=== PATIENT | female | born 1940 | race Caucasian/White ===

== ENCOUNTER 2016-04-11 14:48 | Inpatient (IN) | payer OTHER ==
[~2016-04-11] VITALS: Ht 172.7 cm; Wt 106.5 kg
[~2016-04-11 14:48] MED LIST: AMLO-110 PO; ASPEC81 PO; ATEN-173 PO; ATEN50TA8 PO; ATOR-24 PO; CITA10TA8 PO; FERR1TAB13 PO; LISI-725 PO; LISI10TA PO; LXT PO; PLV75 PO; VTMD PO
[2016-04-11] MEDS ORDERED: SODIUM CHLORIDE 0.9% 500ML 500 ML IV STA (15:05)
[2016-04-11] MEDS ORDERED: DILTIAZEM HCL 5 MG/ML 5 ML VIAL IV STA (15:05)
--- NOTE | 2016-04-11 15:05 | EMERGENCY ROOM VISIT NOTE ---
History Report prepared by Jayna: Meli Ndiaye Under the Supervision of: Dr. Chano Silva D.O. First contact with patient: 14:52 Chief Complaint: STROKE SYMPTOMS Stated Complaint: CALLED IN,HAS HEART MONITOR, DEFIB Nursing Triage Summary: pt has heart monitor on called and told to come to ed has new onset of afib. History of Present Illness The patient is a 75 year old female who presents to the Emergency Room with complaints of possible stroke symptoms. She is accompanied by her . She reports she had a stroke this past January and was given an event monitor this past Tuesday, 6 days ago. She was called by a nurse at the [facility] this morning and told that Dr. Nunn, [facility] , was notified she had gone into atrial fibrillation and should come immediately to the ED. She admits to some shortness of breath but states it has been chronic for the past few months. She denies any chest pain or pain or increased swelling in her legs. She denies any recent changes to her medications but notes she did start new medications after her stroke in January 2016. The patient has a history of stage 3 kidney disease but denies any personal history of cancer or other cardiac history. Source of History: patient Onset: [employer] Position: other Timing: other (persistent) Associated Symptoms: + SOB, No chest pain Review of Systems See HPI for pertinent positives & negatives. A total of 10 systems reviewed and were otherwise negative. Past Medical & Surgical Medical Problems: (1) Atrial fibrillation with RVR (2) CKD (chronic kidney disease) stage 3, GFR 30-59 ml/min (3) Depression (4) Dyslipidemia (5) History of CVA (cerebrovascular accident) (6) HTN (hypertension) (7) Osteoporosis (8) Vitamin D deficiency Surgical Problems: (1) H/O cataract removal with insertion of prosthetic lens (2) History of appendectomy (3) History of tonsillectomy (4) History of total hysterectomy Social History Smoking Status: Never Smoker Drug Use: none Marital Status: Housing Status: lives with significant other Occupation Status: unemployed Current/Historical Medications Scheduled Amlodipine (Norvasc), 5 MG PO DAILY Atenolol (Tenormin), 25 MG PO QPM Atenolol (Tenormin), 50 MG PO QAM Atorvastatin (Lipitor), 40 MG PO DAILY Citalopram Hydrobromide (Celexa), 1 TAB PO DAILY Clopidogrel Bisulfate (Clopidogrel), 75 MG PO DAILY Ergocalciferol (Vitamin D), 50,000 UNITS PO WK Fish Oil ([place]-3), 1 CAP PO DAILY Lisinopril (Prinivil), 10 MG PO QPM Lisinopril (Zestril), 20 MG PO QAM Allergies Coded Allergies: No Known Allergies (Verified , 04/11/16) Physical Exam Vital Signs Date Time Temp Pulse Resp B/P Pulse Ox O2 Delivery O2 Flow Rate FiO2 04/11/16 15:10 119 04/11/16 14:59 Room Air 04/11/16 14:52 36.5 99 18 156/96 95 Room Air Physical Exam GENERAL: Patient is awake and alert, mildly anxious but comfortable appearing. EYES: The conjunctivae are clear. The pupils are round and reactive. EARS, NOSE, MOUTH AND THROAT: The nose is without any evidence of any deformity. Mucous membranes are moist tongue is midline NECK: The neck is nontender and supple. RESPIRATORY: Lung sounds are diminished at both bases, no specific rales, rhonchi or wheezing. CARDIOVASCULAR: Heart sounds are tachycardic and irregular, no definite murmurs to auscultation. GASTROINTESTINAL: The abdomen is soft. Bowel sounds are present in all quadrants. Abdomen is nontender MUSCULOSKELETAL/EXTREMITIES: There is no evidence of gross deformity full range of motion is noted in the hips and shoulders, pedal edema noted bilaterally SKIN: There is no obvious evidence of any rash. There are no petechiae, pallor or cyanosis noted. NEUROLOGIC: Patient is awake alert and oriented x3 Medical Decision & Procedures ER Provider Diagnostic Interpretation: This X-Ray was reviewed and interpreted by myself and the radiologist. CHEST ONE VIEW PORTABLE IMPRESSION: Above findings consistent with cardiomegaly and developing pulmonary edema. Electronically signed by: Joss Alcazar M.D. 04/11/2016 4:21 PM Laboratory Results 04/11/16 15:08 Red Blood Count 4.59, Mean Corpuscular Volume 93.9, Mean Corpuscular Hemoglobin 32.0, Mean Corpuscular Hemoglobin Concent 34.1, Mean Platelet Volume 8.7, Neutrophils (%) (Auto) 58.7, Lymphocytes (%) (Auto) 30.8, Monocytes (%) (Auto) 6.8, Eosinophils (%) (Auto) 3.4, Basophils (%) (Auto) 0.2, Neutrophils # (Auto) 5.07, Lymphocytes # (Auto) 2.66, Monocytes # (Auto) 0.59, Eosinophils # (Auto) 0.29, Basophils # (Auto) 0.02 04/11/16 15:08 Test 04/11/16 15:08 White Blood Count 8.64 K/uL (4.8-10.8) Red Blood Count 4.59 M/uL (4.2-5.4) Hemoglobin 14.7 g/dL (12.0-16.0) Hematocrit 43.1 % (37-47) Mean Corpuscular Volume 93.9 fL (80-100) Mean Corpuscular Hemoglobin 32.0 pg (25-34) Mean Corpuscular Hemoglobin Concent 34.1 g/dl (32-36) Platelet Count 268 K/uL (130-400) Mean Platelet Volume 8.7 fL (7.4-10.4) Neutrophils (%) (Auto) 58.7 % Lymphocytes (%) (Auto) 30.8 % Monocytes (%) (Auto) 6.8 % Eosinophils (%) (Auto) 3.4 % Basophils (%) (Auto) 0.2 % Neutrophils # (Auto) 5.07 K/uL (1.4-6.5) Lymphocytes # (Auto) 2.66 K/uL (1.2-3.4) Monocytes # (Auto) 0.59 K/uL (0.11-0.59) Eosinophils # (Auto) 0.29 K/uL (0-0.5) Basophils # (Auto) 0.02 K/uL (0-0.2) RDW Standard Deviation 45.6 fL (36.4-46.3) RDW Coefficient of Variation 13.3 % (11.5-14.5) Immature Granulocyte % (Auto) 0.1 % Immature Granulocyte # (Auto) 0.01 K/uL (0.00-0.02) Prothrombin Time 10.5 SECONDS (9.0-12.0) Prothromb Time International Ratio 1.0 (0.9-1.1) Activated Partial Thromboplast Time 28.1 SECONDS (21.0-31.0) Partial Thromboplastin Ratio 1.1 Anion Gap 11.0 mmol/L (3-11) Est Creatinine Clear Calc Drug Dose 41.3 ml/min Estimated GFR () 39.1 Estimated GFR (Non- 33.7 BUN/Creatinine Ratio 22.6 (10-20) Calcium Level 9.0 mg/dl (8.5-10.1) Magnesium Level 2.2 mg/dl (1.8-2.4) Total Bilirubin 0.3 mg/dl (0.2-1) Direct Bilirubin < 0.1 mg/dl (0-0.2) Aspartate Amino Transf (AST/SGOT) 21 U/L (15-37) Alanine Aminotransferase (ALT/SGPT) 29 U/L (12-78) Alkaline Phosphatase 83 U/L (45-117) Total Creatine Kinase 105 U/L (26-192) Creatine Kinase MB 3.8 ng/ml (0.5-3.6) Creatine Kinase MB Ratio 3.6 (0-3.0) Troponin I < 0.015 ng/ml (0-0.045) Total Protein 8.2 gm/dl (6.4-8.2) Albumin 4.2 gm/dl (3.4-5.0) Lipase 490 U/L (73-393) Thyroid Stimulating Hormone (TSH) 5.080 uIu/ml (0.300-4.500) Free Thyroxine 0.85 ng/dl (0.80-1.60) Laboratory results per my review. Medications Administered Medications (Trade) Dose Ordered Sig/Venancio Route Start Time Stop Time Status Last Admin Dose Admin Sodium Chloride (Nss 500ml) 500 ml @ 999 mls/hr Q31M STAT IV 04/11/16 15:05 04/11/16 15:35 DC 04/11/16 15:31 999 MLS/HR Diltiazem HCl (Cardizem Inj) 20 mg NOW STAT IV 04/11/16 15:05 04/11/16 15:06 DC 04/11/16 15:33 20 MG Heparin Sodium (Porcine) (Heparin Sq 5000 Unit/0.5ml) 10,000 unit STK-MED ONCE .ROUTE 04/11/16 15:21 04/11/16 15:22 DC 04/11/16 15:32 6,000 UNIT Heparin Sodium/ Dextrose (Heparin 25,000 Unit/500ml D5W) 25,000 unit STK-MED ONCE .ROUTE 04/11/16 15:21 04/11/16 15:22 DC 04/11/16 15:32 25,000 UNIT ECG Indication: palpitations Rate (beats per minute): 114 Rhythm: atrial fibrillation Findings: RBBB, no ectopy Comparison ECG Date: Atrial fibrillation is new when compared to EKG from February 03, 2016 ED Course 1455: The patient was evaluated in room C12. A complete history and physical examination were performed. 1500: I discussed the patients case with Dr[facility] Hoang, [facility]. He recommends I administer Heparin and Cardizem. The patient will be further evaluated. 1505: Cardizem 20 mg IV, Heparin Sodium/Dextrose 1 ea IV, NSS 500 ml @ 999 mls/ hr IV. 1509: I discussed the patients case with Shanika Mackay PA-C, [facility] Hospitalist. The patient will be further evaluated. 1521: Heparin Sodium/Dextrose 25,000 unit IV, Porcine 10,000 unit IV. 1530: Heparin Sodium/Dextrose 1 ea IV. Medical Decision Prior records/ancillary studies reviewed. Triage Nursing notes reviewed. The patient's history was concerning for palpitations. Differential diagnosis: Etiologies such as premature contractions, electrolyte abnormality, cardiac dysrhythmia, thyroid dysfunction, pulmonary embolism, infection, gastrointestinal, as well as others were entertained. The patient is a 75-year-old female who presented to the emergency department for an evaluation of palpitations. 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 At that time she was not found have any dysrhythmia. She had some lesions noted in her carotids but nothing that would require intervention at this time. The patient had a monitor and was called today and told to come to the emergency department for atrial fibrillation. She arrived at the emergency apartment and was found to be in rapid atrial fibrillation. I discussed her case with the on-call [facility] cardiology group. They recommended that we start the patient on calcium channel cindi as well as IV heparin. I also discussed his case with the on-call [facility] hospitalist group. They have agreed to evaluate the patient in the emergency department for further management and disposition. Consults Time Called: [id number] Consulting Physician: Dr. Hoang [facility] Returned Call: 1500 I discussed the patients case with [facility]. He recommends I administer Heparin and Cardizem. The patient will be further evaluated. Additional Consults: Time Called: 1507 Consulted Physician: Shanika Mackay PA-C, [facility] Hospitalist Returned Call: [phone] Additional Comments: I discussed the patients case with Shanika Mackay PA-C, [facility] Hospitalist. The patient will be further evaluated. Impression Primary Impression: New onset atrial fibrillation Additional Impressions: Atrial fibrillation with RVR Dyspnea on exertion Critical Care I have personally spent greater than 45 minutes of critical care time in the direct management of this patient. This includes bedside care, interpretation of diagnostic studies, and testing, discussion with consultants, patient, and family members, and other required patient management activities. This 45 minutes is in excess of all separately billable procedures. Scribe Attestation The scribe's documentation has been prepared under my direction and personally reviewed by me in its entirety. I confirm that the note above accurately reflects all work, treatment, procedures, and medical decision making performed by me. Departure Information Dispostion Being Evaluated By Hospitalist Awais Dsouza M.D. (PCP) Patient Instructions [facility] Problem Qualifiers
[2016-04-11] MEDS ORDERED: HEPARIN SOD 5000 UNIT/0.5 ML CARP ONE (15:21)
[2016-04-11] MEDS ORDERED: HEPARIN 25000 UNIT/500 ML D5W ONE (15:21)
[2016-04-11 15:24] LABS: BASO % 0.2 %; BASO ABS # 0.02 K/uL (0-0.2); COMPLETE YES; EOS % 3.4 %; HEMATOCRIT 43.1 % (37-47); IG% 0.1 %; LYMPH % 30.8 %; LYMPH ABS # 2.66 K/uL (1.2-3.4); MEAN CELL VOLUME 93.9 fL (80-100); MEAN CORPUSCULAR HGB CONC 34.1 g/dl (32-36); MEAN PLATELET VOLUME 8.7 fL (7.4-10.4); MONO % 6.8 %; NEUT % 58.7 %; PLATELET COUNT 268 K/uL (130-400); RED BLOOD COUNT 4.59 M/uL (4.2-5.4); WHITE BLOOD COUNT 8.64 K/uL (4.8-10.8)
[2016-04-11 15:33] LABS: PARTIAL THROMBOPLASTIN RATIO 1.1; PROTHROMBIN TIME (PATIENT) 10.5 SECONDS (9.0-12.0)
[2016-04-11] MEDS ORDERED: OMEG10007 PO (15:42)
[2016-04-11 15:43] LABS: ALT/SGPT 29 U/L (12-78); AST/SGOT 21 U/L (15-37); BLOOD UREA NITROGEN 34 mg/dl (7-18); BUN/CREATININE RATIO 22.6 (10-20); CARBON DIOXIDE 23 mmol/L (21-32); CHLORIDE 106 mmol/L (98-107); GLUCOSE 87 mg/dl (70-99); MAGNESIUM 2.2 mg/dl (1.8-2.4); POTASSIUM 4.2 mmol/L (3.5-5.1); SODIUM 140 mmol/L (136-145)
[2016-04-11] MEDS: SODIUM CHLORIDE 0.9% 1000ML 1,000 ML IV SCH (15:45)
[2016-04-11] MEDS ORDERED: ONDANSETRON INJ 2 MG/ML 2 ML VIAL IV PRN (15:45)
[2016-04-11] MEDS ORDERED: NITROGLYCERIN 0.4 MG SL PER TAB CHARGE SL PRN (15:45)
[2016-04-11] MEDS ORDERED: ACETAMINOPHEN 325 MG TAB PO PRN (15:45)
[2016-04-11] MEDS ORDERED: DILTIAZEM BOLUS / DRIP IV STA (15:49)
[2016-04-11 15:52] LABS: ALKALINE PHOSPHATASE 83 U/L (45-117); CKMB/CK RATIO 3.6 (0-3.0)
[2016-04-11] MEDS ORDERED: DILTIAZEM HCL INJ 125 MG in DEXTROSE 5% 100ML IV PRN (16:00)
--- NOTE | 2016-04-11 16:22 | DIAGNOSTIC IMAGING REPORT ---
CHEST ONE VIEW PORTABLE HISTORY: palpitations COMPARISON: None. FINDINGS: There are low lung volumes. There is diffuse interstitial and vascular thickening suggestive of developing pulmonary edema. The heart is mildly enlarged. No pleural effusions. No pneumothorax. IMPRESSION: Above findings consistent with cardiomegaly and developing pulmonary edema. Electronically signed by: Joss Alcazar M.D. 04/11/2016 4:21 PM Dictated Date/Time: 04/11/2016 4:20 PM
--- NOTE | 2016-04-11 17:26 | History and Physical ---
History & Physical Date & Time of Service: Apr 11, 2016 at 17:07 Chief Complaint: Called In,Has Heart Monitor, Defib Primary Care Physician: Awais Pandya M.D. History of Present Illness Source: patient This is a 75 y/o female with PMHx of CKD stage 3, HTN, Dyslipidemia and other problems as outlined below who presents to the ED with Afib that began today. Pt reports that her neurologist, Dr. Charles placed her on a holter monitor 6 days ago to evaluate her heart for any arrhythmias that may have been the underlying cause for her CVA in January 2016. Pt reports that she received a call today from [employer] that her monitor was reading Afib and she was to go to the ED for further evaluation. Pt does mention that she has had some intermittent SOB that occurs at rest and with exertion. She SOB is assoc with mild lightheadedness/dizziness. Pt has also had watery but non-bloody diarrhea for the past couple days. Pt denies diaphoresis, chest pain, palpitations, syncope, abd pain, N/V, bladder issues, LE edema, calf pain. In the ED, pt is tachy on arrival. Pt is afebrile with no leukocytosis. creat 1.5. TSH>5. Pt is stable and will be admitted for further evaluation and treatment. Past Medical/Surgical History Medical Problems: (1) CKD (chronic kidney disease) stage 3, GFR 30-59 ml/min Status: Chronic (2) Depression Status: Chronic (3) Dyslipidemia Status: Chronic (4) History of CVA (cerebrovascular accident) Status: Resolved (5) HTN (hypertension) Status: Chronic (6) Osteoporosis Status: Chronic (7) Vitamin D deficiency Status: Chronic Surgical Problems: (1) H/O cataract removal with insertion of prosthetic lens Status: Resolved (2) History of appendectomy Status: Resolved (3) History of tonsillectomy Status: Resolved (4) History of total hysterectomy Status: Resolved Social History Smoking Status: Never Smoker Alcohol Use: none Drug Use: none Marital Status: Housing status: lives with significant other Occupational Status: unemployed Immunizations History of Influenza Vaccine: Yes History of Tetanus Vaccine?: No History of Pneumococcal: No History of Hepatitis B Vaccine: No Multi-Drug Resistant Organisms History of MDRO: No Allergies Coded Allergies: No Known Allergies (Verified , 04/11/16) Home Medications Scheduled Amlodipine (Norvasc), 5 MG PO DAILY Atenolol (Tenormin), 25 MG PO QPM Atenolol (Tenormin), 50 MG PO QAM Atorvastatin (Lipitor), 40 MG PO DAILY Citalopram Hydrobromide (Celexa), 1 TAB PO DAILY Clopidogrel Bisulfate (Clopidogrel), 75 MG PO DAILY Ergocalciferol (Vitamin D), 50,000 UNITS PO WK Fish Oil ([place]-3), 1 CAP PO DAILY Lisinopril (Prinivil), 10 MG PO QPM Lisinopril (Zestril), 20 MG PO QAM Review of Systems Constitutional: No chills, No fatigue, No fever, No sweats, No weakness Eyes: No worsening of vision ENT: No hearing loss Respiratory: + dyspnea at rest, + dyspnea on exertion, + shortness of breath ( intermittent ), No cough Cardiovascular: No chest pain, No claudication, No edema, No palpitations Abdomen: No GI bleeding, No constipation, No diarrhea, No nausea, No pain, No vomiting Musculoskeletal: No calf pain, No swelling Genitourinary - Female: No dysuria Neurologic: No weakness Psychiatric: No depression symptoms Endocrine: No fatigue Hematologic / Lymphatic: No abnormal bleeding/bruising Integumentary: No new/changing skin lesions Physical Exam Vital Signs Date Time Temp Pulse Resp B/P Pulse Ox O2 Delivery O2 Flow Rate FiO2 04/11/16 16:23 101 20 134/98 96 Room Air 04/11/16 15:44 98 20 119/70 96 Room Air 04/11/16 15:10 119 04/11/16 14:59 Room Air 04/11/16 14:52 36.5 99 18 156/96 95 Room Air General Appearance: WD/WN, no apparent distress, + pertinent finding (Pt is laying in bed with at bedside ) Head: normocephalic, atraumatic Eyes: normal inspection ENT: hearing grossly normal Neck: supple Respiratory/Chest: chest non-tender, lungs clear, normal breath sounds, no respiratory distress Cardiovascular: no edema, no murmur, + tachycardia, + irregularly irregular Abdomen/GI: normal bowel sounds, non tender, soft Back: normal inspection Extremities/Musculoskelatal: normal inspection, no calf tenderness, + swelling (bilat LE edema L>R) Neurologic/Psych: alert, normal mood/affect, oriented x 3 Skin: normal color, warm/dry Diagnostics Laboratory Results Results Past 24 Hours Test 04/11/16 15:08 Range/Units White Blood Count 8.64 4.8-10.8 K/uL Red Blood Count 4.59 4.2-5.4 M/uL Hemoglobin 14.7 12.0-16.0 g/dL Hematocrit 43.1 37-47 % Mean Corpuscular Volume 93.9 80-100 fL Mean Corpuscular Hemoglobin 32.0 25-34 pg Mean Corpuscular Hemoglobin Concent 34.1 32-36 g/dl Platelet Count 268 130-400 K/uL Mean Platelet Volume 8.7 7.4-10.4 fL Neutrophils (%) (Auto) 58.7 % Lymphocytes (%) (Auto) 30.8 % Monocytes (%) (Auto) 6.8 % Eosinophils (%) (Auto) 3.4 % Basophils (%) (Auto) 0.2 % Neutrophils # (Auto) 5.07 1.4-6.5 K/uL Lymphocytes # (Auto) 2.66 1.2-3.4 K/uL Monocytes # (Auto) 0.59 0.11-0.59 K/uL Eosinophils # (Auto) 0.29 0-0.5 K/uL Basophils # (Auto) 0.02 0-0.2 K/uL RDW Standard Deviation 45.6 36.4-46.3 fL RDW Coefficient of Variation 13.3 11.5-14.5 % Immature Granulocyte % (Auto) 0.1 % Immature Granulocyte # (Auto) 0.01 0.00-0.02 K/uL Prothrombin Time 10.5 9.0-12.0 SECONDS Prothromb Time International Ratio 1.0 0.9-1.1 Activated Partial Thromboplast Time 28.1 21.0-31.0 SECONDS Partial Thromboplastin Ratio 1.1 Sodium Level 140 136-145 mmol/L Potassium Level 4.2 3.5-5.1 mmol/L Chloride Level 106 98-107 mmol/L Carbon Dioxide Level 23 21-32 mmol/L Anion Gap 11.0 3-11 mmol/L Blood Urea Nitrogen 34 7-18 mg/dl Creatinine 1.50 0.60-1.20 mg/dl Est Creatinine Clear Calc Drug Dose 41.3 ml/min Estimated GFR () 39.1 Estimated GFR (Non- 33.7 BUN/Creatinine Ratio 22.6 10-20 Random Glucose 87 70-99 mg/dl Calcium Level 9.0 8.5-10.1 mg/dl Magnesium Level 2.2 1.8-2.4 mg/dl Total Bilirubin 0.3 0.2-1 mg/dl Direct Bilirubin < 0.1 0-0.2 mg/dl Aspartate Amino Transf (AST/SGOT) 21 15-37 U/L Alanine Aminotransferase (ALT/SGPT) 29 12-78 U/L Alkaline Phosphatase 83 45-117 U/L Total Creatine Kinase 105 26-192 U/L Creatine Kinase MB 3.8 0.5-3.6 ng/ml Creatine Kinase MB Ratio 3.6 0-3.0 Troponin I < 0.015 0-0.045 ng/ml Total Protein 8.2 6.4-8.2 gm/dl Albumin 4.2 3.4-5.0 gm/dl Lipase 490 73-393 U/L Thyroid Stimulating Hormone (TSH) 5.080 0.300-4.500 uIu/ml Free Thyroxine 0.85 0.80-1.60 ng/dl Diagnostic Radiology CXR IMPRESSION: Above findings consistent with cardiomegaly and developing pulmonary edema. EKG EKG: Afib with RVR at 114 bpm with RBBB and T wave inversions in inferior and anterior leads; when compared to previous EKG from 02/03/16, afib has replaced sinus rhythm, ventricular rate has increased by 49 bpm and there are T wave inv in inferior and anterior leads Impression Assessment and Plan NEW ONSET AFIB WITH RVR -admit to telemetry -EKG Afib with RVR at 114 bpm; repeat EKG in AM -TSH >5 and magnesium WNL -start heparin and Cardizem drip -CHADS2 score is 4; will start anticoagulant likely Coumadin -obtain echo -consult cardiology, Dr. Hoang-pending input -continue to monitor ABHISHEK ON CKD STAGE 3 -creatinine 1.5 (bl=03/07); likely elevated due to dehydration from GI losses -cont gentle IVF -hold lisinopril -monitor with daily prp and avoid nephrotoxic agents when able DIARRHEA R/O BACTERIAL ETIOLOGY -5 episodes per day; watery but non-bloody -stool and C.diff cx-pending -cont IVF -monitor H/O CVA -January 2016; no residual deficits -cont Plavix DEPRESSION -cont Celexa HTN -stable -cont Norvasc and Atenolol -hold lisinopril due to elevated creatinine -monitor DYSLIPIDEMIA -cont statin DVT PROPHYLAXIS -IV heparin CODE STATUS -DNR per discussion with patient upon admission DISPO -Pt seen in collaboration with Dr. James. Please see his addendum for further details. Thanks! Attending addendum Pt was seen and examined. Agreed with Shanika's exam, assessment and plan. Pt was sent to the ER after getting a call from PCP that said her holter monitor showed that she is Afib. Lying in bed comfortable with daughter at bedside. Pt said that she feels fine. denies any chest pain, palpitation, dizziness and SOB. General- No acute distress Head- atraumatic Eyes- PERRL, EOMI ENT- oropharynx clear Neck- supple, no JVD Lungs- clear to auscultation and percussion Heart- regular rhythm; no murmur Abdomen- normal bowel sounds Extremities- no calf tenderness, +edema a/p New onset of Afib on holter monitor When i saw her in RM 240, her HR rate was well controlled and she was regular Cardizem drip did not start because her HR was in the 60 will repeat EKG continue heparin drip CHADS2 score is 4 Echo in am Cardiology consulted Will continue monitor in tele Lab, EKG, imaging reviewed by me. Please refer to Shanika's PA documentation for other problems. Azucena James MD VTE Prophylaxis VTE Risk Assessment Done? Y/N: Yes Risk Level: Moderate
[2016-04-11 18:16] VITALS: BP 142/76; PULSE 57; TEMP 36.7; O2SAT 93; Ht 172.7 cm; Wt 106.5 kg
[2016-04-11] MEDS ORDERED: LISINOPRIL 10 MG TAB PO SCH (21:00)
[2016-04-11 21:38] LABS: PARTIAL THROMBOPLASTIN RATIO 3.2
[2016-04-11] MEDS: HEPARIN 25,000 UNIT/500ML D5W 500 ML IV PRN (22:30)
[2016-04-11 23:51] VITALS: BP 124/76; PULSE 57; TEMP 36.9; O2SAT 92
[2016-04-12 03:50] VITALS: BP 124/74; PULSE 63; TEMP 36.3; O2SAT 97
[2016-04-12] MEDS: SODIUM CHLORIDE 0.9% 1000ML 1,000 ML IV SCH ×2 (04:15→07:28)
[2016-04-12 05:02] LABS: HEMATOCRIT 39.5 % (37-47); MEAN CELL VOLUME 93.6 fL (80-100); MEAN CORPUSCULAR HGB CONC 33.2 g/dl (32-36); MEAN PLATELET VOLUME 8.5 fL (7.4-10.4); PLATELET COUNT 232 K/uL (130-400); RED BLOOD COUNT 4.22 M/uL (4.2-5.4); WHITE BLOOD COUNT 8.25 K/uL (4.8-10.8)
[2016-04-12 05:20] LABS: BUN/CREATININE RATIO 22.7 (10-20); CALCIUM 8.5 mg/dl (8.5-10.1); CREATININE 1.3 mg/dl (0.60-1.20)
[2016-04-12 05:34] LABS: PARTIAL THROMBOPLASTIN RATIO 2.7
[2016-04-12 07:26] VITALS: BP 119/76; PULSE 65; TEMP 36.8; O2SAT 96
[2016-04-12] MEDS: HEPARIN 25,000 UNIT/500ML D5W 500 ML IV PRN (07:29)
[2016-04-12] MEDS ORDERED: ATORVASTATIN 40 MG TAB PO SCH (09:00)
[2016-04-12] MEDS ORDERED: AMLODIPINE BESYLATE 5 MG TAB PO SCH (09:00)
[2016-04-12] MEDS ORDERED: LISINOPRIL 20 MG TAB PO SCH (09:00)
[2016-04-12] MEDS ORDERED: OMEGA-3 (PURIFIED FISH OIL) 1 GM CAP PO SCH (09:00)
[2016-04-12] MEDS ORDERED: CITALOPRAM 20 MG TAB PO SCH (09:00)
[2016-04-12] MEDS ORDERED: CLOPIDOGREL BISULFATE 75 MG TAB PO SCH (09:00)
--- NOTE | 2016-04-12 10:39 | Cardiology Consultation ---
Cardiology Consultation Date of Consultation: Apr 12, 2016 Requesting Physician: Thmopson Attending Salesforce Specialist: Viktor (Abdi Crespo PA-C) History of Present Illness Ms. Pickard is a pleasant 75 year old female who is being seen at the request of Shanika Melendez PA-C/Dr. Azucena James M.D.. Reason for consultation: Atrial fibrillation with a rapid ventricular response. Ms. Pickard denies prior cardiac history. She notes hospitalization with aphasia and a right facial droop in January, left parietal region cortical infarct. Marked hypertension observed at that time with patient noting a longstanding history of hypertension. Asymptomatic moderate (50-69%) right internal carotid artery stenosis observed. Echo at that time demonstrated normal LV chamber size with mild concentric LVH, normal systolic function, EF 55 -60%. No cardiology consultation obtained. Neurology recommended a CardioNet monitor that was initially declined by insurance, placed 4-5 days ago per patient report. Ms. Pickard was at home yesterday when she was called by Dr. Nunn's Office and advised to present to the ER secondary to atrial fibrillation. Ms. Pickard notes no symptoms associated with the atrial fibrillation. She does have exertional dyspnea that has been ongoing since January, aided promptly by rest. No resting dyspnea. No nocturnal dyspnea, orthopnea, or PND. She denies chest pain or discomfort. She denies palpitations. She denies lightheadedness, dizziness, near syncope, or syncope. No fevers or chills. Upon presentation to the ER she was noted to be in atrial fibrillation with a rapid ventricular response. She was asymptomatic with the atrial fibrillation. She was seen by Dr. Silva and given 20 mg IV cardizem along with heparin. Around 16:40 there was conversion back to sinus bradycardia. She was not given the Cardizem drop and her home dose of atenolol has been held secondary to bradycardia. She is currently in sinus rhythm in the 70's. (Abdi Crespo PA-C) History Past Medical and Surgical History: CVA, January 2016. Hypertension Hypertensive heart disease Dyslipidemia Stage III chronic kidney disease Depression Osteoporosis Vitamin D deficiency Bilateral cataract extraction Appendectomy Tonsillectomy Total hysterectomy Social History: Lifelong nonsmoker. No alcohol. No illegal drug use. . 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 . Lives with a male friend in [place]. Family History: Father with an ME at 72. Mother following a fall at the age of 95. She had CAD and a pacemaker. Six siblings. One brother passed at 62 following a CVA. He had CAD and an aneurysm (location unknown). Sister with a pacemaker. (Abdi Crespo PA-C) Review Of Systems General: No fever or chills. HEENT: Glasses. Bilateral cataract extractions. No headache. No head trauma. Cardiovascular: CORCORAN. No chest pain. No palpitations. No orthopnea, PND, or orthopnea to accompany the lower extremity edema that accumulates throughout the day and resolves with elevation/overnight. Pulmonary: No hemoptysis. No sputum. Gastrointestinal: No nausea, vomiting, diarrhea, constipation, bloating, hematemesis, hematochezia, and abdominal pain. Skin: No rash. Musculoskeletal: Arthritis. Neurological: CVA. No history of seizures Complete review of systems is as stated above, negative, or noncontributory. (Abdi Crespo PA-C) Allergies Coded Allergies: No Known Allergies (Verified , 04/11/16) Medications Reported Home Medications Medications Dose Route/Sig Max Daily Dose Days Date Category Dose Instructions Mcgrew-3 (Fish Oil) 1 Ea Cap 1 Cap PO DAILY 04/11/16 Reported Lipitor (Atorvastatin Calcium) 40 Mg Tab 40 Mg PO DAILY 02/06/16 Reported Celexa (Citalopram Hydrobromide) 10 Mg Tab 1 Tab PO DAILY 30 02/03/16 Rx Clopidogrel (Clopidogrel Bisulfate) 75 Mg Tab 75 Mg PO DAILY 02/03/16 Rx Plavix and Aspirin for 3 months and then Plavix only to continue Tenormin (Atenolol) 50 Mg Tab 50 Mg PO QAM 02/01/16 Reported Tenormin (Atenolol) 25 Mg Tab 25 Mg PO QPM 02/01/16 Reported Zestril (Lisinopril) 20 Mg Tab 20 Mg PO QAM 02/01/16 Reported Prinivil (Lisinopril) 10 Mg Tab 10 Mg PO QPM 02/01/16 Reported Vitamin D (Ergocalciferol) 50,000 Interunit Cap 50,000 Units PO WK 02/01/16 Reported TAKE ON TUESDAY Norvasc (Amlodipine Besylate) 5 Mg Tab 5 Mg PO DAILY 02/01/16 Reported (Abdi Crespo PA-C) Physical Exam Vital Signs (Last 8hrs): Last 8 Hrs Date Time Temp Pulse Resp B/P Pulse Ox O2 Delivery O2 Flow Rate FiO2 04/12/16 07:30 Room Air 04/12/16 07:26 36.8 65 16 119/76 96 Room Air 04/12/16 04:00 Room Air 04/12/16 03:50 36.3 63 18 124/74 97 Room Air General Appearance: Alert and Oriented x3. NAD. Elevated BMI Head: Normocephalic Atraumatic. Eyes: PER, EOMI, conjunctiva and sclera clear Neck: Supple. Bilateral carotid bruits. No JVD. No HJD. Respiratory: Breath sounds clear to auscultation bilaterally. No w/r/r. Cardiovascular: RRR, 74 bpm. Soft systolic ejection murmur. No diastolic murmur. No rub. Abdomen: +BS. No abdominal bruits. Soft. Nontender. Extremities: Trivial edema. No cyanosis. No clubbing. Distal pulses 2/4 bilaterally. Neuro: No overt focal deficits. Psychiatric: Normal affect. (Abdi Crespo PA-C) Data Last 24 Hours Test 04/11/16 15:08 04/11/16 21:00 04/11/16 21:07 04/12/16 04:55 White Blood Count 8.64 K/uL 8.25 K/uL Red Blood Count 4.59 M/uL 4.22 M/uL Hemoglobin 14.7 g/dL 13.1 g/dL Hematocrit 43.1 % 39.5 % Mean Corpuscular Volume 93.9 fL 93.6 fL Mean Corpuscular Hemoglobin 32.0 pg 31.0 pg Mean Corpuscular Hemoglobin Concent 34.1 g/dl 33.2 g/dl Platelet Count 268 K/uL 232 K/uL Mean Platelet Volume 8.7 fL 8.5 fL Neutrophils (%) (Auto) 58.7 % Lymphocytes (%) (Auto) 30.8 % Monocytes (%) (Auto) 6.8 % Eosinophils (%) (Auto) 3.4 % Basophils (%) (Auto) 0.2 % Neutrophils # (Auto) 5.07 K/uL Lymphocytes # (Auto) 2.66 K/uL Monocytes # (Auto) 0.59 K/uL Eosinophils # (Auto) 0.29 K/uL Basophils # (Auto) 0.02 K/uL RDW Standard Deviation 45.6 fL 46.5 fL RDW Coefficient of Variation 13.3 % 13.5 % Immature Granulocyte % (Auto) 0.1 % Immature Granulocyte # (Auto) 0.01 K/uL Prothrombin Time 10.5 SECONDS Prothromb Time International Ratio 1.0 Activated Partial Thromboplast Time 28.1 SECONDS 84.0 SECONDS 69.2 SECONDS Partial Thromboplastin Ratio 1.1 3.2 2.7 Sodium Level 140 mmol/L 141 mmol/L Potassium Level 4.2 mmol/L 4.0 mmol/L Chloride Level 106 mmol/L 108 mmol/L Carbon Dioxide Level 23 mmol/L 23 mmol/L Anion Gap 11.0 mmol/L 10.0 mmol/L Blood Urea Nitrogen 34 mg/dl 29 mg/dl Creatinine 1.50 mg/dl 1.30 mg/dl Est Creatinine Clear Calc Drug Dose 41.3 ml/min 47.4 ml/min Estimated GFR () 39.1 46.5 Estimated GFR (Non- 33.7 40.1 BUN/Creatinine Ratio 22.6 22.7 Random Glucose 87 mg/dl 97 mg/dl Calcium Level 9.0 mg/dl 8.5 mg/dl Magnesium Level 2.2 mg/dl Total Bilirubin 0.3 mg/dl Direct Bilirubin < 0.1 mg/dl Aspartate Amino Transf (AST/SGOT) 21 U/L Alanine Aminotransferase (ALT/SGPT) 29 U/L Alkaline Phosphatase 83 U/L Total Creatine Kinase 105 U/L Creatine Kinase MB 3.8 ng/ml 2.7 ng/ml Creatine Kinase MB Ratio 3.6 Troponin I < 0.015 ng/ml < 0.015 ng/ml Total Protein 8.2 gm/dl Albumin 4.2 gm/dl Lipase 490 U/L Thyroid Stimulating Hormone (TSH) 5.080 uIu/ml Free Thyroxine 0.85 ng/dl Admission EKG dated and timed 11-APR-2016 @ 14:59:22: Atrial fibrillation with rapid ventricular response (118 bpm). Right bundle branch block. EKG dated and timed 05-FEB-2017 @ 17:07:41: Sinus bradycardia at 56 bpm. Right bundle branch block. When compared with ECG of 11-APR-2016 14:59, (unconfirmed) sinus rhythm has replaced atrial fibrillation. Vent. rate has decreased BY 58 BPM. EKG dated and timed 12-APR-2016 @ 06:31:32: Sinus bradycardia at 59 bpm. Right bundle branch block. Telemetry: Initially atrial fibrillation 100-120 bpm. Currently sinus in th 70' s. Bradycardia into the 40's. PVC's in singles. Echo: Pending. Creatinine clearance estimate by Cockcroft-Gault equation is 55-63 mL/min (F, 75 , Cr 1.3 to 1.5, Wt: 106.5 kg) Admission CXR with cardiomegaly and developing pulmonary edema as per Dr. Joss Alcazar M.D. (Abdi Crespo PA-C) Assessment & Plan Asymptomatic paroxysmal atrial fibrillation with a rapid ventricular response Borderline Tachy-Ihsan Syndrome CVA in January 2016. Hypertension, hypertensive heart disease CHADS2 Score 4/6 (HTN, age, CVA) Stage III chronic kidney disease Dyslipidemia RECOMMENDATIONS/PLAN: Discontinue Cardizem Discontinue Atenolol Discontinue clopidogrel. Discontinue OTC fish oils. Initiate Toprol XL 50 mg/day [place] antiarrhythmic therapy for symptomatic atrial fibrillation Heparin to Coumadin anticoagulation Await TTE interpretation Outpatient Lexiscan nuclear stress testing to assess exertional dyspnea given risk factors for underlying CAD Periodic ambulatory electrocardiography to assess for progression in conduction system disease. Probable future need for permanent pacemaker implantation discussed. Outpatient cardiology follow-up in the [place] [facility] (lives in [place]) (Abdi Crespo PA-C) Pt seen and examined with granddaughter at bedside, agree with findings and assessment as per Abdi Crespo PA-C. Pt feeling well. Pathophysiology and treatment options discussed, pt would prefer Pradaxa, risks and benefits discussed. Would d/c to home today after receiving first dose of pradaxa. BB changed to Toprol. My office will call to arrange f/u with me in 1 month. (Chandler Hoang D.OJanie)
--- NOTE | 2016-04-12 11:20 | ECHOCARDIOGRAM REPORT ---
*NOTICE TO RECEIVING DEMOCRAT AGENCY This information is strictly Confidential and protected under [place] law. [place] law prohibits you from making any further disclosure of this information unless further disclosure is expressly permitted by the written consent of the person to whom it pertains or is authorized by law. A general authorization for the release of medical or other information is not sufficient for this purpose. Hospital accepts no responsibility if the information is made available to any other person, INCLUDING THE PATIENT. Interpretation Summary * Name: DOUGLAS BURNHAM Study Date: 04/12/2016 08:14 AM BP: 119/76 mmHg * Patient Location: [facility] [place] HR: 65 * : 1940 (M/d/yyyy) Gender: Female Height: 68 in * Age: 75 yrs Ethnicity: CA Weight: 233 lb * Ordering Physician: Shanika Melendez * Performed By: Cherri Durbin RDCS * * Reason For Study: Atrial fibrillation * BSA: 2.2 m2 * -- Conclusions -- * No change compared to previous study of 02/02/16. * Normal LV chamber size with mild concentric LVH. * Normal LV systolic function, EF 55-60%. * No segmental left ventricular wall motion abnormalities are noted. * Grade I diastolic dysfunction. * Aortic valve sclerosis mild, without significant aortic valvular stenosis. Procedure Details * A complete two-dimensional transthoracic echocardiogram was performed (2D, M-mode, Doppler and color flow Doppler). Left Ventricle * The left ventricle is normal in size. * There is mild concentric left ventricular hypertrophy. * Ejection Fraction = 55-60%. * Left ventricular systolic function is normal. * No segmental left ventricular wall motion abnormalities are noted. * The left ventricular wall motion is normal. Right Ventricle * The right ventricular cavity size is normal (basal dimension <4.2 cm in right ventricular apical 4-chamber view). * The right ventricular systolic function is normal as assessed by tricuspid annular plane systolic excursion (TAPSE) (normal >1.5 cm). Atria * The left atrial size is normal. * Right atrial size is normal. * No ASD detected; PFO is not assessed. Mitral Valve * The mitral valve is normal in structure and function. Tricuspid Valve * The tricuspid valve is normal in structure and function. Aortic Valve * The aortic valve is trileaflet. * Aortic valve sclerosis mild, without significant aortic valvular stenosis. * There is no significant aortic regurgitation. Pulmonic Valve * The pulmonary valve is not well seen, but the Doppler examination is normal without significant regurgitation or stenosis. Great Vessels * The aortic root and proximal ascending aorta are normal sized. Pericardium/Pleural * There is no pericardial effusion. Left Ventricular Diastolic Function * Grade I diastolic dysfunction, (abnormal relaxation pattern). MMode 2D Measurements and Calculations IVSd 0.94 cm LVIDd 3.7 cm LVIDs 2.5 cm LVPWd 1.1 cm IVS/LVPW 0.84 FS 31.6 % EDV(Teich) 59.2 ml ESV(Teich) 23.4 ml EF(Teich) 60.4 % EDV(cubed) 51.8 ml ESV(cubed) 16.6 ml EF(cubed) 68.0 % LV mass(C)d 119.8 grams LV mass(C)dI 54.9 grams/m\S\2 SV(Teich) 35.7 ml SI(Teich) 16.4 ml/m\S\2 SV(cubed) 35.2 ml SI(cubed) 16.1 ml/m\S\2 Ao root diam 3.2 cm Ao root area 8.2 cm\S\2 ACS 2.4 cm LA dimension 3.5 cm asc Aorta Diam 3.2 cm LA/Ao 1.1 LVOT diam 2.0 cm LVOT area 3.1 cm\S\2 LVAd ap4 24.3 cm\S\2 LVLd ap4 7.2 cm EDV(MOD-sp4) 67.9 ml EDV(sp4-el) 69.6 ml LVAs ap4 13.7 cm\S\2 LVLs ap4 5.8 cm ESV(MOD-sp4) 26.7 ml ESV(sp4-el) 27.4 ml EF(MOD-sp4) 60.6 % EF(sp4-el) 60.6 % LVAd ap2 22.4 cm\S\2 LVLd ap2 7.1 cm EDV(MOD-sp2) 59.8 ml EDV(sp2-el) 59.9 ml LVAs ap2 13.3 cm\S\2 LVLs ap2 5.6 cm ESV(MOD-sp2) 27.0 ml ESV(sp2-el) 26.7 ml EF(MOD-sp2) 54.8 % EF(sp2-el) 55.4 % LVLd %diff -1.03 % EDV(MOD-bp) 63.5 ml LVLs %diff -3.96 % ESV(MOD-bp) 27.4 ml EF(MOD-bp) 56.9 % SV(MOD-sp4) 41.2 ml SI(MOD-sp4) 18.9 ml/m\S\2 SV(MOD-sp2) 32.8 ml SI(MOD-sp2) 15.0 ml/m\S\2 SV(MOD-bp) 36.1 ml SI(MOD-bp) 16.6 ml/m\S\2 SV(sp4-el) 42.2 ml SI(sp4-el) 19.3 ml/m\S\2 SV(sp2-el) 33.2 ml SI(sp2-el) 15.2 ml/m\S\2 Doppler Measurements and Calculations MV E max kayleen 91.1 cm/sec MV A max kayleen 77.6 cm/sec MV E/A 1.2 MV dec time 0.20 sec Ao V2 max 120.9 cm/sec Ao max PG 5.8 mmHg Ao max PG (full) 0.44 mmHg [place](V,A) 2.9 cm\S\2 [place](V,D) 2.9 cm\S\2 LV V1 max PG 5.4 mmHg LV V1 max 116.3 cm/sec PA V2 max 105.9 cm/sec PA max PG 4.5 mmHg PA acc slope 399.3 cm/sec\S\2 PA acc time 0.19 sec TR max kayleen 157.0 cm/sec PA pr(Accel) -8.50 mmHg
--- NOTE | 2016-04-12 11:53 | Progress Note ---
Medicine Progress Note Date & Time of Visit: Apr 12, 2016 at 11:30. Subjective Pt was seen and examined Sitting in bed very comfortable with no distress Pt said that she feels fine she denies any chest pain, palpitation, dizziness and SOB Objective Last 8 Hrs Date Time Temp Pulse Resp B/P Pulse Ox O2 Delivery O2 Flow Rate FiO2 04/12/16 07:30 Room Air 04/12/16 07:26 36.8 65 16 119/76 96 Room Air 04/12/16 04:00 Room Air 04/12/16 03:50 36.3 63 18 124/74 97 Room Air Physical Exam: General- no acute distress,very pleasant Head- atraumatic Eyes- PERRL, EOMI ENT- oropharynx clear Neck- supple, no JVD Lungs- clear to auscultation and percussion Heart- regular rhythm, + systolic murmur Abdomen- normal bowel sounds, soft Extremities- no calf tenderness Neuro- alert, oriented x 3; PERRL, EOMI; no facial palsy Skin- warm & dry Laboratory Results: Last 24 Hours Test 04/11/16 15:08 04/11/16 21:00 04/11/16 21:07 04/12/16 04:55 White Blood Count 8.64 K/uL 8.25 K/uL Red Blood Count 4.59 M/uL 4.22 M/uL Hemoglobin 14.7 g/dL 13.1 g/dL Hematocrit 43.1 % 39.5 % Mean Corpuscular Volume 93.9 fL 93.6 fL Mean Corpuscular Hemoglobin 32.0 pg 31.0 pg Mean Corpuscular Hemoglobin Concent 34.1 g/dl 33.2 g/dl Platelet Count 268 K/uL 232 K/uL Mean Platelet Volume 8.7 fL 8.5 fL Neutrophils (%) (Auto) 58.7 % Lymphocytes (%) (Auto) 30.8 % Monocytes (%) (Auto) 6.8 % Eosinophils (%) (Auto) 3.4 % Basophils (%) (Auto) 0.2 % Neutrophils # (Auto) 5.07 K/uL Lymphocytes # (Auto) 2.66 K/uL Monocytes # (Auto) 0.59 K/uL Eosinophils # (Auto) 0.29 K/uL Basophils # (Auto) 0.02 K/uL RDW Standard Deviation 45.6 fL 46.5 fL RDW Coefficient of Variation 13.3 % 13.5 % Immature Granulocyte % (Auto) 0.1 % Immature Granulocyte # (Auto) 0.01 K/uL Prothrombin Time 10.5 SECONDS Prothromb Time International Ratio 1.0 Activated Partial Thromboplast Time 28.1 SECONDS 84.0 SECONDS 69.2 SECONDS Partial Thromboplastin Ratio 1.1 3.2 2.7 Sodium Level 140 mmol/L 141 mmol/L Potassium Level 4.2 mmol/L 4.0 mmol/L Chloride Level 106 mmol/L 108 mmol/L Carbon Dioxide Level 23 mmol/L 23 mmol/L Anion Gap 11.0 mmol/L 10.0 mmol/L Blood Urea Nitrogen 34 mg/dl 29 mg/dl Creatinine 1.50 mg/dl 1.30 mg/dl Est Creatinine Clear Calc Drug Dose 41.3 ml/min 47.4 ml/min Estimated GFR () 39.1 46.5 Estimated GFR (Non- 33.7 40.1 BUN/Creatinine Ratio 22.6 22.7 Random Glucose 87 mg/dl 97 mg/dl Calcium Level 9.0 mg/dl 8.5 mg/dl Magnesium Level 2.2 mg/dl Total Bilirubin 0.3 mg/dl Direct Bilirubin < 0.1 mg/dl Aspartate Amino Transf (AST/SGOT) 21 U/L Alanine Aminotransferase (ALT/SGPT) 29 U/L Alkaline Phosphatase 83 U/L Total Creatine Kinase 105 U/L Creatine Kinase MB 3.8 ng/ml 2.7 ng/ml Creatine Kinase MB Ratio 3.6 Troponin I < 0.015 ng/ml < 0.015 ng/ml Total Protein 8.2 gm/dl Albumin 4.2 gm/dl Lipase 490 U/L Thyroid Stimulating Hormone (TSH) 5.080 uIu/ml Free Thyroxine 0.85 ng/dl Assessment & Plan NEW ONSET PAROXYSMAL AFIB WITH RVR Now back to sinus rhythm, rate control EKG this morning showed sinus bradycardia CHADS2 score is 4 On heparin drip, will transition to Pradaxa Cardiology on board recommended to change atenolol to toprol xl 50mg daily will discontinue clopidogrel, Cardizem, OTC fish oils Will need to get an outpatient lexiscan nuclear stress testing Periodic ambulatory EKG May need pacemaker in the future if tachy-anny syndrome persists Outpatient cardiology follow-up in the [place] [facility] Echo done today: No change compared to previous study of 02/02/16. * Normal LV chamber size with mild concentric LVH. * Normal LV systolic function, EF 55-60%. * No segmental left ventricular wall motion abnormalities are noted. * Grade I diastolic dysfunction. * Aortic valve sclerosis mild, without significant aortic valvular stenosis. ABHISHEK ON CKD STAGE 3 -creatinine on admission 1.5 -possible related to dehydration from diarrhea -Today creatine 1.3 -continue holding lisinopril for today -avoid nephrotoxic agents DIARRHEA R/O BACTERIAL ETIOLOGY -cont IVF Resolved ELEVATED TSH No symptoms of hypothyroidism recheck TSH as an outpatient H/O CVA -January 2016; no residual deficits -Will d/c Plavix, since pt will be starting on Pradaxa to minimize the risk of bleeding DEPRESSION -cont Celexa HTN -stable -cont Norvasc and Atenolol -hold lisinopril due to elevated creatinine today DYSLIPIDEMIA -cont statin DVT PROPHYLAXIS -IV heparin drip/ will transition to Pradaxa CODE STATUS DNR DISPOSITION will discharge today Outpatient cardiology follow-up in 1 month Consultants: Cardiology Current Inpatient Medications: Current Inpatient Medications Medications (Trade) Dose Ordered Sig/Venancio Route Start Time Stop Time Status Last Admin Dose Admin Acetaminophen (Tylenol Tab) 650 mg Q4H PRN PO 04/11/16 15:45 05/11/16 15:44 Ondansetron HCl (Zofran Inj) 4 mg Q6H PRN IV 04/11/16 15:45 05/11/16 15:44 Nitroglycerin (Nitrostat Tab) 0.4 mg UD PRN SL 04/11/16 15:45 05/11/16 15:44 Amlodipine Besylate (Norvasc Tab) 5 mg DAILY PO 04/12/16 09:00 05/12/16 08:59 04/12/16 08:40 5 MG Atorvastatin Calcium (Lipitor Tab) 40 mg DAILY PO 04/12/16 09:00 05/12/16 08:59 04/12/16 08:39 40 MG Citalopram Hydrobromide (celeXA TAB) 10 mg DAILY PO 04/12/16 09:00 05/12/16 08:59 04/12/16 08:40 10 MG Ergocalciferol (Vitamin D Cap) 50,000 interunit Tu@0900 PO 04/13/16 09:00 05/13/16 08:59 Lisinopril (Zestril Tab) 10 mg QPM PO 04/11/16 21:00 05/11/16 20:59 Future Hold Lisinopril 20 mg 20 mg QAM PO 04/12/16 09:00 05/12/16 08:59 Future Hold Heparin Sodium/ Dextrose 500 ml @ 26 mls/hr [id number] PRN IV 04/11/16 15:45 05/11/16 15:44 04/12/16 07:29 26 MLS/HR Sodium Chloride (Nss 1000ml) 1,000 ml @ 80 mls/hr [id number] IV 04/11/16 15:45 05/11/16 15:44 04/12/16 07:28 80 MLS/HR Metoprolol Succinate (Toprol Xl Tab) 50 mg QAM PO 04/13/16 09:00 05/13/16 08:59 Warfarin Sodium (Coumadin Tab) 5 mg DAILY@16 PO 04/12/16 16:00 05/12/16 15:59
[2016-04-12 12:11] VITALS: BP 156/85; PULSE 66; TEMP 36.5; O2SAT 90
[2016-04-12] MEDS ORDERED: DABIGATRAN ELEXILATE 75 MG CAP PO ONE (14:47)
[2016-04-12] MEDS ORDERED: PRD150 PO (15:03)
[2016-04-12] MEDS ORDERED: TPRSR50 PO (15:03)
--- NOTE | 2016-04-12 15:19 | Discharge Instructions ---
Discharge Instructions Admission Reason for Admission: Atrial Fibrillation With Rvr Discharge Discharge Diagnosis / Problem: Paroxysmal AFIB, ABHISHEK ON CKD STAGE 3, Abnormal TSH, Hypertension Discharge Goals Goal(s): Decrease discomfort, Improve function, Improve disease control Activity Recommendations Activity Limitations: resume your previous activity (as tolerated) . Instructions / Follow-Up Instructions / Follow-Up Follow up appointment with your Primary care provider Dr. Pandya on Apr 16 @ 12:50 Follow up appointment with cardiology in 1 month ( cardiology office will call you to schedule the appointment) Pradaxa was started. It is a blood thinner. If you see any blood in your urine or stool or any abnormal bleeding, you need to notify your physician immediately Will give you the first dose of Pradaxa before discharge Avoid any fall or trauma Monitor BMP Stop the Plavix Current Hospital Diet Patient's current hospital diet: Regular Diet Discharge Diet Recommended Diet: AHA Diet (Heart Healthy) Pending Studies Studies pending at discharge: no Laboratory Results Hemoglobin A1c Test 02/01/16 16:38 Range/Units Estimated Average Glucose 117 mg/dl Hemoglobin A1c 5.7 H 4.5-5.6 % Lipid Panel Test 02/02/16 07:10 Range/Units Triglycerides Level 339 H 0-150 mg/dl Cholesterol Level 174 0-200 mg/dl HDL Cholesterol 38 mg/dl Cholesterol/HDL Ratio 4.6 LDL Cholesterol, Calculated 68 mg/dl Medical Emergencies . Who to Call and When: Medical Emergencies: If at any time you feel your situation is an emergency, please call 911 immediately. . Non-Emergent Contact Non-Emergency issues call your: Primary Care Provider Call Non-Emergent contact if: you have any medication questions . . "Provider Documentation" section prepared by Azucena James. VTE Core Measure Inpt VTE Proph given/why not?: Other Anticoagulation (heparin drip/pradaxa)
[2016-04-12 15:40] VITALS: BP 156/85; PULSE 66; TEMP 36.5; O2SAT 90
[2016-04-12] MEDS ORDERED: WARFARIN SOD 5 MG TAB PO SCH (16:00)
[2016-04-12] MEDS ORDERED: DABIGATRAN ELEXILATE 75 MG CAP PO SCH (23:00)
[2016-04-13] MEDS ORDERED: ERGOCALCIFEROL 50,000 INTER.UNIT CAP PO SCH (09:00)
[2016-04-13] MEDS ORDERED: METOPROLOL SUCC 50MG EXT REL TAB PO SCH (09:00)
--- NOTE | 2016-04-15 10:06 | Discharge Summary ---
Discharge Summary Admission Date: Apr 11, 2016 at 15:39 Discharge Date: Apr 12, 2016 Discharge Disposition: Home Principal Diagnosis: NEW ONSET PAROXYSMAL AFIB WITH RVR Secondary Diagnoses/Problems: ABHISHEK ON CKD STAGE 3 DIARRHEA R/O BACTERIAL ETIOLOGY ELEVATED TSH H/O CVA HTN DYSLIPIDEMIA DEPRESSION Procedures: ECHO Interpretation Summary * Name: DOUGLAS BURNHAM Study Date: 04/12/2016 08:14 AM BP: 119/76 mmHg * Patient Location: [facility] HR: 65 * : 1940 (M/d/yyyy) Gender: Female Height: 68 in * Age: 75 yrs Ethnicity: [place] Weight: 233 lb * Ordering Physician: Shanika Melendez * Performed By: Cherri Durbin RDCS * * Reason For Study: Atrial fibrillation * BSA: 2.2 m2 * -- Conclusions -- * No change compared to previous study of 02/02/16. * Normal LV chamber size with mild concentric LVH. * Normal LV systolic function, EF 55-60%. * No segmental left ventricular wall motion abnormalities are noted. * Grade I diastolic dysfunction. * Aortic valve sclerosis mild, without significant aortic valvular stenosis. Procedure Details * A complete two-dimensional transthoracic echocardiogram was performed (2D, M-mode, Doppler and color flow Doppler). Left Ventricle * The left ventricle is normal in size. * There is mild concentric left ventricular hypertrophy. * Ejection Fraction = 55-60%. * Left ventricular systolic function is normal. * No segmental left ventricular wall motion abnormalities are noted. * The left ventricular wall motion is normal. Right Ventricle * The right ventricular cavity size is normal (basal dimension <4.2 cm in right ventricular apical 4-chamber view). * The right ventricular systolic function is normal as assessed by tricuspid annular plane systolic excursion (TAPSE) (normal >1.5 cm). Atria * The left atrial size is normal. * Right atrial size is normal. * No ASD detected; PFO is not assessed. Mitral Valve * The mitral valve is normal in structure and function. Tricuspid Valve * The tricuspid valve is normal in structure and function. Aortic Valve * The aortic valve is trileaflet. * Aortic valve sclerosis mild, without significant aortic valvular stenosis. * There is no significant aortic regurgitation. Pulmonic Valve * The pulmonary valve is not well seen, but the Doppler examination is normal without significant regurgitation or stenosis. Great Vessels * The aortic root and proximal ascending aorta are normal sized. Pericardium/Pleural * There is no pericardial effusion. Left Ventricular Diastolic Function * Grade I diastolic dysfunction, (abnormal relaxation pattern). Consultations: Cardiology Medication Reconciliation New Medications: Dabigatran Elexilate (Pradaxa) 150 Mg Cap 150 MG PO BID for 30 Days, #60 Metoprolol Succinate (Metoprolol Succinate ER) 50 Mg Tabcr 50 MG PO QAM for 30 Days Continued Medications: Amlodipine (Norvasc) 5 Mg Tab 5 MG PO DAILY, TAB Atorvastatin (Lipitor) 40 Mg Tab 40 MG PO DAILY, TAB Citalopram Hydrobromide (Celexa) 10 Mg Tab 1 TAB PO DAILY for 30 Days, #30 TAB 0 Refills Ergocalciferol (Vitamin D) 50,000 Interunit Cap 63913 UNITS PO WK TAKE ON TUESDAY Lisinopril (Prinivil) 10 Mg Tab 10 MG PO QPM, TAB Lisinopril (Zestril) 20 Mg Tab 20 MG PO QAM, TAB Discontinued Medications: Atenolol (Tenormin) 25 Mg Tab 25 MG PO QPM, TAB Atenolol (Tenormin) 50 Mg Tab 50 MG PO QAM, TAB Clopidogrel Bisulfate (Clopidogrel) 75 Mg Tab 75 MG PO DAILY for 30 Days, #30 TAB Plavix and Aspirin for 3 months and then Plavix only to continue Fish Oil ([place]-3) 1 Ea Cap 1 CAP PO DAILY, CAP Admission Information HPI (per Admitting provider): This is a 75 y/o female with PMHx of CKD stage 3, HTN, Dyslipidemia and other problems as outlined below who presents to the ED with Afib that began today. Pt reports that her neurologist, Dr. Charles placed her on a holter monitor 6 days ago to evaluate her heart for any arrhythmias that may have been the underlying cause for her CVA in January 2016. Pt reports that she received a call today from [facility] that her monitor was reading Afib and she was to go to the ED for further evaluation. Pt does mention that she has had some intermittent SOB that occurs at rest and with exertion. She SOB is assoc with mild lightheadedness/dizziness. Pt has also had watery but non-bloody diarrhea for the past couple days. Pt denies diaphoresis, chest pain, palpitations, syncope, abd pain, N/V, bladder issues, LE edema, calf pain. In the ED, pt is tachy on arrival. Pt is afebrile with no leukocytosis. creat 1.5. TSH>5. Pt is stable and will be admitted for further evaluation and treatment. Physical Exam (per Admitting): General Appearance: WD/WN, no apparent distress, + pertinent finding (Pt is laying in bed with at bedside ) Head: normocephalic, atraumatic Eyes: normal inspection ENT: hearing grossly normal Neck: supple Respiratory/Chest: chest non-tender, lungs clear, normal breath sounds, no respiratory distress Cardiovascular: no edema, no murmur, + tachycardia, + irregularly irregular Abdomen/GI: normal bowel sounds, non tender, soft Back: normal inspection Extremities/Musculoskelatal: normal inspection, no calf tenderness, + swelling (bilat LE edema L>R) Neurologic/Psych: alert, normal mood/affect, oriented x 3 Skin: normal color, warm/dry Hospital Course NEW ONSET PAROXYSMAL AFIB WITH RVR Now back to sinus rhythm, rate control EKG this morning showed sinus bradycardia CHADS2 score is 4 On heparin drip, will transition to Pradaxa Cardiology on board recommended to change atenolol to toprol xl 50mg daily will discontinue clopidogrel, Cardizem, OTC fish oils Will need to get an outpatient lexiscan nuclear stress testing Periodic ambulatory EKG May need pacemaker in the future 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 * Normal LV chamber size with mild concentric LVH. * Normal LV systolic function, EF 55-60%. * No segmental left ventricular wall motion abnormalities are noted. * Grade I diastolic dysfunction. * Aortic valve sclerosis mild, without significant aortic valvular stenosis. ABHISHEK ON CKD STAGE 3 -creatinine on admission 1.5 -possible related to dehydration from diarrhea -Today creatine 1.3 -continue holding lisinopril for today -avoid nephrotoxic agents DIARRHEA R/O BACTERIAL ETIOLOGY -cont IVF Resolved ELEVATED TSH No symptoms of hypothyroidism recheck TSH as an outpatient H/O CVA -January 2016; no residual deficits -Will d/c Plavix, since pt will be starting on Pradaxa to minimize the risk of bleeding DEPRESSION -cont Celexa HTN -stable -cont Norvasc and Atenolol -hold lisinopril due to elevated creatinine today DYSLIPIDEMIA -cont statin DVT PROPHYLAXIS -IV heparin drip/ will transition to Pradaxa CODE STATUS DNR DISPOSITION will discharge today Outpatient cardiology follow-up in 1 month Total time spent on discharge = 35 MINUTES This includes examination of the patient, discharge planning, medication reconciliation, and communication with other providers. Discharge Instructions Discharge Instructions Admission Reason for Admission: Atrial Fibrillation With Rvr Discharge Discharge Diagnosis / Problem: Paroxysmal AFIB, ABHISHEK ON CKD STAGE 3, Abnormal TSH, Hypertension Discharge Goals Goal(s): Decrease discomfort, Improve function, Improve disease control Activity Recommendations Activity Limitations: resume your previous activity (as tolerated) . Instructions / Follow-Up Instructions / Follow-Up Follow up appointment with your Primary care provider Dr. Pandya on Apr 16 @ 12:50 Follow up appointment with cardiology in 1 month ( cardiology office will call you to schedule the appointment) Pradaxa was started. It is a blood thinner. If you see any blood in your urine or stool or any abnormal bleeding, you need to notify your physician immediately Will give you the first dose of Pradaxa before discharge Avoid any fall or trauma Monitor BMP Stop the Plavix Current Hospital Diet Patient's current hospital diet: Regular Diet Discharge Diet Recommended Diet: AHA Diet (Heart Healthy) Pending Studies Studies pending at discharge: no Laboratory Results Hemoglobin A1c Test 02/01/16 16:38 Range/Units Estimated Average Glucose 117 mg/dl Hemoglobin A1c 5.7 H 4.5-5.6 % Lipid Panel Test 02/02/16 07:10 Range/Units Triglycerides Level 339 H 0-150 mg/dl Cholesterol Level 174 0-200 mg/dl HDL Cholesterol 38 mg/dl Cholesterol/HDL Ratio 4.6 LDL Cholesterol, Calculated 68 mg/dl Medical Emergencies . Who to Call and When: Medical Emergencies: If at any time you feel your situation is an emergency, please call 911 immediately. . Non-Emergent Contact Non-Emergency issues call your: Primary Care Provider Call Non-Emergent contact if: you have any medication questions . . "Provider Documentation" section prepared by Azucena James. VTE Core Measure Inpt VTE Proph given/why not?: Other Anticoagulation (heparin drip/pradaxa) Additional Copies To Awais Pandya M.D.
[2016-04-26] MEDS ORDERED: CRD200 PO (17:04)
[2016-04-26] MEDS ORDERED: NRV5 PO (17:04)
== END 2016-04-12 16:01 | disposition home or self-care (01) | DRG 309 ==
LOC: ENRESERVTM → ENRESERVDT → C.EDB 14:49 → C.2T 15:39
PROVIDERS: ADMIT Internal Medicine; ATTEND Internal Medicine
DX: I48.0 Paroxysmal atrial fibrillation (principal); N17.9 Acute kidney failure, unspecified; I13.10 Hypertensive heart and chronic kidney disease without heart failure, with stage 1 through stage 4 chronic kidney disease, or unspecified chronic kidney disease; I49.5 Sick sinus syndrome; R06.00 Dyspnea, unspecified; R19.7 Diarrhea, unspecified; E86.0 Dehydration; R94.6 Abnormal results of thyroid function studies; N18.3 Chronic kidney disease, stage 3 (moderate); E78.5 Hyperlipidemia, unspecified; E55.9 Vitamin D deficiency, unspecified; M81.0 Age-related osteoporosis without current pathological fracture; F32.9 Major depressive disorder, single episode, unspecified; Z66 Do not resuscitate; Z86.73 Personal history of transient ischemic attack (TIA), and cerebral infarction without residual deficits; Z79.02 Long term (current) use of antithrombotics/antiplatelets; Z79.899 Other long term (current) drug therapy; Z82.49 Family history of ischemic heart disease and other diseases of the circulatory system

== ENCOUNTER 2016-04-22 09:49 | Inpatient (IN) | payer OTHER ==
[~2016-04-22] VITALS: Ht 172.7 cm; Wt 103.7 kg
[~2016-04-22 09:49] MED LIST changes: -ASPEC81 PO; -ATEN-173 PO; -ATEN50TA8 PO; -FERR1TAB13 PO; -LXT PO; -PLV75 PO; +PRD150 PO; +TPRSR50 PO
[2016-04-22] MEDS ORDERED: SODIUM CHLORIDE 0.9% 500ML 500 ML IV STA (10:15)
[2016-04-22] MEDS ORDERED: METOPROLOL TARTRATE 1 MG/ML VIAL IV STA ×3 (10:15→11:51)
--- NOTE | 2016-04-22 10:20 | EMERGENCY ROOM VISIT NOTE ---
History Report prepared by Jayna: Basia Yepez Under the Supervision of: Dr. Jourdan Santa M.D. First contact with patient: 10:08 Chief Complaint: TACHYCARDIA Stated Complaint: HEART POUNDING, SOB Nursing Triage Summary: Triage Note: Pt ambulatory to triage. pt reports she was seen in ED and admitted last week for a-fib. pt reports she noticed her pulse was high this morning at home 130. pt reports she feels short of breath and light headed. History of Present Illness The patient is a 75 year old female who presents to the Emergency Room with complaints of persistent tachycardia that began this morning at 0600. She currently rates her discomfort as a 2/10 in severity. The patient states that she has a history of atrial fibrillation, noting that she was evaluated in the hospital for it last week. She states that this morning she woke up with her heart racing at 0600. The patient additionally associates shortness of breath, lightheadedness, and left arm numbness with her symptoms today. She denies any chest pain, abdominal pain, loss of consciousness, nausea, recent injuries, or recent falls. The patient states that when she was discharged she was not in atrial fibrillation. Per records the patient is on Pradaxa as a blood thinner, Metoprolol for rate control, and Lisinopril for her blood pressure. Source of History: patient Onset: 0600 this morning Position: other (global) Symptom Intensity: 2/10 Quality: other (tachycardia) Timing: other (persistent) Associated Symptoms: + SOB, + numbness (left arm), No LOC, No abdominal pain , No chest pain, No nausea Note: Associated Symptoms: lightheadedness. Review of Systems See HPI for pertinent positives & negatives. A total of 10 systems reviewed and were otherwise negative. Past Medical & Surgical Medical Problems: (1) Atrial fibrillation with RVR (2) CKD (chronic kidney disease) stage 3, GFR 30-59 ml/min (3) Depression (4) Dyslipidemia (5) History of CVA (cerebrovascular accident) (6) HTN (hypertension) (7) Osteoporosis (8) Vitamin D deficiency Surgical Problems: (1) H/O cataract removal with insertion of prosthetic lens (2) History of appendectomy (3) History of tonsillectomy (4) History of total hysterectomy Family History Diabetes mellitus FH: CAD (coronary artery disease) Hypertension Stroke Social History Smoking Status: Never Smoker Drug Use: none Marital Status: Housing Status: lives with significant other Occupation Status: unemployed Current/Historical Medications Scheduled Amlodipine (Norvasc), 5 MG PO DAILY Atorvastatin (Lipitor), 40 MG PO DAILY Citalopram Hydrobromide (Celexa), 1 TAB PO DAILY Dabigatran Elexilate (Pradaxa), 150 MG PO BID Ergocalciferol (Vitamin D), 50,000 UNITS PO WK Lisinopril (Prinivil), 10 MG PO QPM Lisinopril (Zestril), 20 MG PO QAM Metoprolol Succinate (Metoprolol Succinate ER), 50 MG PO QAM Allergies Coded Allergies: No Known Allergies (Verified , 04/22/16) Physical Exam Vital Signs Date Time Temp Pulse Resp B/P Pulse Ox O2 Delivery O2 Flow Rate FiO2 04/22/16 12:12 130 150/120 04/22/16 11:45 114 20 165/105 97 Room Air 04/22/16 11:11 124 20 134/97 98 Room Air 04/22/16 11:07 110 153/124 04/22/16 10:38 120 16 141/94 95 Room Air 04/22/16 10:34 142 126/90 04/22/16 10:32 142 17 126/90 96 Room Air 04/22/16 10:20 Room Air 04/22/16 10:15 132 04/22/16 10:01 37.0 124 20 114/77 97 Room Air Physical Exam GENERAL: Patient is in mild distress, anxious appearing. HEENT: No acute trauma, normocephalic atraumatic, mucous membranes moist, no nasal congestion, no scleral icterus. NECK: No stridor, no adenopathy, no meningismus, trachea is midline. LUNGS: No dyspnea. Clear to auscultation and equal bilaterally. No wheeze, no rhonchi. HEART: Tachycardic rate and irregular rhythm. ABDOMEN: Soft, nontender, bowel sounds positive, no masses appreciated, no peritonitis. BACK: No midline tenderness, no CVA tenderness EXTREMITIES: Normal motion all extremities, no cyanosis, no edema. NEUROLOGIC: Alert and oriented, no acute motor or sensory deficits, no focal weakness, cranial nerves grossly intact. SKIN: No rash, no jaundice, no diaphoresis. Medical Decision & Procedures ER Provider Diagnostic Interpretation: X ray results are stated below per my interpretation and the radiologist's interpretation. CHEST ONE VIEW PORTABLE CLINICAL HISTORY: Atrial fibrillation. COMPARISON STUDY: Chest radiograph April 11, 2016. FINDINGS: Elevation of the right hemidiaphragm is unchanged. There is no pneumothorax or pleural effusion. No consolidation is identified. Mild cardiomegaly is unchanged. There is pulmonary vascular congestion without overt pulmonary edema. Mild bibasilar opacities are present. IMPRESSION: 1. Stable cardiomegaly. No evidence of overt pulmonary edema. 2. Mild bibasilar opacities. Atelectasis is favored although consolidation could appear similar. Electronically signed by: Rock Edmonds M.D. 04/22/2016 12:47 PM Dictated Date/Time: 04/22/2016 12:46 PM Laboratory Results 04/22/16 09:25 Red Blood Count 4.50, Mean Corpuscular Volume 93.6, Mean Corpuscular Hemoglobin 31.8, Mean Corpuscular Hemoglobin Concent 34.0, Mean Platelet Volume 8.4, Neutrophils (%) (Auto) 65.1, Lymphocytes (%) (Auto) 21.3, Monocytes (%) (Auto) 9.3, Eosinophils (%) (Auto) 3.6, Basophils (%) (Auto) 0.3, Neutrophils # (Auto) 4.84, Lymphocytes # (Auto) 1.58, Monocytes # (Auto) 0.69, Eosinophils # (Auto) 0.27, Basophils # (Auto) 0.02 04/22/16 09:25 Test 04/22/16 09:25 White Blood Count 7.43 K/uL (4.8-10.8) Red Blood Count 4.50 M/uL (4.2-5.4) Hemoglobin 14.3 g/dL (12.0-16.0) Hematocrit 42.1 % (37-47) Mean Corpuscular Volume 93.6 fL (80-100) Mean Corpuscular Hemoglobin 31.8 pg (25-34) Mean Corpuscular Hemoglobin Concent 34.0 g/dl (32-36) Platelet Count 264 K/uL (130-400) Mean Platelet Volume 8.4 fL (7.4-10.4) Neutrophils (%) (Auto) 65.1 % Lymphocytes (%) (Auto) 21.3 % Monocytes (%) (Auto) 9.3 % Eosinophils (%) (Auto) 3.6 % Basophils (%) (Auto) 0.3 % Neutrophils # (Auto) 4.84 K/uL (1.4-6.5) Lymphocytes # (Auto) 1.58 K/uL (1.2-3.4) Monocytes # (Auto) 0.69 K/uL (0.11-0.59) Eosinophils # (Auto) 0.27 K/uL (0-0.5) Basophils # (Auto) 0.02 K/uL (0-0.2) RDW Standard Deviation 45.2 fL (36.4-46.3) RDW Coefficient of Variation 13.2 % (11.5-14.5) Immature Granulocyte % (Auto) 0.4 % Immature Granulocyte # (Auto) 0.03 K/uL (0.00-0.02) Prothrombin Time 12.1 SECONDS (9.0-12.0) Prothromb Time International Ratio 1.1 (0.9-1.1) Activated Partial Thromboplast Time 44.9 SECONDS (21.0-31.0) Partial Thromboplastin Ratio 1.7 Anion Gap 10.0 mmol/L (3-11) Est Creatinine Clear Calc Drug Dose 51.9 ml/min Estimated GFR () 51.2 Estimated GFR (Non- 44.2 BUN/Creatinine Ratio 18.7 (10-20) Calcium Level 9.4 mg/dl (8.5-10.1) Magnesium Level 2.0 mg/dl (1.8-2.4) Total Creatine Kinase 62 U/L (26-192) Creatine Kinase MB 1.6 ng/ml (0.5-3.6) Creatine Kinase MB Ratio 2.6 (0-3.0) Troponin I < 0.015 ng/ml (0-0.045) Thyroid Stimulating Hormone (TSH) 4.840 uIu/ml (0.300-4.500) Laboratory results as reviewed by me. Medications Administered Medications (Trade) Dose Ordered Sig/Venancio Route Start Time Stop Time Status Last Admin Dose Admin Metoprolol Tartrate 5 mg 5 mg NOW STAT IV 04/22/16 10:15 04/22/16 10:17 DC 04/22/16 10:34 5 MG Sodium Chloride (Nss 500ml) 500 ml @ 999 mls/hr Q31M STAT IV 04/22/16 10:15 04/22/16 10:45 DC 04/22/16 10:15 999 MLS/HR Metoprolol Tartrate (Lopressor Iv) 5 mg NOW STAT IV 04/22/16 10:54 04/22/16 10:56 DC 04/22/16 11:07 5 MG Metoprolol Tartrate (Lopressor Iv) 5 mg NOW STAT IV 04/22/16 11:51 04/22/16 11:52 DC 04/22/16 12:12 5 MG ECG Indication: SOB/dyspnea, tachycardia Rate (beats per minute): 140 Rhythm: atrial fibrillation (with RVR) Findings: RBBB, ST depression (Anterior) Comparison ECG Date: 04/12/16 Change: EKG: change: When compared to EKG on 04/12/16, the patient previously had sinus bradycardia without ST depressions, Right bundle branch block remains. ED Course 1010: The patient was evaluated in room B11A. A complete history and physical exam was performed. 1015: Ordered Sodium Chloride 500 ml @ 999 mls/hr IV, Lopressor IV 5 mg IV. 1054: I reevaluated the patient and her symptoms are improving and her heart rate is down to the 120s from the 140s. Ordered Lopressor IV 5 mg IV. 1122: I reevaluated the patient and her heart rate is still irregular, but in the 100s-110s. She denies any further symptoms. 1148: I reevaluated the patient and her heart rate is in the 120s and irregular again. I discussed the treatment plan with her and she verbalized complete understanding and agreement. She is ready to go home. 1151: Ordered Lopressor IV 5 mg IV. 1154: I discussed the patient's case with Felisha Kim. He is going to evaluate the patient for further treatment. Medical Decision Differential: NSR, SVT, PACs, PVCs, Cardiac Dysrhythmia, Endocrine Dysfunction, Electrolyte/Metabolic Abnormality, Pulmonary Embolism, Infectious, GI, amongst other pathologies entertained. 75 yr old female arrives for evaluation of heart palpitations with discomfort left shoulder radiating down arm. EKG with AFIB RVR and lateral ST depressions. This is acute change from discharge EKG just last week. Given IV lopressor as she did not take her daily metoprolol today. HR mildly improved however does have resolution of symptoms in to shoulder. Given another Lopressor with some mild improvement in HR though HR has started trending back up. No respiratory symptoms thus will hold on CXR. Normal labs otherwise. She has persistent Afib RVR and while improved with no further anginal equivalent symptoms is still tachycardic. Appears she is afib RVR paroxysmal. No distress and looks well other than RVR. Will bring in to hospital for further evaluation/treatment. Consults Time Called: 1152 Consulting Physician: Felisha Kim Returned Call: 1159 I discussed the patient's case with Felisha Kim. He is going to evaluate the patient for further treatment. Impression Primary Impression: Atrial fibrillation with RVR Critical Care I have personally spent greater than 35 minutes of critical care time in the direct management of this patient. This was a life/limb threatening event. This includes time spent evaluating patient, direct bedside care, chart review, placing orders, interpretation of diagnostic studies, discussion with consultants, patient, and family members, as well as other required patient management activities. This 35 minutes is in excess of all separately billable procedures. Scribe Attestation The scribe's documentation has been prepared under my direction and personally reviewed by me in its entirety. I confirm that the note above accurately reflects all work, treatment, procedures, and medical decision making performed by me. Departure Information Dispostion Being Evaluated By Hospitalist Referrals No Doctor, Assigned (PCP)
[2016-04-22 10:39] LABS: BASO % 0.3 %; BASO ABS # 0.02 K/uL (0-0.2); COMPLETE YES; EOS % 3.6 %; HEMATOCRIT 42.1 % (37-47); IG% 0.4 %; LYMPH % 21.3 %; LYMPH ABS # 1.58 K/uL (1.2-3.4); MEAN CELL VOLUME 93.6 fL (80-100); MEAN CORPUSCULAR HEMOGLOBIN 31.8 pg (25-34); MEAN PLATELET VOLUME 8.4 fL (7.4-10.4); MONO % 9.3 %; NEUT % 65.1 %; PLATELET COUNT 264 K/uL (130-400); WHITE BLOOD COUNT 7.43 K/uL (4.8-10.8)
[2016-04-22 10:46] LABS: INR 1.1 (0.9-1.1); PARTIAL THROMBOPLASTIN RATIO 1.7; PROTHROMBIN TIME (PATIENT) 12.1 SECONDS (9.0-12.0)
[2016-04-22 10:54] LABS: BLOOD UREA NITROGEN 22 mg/dl (7-18); GLUCOSE 103 mg/dl (70-99)
[2016-04-22 10:55] LABS: BUN/CREATININE RATIO 18.7 (10-20); CALCIUM 9.4 mg/dl (8.5-10.1); CARBON DIOXIDE 24 mmol/L (21-32); CHLORIDE 107 mmol/L (98-107); POTASSIUM 4.5 mmol/L (3.5-5.1); SODIUM 141 mmol/L (136-145)
[2016-04-22 10:59] LABS: CKMB/CK RATIO 2.6 (0-3.0)
[2016-04-22] MEDS ORDERED: ACETAMINOPHEN 325 MG TAB PO PRN (12:30)
[2016-04-22] MEDS ORDERED: METOPROLOL TARTRATE 1 MG/ML VIAL IV PRN (12:30)
[2016-04-22] MEDS ORDERED: ONDANSETRON INJ 2 MG/ML 2 ML VIAL IV PRN (12:30)
[2016-04-22] MEDS ORDERED: NITROGLYCERIN 0.4 MG SL PER TAB CHARGE SL PRN (12:30)
--- NOTE | 2016-04-22 12:48 | DIAGNOSTIC IMAGING REPORT ---
CHEST ONE VIEW PORTABLE CLINICAL HISTORY: Atrial fibrillation. COMPARISON STUDY: Chest radiograph April 11, 2016. FINDINGS: Elevation of the right hemidiaphragm is unchanged. There is no pneumothorax or pleural effusion. No consolidation is identified. Mild cardiomegaly is unchanged. There is pulmonary vascular congestion without overt pulmonary edema. Mild bibasilar opacities are present. IMPRESSION: 1. Stable cardiomegaly. No evidence of overt pulmonary edema. 2. Mild bibasilar opacities. Atelectasis is favored although consolidation could appear similar. Electronically signed by: Rock Edmonds M.D. 04/22/2016 12:47 PM Dictated Date/Time: 04/22/2016 12:46 PM
--- NOTE | 2016-04-22 12:49 | History and Physical ---
History & Physical Date & Time of Service: Apr 22, 2016 at 12:35 Chief Complaint: Heart Pounding, Sob Primary Care Physician: Awais Pandya M.D. History of Present Illness Source: patient, family, clinic records, hospital records Patient seen and examined. 75 year old female with PMHx of Afib, CKD stage 3, HLD, HTN and h/o CVA presents to the ED complaining of shortness of breath x 1 day. Patient reports she felt well when she went to bed last night. She states when she woke up this morning she felt SOB with minimal exertion, lightheaded and had palpitations. She took her BP and pulse rate was 133 so she decided to come to the ED. She denies fevers, chills, URI symptoms, chest pain, nausea, vomiting, diarrhea, dysuria, calf pain and unusual edema. Patient was recently admitted for new onset Afib from 04/11-04/12. She was seen by cardiology and started on Metoprolol Succinate and Pradaxa. She reports she did not take either medication this morning. In the ED patient is tachycardic to the 140s. She received IVFs, and a total of 15mg IV Lopressor. HR is now around 100. She will be observed for further workup and treatment. Past Medical/Surgical History Medical Problems: (1) CKD (chronic kidney disease) stage 3, GFR 30-59 ml/min Status: Chronic (2) Depression Status: Chronic (3) Dyslipidemia Status: Chronic (4) History of CVA (cerebrovascular accident) Status: Resolved (5) HTN (hypertension) Status: Chronic (6) Osteoporosis Status: Chronic (7) Vitamin D deficiency Status: Chronic Surgical Problems: (1) H/O cataract removal with insertion of prosthetic lens Status: Resolved (2) History of appendectomy Status: Resolved (3) History of tonsillectomy Status: Resolved (4) History of total hysterectomy Status: Resolved Family History Diabetes mellitus FH: CAD (coronary artery disease) Hypertension Stroke Social History Smoking Status: Never Smoker Alcohol Use: none Drug Use: none Marital Status: Housing status: lives with significant other Occupational Status: unemployed Immunizations History of Influenza Vaccine: Yes History of Tetanus Vaccine?: No History of Pneumococcal: No History of Hepatitis B Vaccine: No Multi-Drug Resistant Organisms History of MDRO: No Allergies Coded Allergies: No Known Allergies (Verified , 2/16/17) Home Medications Scheduled Amlodipine (Norvasc), 5 MG PO DAILY Atorvastatin (Lipitor), 40 MG PO DAILY Citalopram Hydrobromide (Celexa), 1 TAB PO DAILY Dabigatran Elexilate (Pradaxa), 150 MG PO BID Ergocalciferol (Vitamin D), 50,000 UNITS PO WK Lisinopril (Prinivil), 10 MG PO QPM Lisinopril (Zestril), 20 MG PO QAM Metoprolol Succinate (Metoprolol Succinate ER), 50 MG PO QAM Review of Systems See above for pertinent positives & negatives. A total of 10 systems reviewed and were otherwise negative. Physical Exam Vital Signs Date Time Temp Pulse Resp B/P Pulse Ox O2 Delivery O2 Flow Rate FiO2 04/22/16 12:12 130 150/120 04/22/16 11:45 114 20 165/105 97 Room Air 04/22/16 11:11 124 20 134/97 98 Room Air 04/22/16 11:07 110 153/124 04/22/16 10:38 120 16 141/94 95 Room Air 04/22/16 10:34 142 126/90 04/22/16 10:32 142 17 126/90 96 Room Air 04/22/16 10:20 Room Air 04/22/16 10:15 132 04/22/16 10:01 37.0 124 20 114/77 97 Room Air General Appearance: + pertinent finding (Pleasant WD/WN 75 year old female lying in bed in NAD with at bedside ) Head: normocephalic, atraumatic Eyes: PERRL, EOMI, sclerae normal ENT: hearing grossly normal, pharynx normal Neck: supple, no JVD Respiratory/Chest: chest non-tender, lungs clear (trace crackles ), normal breath sounds, no respiratory distress, no accessory muscle use Cardiovascular: no gallop, no JVD, no murmur, normal peripheral pulses, + irregularly irregular (rate 110s) Abdomen/GI: normal bowel sounds, non tender, soft Back: normal inspection, no muscle spasm Extremities/Musculoskelatal: no calf tenderness, normal capillary refill, + pedal edema (trace) Neurologic/Psych: alert, oriented x 3, + pertinent finding (no motor or sensory deficits noted on gross exam ) Skin: normal color, warm/dry, no rash Lymphatic: no adenopathy Diagnostics Laboratory Results Results Past 24 Hours Test 04/22/16 09:25 Range/Units White Blood Count 7.43 4.8-10.8 K/uL Red Blood Count 4.50 4.2-5.4 M/uL Hemoglobin 14.3 12.0-16.0 g/dL Hematocrit 42.1 37-47 % Mean Corpuscular Volume 93.6 80-100 fL Mean Corpuscular Hemoglobin 31.8 25-34 pg Mean Corpuscular Hemoglobin Concent 34.0 32-36 g/dl Platelet Count 264 130-400 K/uL Mean Platelet Volume 8.4 7.4-10.4 fL Neutrophils (%) (Auto) 65.1 % Lymphocytes (%) (Auto) 21.3 % Monocytes (%) (Auto) 9.3 % Eosinophils (%) (Auto) 3.6 % Basophils (%) (Auto) 0.3 % Neutrophils # (Auto) 4.84 1.4-6.5 K/uL Lymphocytes # (Auto) 1.58 1.2-3.4 K/uL Monocytes # (Auto) 0.69 0.11-0.59 K/uL Eosinophils # (Auto) 0.27 0-0.5 K/uL Basophils # (Auto) 0.02 0-0.2 K/uL RDW Standard Deviation 45.2 36.4-46.3 fL RDW Coefficient of Variation 13.2 11.5-14.5 % Immature Granulocyte % (Auto) 0.4 % Immature Granulocyte # (Auto) 0.03 0.00-0.02 K/uL Prothrombin Time 12.1 9.0-12.0 SECONDS Prothromb Time International Ratio 1.1 0.9-1.1 Activated Partial Thromboplast Time 44.9 21.0-31.0 SECONDS Partial Thromboplastin Ratio 1.7 Sodium Level 141 136-145 mmol/L Potassium Level 4.5 3.5-5.1 mmol/L Chloride Level 107 98-107 mmol/L Carbon Dioxide Level 24 21-32 mmol/L Anion Gap 10.0 3-11 mmol/L Blood Urea Nitrogen 22 7-18 mg/dl Creatinine 1.20 0.60-1.20 mg/dl Est Creatinine Clear Calc Drug Dose 51.9 ml/min Estimated GFR () 51.2 Estimated GFR (Non- 44.2 BUN/Creatinine Ratio 18.7 10-20 Random Glucose 103 70-99 mg/dl Calcium Level 9.4 8.5-10.1 mg/dl Magnesium Level 2.0 1.8-2.4 mg/dl Total Creatine Kinase 62 26-192 U/L Creatine Kinase MB 1.6 0.5-3.6 ng/ml Creatine Kinase MB Ratio 2.6 0-3.0 Troponin I < 0.015 0-0.045 ng/ml EKG Afib with RVR 140 BPM QTc 494 Impression Assessment and Plan 75 year old female with recent diagnosis of Atrial Fibrillation presents to the ED with SOB, tachycardia. She did not take her medications this morning ATRIAL FIBRILLATION WITH RVR -observation in tele -Receive 15mg total IV Lopressor in ED - rate improved to low 100s -Give missed home medications - Metoprolol Succinate, Pradaxa -IV Lopressor prn HR >100 -CHADS Score 4 continue Pradaxa -Serial Reyes, EKGs - Reyes negative x 1 -Had echo on 04/12 with normal EF, grade 1 diastolic dysfunction - no significant change from previous - defer to cardiology for repeat -Cardiology consult for further recommendations input appreciated -AHA diet -CBC, PRP, Mg daily -TSH pending - was high during last admission -CXR pending - trace crackles on exam CKD STAGE 3 -crea 1.2 which is baseline -avoid nephrotoxic agents as able -follow PRP HTN -running slightly high -continue Lisinopril, BB, Norvasc -monitor in tele HLD -continue Statin DEPRESSION -continue Celexa H/O CVA -no residual deficits -Plavix was stopped with Pradaxa was started to lower bleeding risk -continue Lipitor for secondary prevention DVT PROPHYLAXIS: Pradaxa CODE STATUS: FULL CODE per my discussion with the patient at admission DISPO:observation pending further workup Patient seen in collaboration with Dr. Duval Agree with above h and p. Briefly 75f with hx of recent diagnosis of a fib and on metoprolol and Pradaxa presents with rapid afib. Patient woke up today morning felt dizzy, sob and palpitations and when checked pulse it was in 130's and came to ER. In the Er Hr rate was in 140's. received about 15mg iv Lopressor and currently HR in 100's. Resting comfortably. denies any chest pain or sob now. Afebrile. p/e Ge not in distress cvs s1 and s2 heard irregular rhythm no murmurs Rs cta b/l no added sounds Abd benign Co Founder And Ceo non focal ext no edema. a/p rapid afib received iv Lopressor in er will continue home Lopressor and Pradaxa iv Lopressor prn serial ce cardiology consult monitor in tele. HTN home meds will monitor VTE Prophylaxis VTE Risk Assessment Done? Y/N: Yes Risk Level: Moderate
[2016-04-22] MEDS ORDERED: DABIGATRAN ELEXILATE 75 MG CAP PO ONE (13:45)
[2016-04-22] MEDS ORDERED: CITALOPRAM 20 MG TAB PO ONE (13:45)
[2016-04-22] MEDS ORDERED: METOPROLOL SUCC 50MG EXT REL TAB PO ONE (13:45)
[2016-04-22] MEDS ORDERED: AMLODIPINE BESYLATE 5 MG TAB PO ONE (13:45)
[2016-04-22] MEDS ORDERED: IV FLUIDS COMPLETED PRN (14:15)
[2016-04-22 14:30] VITALS: BP 169/83; PULSE 129; TEMP 36.4; O2SAT 94; Ht 172.7 cm; Wt 103.7 kg
[2016-04-22 15:35] VITALS: BP 144/91; PULSE 104; TEMP 36.7; O2SAT 94
[2016-04-22 16:31] LABS: CKMB/CK RATIO 3.5 (0-3.0)
[2016-04-22 19:00] VITALS: BP 135/90; PULSE 111; TEMP 36.7; O2SAT 92
[2016-04-22 19:02] VITALS: BP 163/103; PULSE 100
[2016-04-22 19:04] VITALS: BP 158/104; PULSE 80
[2016-04-22] MEDS: LISINOPRIL 10 MG TAB PO SCH (20:17)
[2016-04-22] MEDS: DABIGATRAN ELEXILATE 75 MG CAP PO SCH (20:19)
[2016-04-22 23:34] VITALS: BP 134/62; PULSE 74; TEMP 36.7; O2SAT 92
[2016-04-23] MEDS ORDERED: METOPROLOL TARTRATE 1 MG/ML VIAL IV PRN (00:30)
[2016-04-23 04:00] VITALS: BP 128/55; PULSE 69; TEMP 36.6; O2SAT 94
[2016-04-23 05:39] LABS: HEMATOCRIT 38.7 % (37-47); MEAN CELL VOLUME 94.9 fL (80-100); MEAN CORPUSCULAR HEMOGLOBIN 31.6 pg (25-34); MEAN CORPUSCULAR HGB CONC 33.3 g/dl (32-36); MEAN PLATELET VOLUME 8.5 fL (7.4-10.4); PLATELET COUNT 252 K/uL (130-400); RED BLOOD COUNT 4.08 M/uL (4.2-5.4); WHITE BLOOD COUNT 6.97 K/uL (4.8-10.8)
[2016-04-23 06:15] LABS: BUN/CREATININE RATIO 21.9 (10-20); CALCIUM 8.9 mg/dl (8.5-10.1); CREATININE 1.3 mg/dl (0.60-1.20); POTASSIUM 4.5 mmol/L (3.5-5.1)
[2016-04-23 07:59] VITALS: BP 127/76; PULSE 68; TEMP 36.8; O2SAT 98
[2016-04-23] MEDS: DABIGATRAN ELEXILATE 75 MG CAP PO SCH ×2 (09:33→21:33)
[2016-04-23] MEDS: AMLODIPINE BESYLATE 5 MG TAB PO SCH (09:34)
[2016-04-23] MEDS: LISINOPRIL 20 MG TAB PO SCH (09:34)
[2016-04-23] MEDS: METOPROLOL SUCC 50MG EXT REL TAB PO SCH (09:34)
[2016-04-23] MEDS: CITALOPRAM 20 MG TAB PO SCH (09:34)
[2016-04-23] MEDS: ATORVASTATIN 40 MG TAB PO SCH (09:34)
[2016-04-23] MEDS ORDERED: AMIODARONE 200 MG TAB PO ONE (09:42)
--- NOTE | 2016-04-23 09:52 | Cardiology Consultation ---
Cardiology Consultation History of Present Illness Ms. Pickard is a pleasant 75 year old female with recent diagnosis of paroxysmal atrial fibrillation, during admission on Apr 11 after wearing a MCOT monitor as an outpatient (due to CVA in January to r/o arrhythmia). She was found to have sudden onset afib RVR during monitoring period and sent to ER. She successfully converted to NSR with IV Cardizem. During admission, atenolol was discontinued and toprol xl was initiated along with Pradaxa ( patient's preference) for anticoagulation on discharge. Plavix was discontinued. She was noted to have mild bradycardia after receiving IV Cardizem and questionable underlying tachybrady was discussed. She tolerated metoprolol without significant bradyarrhythmias. No prior history of documented coronary artery disease. Nuclear Lexiscan was recommended as outpatient but not yet completed. Echo last admission demonstrated normal LV function and no significant valvular disease. Underlying history includes hypertension, dyslipidemia, CKD. Patient states she has been feeling fairly well at home over the last week. She notes continued dyspnea with minimal exertion (noted during prior admission and nuclear stress recommended, not yet performed). She denies exertional chest pain. She recalls one episode last week where she "fell" onto a chair. She is unsure of how she fell or if she "passed out". No injury. She may have tripped. She does not recall feeling lightheaded or dizzy. was there and no true loss of consciousness noted. Yesterday morning patient awoke and felt more short of breath and felt palpitations. She found her HR was elevated. She came to ER for evaluation and found to have recurrent afib RVR. She was taking pradaxa and metoprolol at home. No missed doses. She received IV metoprolol which improved her rate. She subsequently converted to NSR last evening. Cardiac enzymes were negative. She was admitted for further treatment/ observation. She has no history of MICKY but granddaughter notes that she snores loudly. At time of consult, patient feeling ok. Granddaughter at bedside. They are concerned as to the reason that afib returned in less than 2 weeks. She is currently feeling well. She denies chest pain or SOB at rest. She notes continued dyspnea with exertion. Ambulating in room without difficulty. No orthopnea, PND or edema. No dizziness, syncope or near syncope. She notes ongoing dry cough but no fever or chills. Past Medical and Surgical History: CVA, January 2016. Hypertension Hypertensive heart disease Dyslipidemia Stage III chronic kidney disease Depression Osteoporosis Vitamin D deficiency Bilateral cataract extraction Appendectomy Tonsillectomy Total hysterectomy Social History: Lifelong nonsmoker. No alcohol. No illegal drug use. . 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 . \\ Family History: Father with an [place] age 72. Mother after a fall at the age of 95. She had history of CAD and a pacemaker. Six siblings. One brother passed at 62 following a CVA. He had CAD and an aneurysm (location unknown). Sister with a pacemaker. Review Of Systems General: No fever or chills. HEENT: Glasses. Bilateral cataract extractions. No headache. No head trauma. Cardiovascular: CORCORAN. No chest pain. No palpitations. No orthopnea, PND, or orthopnea to accompany the lower extremity edema that accumulates throughout the day and resolves with elevation/overnight. Pulmonary: No hemoptysis. No sputum. Gastrointestinal: No nausea, vomiting, diarrhea, constipation, bloating, hematemesis, hematochezia, and abdominal pain. Skin: No rash. Musculoskeletal: Arthritis. Neurological: CVA. No history of seizures Complete review of systems is as stated above, negative, or noncontributory. Allergies Coded Allergies: No Known Allergies (Verified , 04/11/16) Medications Reported Home Medications Medications Dose Route/Sig Max Daily Dose Days Date Category Dose Instructions Metoprolol Succinate ER (Metoprolol Succinate) 50 Mg Tabcr 50 Mg PO QAM 30 04/12/16 Rx Pradaxa (Dabigatran Elexilate) 150 Mg Cap 150 Mg PO BID 30 04/12/16 Rx Lipitor (Atorvastatin Calcium) 40 Mg Tab 40 Mg PO DAILY 02/06/16 Reported Celexa (Citalopram Hydrobromide) 10 Mg Tab 1 Tab PO DAILY 30 02/03/16 Rx Zestril (Lisinopril) 20 Mg Tab 20 Mg PO QAM 02/01/16 Reported Prinivil (Lisinopril) 10 Mg Tab 10 Mg PO QPM 02/01/16 Reported Vitamin D (Ergocalciferol) 50,000 Interunit Cap 50,000 Units PO WK 02/01/16 Reported TAKE ON TUESDAY Norvasc (Amlodipine Besylate) 5 Mg Tab 5 Mg PO DAILY 02/01/16 Reported Physical Exam Last 8 Hrs Date Time Temp Pulse Resp B/P Pulse Ox O2 Delivery O2 Flow Rate FiO2 04/23/16 07:59 36.8 68 18 127/76 98 04/23/16 04:00 Room Air 04/23/16 04:00 36.6 69 18 128/55 94 Room Air General Appearance: Alert and Oriented x3. NAD. Elevated BMI Head: Normocephalic Atraumatic. Eyes: PER, EOMI, conjunctiva and sclera clear Neck: Supple. Bilateral carotid bruits. No JVD. No HJD. Respiratory: Breath sounds clear to auscultation bilaterally. No w/r/r. Cardiovascular: RRR, 74 bpm. Soft systolic ejection murmur. No diastolic murmur. No rub. Abdomen: +BS. No abdominal bruits. Soft. Nontender. Extremities: Trivial edema. No cyanosis. No clubbing. Distal pulses 2/4 bilaterally. Neuro: No overt focal deficits. Psychiatric: Normal affect. Data EKG on admission: Atrial fibrillation with rapid ventricular response Incomplete right bundle branch block ST & T wave abnormality, consider anterior ischemia Abnormal ECG When compared with ECG of 12-APR-2016 06:31, Atrial fibrillation has replaced Sinus rhythm Vent. rate has increased BY 81 BPM Repeat EKG this AM, 04/23/16: Normal sinus rhythm Right bundle branch block Abnormal ECG When compared with ECG of 22-APR-2016 10:04, Sinus rhythm has replaced Atrial fibrillation Vent. rate has decreased BY 74 BPM Chest Xray on admission: IMPRESSION: 1. Stable cardiomegaly. No evidence of overt pulmonary edema. 2. Mild bibasilar opacities. Atelectasis is favored although consolidation could appear similar. Telemetry reviewed - NSR with rare PVC/PAC. No recurrent afib. No significant bradycardia or pauses noted. Echocardiogram completed prior admission 04/12/16: -- Conclusions -- No change compared to previous study of 02/02/16. Normal LV chamber size with mild concentric LVH. Normal LV systolic function, EF 55-60%. No segmental left ventricular wall motion abnormalities are noted. Grade I diastolic dysfunction. Aortic valve sclerosis mild, without significant aortic valvular stenosis. Last 24 Hours Test 04/22/16 09:25 04/22/16 15:38 04/22/16 21:47 04/23/16 05:10 White Blood Count 7.43 K/uL 6.97 K/uL Red Blood Count 4.50 M/uL 4.08 M/uL Hemoglobin 14.3 g/dL 12.9 g/dL Hematocrit 42.1 % 38.7 % Mean Corpuscular Volume 93.6 fL 94.9 fL Mean Corpuscular Hemoglobin 31.8 pg 31.6 pg Mean Corpuscular Hemoglobin Concent 34.0 g/dl 33.3 g/dl Platelet Count 264 K/uL 252 K/uL Mean Platelet Volume 8.4 fL 8.5 fL Neutrophils (%) (Auto) 65.1 % Lymphocytes (%) (Auto) 21.3 % Monocytes (%) (Auto) 9.3 % Eosinophils (%) (Auto) 3.6 % Basophils (%) (Auto) 0.3 % Neutrophils # (Auto) 4.84 K/uL Lymphocytes # (Auto) 1.58 K/uL Monocytes # (Auto) 0.69 K/uL Eosinophils # (Auto) 0.27 K/uL Basophils # (Auto) 0.02 K/uL RDW Standard Deviation 45.2 fL 46.5 fL RDW Coefficient of Variation 13.2 % 13.3 % Immature Granulocyte % (Auto) 0.4 % Immature Granulocyte # (Auto) 0.03 K/uL Prothrombin Time 12.1 SECONDS Prothromb Time International Ratio 1.1 Activated Partial Thromboplast Time 44.9 SECONDS Partial Thromboplastin Ratio 1.7 Sodium Level 141 mmol/L 143 mmol/L Potassium Level 4.5 mmol/L 4.5 mmol/L Chloride Level 107 mmol/L 109 mmol/L Carbon Dioxide Level 24 mmol/L 27 mmol/L Anion Gap 10.0 mmol/L 7.0 mmol/L Blood Urea Nitrogen 22 mg/dl 28 mg/dl Creatinine 1.20 mg/dl 1.30 mg/dl Est Creatinine Clear Calc Drug Dose 51.9 ml/min 47.5 ml/min Estimated GFR () 51.2 46.5 Estimated GFR (Non- 44.2 40.1 BUN/Creatinine Ratio 18.7 21.9 Random Glucose 103 mg/dl 87 mg/dl Calcium Level 9.4 mg/dl 8.9 mg/dl Magnesium Level 2.0 mg/dl 2.0 mg/dl Total Creatine Kinase 62 U/L 57 U/L 50 U/L Creatine Kinase MB 1.6 ng/ml 2.0 ng/ml 1.5 ng/ml Creatine Kinase MB Ratio 2.6 3.5 3.0 Troponin I < 0.015 ng/ml < 0.015 ng/ml < 0.015 ng/ml Thyroid Stimulating Hormone (TSH) 4.840 uIu/ml Free Thyroxine 0.82 ng/dl Test 04/23/16 08:05 Assessment & Plan 1. Paroxysmal atrial fibrillation with a rapid ventricular response, second episode in 2 weeks. -Continue Toprol 50 mg daily -initiate Amiodarone 400 mg TID -monitor on telemetry -EKG in AM -TSH and LFTs stable -CHADS2 score of 4/6 (HTN, age, CVA) - On Pradaxa -episode occurred during sleep - recommend sleep eval - will check nocturnal oximetry tonight. 2. Dyspnea on exertion -outpatient nuclear lexiscan stress test recommended 3. Questionable syncope vs mechanical fall at home -Bradycardia noted with IV Cardizem last admission. Currently NSR in 60's on beta cindi. -Underlying conduction disease noted with RBBB. ? Tachybrady syndrome -monitor on telemetry 4. History of CVA in January 2016. -now with AFib -continue Pradaxa 5. Hypertension, hypertensive heart disease -preserved LV function per echo earlier this month -BP controlled. Continue home meds 6. CKD - stable Case discussed with Dr. Hanna. Will follow as hospital course progresses. (Tracie Giordano PA-C) CARDIOLOGY ATTENDING ADDENDUM: The patient was seen and personally examined. Agree with Tracie Giordano PA-C's findings and plans as documented above. Best option for this patient is amiodarone. She lives a great distant from the hospital and does not want a recurrence. (Lino Hanna, DO)
--- NOTE | 2016-04-23 11:14 | Progress Note ---
Medicine Progress Note Date & Time of Visit: Apr 23, 2016 at 11:08. Subjective converted to SR last night patient seen with granddaughter at bedside states she feels improved today no dizziness, chest pain, dyspnea, palpitations no other symptoms Objective Last 8 Hrs Date Time Temp Pulse Resp B/P Pulse Ox O2 Delivery O2 Flow Rate FiO2 04/23/16 07:59 36.8 68 18 127/76 98 04/23/16 04:00 Room Air 04/23/16 04:00 36.6 69 18 128/55 94 Room Air Physical Exam: General- oriented x 3 not in distress, speaks in sentences with no effort Head- atraumatic Eyes- anicteric ENT- oropharynx clear Neck- supple, no JVD, no adenopathy, no thyromegaly Lungs- clear to auscultation b/l Heart- normal rate, regular rhythm; no murmurs Abdomen- normal bowel sounds, soft, nontender Extremities- no pretibial edema, no calf tenderness; peripheral pulses intact Neuro- alert, oriented x 3;no gross deficits Skin- warm & dry Laboratory Results: Last 24 Hours Test 04/22/16 15:38 04/22/16 21:47 04/23/16 05:10 04/23/16 09:00 Total Creatine Kinase 57 U/L 50 U/L Creatine Kinase MB 2.0 ng/ml 1.5 ng/ml Creatine Kinase MB Ratio 3.5 3.0 Troponin I < 0.015 ng/ml < 0.015 ng/ml White Blood Count 6.97 K/uL Red Blood Count 4.08 M/uL Hemoglobin 12.9 g/dL Hematocrit 38.7 % Mean Corpuscular Volume 94.9 fL Mean Corpuscular Hemoglobin 31.6 pg Mean Corpuscular Hemoglobin Concent 33.3 g/dl RDW Standard Deviation 46.5 fL RDW Coefficient of Variation 13.3 % Platelet Count 252 K/uL Mean Platelet Volume 8.5 fL Sodium Level 143 mmol/L Potassium Level 4.5 mmol/L Chloride Level 109 mmol/L Carbon Dioxide Level 27 mmol/L Anion Gap 7.0 mmol/L Blood Urea Nitrogen 28 mg/dl Creatinine 1.30 mg/dl Est Creatinine Clear Calc Drug Dose 47.5 ml/min Estimated GFR () 46.5 Estimated GFR (Non- 40.1 BUN/Creatinine Ratio 21.9 Random Glucose 87 mg/dl Calcium Level 8.9 mg/dl Magnesium Level 2.0 mg/dl Free Thyroxine 0.82 ng/dl Free Triiodothyronine 2.75 pg/ml Assessment & Plan 75 year old female with recent diagnosis of Atrial Fibrillation presents to the ED with SOB, tachycardia. She did not take her medications this morning ATRIAL FIBRILLATION WITH RVR -Receive 15mg total IV Lopressor in ED - rate improved to low 100s -IV Lopressor prn HR >100 -CHADS Score 4 continue Pradaxa -Had echo on 04/12 with normal EF, grade 1 diastolic dysfunction - no significant change from previous - cardiac markers: negative repeat EKG: NSR Thyroid function test normal - Amiodarone PO TID added continue Metoprolol, Pradaxa may need outpatient stress test appreciate Cardiology consult H/O CVA -no residual deficits - on Pradaxa, Statin EPISODE OF SYNCOPE no prodrome possible tachybrady syndrome Amiodarone started monitor in Tele CKD STAGE 3 - crea 1.3 encouraged increase in fluid intake HTN - improving -continue Lisinopril, BB, Norvasc -monitor in tele HLD -continue Statin DEPRESSION -continue Celexa DVT PROPHYLAXIS: Pradaxa CODE STATUS: FULL CODE Disposition pending anticipate d/c home when cleared by cardiology Current Inpatient Medications: Current Inpatient Medications Medications (Trade) Dose Ordered Sig/Venancio Route Start Time Stop Time Status Last Admin Dose Admin Acetaminophen (Tylenol Tab) 650 mg Q4H PRN PO 04/22/16 12:30 05/22/16 12:29 Ondansetron HCl (Zofran Inj) 4 mg Q6H PRN IV 04/22/16 12:30 05/22/16 12:29 Nitroglycerin (Nitrostat Tab) 0.4 mg UD PRN SL 04/22/16 12:30 05/22/16 12:29 Amlodipine Besylate (Norvasc Tab) 5 mg DAILY PO 04/23/16 09:00 05/23/16 08:59 04/23/16 09:34 5 MG Atorvastatin Calcium (Lipitor Tab) 40 mg DAILY PO 04/23/16 09:00 05/23/16 08:59 04/23/16 09:34 40 MG Citalopram Hydrobromide (celeXA TAB) 10 mg DAILY PO 04/23/16 09:00 05/23/16 08:59 04/23/16 09:34 10 MG Lisinopril (Zestril Tab) 10 mg QPM PO 04/22/16 21:00 05/22/16 20:59 04/22/16 20:17 10 MG Lisinopril (Zestril Tab) 20 mg QAM PO 04/23/16 09:00 05/23/16 08:59 04/23/16 09:34 20 MG Metoprolol Succinate (Toprol Xl Tab) 50 mg QAM PO 04/23/16 09:00 05/23/16 08:59 04/23/16 09:34 50 MG Dabigatran (Pradaxa Cap) 150 mg BID PO 04/22/16 21:00 05/22/16 20:59 04/23/16 09:33 150 MG Miscellaneous (Iv Fluids Completed) 1 ea PRN PRN N/A 04/22/16 14:15 04/22/17 14:14 Metoprolol Tartrate (Lopressor Iv) 2.5 mg Q6H PRN IV 04/23/16 00:30 05/23/16 00:29 Amiodarone HCl (Cordarone Tab) 400 mg TID PO 04/23/16 14:00 05/23/16 13:59
[2016-04-23 11:45] VITALS: BP 121/75; PULSE 64; TEMP 36.6; O2SAT 99
[2016-04-23] MEDS: AMIODARONE 200 MG TAB PO SCH ×2 (16:03→21:34)
[2016-04-23 19:29] VITALS: BP 119/81; PULSE 64; TEMP 36.7; O2SAT 92
[2016-04-23] MEDS: LISINOPRIL 10 MG TAB PO SCH (21:33)
[2016-04-23 23:53] VITALS: BP 128/67; PULSE 70; TEMP 36.7; O2SAT 91
[2016-04-24 03:24] VITALS: BP 128/55; PULSE 74; TEMP 36.7; O2SAT 92
[2016-04-24 07:14] LABS: BASO % 0.3 %; BASO ABS # 0.02 K/uL (0-0.2); COMPLETE YES; EOS % 4.6 %; HEMATOCRIT 38.4 % (37-47); IG% 0.3 %; LYMPH % 22.9 %; MEAN CELL VOLUME 93.2 fL (80-100); MEAN CORPUSCULAR HEMOGLOBIN 31.6 pg (25-34); MEAN CORPUSCULAR HGB CONC 33.9 g/dl (32-36); MEAN PLATELET VOLUME 8.4 fL (7.4-10.4); MONO % 6.1 %; NEUT % 65.8 %; PLATELET COUNT 240 K/uL (130-400); RED BLOOD COUNT 4.12 M/uL (4.2-5.4)
[2016-04-24 07:41] LABS: BUN/CREATININE RATIO 24.5 (10-20); CALCIUM 9.3 mg/dl (8.5-10.1); CREATININE 1.2 mg/dl (0.60-1.20); POTASSIUM 4.1 mmol/L (3.5-5.1)
[2016-04-24 07:56] VITALS: BP 127/63; PULSE 64; TEMP 36.7; O2SAT 92
[2016-04-24] MEDS: DABIGATRAN ELEXILATE 75 MG CAP PO SCH ×2 (08:08→21:19)
[2016-04-24] MEDS: AMIODARONE 200 MG TAB PO SCH ×3 (08:08→21:20)
[2016-04-24] MEDS: ATORVASTATIN 40 MG TAB PO SCH (08:09)
[2016-04-24] MEDS: METOPROLOL SUCC 50MG EXT REL TAB PO SCH (08:09)
[2016-04-24] MEDS: AMLODIPINE BESYLATE 5 MG TAB PO SCH (08:09)
[2016-04-24] MEDS: LISINOPRIL 20 MG TAB PO SCH (08:09)
[2016-04-24] MEDS: CITALOPRAM 20 MG TAB PO SCH (08:09)
[2016-04-24 12:30] VITALS: BP 151/74; PULSE 65; TEMP 36.7; O2SAT 96
--- NOTE | 2016-04-24 13:31 | Progress Note ---
Medicine Progress Note Date & Time of Visit: Apr 24, 2016 at 13:27. Subjective patient seen resting in bed comfortable states she feels improved compared to yesterday denies palpitations, dizziness, chest pain, dyspnea, presyncope/syncope remains in NSR no other symptoms Objective Last 8 Hrs Date Time Temp Pulse Resp B/P Pulse Ox O2 Delivery O2 Flow Rate FiO2 04/24/16 12:30 36.7 65 20 151/74 96 Room Air 04/24/16 12:00 Room Air 04/24/16 08:00 Room Air 04/24/16 07:56 36.7 64 18 127/63 92 Room Air Physical Exam: General- oriented x 3 not in distress, speaks in sentences with no effort Neck- supple, no JVD Lungs- clear to auscultation b/l, no rales/wheezes Heart- normal rate, regular rhythm; no murmurs Abdomen- normal bowel sounds, soft, nontender Extremities- no pretibial edema, no calf tenderness; peripheral pulses intact Neuro- alert, oriented x 3;no gross deficits Skin- warm & dry Laboratory Results: Last 24 Hours Test 04/24/16 06:15 White Blood Count 7.00 K/uL Red Blood Count 4.12 M/uL Hemoglobin 13.0 g/dL Hematocrit 38.4 % Mean Corpuscular Volume 93.2 fL Mean Corpuscular Hemoglobin 31.6 pg Mean Corpuscular Hemoglobin Concent 33.9 g/dl Platelet Count 240 K/uL Mean Platelet Volume 8.4 fL Neutrophils (%) (Auto) 65.8 % Lymphocytes (%) (Auto) 22.9 % Monocytes (%) (Auto) 6.1 % Eosinophils (%) (Auto) 4.6 % Basophils (%) (Auto) 0.3 % Neutrophils # (Auto) 4.61 K/uL Lymphocytes # (Auto) 1.60 K/uL Monocytes # (Auto) 0.43 K/uL Eosinophils # (Auto) 0.32 K/uL Basophils # (Auto) 0.02 K/uL RDW Standard Deviation 45.7 fL RDW Coefficient of Variation 13.3 % Immature Granulocyte % (Auto) 0.3 % Immature Granulocyte # (Auto) 0.02 K/uL Sodium Level 140 mmol/L Potassium Level 4.1 mmol/L Chloride Level 104 mmol/L Carbon Dioxide Level 24 mmol/L Anion Gap 12.0 mmol/L Blood Urea Nitrogen 29 mg/dl Creatinine 1.20 mg/dl Est Creatinine Clear Calc Drug Dose 51.4 ml/min Estimated GFR () 51.2 Estimated GFR (Non- 44.2 BUN/Creatinine Ratio 24.5 Random Glucose 94 mg/dl Calcium Level 9.3 mg/dl Magnesium Level 2.0 mg/dl Assessment & Plan 75 year old female with recent diagnosis of Atrial Fibrillation presents to the ED with SOB, tachycardia. She did not take her medications this morning ATRIAL FIBRILLATION WITH RVR -Receive 15mg total IV Lopressor in ED - rate improved to low 100s -IV Lopressor prn HR >100 -CHADS Score 4 continue Pradaxa -Had echo on 04/12 with normal EF, grade 1 diastolic dysfunction - no significant change from previous - cardiac markers: negative repeat EKG: NSR Thyroid function test normal - Amiodarone PO TID added-- tolerating well continue Metoprolol, Pradaxa may need outpatient stress test Nocturnal Pulse Oximetry ordered appreciate Cardiology consult HISTORY OF CVA -no residual deficits - on Pradaxa, Statin EPISODE OF SYNCOPE no prodrome possible tachybrady syndrome Amiodarone started no arrhythmia noted so far CKD STAGE 3 - crea 1.3 encouraged increase in fluid intake HTN - improving -continue Lisinopril, BB, Norvasc -monitor in tele HLD -continue Statin DEPRESSION -continue Celexa DVT PROPHYLAXIS: Pradaxa CODE STATUS: FULL CODE Disposition pending anticipate d/c home when cleared by cardiology Current Inpatient Medications: Current Inpatient Medications Medications (Trade) Dose Ordered Sig/Venancio Route Start Time Stop Time Status Last Admin Dose Admin Acetaminophen (Tylenol Tab) 650 mg Q4H PRN PO 04/22/16 12:30 05/22/16 12:29 Ondansetron HCl (Zofran Inj) 4 mg Q6H PRN IV 04/22/16 12:30 05/22/16 12:29 Nitroglycerin (Nitrostat Tab) 0.4 mg UD PRN SL 04/22/16 12:30 05/22/16 12:29 Amlodipine Besylate (Norvasc Tab) 5 mg DAILY PO 04/23/16 09:00 05/23/16 08:59 04/24/16 08:09 5 MG Atorvastatin Calcium (Lipitor Tab) 40 mg DAILY PO 04/23/16 09:00 05/23/16 08:59 04/24/16 08:09 40 MG Citalopram Hydrobromide (celeXA TAB) 10 mg DAILY PO 04/23/16 09:00 05/23/16 08:59 04/24/16 08:09 10 MG Lisinopril (Zestril Tab) 10 mg QPM PO 04/22/16 21:00 05/22/16 20:59 04/23/16 21:33 10 MG Lisinopril (Zestril Tab) 20 mg QAM PO 04/23/16 09:00 05/23/16 08:59 04/24/16 08:09 20 MG Metoprolol Succinate (Toprol Xl Tab) 50 mg QAM PO 04/23/16 09:00 05/23/16 08:59 04/24/16 08:09 50 MG Dabigatran (Pradaxa Cap) 150 mg BID PO 04/22/16 21:00 05/22/16 20:59 04/24/16 08:08 150 MG Miscellaneous (Iv Fluids Completed) 1 ea PRN PRN N/A 04/22/16 14:15 04/22/17 14:14 Metoprolol Tartrate (Lopressor Iv) 2.5 mg Q6H PRN IV 04/23/16 00:30 05/23/16 00:29 Amiodarone HCl (Cordarone Tab) 400 mg TID PO 04/23/16 14:00 05/23/16 13:59 04/24/16 08:08 400 MG
[2016-04-24 15:18] VITALS: BP 125/67; PULSE 61; TEMP 36.6; O2SAT 92
--- NOTE | 2016-04-24 16:58 | Cardiology Follow-Up ---
Subjective General Date of Service: Apr 24, 2016. Chief Complaint: follow up atrial fibrillation History of Present Illness The patient is a 75 year old female seen in follow up. Pt remains in SR, with RBBB. Tolerating Amiodarone now. QTC on EKG is ~490 ms, but must be interpreted with RBBB in mind and is therefore stable. Allergies Coded Allergies: No Known Allergies (Verified , 04/22/16) Social History Smoking Status: Never Smoker Hx Tobacco Use In Past Year?: No Hx Alcohol Use - Type And Amou: No Hx Substance Use - Type And Am: No Problem List Medical Problems: (1) CVA (cerebral vascular accident) Status: Acute (2) Dyspnea on exertion Status: Acute (3) New onset atrial fibrillation Status: Acute Physical Exam Vital Signs Last Vital Signs Documentation Date Time Temp Pulse Resp B/P Pulse Ox O2 Delivery O2 Flow Rate FiO2 04/24/16 15:18 36.6 61 18 125/67 92 Room Air Physical Exam Constitutional: Level of Distress: NAD Neck: supple Lungs: Auscultation: no wheezing, no rales/crackles Cardiovascular: Heart Auscultation: RRR, no murmurs, no rubs Extremities: no cyanosis Neurologic: Gait & Station: pertinent finding (no focal deficits) Assessment and Plan Assessment and Plan Impression: Symptomatic AF, now SR RBBB Plan: Continue metoprolol. Continue amiodarone initiation on telemetry. Continue pradaxa for stroke prevention. Laboratory Results Last 24 Hours Test 04/24/16 06:15 White Blood Count 7.00 K/uL Red Blood Count 4.12 M/uL Hemoglobin 13.0 g/dL Hematocrit 38.4 % Mean Corpuscular Volume 93.2 fL Mean Corpuscular Hemoglobin 31.6 pg Mean Corpuscular Hemoglobin Concent 33.9 g/dl Platelet Count 240 K/uL Mean Platelet Volume 8.4 fL Neutrophils (%) (Auto) 65.8 % Lymphocytes (%) (Auto) 22.9 % Monocytes (%) (Auto) 6.1 % Eosinophils (%) (Auto) 4.6 % Basophils (%) (Auto) 0.3 % Neutrophils # (Auto) 4.61 K/uL Lymphocytes # (Auto) 1.60 K/uL Monocytes # (Auto) 0.43 K/uL Eosinophils # (Auto) 0.32 K/uL Basophils # (Auto) 0.02 K/uL RDW Standard Deviation 45.7 fL RDW Coefficient of Variation 13.3 % Immature Granulocyte % (Auto) 0.3 % Immature Granulocyte # (Auto) 0.02 K/uL Sodium Level 140 mmol/L Potassium Level 4.1 mmol/L Chloride Level 104 mmol/L Carbon Dioxide Level 24 mmol/L Anion Gap 12.0 mmol/L Blood Urea Nitrogen 29 mg/dl Creatinine 1.20 mg/dl Est Creatinine Clear Calc Drug Dose 51.4 ml/min Estimated GFR () 51.2 Estimated GFR (Non- 44.2 BUN/Creatinine Ratio 24.5 Random Glucose 94 mg/dl Calcium Level 9.3 mg/dl Magnesium Level 2.0 mg/dl
[2016-04-24 19:24] VITALS: BP 127/72; PULSE 60; TEMP 36.6; O2SAT 93
[2016-04-24] MEDS: LISINOPRIL 10 MG TAB PO SCH (21:19)
[2016-04-24 23:05] VITALS: BP 118/61; PULSE 61; TEMP 36.4; O2SAT 96
[2016-04-25 04:00] VITALS: BP 126/55; PULSE 65; TEMP 36.7; O2SAT 93
[2016-04-25 06:17] LABS: BASO % 0.4 %; BASO ABS # 0.03 K/uL (0-0.2); COMPLETE YES; EOS % 3.5 %; HEMATOCRIT 37.6 % (37-47); IG% 0.2 %; LYMPH % 20.1 %; LYMPH ABS # 1.65 K/uL (1.2-3.4); MEAN CELL VOLUME 91.7 fL (80-100); MEAN CORPUSCULAR HGB CONC 33.8 g/dl (32-36); MEAN PLATELET VOLUME 8.4 fL (7.4-10.4); MONO % 9.1 %; NEUT % 66.7 %; PLATELET COUNT 240 K/uL (130-400)
[2016-04-25 06:53] LABS: BUN/CREATININE RATIO 25.5 (10-20); CALCIUM 8.9 mg/dl (8.5-10.1); CREATININE 1.3 mg/dl (0.60-1.20); MAGNESIUM 2.1 mg/dl (1.8-2.4); POTASSIUM 4.3 mmol/L (3.5-5.1)
[2016-04-25 08:19] VITALS: BP 130/60; PULSE 71; TEMP 36.5; O2SAT 92
[2016-04-25] MEDS: ATORVASTATIN 40 MG TAB PO SCH (08:59)
[2016-04-25] MEDS: AMLODIPINE BESYLATE 5 MG TAB PO SCH (08:59)
[2016-04-25] MEDS: CITALOPRAM 20 MG TAB PO SCH (08:59)
[2016-04-25] MEDS: DABIGATRAN ELEXILATE 75 MG CAP PO SCH ×2 (08:59→21:16)
[2016-04-25] MEDS: AMIODARONE 200 MG TAB PO SCH ×3 (09:00→21:15)
[2016-04-25] MEDS: LISINOPRIL 20 MG TAB PO SCH (09:00)
[2016-04-25] MEDS: METOPROLOL SUCC 50MG EXT REL TAB PO SCH (09:00)
--- NOTE | 2016-04-25 09:47 | Cardiology Follow-Up ---
Subjective General Date of Service: Apr 25, 2016. Chief Complaint: follow up atrial fibrillation Pt evaluation today including: conversation w/ patient, physical exam History of Present Illness The patient is a 75 year old female seen in follow-up. Patient denies any chest discomfort or palpitations. She's remained in sinus rhythm overnight. She had some degree of exertional shortness of breath. Nocturnal pulse oximetry did reveal saturations overnight. Allergies Coded Allergies: No Known Allergies (Verified , 04/22/16) Social History Smoking Status: Never Smoker Hx Tobacco Use In Past Year?: No Hx Alcohol Use - Type And Amou: No Hx Substance Use - Type And Am: No Problem List Medical Problems: (1) CVA (cerebral vascular accident) Status: Acute (2) Dyspnea on exertion Status: Acute (3) New onset atrial fibrillation Status: Acute Physical Exam Vital Signs Last Vital Signs Documentation Date Time Temp Pulse Resp B/P Pulse Ox O2 Delivery O2 Flow Rate FiO2 04/25/16 08:19 36.5 71 18 130/60 92 Room Air Physical Exam Constitutional: Level of Distress: NAD Neck: supple Lungs: Auscultation: no wheezing, no rales/crackles Cardiovascular: Heart Auscultation: RRR, no murmurs, no rubs Extremities: no cyanosis Neurologic: Gait & Station: pertinent finding (no focal deficits) Assessment and Plan Assessment and Plan Impression: Symptomatic AF, now SR RBBB Nocturnal desaturations, likely underlying instructed sleep apnea Plan: Continue metoprolol. Continue amiodarone initiation on telemetry. Continue pradaxa for stroke prevention. Outpatient sleep medicine consult. By tomorrow the patient will have received 3.2 g of oral amiodarone loading, she continues to improve, with plan to decrease her amiodarone to 200 mg twice a day and consider discharge. Laboratory Results Last 24 Hours Test 04/25/16 05:20 White Blood Count 8.20 K/uL Red Blood Count 4.10 M/uL Hemoglobin 12.7 g/dL Hematocrit 37.6 % Mean Corpuscular Volume 91.7 fL Mean Corpuscular Hemoglobin 31.0 pg Mean Corpuscular Hemoglobin Concent 33.8 g/dl Platelet Count 240 K/uL Mean Platelet Volume 8.4 fL Neutrophils (%) (Auto) 66.7 % Lymphocytes (%) (Auto) 20.1 % Monocytes (%) (Auto) 9.1 % Eosinophils (%) (Auto) 3.5 % Basophils (%) (Auto) 0.4 % Neutrophils # (Auto) 5.46 K/uL Lymphocytes # (Auto) 1.65 K/uL Monocytes # (Auto) 0.75 K/uL Eosinophils # (Auto) 0.29 K/uL Basophils # (Auto) 0.03 K/uL RDW Standard Deviation 44.3 fL RDW Coefficient of Variation 13.2 % Immature Granulocyte % (Auto) 0.2 % Immature Granulocyte # (Auto) 0.02 K/uL Sodium Level 140 mmol/L Potassium Level 4.3 mmol/L Chloride Level 106 mmol/L Carbon Dioxide Level 23 mmol/L Anion Gap 11.0 mmol/L Blood Urea Nitrogen 33 mg/dl Creatinine 1.30 mg/dl Est Creatinine Clear Calc Drug Dose 47.7 ml/min Estimated GFR () 46.5 Estimated GFR (Non- 40.1 BUN/Creatinine Ratio 25.5 Random Glucose 93 mg/dl Calcium Level 8.9 mg/dl Magnesium Level 2.1 mg/dl
[2016-04-25 12:42] VITALS: BP 135/59; PULSE 61; TEMP 36.7; O2SAT 93
[2016-04-25 15:30] VITALS: BP 123/65; PULSE 63; TEMP 36.6; O2SAT 93
--- NOTE | 2016-04-25 16:11 | Progress Note ---
Medicine Progress Note Date & Time of Visit: Apr 25, 2016 at 16:09. Subjective states she feels better today remains in SR asymptomatic, walking in the halls denies other symptoms Objective Last 8 Hrs Date Time Temp Pulse Resp B/P Pulse Ox O2 Delivery O2 Flow Rate FiO2 04/25/16 15:30 36.6 63 18 123/65 93 Room Air 04/25/16 12:42 36.7 61 18 135/59 93 Room Air 04/25/16 12:00 Room Air 04/25/16 08:19 36.5 71 18 130/60 92 Room Air Physical Exam: General- oriented x 3 not in distress, speaks in sentences with no effort Neck-no JVD Lungs- clear breath sounds b/l, no rales/wheezes Heart- normal rate, regular rhythm; no murmurs Abdomen- normal bowel sounds, soft, nontender Extremities- no pretibial edema, no calf tenderness; peripheral pulses intact Neuro- alert, oriented x 3;no gross deficits Skin- warm & dry Laboratory Results: Last 24 Hours Test 04/25/16 05:20 White Blood Count 8.20 K/uL Red Blood Count 4.10 M/uL Hemoglobin 12.7 g/dL Hematocrit 37.6 % Mean Corpuscular Volume 91.7 fL Mean Corpuscular Hemoglobin 31.0 pg Mean Corpuscular Hemoglobin Concent 33.8 g/dl Platelet Count 240 K/uL Mean Platelet Volume 8.4 fL Neutrophils (%) (Auto) 66.7 % Lymphocytes (%) (Auto) 20.1 % Monocytes (%) (Auto) 9.1 % Eosinophils (%) (Auto) 3.5 % Basophils (%) (Auto) 0.4 % Neutrophils # (Auto) 5.46 K/uL Lymphocytes # (Auto) 1.65 K/uL Monocytes # (Auto) 0.75 K/uL Eosinophils # (Auto) 0.29 K/uL Basophils # (Auto) 0.03 K/uL RDW Standard Deviation 44.3 fL RDW Coefficient of Variation 13.2 % Immature Granulocyte % (Auto) 0.2 % Immature Granulocyte # (Auto) 0.02 K/uL Sodium Level 140 mmol/L Potassium Level 4.3 mmol/L Chloride Level 106 mmol/L Carbon Dioxide Level 23 mmol/L Anion Gap 11.0 mmol/L Blood Urea Nitrogen 33 mg/dl Creatinine 1.30 mg/dl Est Creatinine Clear Calc Drug Dose 47.7 ml/min Estimated GFR () 46.5 Estimated GFR (Non- 40.1 BUN/Creatinine Ratio 25.5 Random Glucose 93 mg/dl Calcium Level 8.9 mg/dl Magnesium Level 2.1 mg/dl Assessment & Plan 75 year old female with recent diagnosis of Atrial Fibrillation presents to the ED with SOB, tachycardia. She did not take her medications this morning ATRIAL FIBRILLATION WITH RVR -Receive 15mg total IV Lopressor in ED - rate improved to low 100s -IV Lopressor prn HR >100 -CHADS Score 4 continue Pradaxa -Had echo on 04/12 with normal EF, grade 1 diastolic dysfunction - no significant change from previous - cardiac markers: negative repeat EKG: NSR Thyroid function test normal - Amiodarone PO TID added-- tolerating well continue Metoprolol, Pradaxa may need outpatient stress test Nocturnal Pulse Oximetry ordered: positive, will need oxygen appreciate Cardiology consult HISTORY OF CVA - no residual deficits - on Pradaxa, Statin EPISODE OF SYNCOPE no prodrome possible tachybrady syndrome Amiodarone started no arrhythmia noted so far CKD STAGE 3 - crea at baseline HTN - improving -continue Lisinopril, BB, Norvasc -monitor in tele HLD -continue Statin DEPRESSION -continue Celexa DVT PROPHYLAXIS: Pradaxa CODE STATUS: FULL CODE Disposition pending anticipate d/c home when cleared by cardiology tomorrow Current Inpatient Medications: Current Inpatient Medications Medications (Trade) Dose Ordered Sig/Venancio Route Start Time Stop Time Status Last Admin Dose Admin Acetaminophen (Tylenol Tab) 650 mg Q4H PRN PO 04/22/16 12:30 05/22/16 12:29 Nitroglycerin (Nitrostat Tab) 0.4 mg UD PRN SL 04/22/16 12:30 05/22/16 12:29 Amlodipine Besylate (Norvasc Tab) 5 mg DAILY PO 04/23/16 09:00 05/23/16 08:59 04/25/16 08:59 5 MG Atorvastatin Calcium (Lipitor Tab) 40 mg DAILY PO 04/23/16 09:00 05/23/16 08:59 04/25/16 08:59 40 MG Citalopram Hydrobromide (celeXA TAB) 10 mg DAILY PO 04/23/16 09:00 05/23/16 08:59 04/25/16 08:59 10 MG Lisinopril (Zestril Tab) 10 mg QPM PO 04/22/16 21:00 05/22/16 20:59 04/24/16 21:19 10 MG Lisinopril (Zestril Tab) 20 mg QAM PO 04/23/16 09:00 05/23/16 08:59 04/25/16 09:00 20 MG Metoprolol Succinate (Toprol Xl Tab) 50 mg QAM PO 04/23/16 09:00 05/23/16 08:59 04/25/16 09:00 50 MG Dabigatran (Pradaxa Cap) 150 mg BID PO 04/22/16 21:00 05/22/16 20:59 04/25/16 08:59 150 MG Miscellaneous (Iv Fluids Completed) 1 ea PRN PRN N/A 04/22/16 14:15 04/22/17 14:14 Metoprolol Tartrate (Lopressor Iv) 2.5 mg Q6H PRN IV 04/23/16 00:30 05/23/16 00:29 Amiodarone HCl (Cordarone Tab) 400 mg TID PO 04/23/16 14:00 05/23/16 13:59 04/25/16 15:00 400 MG
[2016-04-25 19:12] VITALS: BP 141/58; PULSE 64; TEMP 36.7; O2SAT 94
[2016-04-25] MEDS: LISINOPRIL 10 MG TAB PO SCH (21:16)
[2016-04-26 00:09] VITALS: BP 117/57; PULSE 67; TEMP 36.7; O2SAT 95
[2016-04-26 03:20] VITALS: BP 116/51; PULSE 68; TEMP 36.4; O2SAT 95
[2016-04-26 06:29] LABS: BASO % 0.3 %; BASO ABS # 0.02 K/uL (0-0.2); COMPLETE YES; EOS % 4.3 %; HEMATOCRIT 37.6 % (37-47); IG% 0.1 %; LYMPH % 23.3 %; LYMPH ABS # 1.64 K/uL (1.2-3.4); MEAN CELL VOLUME 91.9 fL (80-100); MEAN CORPUSCULAR HEMOGLOBIN 31.1 pg (25-34); MEAN CORPUSCULAR HGB CONC 33.8 g/dl (32-36); MEAN PLATELET VOLUME 8.2 fL (7.4-10.4); MONO % 9.8 %; NEUT % 62.2 %; PLATELET COUNT 237 K/uL (130-400); RED BLOOD COUNT 4.09 M/uL (4.2-5.4); WHITE BLOOD COUNT 7.04 K/uL (4.8-10.8)
[2016-04-26 07:11] LABS: BUN/CREATININE RATIO 25.8 (10-20); CALCIUM 8.9 mg/dl (8.5-10.1); CREATININE 1.5 mg/dl (0.60-1.20); MAGNESIUM 2.3 mg/dl (1.8-2.4); POTASSIUM 4.4 mmol/L (3.5-5.1)
[2016-04-26] MEDS ORDERED: SODIUM CHLORIDE 0.9% 1000ML 1,000 ML IV SCH (07:45)
[2016-04-26 08:19] VITALS: BP 115/64; PULSE 64; TEMP 36.6; O2SAT 94
[2016-04-26] MEDS: AMIODARONE 200 MG TAB PO SCH (08:55)
[2016-04-26] MEDS: DABIGATRAN ELEXILATE 75 MG CAP PO SCH (08:56)
[2016-04-26] MEDS: METOPROLOL SUCC 50MG EXT REL TAB PO SCH (08:57)
[2016-04-26] MEDS: ATORVASTATIN 40 MG TAB PO SCH (08:57)
[2016-04-26] MEDS: AMLODIPINE BESYLATE 5 MG TAB PO SCH (08:57)
[2016-04-26] MEDS: CITALOPRAM 20 MG TAB PO SCH (08:57)
[2016-04-26] MEDS: LISINOPRIL 20 MG TAB PO SCH (09:00)
--- NOTE | 2016-04-26 11:30 | Cardiology Follow-Up ---
Subjective General Date of Service: Apr 26, 2016. Chief Complaint: follow up atrial fibrillation Pt evaluation today including: conversation w/ patient, conversation w/ family , physical exam History of Present Illness The patient is a 75 year old female seen in follow up. Patient feels well. Denies chest pain or shortness of breath. Telemetry reveals stable SR with RBBB, no significant bradycardia , no pauses. Allergies Coded Allergies: No Known Allergies (Verified , 04/22/16) Social History Smoking Status: Never Smoker Hx Tobacco Use In Past Year?: No Hx Alcohol Use - Type And Amou: No Hx Substance Use - Type And Am: No Problem List Medical Problems: (1) CVA (cerebral vascular accident) Status: Acute (2) Dyspnea on exertion Status: Acute (3) New onset atrial fibrillation Status: Acute Physical Exam Vital Signs Last Vital Signs Documentation Date Time Temp Pulse Resp B/P Pulse Ox O2 Delivery O2 Flow Rate FiO2 04/26/16 08:19 36.6 64 18 115/64 94 Room Air 04/26/16 03:20 2.0 Physical Exam Constitutional: Level of Distress: NAD Neck: supple Lungs: Auscultation: no wheezing, no rales/crackles Cardiovascular: Heart Auscultation: RRR, no murmurs, no rubs Extremities: no cyanosis Neurologic: Gait & Station: pertinent finding (no focal deficits) Assessment and Plan Assessment and Plan Impression: 1. Symptomatic AF, now SR 2. RBBB 3. Nocturnal desaturations, likely underlying instructed sleep apnea Plan: Stable for discharge to home. Continue metoprolol succinate 50 mg daily. Continue amiodarone, discharge dose 200 mg two times per day. Continue pradaxa for stroke prevention. Recommend Outpatient sleep medicine consult. Patient already has outpt follow up with Dr Hoang at [facility] on 05/07/16, can keep that visit for post hospital follow up. At that time , amiodarone dose will likely be reduced to 200 mg daily. Niall Garvey DO Laboratory Results Last 24 Hours Test 04/26/16 06:02 White Blood Count 7.04 K/uL Red Blood Count 4.09 M/uL Hemoglobin 12.7 g/dL Hematocrit 37.6 % Mean Corpuscular Volume 91.9 fL Mean Corpuscular Hemoglobin 31.1 pg Mean Corpuscular Hemoglobin Concent 33.8 g/dl Platelet Count 237 K/uL Mean Platelet Volume 8.2 fL Neutrophils (%) (Auto) 62.2 % Lymphocytes (%) (Auto) 23.3 % Monocytes (%) (Auto) 9.8 % Eosinophils (%) (Auto) 4.3 % Basophils (%) (Auto) 0.3 % Neutrophils # (Auto) 4.38 K/uL Lymphocytes # (Auto) 1.64 K/uL Monocytes # (Auto) 0.69 K/uL Eosinophils # (Auto) 0.30 K/uL Basophils # (Auto) 0.02 K/uL RDW Standard Deviation 44.6 fL RDW Coefficient of Variation 13.2 % Immature Granulocyte % (Auto) 0.1 % Immature Granulocyte # (Auto) 0.01 K/uL Sodium Level 142 mmol/L Potassium Level 4.4 mmol/L Chloride Level 106 mmol/L Carbon Dioxide Level 24 mmol/L Anion Gap 12.0 mmol/L Blood Urea Nitrogen 39 mg/dl Creatinine 1.50 mg/dl Est Creatinine Clear Calc Drug Dose 40.8 ml/min Estimated GFR () 39.1 Estimated GFR (Non- 33.7 BUN/Creatinine Ratio 25.8 Random Glucose 93 mg/dl Calcium Level 8.9 mg/dl Magnesium Level 2.3 mg/dl
[2016-04-26 12:13] VITALS: BP 137/69; PULSE 63; TEMP 36.5; O2SAT 95
[2016-04-26 14:10] LABS: BUN/CREATININE RATIO 23.6 (10-20); CALCIUM 8.6 mg/dl (8.5-10.1); CREATININE 1.5 mg/dl (0.60-1.20); POTASSIUM 4.3 mmol/L (3.5-5.1)
[2016-04-26 15:32] VITALS: BP 137/69; PULSE 63; TEMP 36.5; O2SAT 95
--- NOTE | 2016-04-26 17:01 | Progress Note ---
Medicine Progress Note Date & Time of Visit: Apr 26, 2016 at 16:53. Subjective patient states she feels much better overall denies chest pain, dyspnea, dizziness, palpitations no changes with urination states she is ready and would like to be discharged today Objective Last 8 Hrs Date Time Temp Pulse Resp B/P Pulse Ox O2 Delivery O2 Flow Rate FiO2 04/26/16 16:00 Room Air 04/26/16 15:32 36.5 63 18 95 Room Air 04/26/16 12:13 36.5 63 18 137/69 95 Room Air 04/26/16 12:00 Room Air Physical Exam: General- oriented x 3 not in distress, speaks in sentences with no effort Neck-no JVD Lungs- clear breath sounds b/l, no rales Heart- normal rate, regular rhythm; no murmurs Abdomen- normal bowel sounds, soft, nontender Extremities- no pretibial edema, no calf tenderness; peripheral pulses intact Neuro- alert, oriented x 3;no gross deficits Skin- warm & dry Laboratory Results: Last 24 Hours Test 04/26/16 06:02 04/26/16 13:30 White Blood Count 7.04 K/uL Red Blood Count 4.09 M/uL Hemoglobin 12.7 g/dL Hematocrit 37.6 % Mean Corpuscular Volume 91.9 fL Mean Corpuscular Hemoglobin 31.1 pg Mean Corpuscular Hemoglobin Concent 33.8 g/dl Platelet Count 237 K/uL Mean Platelet Volume 8.2 fL Neutrophils (%) (Auto) 62.2 % Lymphocytes (%) (Auto) 23.3 % Monocytes (%) (Auto) 9.8 % Eosinophils (%) (Auto) 4.3 % Basophils (%) (Auto) 0.3 % Neutrophils # (Auto) 4.38 K/uL Lymphocytes # (Auto) 1.64 K/uL Monocytes # (Auto) 0.69 K/uL Eosinophils # (Auto) 0.30 K/uL Basophils # (Auto) 0.02 K/uL RDW Standard Deviation 44.6 fL RDW Coefficient of Variation 13.2 % Immature Granulocyte % (Auto) 0.1 % Immature Granulocyte # (Auto) 0.01 K/uL Sodium Level 142 mmol/L 141 mmol/L Potassium Level 4.4 mmol/L 4.3 mmol/L Chloride Level 106 mmol/L 106 mmol/L Carbon Dioxide Level 24 mmol/L 27 mmol/L Anion Gap 12.0 mmol/L 8.0 mmol/L Blood Urea Nitrogen 39 mg/dl 35 mg/dl Creatinine 1.50 mg/dl 1.50 mg/dl Est Creatinine Clear Calc Drug Dose 40.8 ml/min 40.8 ml/min Estimated GFR () 39.1 39.1 Estimated GFR (Non- 33.7 33.7 BUN/Creatinine Ratio 25.8 23.6 Random Glucose 93 mg/dl 79 mg/dl Calcium Level 8.9 mg/dl 8.6 mg/dl Magnesium Level 2.3 mg/dl Assessment & Plan 75 year old female with recent diagnosis of Atrial Fibrillation presents to the ED with SOB, tachycardia. She did not take her medications this morning ATRIAL FIBRILLATION WITH RAPID VENTRICULAR RESPONSE -Receive 15mg total IV Lopressor in ED - rate improved to low 100s -Had echo on 04/12 with normal EF, grade 1 diastolic dysfunction - no significant change from previous - cardiac markers: negative repeat EKG: NSR Thyroid function test normal - [employer] consulted, Dr. Garvey patient started on Amiodarone 400mg TID x 2 days tolerated well recommend Amiodarone 200mg BID, then ff up with [employer]er on 05/07/16 continue Metoprolol, Pradaxa NOCTURNAL HYPOXIA may be contributing to A fib Nocturnal Pulse Oximetry ordered: positive oxygen tank arranged to be delivered to patient's home will need o2 2 L by nasal cannula while sleeping Outpatient Sleep Study HISTORY OF CVA - no residual deficits - on Pradaxa, Statin EPISODE OF SYNCOPE no prodrome possible tachybrady syndrome Amiodarone started no arrhythmia noted in Tele ff up with Commercial [employer]er ELEVATED CREA CKD STAGE 3 - crea usually 1.2, 1.5 on day of discharge - given IV fluids - repeat PRP on ff up with PCP this week hold Lisinopril, resume when crea at baseline HTN - hold Lisinopril, resume when crea at baseline - increase Amlodipine from 5 to 10mg for now resume usual dose of Amlodipine 5mg when Lisinopril has been resumed HLD -continue Statin DEPRESSION -continue Celexa DVT PROPHYLAXIS: Pradaxa CODE STATUS: FULL CODE Disposition d/c home ff up with PCP in 3-5 days ff up with [employer] 05/07/16 Current Inpatient Medications: Current Inpatient Medications Medications (Trade) Dose Ordered Sig/Venancio Route Start Time Stop Time Status Last Admin Dose Admin Acetaminophen (Tylenol Tab) 650 mg Q4H PRN PO 04/22/16 12:30 05/22/16 12:29 04/25/16 21:30 650 MG Nitroglycerin (Nitrostat Tab) 0.4 mg UD PRN SL 04/22/16 12:30 05/22/16 12:29 Amlodipine Besylate (Norvasc Tab) 5 mg DAILY PO 04/23/16 09:00 05/23/16 08:59 04/26/16 08:57 5 MG Atorvastatin Calcium (Lipitor Tab) 40 mg DAILY PO 04/23/16 09:00 05/23/16 08:59 04/26/16 08:57 40 MG Citalopram Hydrobromide (celeXA TAB) 10 mg DAILY PO 04/23/16 09:00 05/23/16 08:59 04/26/16 08:57 10 MG Lisinopril (Zestril Tab) 10 mg QPM PO 04/22/16 21:00 05/22/16 20:59 04/25/16 21:16 10 MG Lisinopril (Zestril Tab) 20 mg QAM PO 04/23/16 09:00 05/23/16 08:59 04/25/16 09:00 20 MG Metoprolol Succinate (Toprol Xl Tab) 50 mg QAM PO 04/23/16 09:00 05/23/16 08:59 04/26/16 08:57 50 MG Dabigatran (Pradaxa Cap) 150 mg BID PO 04/22/16 21:00 05/22/16 20:59 04/26/16 08:56 150 MG Miscellaneous (Iv Fluids Completed) 1 ea PRN PRN N/A 04/22/16 14:15 04/22/17 14:14 Metoprolol Tartrate 2.5 mg 2.5 mg Q6H PRN IV 04/23/16 00:30 05/23/16 00:29 Sodium Chloride (Nss 1000ml) 1,000 ml @ 100 mls/hr Q10H IV 04/26/16 07:45 05/26/16 07:44 04/26/16 08:55 100 MLS/HR Amiodarone HCl (Cordarone Tab) 200 mg BID PO 04/26/16 21:00 05/26/16 20:59
[2016-04-26] MEDS ORDERED: CRD200 PO (17:04)
[2016-04-26] MEDS ORDERED: NRV5 PO (17:04)
--- NOTE | 2016-04-26 17:14 | Discharge Instructions ---
Discharge Instructions Admission Reason for Admission: Atrial Fibrillation With Rvr Discharge Discharge Diagnosis / Problem: ATRIAL FIBRILLATION Discharge Goals Goal(s): Diagnostic testing, Therapeutic intervention Activity Recommendations Activity Limitations: as noted below (NO HEAVY EXERTION UNTIL RE-EVALUATED BY PRIMARY CARE PHYSICIAN) Driving or Machine Use: NO DRIVING UNTIL RE-EVALUATED BY PRIMARY CARE PHYSICIAN . Instructions / Follow-Up Instructions / Follow-Up PLEASE REVIEW YOUR NEW MEDICATION LIST AND FOLLOW INSTRUCTIONS CAREFULLY. ENSURE ADEQUATE DAILY HYDRATION. NO NSAIDS (IBUPROFEN, NAPROXEN, ETC.) CALL CARD SELLER OR CALL 911 IF WITH RECURRENCE OF SYMPTOMS. FOLLOW UP WITH (PRIMARY CARE PHYSICIAN) DR. MARQUES ON Tuesday04/28/16 AT 2: 50PM. DR. MCCARTHY (CARD SELLER) ON 05/07/16 AT 9:45AM. Current Hospital Diet Patient's current hospital diet: AHA Diet (Heart Healthy) Discharge Diet Recommended Diet: AHA Diet (Heart Healthy) Pending Studies Studies pending at discharge: yes List of pending studies: REPEAT BLOOD WORK- PARTIAL RENAL PROFILE Laboratory Results Hemoglobin A1c Test 02/01/16 16:38 Range/Units Estimated Average Glucose 117 mg/dl Hemoglobin A1c 5.7 H 4.5-5.6 % Lipid Panel Test 02/02/16 07:10 Range/Units Triglycerides Level 339 H 0-150 mg/dl Cholesterol Level 174 0-200 mg/dl HDL Cholesterol 38 mg/dl Cholesterol/HDL Ratio 4.6 LDL Cholesterol, Calculated 68 mg/dl Medical Emergencies . Who to Call and When: Medical Emergencies: If at any time you feel your situation is an emergency, please call 911 immediately. . Non-Emergent Contact Non-Emergency issues call your: Primary Care Provider Call Non-Emergent contact if: you have a fever . Past History Medical & Surgical History: (1) HTN (hypertension) (2) CKD (chronic kidney disease) stage 3, GFR 30-59 ml/min (3) Osteoporosis (4) Dyslipidemia (5) Vitamin D deficiency (6) Atrial fibrillation with RVR (7) History of CVA (cerebrovascular accident) (8) Depression (9) H/O cataract removal with insertion of prosthetic lens (10) History of appendectomy (11) History of tonsillectomy (12) History of total hysterectomy . "Provider Documentation" section prepared by Jose Angel Webb. VTE Core Measure Inpt VTE Proph given/why not?: Other Anticoagulation (PRADAXA)
--- NOTE | 2016-04-26 17:19 | Discharge Summary ---
Discharge Summary Admission Date: Apr 23, 2016 at 11:08 Discharge Date: Apr 26, 2016 Discharge Disposition: Home Principal Diagnosis: ATRIAL FIBRILLATION WITH RAPID VENTRICULAR RESPONSE Secondary Diagnoses/Problems: PLEASE REFER TO HOSPITAL COURSE BELOW. Consultations: AVIONICS SUPERVISOR DR. ACOSTA Pending Studies/Follow-Up: REPEAT PRP (RE: ELEVATED CREA OF 1.5); PLEASE REFER TO HOSPITAL COURSE BELOW FOR FURTHER DETAILS. Medication Reconciliation New Medications: Amlodipine Besylate (Amlodipine Besylate) 5 Mg Tab 10 MG PO DAILY, #30 TABS 2 Refills Amiodarone HCl (Amiodarone HCl) 200 Mg Tab 200 MG PO BID for 30 Days, #60 TAB 2 Refills Continued Medications: Atorvastatin (Lipitor) 40 Mg Tab 40 MG PO DAILY, TAB Citalopram Hydrobromide (Celexa) 10 Mg Tab 1 TAB PO DAILY for 30 Days, #30 TAB 0 Refills Dabigatran Elexilate (Pradaxa) 150 Mg Cap 150 MG PO BID for 30 Days, #60 Ergocalciferol (Vitamin D) 50,000 Interunit Cap 10262 UNITS PO WK TAKE ON TUESDAY Metoprolol Succinate (Metoprolol Succinate ER) 50 Mg Tabcr 50 MG PO QAM for 30 Days Discontinued Medications: Amlodipine (Norvasc) 5 Mg Tab 5 MG PO DAILY, TAB Lisinopril (Prinivil) 10 Mg Tab 10 MG PO QPM, TAB Lisinopril (Zestril) 20 Mg Tab 20 MG PO QAM, TAB Admission Information HPI (per Admitting provider): Patient seen and examined. 75 year old female with PMHx of Afib, CKD stage 3, HLD, HTN and h/o CVA presents to the ED complaining of shortness of breath x 1 day. Patient reports she felt well when she went to bed last night. She states when she woke up this morning she felt SOB with minimal exertion, lightheaded and had palpitations. She took her BP and pulse rate was 133 so she decided to come to the ED. She denies fevers, chills, URI symptoms, chest pain, nausea, vomiting, diarrhea, dysuria, calf pain and unusual edema. Patient was recently admitted for new onset Afib from 04/11-04/12. She was seen by cardiology and started on Metoprolol Succinate and Pradaxa. She reports she did not take either medication this morning. In the ED patient is tachycardic to the 140s. She received IVFs, and a total of 15mg IV Lopressor. HR is now around 100. She will be observed for further workup and treatment. Physical Exam (per Admitting): General Appearance: + pertinent finding (Pleasant WD/WN 75 year old female lying in bed in NAD with at bedside ) Head: normocephalic, atraumatic Eyes: PERRL, EOMI, sclerae normal ENT: hearing grossly normal, pharynx normal Neck: supple, no JVD Respiratory/Chest: chest non-tender, lungs clear (trace crackles ), normal breath sounds, no respiratory distress, no accessory muscle use Cardiovascular: no gallop, no JVD, no murmur, normal peripheral pulses, + irregularly irregular (rate 110s) Abdomen/GI: normal bowel sounds, non tender, soft Back: normal inspection, no muscle spasm Extremities/Musculoskelatal: no calf tenderness, normal capillary refill, + pedal edema (trace) Neurologic/Psych: alert, oriented x 3, + pertinent finding (no motor or sensory deficits noted on gross exam ) Skin: normal color, warm/dry, no rash Lymphatic: no adenopathy Hospital Course 75 year old female with recent diagnosis of Atrial Fibrillation presents to the ED with SOB, tachycardia. She did not take her medications this morning ATRIAL FIBRILLATION WITH RAPID VENTRICULAR RESPONSE - presented with symptomatic a fib with RVR -Had echo on 04/12 with normal EF, grade 1 diastolic dysfunction - no significant change from previous - cardiac markers: negative repeat EKG: NSR Thyroid function test normal - Paintings Conservator consulted, Dr. Garvey patient converted to sinus rhythm with IV Metoprolol patient started on Amiodarone 400mg TID, given x 2 days tolerated well recommend Amiodarone 200mg BID, then ff up with Paintings Conservator on 05/07/16 continue Metoprolol, Pradaxa NOCTURNAL HYPOXIA may be contributing to A fib Nocturnal Pulse Oximetry ordered: positive oxygen tank arranged to be delivered to patient's home will need o2 2 L by nasal cannula while sleeping Outpatient Sleep Study EPISODE OF SYNCOPE no prodrome possible tachybrady syndrome Amiodarone started no arrhythmia noted in Tele ff up with Paintings Conservator ELEVATED CREA CKD STAGE 3 - crea usually 1.2, 1.5 on day of discharge - given IV fluids - repeat PRP on ff up with PCP this week hold Lisinopril, resume when crea at baseline HTN - hold Lisinopril, resume when crea at baseline - increase Amlodipine from 5 to 10mg for now resume usual dose of Amlodipine 5mg when Lisinopril has been resumed HLD -continue Statin HISTORY OF CVA - no residual deficits - on Pradaxa, Statin DEPRESSION -continue Celexa Disposition d/c home ff up with PCP this week ff up with Paintings Conservator 05/07/16 Total time spent on discharge = 35 minutes This includes examination of the patient, discharge planning, medication reconciliation, and communication with other providers. Discharge Instructions Discharge Instructions Admission Reason for Admission: Atrial Fibrillation With Rvr Discharge Discharge Diagnosis / Problem: ATRIAL FIBRILLATION Discharge Goals Goal(s): Diagnostic testing, Therapeutic intervention Activity Recommendations Activity Limitations: as noted below (NO HEAVY EXERTION UNTIL RE-EVALUATED BY PRIMARY CARE PHYSICIAN) Driving or Machine Use: NO DRIVING UNTIL RE-EVALUATED BY PRIMARY CARE PHYSICIAN . Instructions / Follow-Up Instructions / Follow-Up PLEASE REVIEW YOUR NEW MEDICATION LIST AND FOLLOW INSTRUCTIONS CAREFULLY. ENSURE ADEQUATE DAILY HYDRATION. NO NSAIDS (IBUPROFEN, NAPROXEN, ETC.) CALL AVIONICS SUPERVISOR OR CALL 911 IF WITH RECURRENCE OF SYMPTOMS. FOLLOW UP WITH (PRIMARY CARE PHYSICIAN) DR. MARQUES ON Tuesday04/28/16 AT 2: 50PM. DR. MCCARTHY (AVIONICS SUPERVISOR) ON 05/07/16 AT 9:45AM. Current Hospital Diet Patient's current hospital diet: AHA Diet (Heart Healthy) Discharge Diet Recommended Diet: AHA Diet (Heart Healthy) Pending Studies Studies pending at discharge: yes List of pending studies: REPEAT BLOOD WORK- PARTIAL RENAL PROFILE Laboratory Results Hemoglobin A1c Test 02/01/16 16:38 Range/Units Estimated Average Glucose 117 mg/dl Hemoglobin A1c 5.7 H 4.5-5.6 % Lipid Panel Test 02/02/16 07:10 Range/Units Triglycerides Level 339 H 0-150 mg/dl Cholesterol Level 174 0-200 mg/dl HDL Cholesterol 38 mg/dl Cholesterol/HDL Ratio 4.6 LDL Cholesterol, Calculated 68 mg/dl Medical Emergencies . Who to Call and When: Medical Emergencies: If at any time you feel your situation is an emergency, please call 911 immediately. . Non-Emergent Contact Non-Emergency issues call your: Primary Care Provider Call Non-Emergent contact if: you have a fever . Past History Medical & Surgical History: (1) HTN (hypertension) (2) CKD (chronic kidney disease) stage 3, GFR 30-59 ml/min (3) Osteoporosis (4) Dyslipidemia (5) Vitamin D deficiency (6) Atrial fibrillation with RVR (7) History of CVA (cerebrovascular accident) (8) Depression (9) H/O cataract removal with insertion of prosthetic lens (10) History of appendectomy (11) History of tonsillectomy (12) History of total hysterectomy . "Provider Documentation" section prepared by Jose Angel Webb. VTE Core Measure Inpt VTE Proph given/why not?: Other Anticoagulation (PRADAXA)
[2016-04-26] MEDS ORDERED: AMIODARONE 200 MG TAB PO SCH (21:00)
== END 2016-04-26 17:30 | disposition home or self-care (01) | DRG 310 ==
LOC: ENRESERVTM → ENRESERVDT → C.EDB 09:50 → EEVIPCON 12:29 → C.2E 12:29 → OBSVTOIN 04-23 11:08
PROVIDERS: ADMIT Internal Medicine; ATTEND Internal Medicine
DX: I48.91 Unspecified atrial fibrillation (principal); I13.10 Hypertensive heart and chronic kidney disease without heart failure, with stage 1 through stage 4 chronic kidney disease, or unspecified chronic kidney disease; N18.3 Chronic kidney disease, stage 3 (moderate); F32.9 Major depressive disorder, single episode, unspecified; E78.5 Hyperlipidemia, unspecified; Z86.73 Personal history of transient ischemic attack (TIA), and cerebral infarction without residual deficits; M81.0 Age-related osteoporosis without current pathological fracture; R06.00 Dyspnea, unspecified; G47.34 Idiopathic sleep related nonobstructive alveolar hypoventilation; E56.9 Vitamin deficiency, unspecified; Z83.3 Family history of diabetes mellitus; Z82.49 Family history of ischemic heart disease and other diseases of the circulatory system; Z82.3 Family history of stroke

== ENCOUNTER → 2016-08-11 | Outpatient (CLI) | payer OTHER ==
[~2016-08-11] MED LIST changes: +AMIO200T4 PO; -AMLO-110 PO; +CLX/20 PO; +CRD200 PO; +DVN80 PO; -LISI-725 PO; -LISI10TA PO; +NRV5 PO; +SYN25 PO; +TRIATAB3 PO
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
--- NOTE | 2016-08-24 08:47 | POLYSOMNOGRAPH REPORT ---
REFERRING PERSON: Dr. Arabella Blackwell. INSURANCE CLAIM REPRESENTATIVE: Nidhi Salgado. Ms. Pickard is a 75-year-old female, who presents to the lab for a split night sleep study. She recently had a parietal CVA, and has a history of paroxysmal atrial fibrillation. She was noted to have nocturnal hypoxemia while in the hospital and has been on 2 liters of oxygen at night since that time. Her Oakley sleepiness scale score on the evening of this study is 14. BMI is 36.41. Following the technical and digital specifications of the [place] [employer] (AASM) a standard diagnostic polysomnogram was performed monitoring EEG, EOG, EMG (chin and leg deviations), oxygen saturation, body position, digital video, respiratory effort and airflow. The sleep Stage and event scoring was based on the AASM Manual for the Scoring of Sleep and Associated Events 2007 edition. Apneas are defined as a drop in the peak thermal sensor excursion by >90% of baseline for at least 10 seconds. Hypopneas were scored using the 4% oxygen desaturation rule (4A-Medicare) and a decrease in the nasal pressure excursions by >30% of baseline for at least 10 seconds. Respiratory effort-related arousal (RERA's) is defined as a sequence of breaths lasting at least 10 seconds characterized by increasing respiratory effort or flattening of the nasal pressure waveform leading to an arousal from sleep when the sequence of breaths does not meet criteria for an apnea or hypopnea. Apnea Hypopnea index (AHI) is defined as the number of apneas and hypopneas occurring in an hour of sleep. Respiratory disturbance index (RDI) is defined as the number of apneas, hypopneas, and RERA's occurring in an hour of sleep. Ms. Pickard's total sleep period time was 250 minutes. Total sleep time was 238 minutes. Sleep efficiency was 53%. Latency to sleep onset was 196.5 minutes. Wake after sleep onset was 13 minutes. Total non-REM sleep time was 175 minutes. She spent 8% of that time in N1 sleep, 65% in N2 sleep and no time in N3 sleep. This is abnormal non-REM sleep architecture with a propensity for superficial sleep. REM latency was 102 minutes. Total REM sleep time was 63 minutes or 26% of total sleep time. There were 52 cortical arousals from sleep. Thirty-seven of these arousals were spontaneous, 5 were due to respiratory events, and 11 were due to snoring. There were no periodic limb movements recorded on this test. There were no central, 12 obstructive and no mixed apnea. Additionally, there were 102 hypopnea. Apnea-hypopnea index was 28.7 consistent with moderately severe sleep apnea. 969 snoring events were recorded. Total sleep time with snoring was 8.1%. Mean saturation during sleep was 89%. Desaturations were noted to 81%. Saturations were less than 89% for 223.5 minutes of recorded time. This is significant nocturnal hypoxemia. There was no cardiac ectopy noted on this study. Ms. Pickard's heart rate ranged from a low of 50 beats per minute to a high of 62 beats per minute during sleep. IMPRESSION AND PLAN: Ms. Pickard is a 75-year-old female with evidence of moderately severe sleep apnea and very significant nocturnal hypoxemia on this sleep study. 1. This patient would likely benefit from positive airway pressure therapy. She should return to the sleep lab for a full night titration and then based on those results be started on equipment at home. A download from her machine can be reviewed in 1 month both to check compliance as well as AHI and further pressure adjustments can be made at that time. 2. Should this patient be unwilling or unable to tolerate CPAP therapy, she should be continued on nocturnal oxygen and she should be referred to ear, nose and throat or oral surgery/dental medicine (if appropriate) to discuss alternative treatments for sleep disorder breathing.
== END | disposition home or self-care (01) ==
LOC: C.NEUR 21:00
PROVIDERS: ATTEND Family Medicine
DX: G47.34 Idiopathic sleep related nonobstructive alveolar hypoventilation (principal); R06.83 Snoring; E66.9 Obesity, unspecified

== ENCOUNTER → 2016-09-29 | Outpatient (CLI) | payer OTHER ==
[~2016-09-29] MED LIST changes: -AMIO200T4 PO; -CLX/20 PO; -DVN80 PO; -SYN25 PO; -TRIATAB3 PO
--- NOTE | 2016-09-30 06:35 | PAP/PSG TECHNICIAN REPORT ---
[facility] Boom Boss Polysomnogram Report Study name: None Report date: 09/30/2016 Study date: 09/29/2016 Referring Physician: Juana Blackwell M.D. Name: DOUGLAS BURNHAM Interpreting Physician: Steven Blackwell M.D. Date of : 1940 Boom Boss: No Nguyen RPS. Sex: Female Age: 75 Study Type: PSG PAP Weight: 236 lbs 15.5 in Height: 75 years, Height 5' 7.5" Neck Circum: BMI: 36.41 Medications: TRIAMTERENE-HCTZ 37.5-25 MG, AMIODARONE 200 MG, METOPROLOL 50 MG, PARDAXO 150 MG, CITALOPRAM 10 MG, ATORVASTATIN 40 MG, ERGOCALIFEROL 50,000 MG Patient History 75 yr-old female here for a new CPAP treatment study. She was found to be positive for MICKY with an AHI of 28.7. Her diagnostic study was on 08/11/16. She wears a Curry FX Michelle nasal pillows size medium from [employer]. The test was started on room air and 4 CMH2O. ETCO2 testing was not utilized during this study. Room 3 Parameters Monitored NPSG: E1-M2, E2-M1, Fp1-M2, Fp2-M1, F3-M2, F4-M2, F4-M1, C3-M2, C4-M2, C4-M1, O1-M2, O2-M2, O2-M1, T3-M2, T4-M1, P3-M2, P4-M1, CHIN1, CHIN2, HR, EKG, Legs, PFLOW, SNOR, FLOW, CFLOW, Tidal Volume, THOR, ABDO, SpO2, PLTH, CPRESS, ETCO2 Wave, ETCO2, pH Sleep Architecture Sleep Stages Time at Lights Off 9:46:41 PM STAGES Time (min.) TST (%) Time at Lights On 5:30:41 AM Wake 74.0 -- Total Recording Time (TRT) 464.00 min. N1 60.0 15 Total Sleep Period (TSP) 453.0 min. N2 307.5 79 Total Sleep Time (TST) 390.0min. N3 0.0 0 Awake Time 74.0 min. REM 22.5 6 Wake after Sleep Onset 64.0 min. Sleep Efficiency (SE) 84 % Sleep Onset Latency ([place]) 10.0 min. Number of Stage 1 Shifts None Awakenings 20 Stage Changes 106 Number of REM periods 4 REM 22.5 6 REM Latency 264.5 min. NREM 367.5 94 Body Position Analysis Supine Right Left Side Prone Vertical Total Sleep Time (min.) 87.9 97.1 218.0 315.12 0.0 0.0 Total Sleep Time (%) 19% 25% 56% 81 0% N/A% Total Sleep Time REM (min.) 0.0 0.0 22.5 None 0.0 0.0 Total Sleep Time NREM (min.) 74.9 97.1 195.5 None 0.0 0.0 Intermittent Wake (min.) 13.0 34.5 26.5 None 0.0 0.0 Total Sleep Period (%) 19% None None None None None Arousals Myoclonus (PLM) * Events Count Index Events Count Index Spontaneous 15 2 Events Awake (PLMW) 117 94.9 Respiratory 4 0.6 Events Asleep w/ Arousal (PLMA) 50 7.7 PLM 49 8 Events Asleep w/o Arousal (PLMS) 509 78.3 Snoring 4 1 Total Asleep 559 86.0 Total 72 11 Total 676 87 Respiratory Analysis * CA OA MA CH H RERA Total Count 0 0 0 0 15 3 15 Index 0.0 0.0 0.0 0 2.3 0 2.8 Mean Duration 0.0 0.0 0.0 0.00 18.2 16.7 18.0 Longest Duration 0.0 0.0 0.0 0.00 0.0 17.8 23.2 Respiratory Event Summary Total Supine ~Supine Right Left Prone REM NREM Apneas Count 0 0 0 0 0 N/A 0 0 Index 0.0 0 0 0.0 0.0 N/A 0 0 Hypopneas (4% Desat) Count 15 5 10 0 10 N/A 1 14 Index 2.3 4.0 2 0.0 2.8 N/A 2.7 2.3 Apneas & All Hypopneas Count 15 5 10 0 10 N/A 1 14 Index 2.3 4 2 0 3 N/A 2.7 2.3 Respiratory Events (Chief Program Officer+All Hyp+RERA) Count 15 5 13 0 13 N/A 1 14 Index 2.8 4 2 0.0 3.6 N/A 5.3 2.6 Respiratory Related Arousal Count 4 5 3 0 3 N/A 1 3 Index 0.6 1 1 0 1 N/A 3 0 Snoring Analysis Supine Right Left Prone REM NREM Total Snore duration 8.2 min Snores count 54 302 90 N/A 9 437 446 Snore mean duration 1.1 Sec Snores index 43 187 25 N/A 24.0 71.3 68.6 TST with snoring (%) 2.1% Desaturation Event Summary: Minimum %SpO2 Event Count Mean/Min/Max Duration(sec.) Desaturation Index % Time In Bed > 90 20 21.6 / 10.3 / 44.5 7.0 37.5 86 - 90 18 23.3 / 10.3 / 54.8 4.3 55.6 81 - 85 2 10.4 / 6.8 / 14.0 3.8 6.9 76 - 80 0 N/A 0.0 0.0 71 - 75 0 N/A 0.0 0.0 66 - 70 0 N/A 0.0 0.0 61 - 65 0 N/A 0.0 0.0 56 - 60 0 N/A 0.0 0.0 51 - 55 0 N/A 0.0 0.0 < 50 0 N/A 0.0 0.0 Total REM NREM Awake <50% 0.0 min. 0.0 min. 0.0 min. 0.0 min. 51 - 60% 0.0 min. 0.0 min. 0.0 min. 0.0 min. 61 - 70% 0.0 min. 0.0 min. 0.0 min. 0.0 min. 71 - 80% 0.0 min. 0.0 min. 0.0 min. 0.0 min. 81 - 90% 285.4 min. 10.2 min. 249.6 min. 25.7 min. 91 - 100% 171.1 min. 12.3 min. 117.9 min. 40.9 min. Average 89 91 89 91 Minimum SpO2 82 89 82 82 Desaturation Event Index 4.4 5.3 3.6 8.9 # Desat. Events below 89% 23 N/A 16 7 Time(%) with Saturation below 89% 26.6 0.0 24.9 1.7 Time(min.) with Saturation below 89% 121.6 0.0 113.7 7.9 Time (mins) REM (mins) NREM (mins) % of TST SpO2 Below 90% 22 2 N20 42.2 SpO2 Below 88% 6 0 0 25 Heart Rate Analysis Min (bpm) Max (bpm) Average (bpm) Awake 45 60 52 NREM 45 60 51 REM 45 48 46 Overall 45 60 51 Supplemental O2 Values Minimum O2 level: None Value Start Time End Time Boom Boss Comments Ms. Burnham slept in the right, left, and supine positions. No cardiac arrhythmias were noted. PLMs were noted. No bruxism noted. CPAP was initiated at +4 CMH2O and up-titrated to a level of +8 CMH2O, Cflex 2. A Curry FX Michelle nasal pillows mask size medium from [employer] was used during titration She awoke to use the restroom one time during the night. Ms. Burnham stated that she slept fine. The final report will be interpreted and signed by a sleep physician. The completed physician report will then be placed in the patient medical record. Therapy Event: Therapy (cm H20) 4 6 7 8 Total Time at Pressure (min.) 103.7 51.8 190.7 117.8 TST at Pressure (min.) 90.7 46.8 151.7 100.8 # Periods 1 1 1 1 Sleep Onset (min.) 10.0 0.0 0.0 0.0 REM Onset (min.) N/A N/A 119.0 105.8 Sleep Efficiency % 87 90 79 85 Wakefulness (%) 12.5 9.7 20.5 14.4 Wakefulness (min.) 13.0 5.0 39.0 17.0 NREM 1 (%) 6.3 14.5 12.1 19.5 NREM 1 (min.) 6.5 7.5 23.0 23.0 NREM 2 (%) 81.2 75.9 61.4 56.7 NREM 2 (min.) 84.2 39.3 117.2 66.8 NREM 3 (%) 0.0 0.0 0.0 0.0 NREM 3 (min.) 0.0 0.0 0.0 0.0 REM (%) 0.0 0.0 6.0 9.3 REM (min.) 0.0 0.0 11.5 11.0 # Arousals 12 8 28 24 Arousal Index 7.9 10.3 11.1 14.3 # Snore 342 45 38 21 Snore Index 226.2 57.7 15.0 12.5 AHI 2.0 7.7 1.6 1.2 AHI Supine 9.0 2.2 N/A 2.1 AHI Non-Supine 0.0 15.0 1.6 0.8 NREM AHI 2.0 7.7 1.3 1.3 REM AHI N/A N/A 5.2 0.0 RDI 2.0 10.3 2.0 1.2 # Obstructive 0 0 0 0 # Central Ap 0 0 0 0 # Mixed 0 0 0 0 # Hypopneas 3 6 4 2 RERAS 0 2 1 0 Total Respiratory Events 3 8 5 2 Time Below SpO2 89.00% (min.) 78.9 33.8 1.0 0.1 Mean NREM SpO2 (%) 87 87 90 91 Mean REM SpO2 (%) N/A N/A 91 90 Mean Sleep SpO2 (%) 87 87 90 91 Min NREM SpO2 (%) 82 84 88 88 Min REM SpO2 (%) N/A N/A 89 89 Position Supine (min.) 20.1 26.8 0.0 28.0 Position Non-supine (min.) 70.6 20.0 151.7 72.8 LM Index Sleep 208.4 125.7 32.8 37.5 LM Index NREM 208.4 125.7 28.7 36.1 LM Index REM N/A N/A 83.5 49.1 Mean Heart Rate (bpm) 56 54 49 47 Min Heart Rate (bpm) 53 50 46 45
--- NOTE | 2016-10-18 20:57 | POLYSOMNOGRAPH REPORT ---
REFERRING PERSON: Dr. Arabella Blackwell. LOADER OPERATOR: No Nguyen. Ms. Pickard is a 75-year-old female, sent for CPAP titration study. She was recently found to have obstructive sleep apnea and an AHI of 28.7. She is using a Curry FX Michelle medium nasal pillow mask by [employer] for this titration. Her Mobile sleepiness scale score on the evening of this study is not recorded. BMI is 36.41. Following the technical and digital specifications of the [place] [employer] (AASM) a standard diagnostic polysomnogram was performed monitoring EEG, EOG, EMG (chin and leg deviations), oxygen saturation, body position, digital video, respiratory effort and airflow. The sleep Stage and event scoring was based on the AASM Manual for the Scoring of Sleep and Associated Events 2007 edition. Apneas are defined as a drop in the peak thermal sensor excursion by >90% of baseline for at least 10 seconds. Hypopneas were scored using the 4% oxygen desaturation rule (4A-Medicare) and a decrease in the nasal pressure excursions by >30% of baseline for at least 10 seconds. Respiratory effort-related arousal (RERA's) is defined as a sequence of breaths lasting at least 10 seconds characterized by increasing respiratory effort or flattening of the nasal pressure waveform leading to an arousal from sleep when the sequence of breaths does not meet criteria for an apnea or hypopnea. Apnea Hypopnea index (AHI) is defined as the number of apneas and hypopneas occurring in an hour of sleep. Respiratory disturbance index (RDI) is defined as the number of apneas, hypopneas, and RERA's occurring in an hour of sleep. Ms. Pickard's total sleep period time was 453 minutes. Total sleep time was 390 minutes. Sleep efficiency was 84%. Latency to sleep onset was 10 minutes with wake after sleep onset of 64 minutes. Total non-REM sleep time was 367.5 minutes. She spent 15% of that time in N1 sleep, 79% in N2 sleep and no time in N3 sleep. REM latency was 264.5 minutes. Total REM sleep time was 22.5 minutes or 6% of total sleep time. There were 72 cortical arousals from sleep. Four of these arousals were due to snoring, 49 were due to periodic limb movements, 4 were due to respiratory events and 15 were spontaneous. There were 559 periodic limb movements of sleep noted. Limb movement index was 86. Limb movement with arousal index was 7.7. There were no central obstructive or mixed apneas on this test. There were 15 hypopneas and 3 RERAs. Apnea-hypopnea index was normal at 2.3. 446 snoring events were recorded. Total sleep time with snoring was 2.1%. Mean saturation was low at 89% with desaturations to 82%. Saturations were less than 89% for 121.6 minutes of recorded time. There was no cardiac ectopy noted on this study. Heart rates ranged from a low of 45 beats per minute to a high of 60 beats per minute. As stated above, this was a CPAP titration study. Ms. Pickard was titrated from a CPAP pressure of 4 to a CPAP pressure of 8 over the course of the night. She was observed for a pressure of 8 for 100.8 minutes of recorded time. AHI and RDI on this pressure were both 1.2. She did have 11 minutes of REM sleep but it was non-supine REM sleep on this pressure. Saturations were less than 89 for only 0.1 minutes of recorded time. IMPRESSION AND PLAN: Successful CPAP titration study in this patient with known obstructive sleep apnea. I would recommend that she be started on CPAP at home at a pressure of 8. A download from her machine can be reviewed in 1 month, both to check compliance as well as AHI and further pressure adjustments can occur at that time.
== END | disposition home or self-care (01) ==
LOC: C.NEUR 20:00
PROVIDERS: ATTEND Family Medicine
DX: G47.33 Obstructive sleep apnea (adult) (pediatric) (principal); G47.34 Idiopathic sleep related nonobstructive alveolar hypoventilation

== ENCOUNTER 2016-12-21 17:02 | Inpatient (IN) | payer OTHER ==
[~2016-12-21] VITALS: Ht 170.2 cm; Wt 107.5 kg
[2016-12-21] VITALS (9 sets, daily range): BP systolic 64–219; BP diastolic 43–98; PULSE 48–55; TEMP 36.4; O2SAT 95–96; Ht 170.2 cm; Wt 107.5 kg
[2016-12-21 17:45] LABS: MANUAL MICROSCOPIC REQUIRED? NO; REVIEW REQ? NO; URINE APPEARANCE CLEAR (CLEAR); URINE BILIRUBIN NEG (NEG); URINE COLOR YELLOW; URINE NITRITE NEG (NEG); URINE SPECIFIC GRAVITY 1.017 (1.000-1.030); UROBILINOGEN NEG (NEG)
[2016-12-21] MEDS ORDERED: NITROGLYCERIN OINT 2% 1GM PACKET EXT ONE (17:45)
[2016-12-21] MEDS: NITROGLYCERIN 0.4 MG SL PER TAB CHARGE SL PRN ×3 (17:49→19:24)
[2016-12-21 17:50] LABS: BASO % 0.5 %; BASO ABS # 0.04 K/uL (0-0.2); COMPLETE YES; EOS % 2.6 %; HEMATOCRIT 43.8 % (37-47); IG% 0.4 %; LYMPH ABS # 1.54 K/uL (1.2-3.4); MEAN CELL VOLUME 94.6 fL (80-100); MEAN CORPUSCULAR HEMOGLOBIN 31.3 pg (25-34); MEAN CORPUSCULAR HGB CONC 33.1 g/dl (32-36); MEAN PLATELET VOLUME 8.7 fL (7.4-10.4); MONO % 7.8 %; NEUT % 67.7 %; PLATELET COUNT 257 K/uL (130-400); RED BLOOD COUNT 4.63 M/uL (4.2-5.4); WHITE BLOOD COUNT 7.34 K/uL (4.8-10.8)
--- NOTE | 2016-12-21 17:56 | DIAGNOSTIC IMAGING REPORT ---
CHEST ONE VIEW PORTABLE HISTORY: severe hypertension COMPARISON: Chest 04/22/2016. FINDINGS: The heart remains top normal in size. No pleural effusions. No pneumothorax. Mild elevation of the right hemidiaphragm persists. Bibasilar interstitial thickening has improved. No new focal lung consolidations. No evidence for pulmonary edema. IMPRESSION: Improvement in the bibasilar interstitial thickening. No acute process within the chest. Electronically signed by: Joss Alcazar M.D. 12/21/2016 5:54 PM Dictated Date/Time: 12/21/2016 5:53 PM
[2016-12-21 18:17] LABS: INR 1.3 (0.9-1.1); PARTIAL THROMBOPLASTIN RATIO 2.4; PROTHROMBIN TIME (PATIENT) 14.5 SECONDS (9.0-12.0)
[2016-12-21] MEDS ORDERED: TRIATAB3 PO (18:23)
[2016-12-21] MEDS ORDERED: CLX/20 PO (18:23)
[2016-12-21] MEDS ORDERED: AMIO200T4 PO (18:23)
[2016-12-21 18:29] LABS: ALKALINE PHOSPHATASE 105 U/L (45-117); ALT/SGPT 33 U/L (12-78); BLOOD UREA NITROGEN 23 mg/dl (7-18); BUN/CREATININE RATIO 16.7 (10-20); CALCIUM 9.2 mg/dl (8.5-10.1); CARBON DIOXIDE 25 mmol/L (21-32); CHLORIDE 105 mmol/L (98-107); CREATININE 1.39 mg/dl (0.60-1.20); GLUCOSE 86 mg/dl (70-99); SODIUM 138 mmol/L (136-145)
[2016-12-21 19:36] LABS: AST/SGOT 23 U/L (15-37); POTASSIUM 4.1 mmol/L (3.5-5.1)
[2016-12-21] MEDS ORDERED: ONDANSETRON INJ 2 MG/ML 2 ML VIAL IV PRN (20:00)
[2016-12-21] MEDS ORDERED: NITROGLYCERIN 0.4 MG SL PER TAB CHARGE SL PRN (20:00)
[2016-12-21] MEDS ORDERED: ALUMINUM/MAGNESIUM/SIMETH (MAALOX MAX) 30 ML UDC PO PRN (20:00)
[2016-12-21] MEDS ORDERED: ACETAMINOPHEN 325 MG TAB PO PRN (20:00)
[2016-12-21] MEDS ORDERED: MAGNESIUM HYDROXIDE SUSP 30 ML UDC PO PRN (20:00)
[2016-12-21] MEDS ORDERED: ENALAPRILAT IV 1.25 MG in DEXTROSE 5% 25ML 25 ML IV PRN (20:15)
[2016-12-21] MEDS: MoRPHine SULFATE 2 MG/ML CARP IV PRN ×2 (20:32→22:47)
--- NOTE | 2016-12-21 20:40 | HISTORY & PHYSICAL EXAMINATION ---
DATE OF ADMISSION: 12/21/2016 CHIEF COMPLAINT: Elevated blood pressure and left arm pain. HISTORY OF PRESENT ILLNESS: This is a 76-year-old female with past medical history significant for hypertension, chronic kidney disease stage III, history of CVA, history of hyperlipidemia, history of carotid stenosis, history of paroxysmal atrial fibrillation, anxiety, obstructive sleep apnea on CPAP, presents with elevated blood pressure and left arm pain. Since few days blood pressure is running high and she is monitoring blood pressure and today her systolic blood pressure was in 190s and she called the family doctor and they advised to come to the ER.Patient also says since last night she noticed left shoulder and left arm pain about 7/10 in severity, that is on and off. Currently, pain is little better with the pain medication, but syas it comes back when pain meds wears off Denies any headaches. No blurred visions. On and off dizziness. No sore throat, no runny nose, no difficulty swallowing. No chest pain on exertion, has some shortness of breath since last couple of days even at resting. Has some dry cough. No fever, chills, no nausea, no vomiting, no sweating, no abdominal pains. Normal bowel and bladder movements. No blood in the stools or blood in the urine. Appetite is okay. Ambulating okay at home. The patient does not get any chest pain with ambulation or climbing the steps. she also noticed some swelling in the legs and she was recently seen by podiatry advised to get a venous doppler. She is also feeling some numbness in lower extremity for several days, which is somewhat improved lately. Currently, resting comfortably and hemodynamically stable. ALLERGIES: AMLODIPINE. PAST MEDICAL HISTORY: As mentioned above. PAST SURGICAL HISTORY: Cataract surgery, appendectomy, tonsillectomy, total hysterectomy. MEDICATIONS: Currently, the patient is on triamterene/hydrochlorothiazide 37.5/25 mg 1 tablet p.o. daily, atorvastatin 40 mg p.o. daily, Toprol-XL 50 mg p.o. daily, Celexa 10 mg p.o. daily, Pradaxa 150 mg p.o. b.i.d., amiodarone 200 mg p.o. daily, vitamin D 50,000 units capsules once weekly. FAMILY HISTORY: Significant for father had an OH, at the age of 72. Mother has heart failure, hypertension. Brother has stroke and sister has hypertension. SOCIAL HISTORY: Never smoked. No alcohol use. No drug use. . REVIEW OF SYMPTOMS: As per HPI. Rest of systems negative. PHYSICAL EXAMINATION: GENERAL: The patient is obese, not in distress. VITAL SIGNS: Temperature 36.7, pulse 55, respiratory rate 16, blood pressure when patient came in was at 196/78, currently 174/76; oxygen 99% room air. HEENT: No pallor, no icterus. Pupils equal, round and reactive to light. NECK: No JVD, no neck masses, no carotid bruits. CARDIOVASCULAR: S1, S2 heard. Bradycardia. No murmurs appreciated. RESPIRATORY SYSTEM: No accessory muscle use. No wheezing, no crackles. ABDOMEN: Soft, bowel sounds present. Nontender. No distention. CENTRAL NERVOUS SYSTEM: Cranial nerves II-XII grossly intact. Nonfocal. EXTREMITIES: Bilateral pedal edema present. ASSESSMENT AND PLAN: 1. This is a 76-year-old female who presents with hypertensive urgency and left arm pain. The patient is on home medications of Toprol-XL and Maxzide.she used to be on amlodipine before, but it was changed to Maxzide several months ago for lower extremity edema . She says she is compliant with diet. The patient is mostly inactive. We will admit to tele floor. We will place on nitro paste and have the iv Vasotec p.r.n., monitor the blood pressure and will consult cardiology in a.m. 2. Left arm pain. Mostly secondary to elevated blood pressure. Initial troponin is negative. EKG shows sinus bradycardia at rate of 59, right bundle branch block, no acute ST changes seen. No significant change from previous. We will monitor on tele floor. Serial cardiac enzymes and echocardiogram and patient is on nitro paste and IV morphine p.r.n. and cardiology is consulted. 3. History of paroxysmal atrial fibrillation, currently the patient's heart rate is in 50s. We will continue Toprol XL and Pradaxa. 4. Hypothyroidism. This is a new diagnosis. TSH is high and T4 is low. We will cautiously start her on Synthroid 25 mcg and adjust every 4-6 weeks as the patient is a 76-year-old female and monitor her vitals. 5. Lower extremity numbness, most likely could be from the hypothyroidism, could be from the diabetes and the patient also has history of back pain. When patient is stable, will get ct scan of the back.Will get hba1c levels 6. Hyperlipidemia. Continue statin. We will follow the fasting lipid profile. 7. History of cerebrovascular accident. On Pradaxa and statins. 8. History of sleep apnea on CPAP. 9. History of chronic kidney disease stage III. Baseline creatinine was 1.1-1.2,Presented with 1.3. We will monitor the labs. 10. History of carotid stenosis. 11. Deep vein thrombosis prophylaxis on Pradaxa. DISPOSITION: Admit to tele floor. Expect to discharge home and follow with his family doctor and cardiology. Level 1 full code. MTDD
[2016-12-21] MEDS ORDERED: HydrALAZINE HCL 20 MG/ML VIAL IV. PRN (21:15)
[2016-12-21] MEDS ORDERED: LEVOTHYROXINE 25 MCG TAB PO STA (21:22)
[2016-12-21] MEDS: DABIGATRAN ELEXILATE 75 MG CAP PO SCH (21:41)
[2016-12-21] MEDS: CITALOPRAM 20 MG TAB PO SCH (21:42)
[2016-12-22] VITALS (14 sets, daily range): BP systolic 105–165; BP diastolic 63–82; PULSE 49–56; TEMP 36.3–37.5; O2SAT 91–97
--- NOTE | 2016-12-22 00:54 | EMERGENCY ROOM VISIT NOTE ---
History Report prepared by Jayna: Rama Medel Under the Supervision of: Dr. Juan Tim M.D. First contact with patient: 17:17 Chief Complaint: HYPERTENSION Stated Complaint: ELEVATED BLOOD PRESSURE History of Present Illness The patient is a 76 year old female who presents to the Emergency Room with complaints of intermittent high blood pressure starting last night. The patient has a history of high blood pressure. Last night she started having left shoulder and neck pain which usually indicates that her blood pressure is high. She checked it last night and found that it was 158/101. This lasted for a couple hours and then resolved. This afternoon, the pain came back. She is feeling worse now. She feels slightly dizzy. Her blood pressure is higher than it was yesterday. She has a history of atrial fibrillation, 2 "light" MIs, and CVA. She is on Pradaxa. Pt denies LOC, headache, fevers, chills, diaphoresis, visual changes, chest pain, breathing difficulties, nausea, vomiting, abdominal pain, back pain, melena, hematochezia, urinary symptoms, numbness, weakness, lymphadenopathy, rash, or other complaints. Source of History: patient, family Onset: last night Position: other (global) Quality: other (high blood pressure) Timing: intermittent Associated Symptoms: + neck pain Note: Pt reports shoulder pain. Review of Systems See HPI for pertinent positives and negatives. A total of ten systems were reviewed and were otherwise negative. Past Medical & Surgical Medical Problems: (1) Atrial fibrillation with RVR (2) CKD (chronic kidney disease) stage 3, GFR 30-59 ml/min (3) Depression (4) Dyslipidemia (5) History of CVA (cerebrovascular accident) (6) HTN (hypertension) (7) Hypertensive urgency (8) Left arm pain (9) Osteoporosis (10) Vitamin D deficiency Surgical Problems: (1) H/O cataract removal with insertion of prosthetic lens (2) History of appendectomy (3) History of tonsillectomy (4) History of total hysterectomy Family History Diabetes mellitus FH: CAD (coronary artery disease) Hypertension Stroke Social History Smoking Status: Never Smoker Drug Use: none Marital Status: Housing Status: lives with significant other Occupation Status: unemployed Current/Historical Medications Scheduled Amiodarone Hcl (Cordarone), 200 MG PO QAM Atorvastatin (Lipitor), 40 MG PO DAILY Citalopram (Citalopram Hydrobromide), 10 MG PO HS Dabigatran Elexilate (Pradaxa), 150 MG PO BID Ergocalciferol (Vitamin D), 50,000 UNITS PO WK Metoprolol Succinate (Metoprolol Succinate ER), 50 MG PO QAM Triamterene/Hctz (Triamterene/Hctz 37.5-25MG), 1 TAB PO DAILY Allergies Coded Allergies: Amlodipine (Unverified Allergy, Unknown, SWELLING OF FEET, 12/21/16) Physical Exam Vital Signs Date Time Temp Pulse Resp B/P (MAP) Pulse Ox O2 Delivery O2 Flow Rate FiO2 12/21/16 19:35 55 16 174/76 99 Room Air 12/21/16 19:19 52 16 183/89 98 Room Air 12/21/16 19:02 51 16 164/87 98 Room Air 12/21/16 18:41 57 16 167/78 98 Room Air 12/21/16 18:32 53 16 184/105 96 Room Air 12/21/16 18:02 56 16 177/83 98 Room Air 12/21/16 17:43 56 16 217/113 98 Room Air 12/21/16 17:37 55 12/21/16 17:35 57 20 225/97 98 Room Air 12/21/16 17:27 98 Room Air 12/21/16 17:27 98 Room Air 12/21/16 17:08 36.7 55 20 196/78 94 Room Air Physical Exam GENERAL: Awake, alert, well-appearing, in no distress, face mildly flushed. HENT: Normocephalic, atraumatic. Oropharynx unremarkable. EYES: Normal conjunctiva. Sclera non-icteric. NECK: Supple. No nuchal rigidity. FROM. No JVD. RESPIRATORY: Clear to auscultation. CARDIAC: Bradycardic rate, normal rhythm. Extremities warm and well perfused. Pulses equal. ABDOMEN: Soft, non-distended. No tenderness to palpation. No rebound or guarding. No masses. RECTAL: Deferred. MUSCULOSKELETAL: Chest examination reveals no tenderness. The back is symmetrical on inspection without obvious abnormality. There is no CVA tenderness to palpation. No joint edema. LOWER EXTREMITIES: Calves are equal size bilaterally and non-tender. Trace lower extremity edema. No discoloration. NEURO: Normal sensorium. No sensory or motor deficits noted. SKIN: No rash or jaundice noted. Medical Decision & Procedures ER Provider Diagnostic Interpretation: Radiology results as stated below per my review and radiologist interpretation: CHEST ONE VIEW PORTABLE HISTORY: severe hypertension COMPARISON: Chest 04/22/2016. FINDINGS: The heart remains top normal in size. No pleural effusions. No pneumothorax. Mild elevation of the right hemidiaphragm persists. Bibasilar interstitial thickening has improved. No new focal lung consolidations. No evidence for pulmonary edema. IMPRESSION: Improvement in the bibasilar interstitial thickening. No acute process within the chest. Electronically signed by: Joss Alcazar M.D. 12/21/2016 5:54 PM Dictated Date/Time: 12/21/2016 5:53 PM Laboratory Results 12/21/16 17:35 Red Blood Count 4.63, Mean Corpuscular Volume 94.6, Mean Corpuscular Hemoglobin 31.3, Mean Corpuscular Hemoglobin Concent 33.1, Mean Platelet Volume 8.7, Neutrophils (%) (Auto) 67.7, Lymphocytes (%) (Auto) 21.0, Monocytes (%) (Auto) 7.8, Eosinophils (%) (Auto) 2.6, Basophils (%) (Auto) 0.5, Neutrophils # (Auto) 4.97, Lymphocytes # (Auto) 1.54, Monocytes # (Auto) 0.57, Eosinophils # (Auto) 0.19, Basophils # (Auto) 0.04 12/21/16 17:35 12/21/16 18:46 Test 12/21/16 17:30 12/21/16 17:35 12/21/16 18:46 12/21/16 19:35 Urine Color YELLOW Urine Appearance CLEAR (CLEAR) Urine pH 5.0 (4.5-7.5) Urine Specific [place] 1.017 (1.000-1.030) Urine Protein NEG (NEG) Urine Glucose (UA) NEG (NEG) Urine Ketones NEG (NEG) Urine Occult Blood NEG (NEG) Urine Nitrite NEG (NEG) Urine Bilirubin NEG (NEG) Urine Urobilinogen NEG (NEG) Urine Leukocyte Esterase SMALL (NEG) Urine WBC (Auto) 1-5 /hpf (0-5) Urine RBC (Auto) 0-4 /hpf (0-4) Urine Hyaline Casts (Auto) 0 /lpf (0-5) Urine Epithelial Cells (Auto) 10-20 /lpf (0-5) Urine Bacteria (Auto) 2+ (NEG) White Blood Count 7.34 K/uL (4.8-10.8) Red Blood Count 4.63 M/uL (4.2-5.4) Hemoglobin 14.5 g/dL (12.0-16.0) Hematocrit 43.8 % (37-47) Mean Corpuscular Volume 94.6 fL (80-100) Mean Corpuscular Hemoglobin 31.3 pg (25-34) Mean Corpuscular Hemoglobin Concent 33.1 g/dl (32-36) Platelet Count 257 K/uL (130-400) Mean Platelet Volume 8.7 fL (7.4-10.4) Neutrophils (%) (Auto) 67.7 % Lymphocytes (%) (Auto) 21.0 % Monocytes (%) (Auto) 7.8 % Eosinophils (%) (Auto) 2.6 % Basophils (%) (Auto) 0.5 % Neutrophils # (Auto) 4.97 K/uL (1.4-6.5) Lymphocytes # (Auto) 1.54 K/uL (1.2-3.4) Monocytes # (Auto) 0.57 K/uL (0.11-0.59) Eosinophils # (Auto) 0.19 K/uL (0-0.5) Basophils # (Auto) 0.04 K/uL (0-0.2) RDW Standard Deviation 49.7 fL (36.4-46.3) RDW Coefficient of Variation 14.4 % (11.5-14.5) Immature Granulocyte % (Auto) 0.4 % Immature Granulocyte # (Auto) 0.03 K/uL (0.00-0.02) Prothrombin Time 14.5 SECONDS (9.0-12.0) Prothromb Time International Ratio 1.3 (0.9-1.1) Activated Partial Thromboplast Time 62.9 SECONDS (21.0-31.0) Partial Thromboplastin Ratio 2.4 Anion Gap 8.0 mmol/L (3-11) Est Creatinine Clear Calc Drug Dose 43.6 ml/min Estimated GFR () 42.6 Estimated GFR (Non- 36.7 BUN/Creatinine Ratio 16.7 (10-20) Calcium Level 9.2 mg/dl (8.5-10.1) Total Bilirubin 0.4 mg/dl (0.2-1) Alanine Aminotransferase (ALT/SGPT) 33 U/L (12-78) Alkaline Phosphatase 105 U/L (45-117) Creatine Kinase MB 2.8 ng/ml (0.5-3.6) Creatine Kinase MB Ratio (0-3.0) Troponin I < 0.015 ng/ml (0-0.045) Total Protein 8.7 gm/dl (6.4-8.2) Albumin 4.2 gm/dl (3.4-5.0) Lipase 359 U/L (73-393) Thyroid Stimulating Hormone (TSH) 39.400 uIu/ml (0.300-4.500) Direct Bilirubin < 0.1 mg/dl (0-0.2) Aspartate Amino Transf (AST/SGOT) 23 U/L (15-37) Total Creatine Kinase 110 U/L (26-192) Free Thyroxine 0.54 ng/dl (0.80-1.60) Free Triiodothyronine 1.99 pg/ml (2.30-4.20) Laboratory results reviewed by me Medications Administered Medications (Trade) Dose Ordered Sig/Venancio Route Start Time Stop Time Status Last Admin Dose Admin Nitroglycerin (Nitrostat Tab) 0.4 mg Q5M PRN SL 12/21/16 17:45 12/21/16 21:26 DC 12/21/16 19:24 0.4 MG Nitroglycerin (Nitroglycerin 2% Oint) 0.5 inch NOW ONCE EXT 12/21/16 17:45 12/21/16 17:46 DC 12/21/16 17:45 0.5 INCH ECG Indication: back/shoulder pain Rate (beats per minute): 54 Rhythm: sinus bradycardia Findings: RBBB, no acute ischemic change, left axis deviation Comparison ECG Date: 25-Apr-2016 Change: no significant change ED Course 1737: The patient was evaluated in room A12B. A complete history and physical exam was performed. 174: Nitroglycerin 0.5 inch EXT, Nitroglycerin 0.4 mg SL. 1845: I reevaluated the patient. She is having more back and shoulder pain. She was given a second nitro. A second EKG was obtained which showed sinus bradycardia, rate 59, RBBB, inferior Q wave, no change from prior. I discussed the test results and treatment plan with her. The patient will be evaluated for further management. 1913: I discussed the patient's case with Felisha Kim hospitaltio. The patient will be evaluated for further treatment and disposition. Medical Decision Triage Nursing notes reviewed. The patient's presentation and history were concerning for shoulder and arm pain with severe hypertension Etiologies such as malignant hypertension, cardiac ischemia, aortic dissection, pulmonary embolism, pneumonia, pneumothorax, musculoskeletal, infections, gastrointestinal, as well as others were entertained. The patient was evaluated. Clinically she looked well. ECG was negative for acute ischemia. She was severely hypertensive. She was given aspirin and nitroglycerin. Her symptoms improved and her blood pressure diminished. Reassessment she was doing well but then had a decreased pain. She had an additional dose of the fingers. Her CBC, chemistry panel and cardiac markers were unremarkable. She will need further evaluation and management in the hospital. The patient and family were in agreement. Internal medicine was consulted and the patient was evaluated. Medication Reconcilliation Current Medication List: was personally reviewed by me Blood Pressure Screening Patient's blood pressure: Elevated blood pressure Referred to hospitalist Consults Time Called: 1899 Consulting Physician: Felisha Kim hospitalist Returned Call: 1913 Discussed the patient's case. The patient will be evaluated for further treatment and disposition. Impression Primary Impression: Malignant hypertension Additional Impression: Left arm pain Scribe Attestation The scribe's documentation has been prepared under my direction and personally reviewed by me in its entirety. I confirm that the note above accurately reflects all work, treatment, procedures, and medical decision making performed by me. Departure Information Dispostion Being Evaluated By Hospitalist Referrals No Doctor, Assigned (PCP) Patient Instructions My [facility] Problem Qualifiers
[2016-12-22 04:39] LABS: BLOOD UREA NITROGEN 23 mg/dl (7-18); CALCIUM 8.4 mg/dl (8.5-10.1); CARBON DIOXIDE 27 mmol/L (21-32); CHLORIDE 106 mmol/L (98-107); CREATININE 1.27 mg/dl (0.60-1.20); GLUCOSE 92 mg/dl (70-99); MAGNESIUM 2.1 mg/dl (1.8-2.4); POTASSIUM 4.3 mmol/L (3.5-5.1); SODIUM 139 mmol/L (136-145)
[2016-12-22 04:50] LABS: CHOLESTEROL 124 mg/dl (0-200); CHOLESTEROL/HDL RATIO 3.3; CKMB/CK RATIO 2.6 (0-3.0); HDL CHOLESTEROL 38 mg/dl; LDL CHOLESTEROL CALCULATED 33 mg/dl; TRIGLYCERIDES 264 mg/dl (0-150); VERY LOW DENSITY LIPOPROT CALC 53 mg/dl
[2016-12-22 05:30] LABS: BASO % 0.2 %; BASO ABS # 0.02 K/uL (0-0.2); COMPLETE YES; EOS % 2.5 %; HEMATOCRIT 37.4 % (37-47); IG% 0.2 %; LYMPH ABS # 1.42 K/uL (1.2-3.4); MEAN CELL VOLUME 93.5 fL (80-100); MEAN CORPUSCULAR HGB CONC 34.2 g/dl (32-36); NEUT % 74.1 %; PLATELET COUNT 215 K/uL (130-400); WHITE BLOOD COUNT 8.85 K/uL (4.8-10.8)
[2016-12-22 06:14] LABS: HYPERSEGMENTED POLYS 1+
[2016-12-22] MEDS: LEVOTHYROXINE 25 MCG TAB PO SCH (06:29)
[2016-12-22] MEDS: ATORVASTATIN 20 MG TAB PO SCH (07:40)
[2016-12-22] MEDS: METOPROLOL SUCC 50MG EXT REL TAB PO SCH (07:40)
[2016-12-22] MEDS: AMIODARONE 200 MG TAB PO SCH (07:40)
[2016-12-22] MEDS: DABIGATRAN ELEXILATE 75 MG CAP PO SCH ×2 (07:40→20:55)
[2016-12-22] MEDS: TRIAMTERENE/HCTZ 37.5/25MG TAB PO SCH (07:40)
[2016-12-22 07:58] LABS: ESTIMATED AVERAGE GLUCOSE 120 mg/dl; HA1C FLAG Normal (Normal)
[2016-12-22] MEDS ORDERED: PERFLUTREN LIPID MICROSPHERE (DEFINITY) IV ONE (09:05)
[2016-12-22] MEDS ORDERED: VALSARTAN 80 MG TAB PO ONE (10:45)
--- NOTE | 2016-12-22 11:18 | CARDIOLOGY CONSULTATION ---
DATE OF CONSULTATION: 12/22/2016 REFERRING PHYSICIAN: Felisha Begum. REASON FOR CONSULTATION: Hypertension and left arm discomfort. HISTORY OF PRESENT ILLNESS: Ms. Pickard is a 76-year-old female who is usually followed by Dr. Hoang through our cardiology clinic. In January 2016, she presented with CVA. This is most likely an embolic event from atrial fibrillation. She has been taking Pradaxa and is on amiodarone and as of October when Dr. Hoang last saw her, she was doing well except that she was having some lower extremity edema most likely from amlodipine that was discontinued. This patient had an echocardiogram beginning of October that showed preserved left ventricular systolic function with an estimated left ventricular ejection fractions between 60% and 65%. The patient today had no other significant findings. Her ascending aorta was measured at 4.0 cm which is high normal. No significant valvular pathology. The patient states that over the past week she has noticed some left arm discomfort as well as her blood pressure being elevated. She was admitted with hypertensive urgency and left arm discomfort. Her cardiac markers have been negative. The patient's EKG shows an old right bundle branch block and no new findings. She is currently comfortable in bed and has no additional complaints this morning. ALLERGIES: AMLODIPINE. PAST MEDICAL HISTORY: As outlined above, the patient has a history of atrial fibrillation which has been controlled with amiodarone. She has been taking Pradaxa. She had a CVA last year that was most likely an embolic event from the atrial fibrillation. She has a history of diabetes, hypertension and dyslipidemia. She has chronic stage III kidney disease. SOCIAL HISTORY: She lives with her family. She is a nonsmoker. FAMILY MEDICAL HISTORY: Noncontributory. REVIEW OF SYSTEMS: A 10-point review of systems is negative except for the history of chief complaint. PHYSICAL EXAMINATION: GENERAL: She is alert and oriented, in no acute distress. VITAL SIGNS: Blood pressure is 150/70. Pulse is regular at 50 beats per minute. She is afebrile. HEENT: She is normocephalic. Pupils are equal and reactive to light. Extraocular muscles are intact bilaterally. NECK: The neck veins are flat. Carotids have good upstrokes bilaterally without bruits. Thyroid is nonpalpable. RESPIRATORY: Breath sounds equal bilaterally and clear to auscultation. CARDIOVASCULAR: Heart has a regular rhythm. Normal S1, S2. No S3, S4. No cardiac rubs or murmurs. GASTROINTESTINAL: Abdomen is soft, nontender without organomegaly. EXTREMITIES: Free of edema, digit clubbing, or cyanosis. NEUROLOGIC: Grossly intact. SKIN: Warm to touch. LYMPH NODES: Negative to palpation. LABORATORY DATA: Hemoglobin is 12.8. TSH is 42.4. Free T4 is 0.54. Free T3 is 1.99. Creatinine is 1.27, potassium is 4.3. IMPRESSION: 1. Hypertensive urgency. 2. Hypothyroidism. 3. Paroxysmal atrial fibrillation. RECOMMENDATIONS: The patient's hypothyroidism may be related to the amiodarone. It is controlling her atrial arrhythmias and for now, I would keep her on this medication. She has been started on Synthroid. I will order an ultrasound of the thyroid as these patients with amiodarone-induced thyroid disease are prone to goiters. I also added valsartan to her medical regimen for better blood pressure control. Her cardiac markers are negative thus far and her EKG shows no acute changes. She is scheduled to have a repeat echocardiogram and what I am mostly concerned about is her aortic root and ascending aorta to be certain that they are not expanding with her left arm discomfort. She would not be a great candidate for a CT angio of the chest due to her chronic kidney disease, but if necessary, we may have to proceed with that study. I will follow along with you during her hospital stay.
[2016-12-22] MEDS: NITROGLYCERIN OINT 2% 1GM PACKET EXT SCH ×4 (11:22→23:34)
--- NOTE | 2016-12-22 13:51 | ECHOCARDIOGRAM REPORT ---
*NOTICE TO RECEIVING LIBERTARIAN AGENCY This information is strictly Confidential and protected under [place] law. [place] law prohibits you from making any further disclosure of this information unless further disclosure is expressly permitted by the written consent of the person to whom it pertains or is authorized by law. A general authorization for the release of medical or other information is not sufficient for this purpose. Hospital accepts no responsibility if the information is made available to any other person, INCLUDING THE PATIENT. Interpretation Summary * Name: DOUGLAS BURNHAM Study Date: 12/22/2016 08:21 AM BP: 150/75 mmHg * Patient Location: C.2T\S\S238\S\2 HR: 49 * : 1940 (M/d/yyy) Gender: Female Height: 67 in * Age: 76 yrs Ethnicity: CA Weight: 238 lb * Ordering Physician: Magnus Duval * Referring Physician: Self, Referred * Performed By: Leanne Price RCS * * Reason For Study: CHEST PAIN * BSA: 2.2 m2 * Compared to prior study, there is no significant change. * -- Conclusions -- * The left ventricle is normal in size. * There is mild concentric left ventricular hypertrophy. * Ejection Fraction = 55-60%. * Grade I diastolic dysfunction, (abnormal relaxation pattern). * The right ventricular systolic function is normal. * The left atrial size is normal. * Right atrial size is normal. * Compared to prior study, there is no significant change. Procedure Details * A complete two-dimensional transthoracic echocardiogram was performed (2D, M-mode, Doppler and color flow Doppler). * The study was technically difficult. * A contrast injection of Definity was performed to improve assessment of LV function. * Contrast was injected into an intravenous site in the right arm. * One vial of Definity ultrasound contrast was diluted in normal saline to a total volume of 10 ml. A total of '2' ml of solution was administered during imaging. * Lot # [id number] of Definity utilized for procedure. * Expiration date DEC 22. * The attending nurse who injected the contrast agent was GARRISON JULIAN CPL, RN. Left Ventricle * The left ventricle is normal in size. * There is mild concentric left ventricular hypertrophy. * Left ventricular systolic function is normal. * Ejection Fraction = 55-60%. * The left ventricular wall motion is normal. Right Ventricle * The right ventricle is normal size. * The right ventricular systolic function is normal. Atria * The left atrial size is normal. * Right atrial size is normal. * The interatrial septum is intact with no evidence for an atrial septal defect. Mitral Valve * The mitral valve anatomy is normal. * Significant mitral regurgitation is absent. Tricuspid Valve * The tricuspid valve anatomy is normal. * Significant tricuspid regurgitation is absent. Aortic Valve * Aortic valve sclerosis mild, without significant aortic valvular stenosis. Pulmonic Valve * The pulmonic valve is not well visualized. Great Vessels * The aortic root and proximal ascending aorta are normal sized. Pericardium/Pleural * There is no pericardial effusion. Left Ventricular Diastolic Function * Grade I diastolic dysfunction, (abnormal relaxation pattern). MMode 2D Measurements and Calculations IVSd 1.6 cm IVSs 2.3 cm LVIDd 4.8 cm LVIDs 3.6 cm LVPWd 1.2 cm LVPWs 1.4 cm IVS/LVPW 1.4 FS 25.3 % EDV(Teich) 106.8 ml ESV(Teich) 53.5 ml EF(Teich) 49.9 % EDV(cubed) 109.6 ml ESV(cubed) 45.7 ml EF(cubed) 58.4 % % IVS thick 40.8 % % LVPW thick 13.5 % LV mass(C)d 281.6 grams LV mass(C)dI 129.3 grams/m\S\2 LV mass(C)s 282.6 grams LV mass(C)sI 129.8 grams/m\S\2 SV(Teich) 53.3 ml SI(Teich) 24.5 ml/m\S\2 SV(cubed) 64.0 ml SI(cubed) 29.4 ml/m\S\2 Ao root diam 3.1 cm Ao root area 7.7 cm\S\2 ACS 2.3 cm LA dimension 4.1 cm LA/Ao 1.3 LVOT diam 2.0 cm LVOT area 3.2 cm\S\2 LVAd ap4 30.6 cm\S\2 LVLd ap4 6.9 cm EDV(MOD-sp4) 108.5 ml EDV(sp4-el) 115.8 ml LVAs ap4 21.5 cm\S\2 LVLs ap4 6.2 cm ESV(MOD-sp4) 62.2 ml ESV(sp4-el) 63.0 ml EF(MOD-sp4) 42.7 % EF(sp4-el) 45.6 % LVAd ap2 24.9 cm\S\2 LVLd ap2 6.5 cm EDV(MOD-sp2) 77.4 ml EDV(sp2-el) 81.5 ml LVAs ap2 16.6 cm\S\2 LVLs ap2 5.3 cm ESV(MOD-sp2) 42.3 ml ESV(sp2-el) 43.6 ml EF(MOD-sp2) 45.3 % EF(sp2-el) 46.5 % LVLd %diff -6.02 % EDV(MOD-bp) 95.1 ml LVLs %diff -16.22 % ESV(MOD-bp) 55.6 ml EF(MOD-bp) 41.5 % SV(MOD-sp4) 46.3 ml SI(MOD-sp4) 21.3 ml/m\S\2 SV(MOD-sp2) 35.1 ml SI(MOD-sp2) 16.1 ml/m\S\2 SV(MOD-bp) 39.5 ml SI(MOD-bp) 18.1 ml/m\S\2 SV(sp4-el) 52.8 ml SI(sp4-el) 24.2 ml/m\S\2 SV(sp2-el) 37.9 ml SI(sp2-el) 17.4 ml/m\S\2 Doppler Measurements and Calculations MV E max kayleen 59.9 cm/sec MV A max kayleen 78.2 cm/sec MV E/A 0.77 MV P1/2t max kayleen 73.3 cm/sec MV P1/2t 124.8 msec MVA(P1/2t) 1.8 cm\S\2 MV dec slope 172.2 cm/sec\S\2 MV dec time 0.27 sec Ao V2 max 118.2 cm/sec Ao max PG 5.6 mmHg Ao max PG (full) -0.56 mmHg [place](V,A) 3.4 cm\S\2 [place](V,D) 3.4 cm\S\2 LV V1 max PG 6.2 mmHg LV V1 max 124.0 cm/sec PA V2 max 103.5 cm/sec PA max PG 4.3 mmHg TR max kayleen 257.1 cm/sec
--- NOTE | 2016-12-22 14:48 | DIAGNOSTIC IMAGING REPORT ---
THYROID ULTRASOUND CLINICAL HISTORY: Hypothyroid. COMPARISON STUDY: None. TECHNIQUE: Sonography of the thyroid gland was performed. FINDINGS: The right thyroid lobe measures 3.9 x 1.8 x 1.7 cm and the left lobe measures 4.3 x 1.6 x 1.5 cm. 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 None of these nodules meet criteria for biopsy. The largest is a 0.9 cm left lobe nodule located within the midpole. IMPRESSION: Multiple subcentimeter thyroid nodules, as described above. None of these nodules meet criteria for biopsy and the appearance favors colloid cysts. Electronically signed by: Rock Edmonds M.D. 12/22/2016 2:47 PM Dictated Date/Time: 12/22/2016 2:44 PM
--- NOTE | 2016-12-22 15:31 | Progress Note ---
Internal Med Progress Note Date of Service: Dec 22, 2016. Provider Documentation: SUBJECTIVE: The patient was seen and examined Admitted with Hypertensive Urgency with some chest pain Feels a lot better now Denies any symptoms OBJECTIVE: Vital Signs-as noted below Exam: General-No distress at rest Eyes-Normal ENT-normal Neck-supple Lungs-Clear to auscultate bilaterally Heart-Irregular Abdomen-Benign,no masses,bowel sound present Extremities-No edema Neuro-AAOx3 No focal sensory and or neuro deficit Lab data as noted below. ASSESSMENT & PLAN: This is a 76-year-old female who presents with hypertensive urgency and left arm pain. Hypertensive Urgency Continue her home medications of Toprol-XL and Maxzide.she used to be on amlodipine before Could not Tolerate Amlodipine due to Edema She says she is compliant with diet. The patient is mostly inactive. Getting Vasotec IV PRN for control of BP Appreciate cardiology input ARB added BP is improving Left arm pain. Doubt any ACS:negative Serial Troponins and EKG without any sig change Mostly secondary to elevated blood pressure. EKG shows sinus bradycardia at rate of 59, right bundle branch block, no acute ST changes seen. ECHO::The left ventricle is normal in size. * There is mild concentric left ventricular hypertrophy. * Ejection Fraction = 55-60%. * Grade I diastolic dysfunction, (abnormal relaxation pattern). * The right ventricular systolic function is normal. * The left atrial size is normal. * Right atrial size is normal. * Compared to prior study, there is no significant change. H/O Aortic Root Dilatation Aortic Arch 3.2 cm History of paroxysmal atrial fibrillation, Currently the patient's heart rate is in 50s. has been on Amiodarone We will continue Toprol XL and Pradaxa. Hypothyroidism. Likely secondary to use of Amiodarone Increased TSH and low T4 and T3 Started on small dose of Thyroxin Lower extremity numbness Ongoing Could be from the hypothyroidism, Could be from the diabetes and the patient also has history of back pain. When patient is stable, will get ct scan of the back.Will get hba1c levels Hyperlipidemia. Continue statin. We will follow the fasting lipid profile. History of cerebrovascular accident. History of carotid stenosis. On Pradaxa and statins. History of sleep apnea on CPAP. History of chronic kidney disease stage III. Baseline creatinine was 1.1-1.2,Presented with 1.3. We will monitor the labs. Deep vein thrombosis prophylaxis on Pradaxa. DISPOSITION Awaited Vital Signs: Date Time Temp Pulse Resp B/P (MAP) Pulse Ox O2 Delivery O2 Flow Rate FiO2 12/22/16 12:36 36.9 50 16 152/82 (105) Room Air 12/22/16 12:00 Room Air 12/22/16 08:00 Room Air 12/22/16 07:56 36.7 49 22 150/75 (100) 97 Room Air 12/22/16 04:00 95 CPAP 12/22/16 03:45 36.3 49 19 123/66 (85) 97 CPAP 12/22/16 00:47 51 115/68 (84) 12/22/16 00:30 50 106/64 (78) 12/22/16 00:15 50 105/63 (77) 12/22/16 00:00 95 CPAP 12/22/16 00:00 36.6 51 16 108/64 (79) 95 Nasal Cannula 12/21/16 23:47 50 103/61 (75) 12/21/16 23:20 50 95/59 (71) 12/21/16 23:10 48 78/48 (58) 12/21/16 23:07 48 64/43 (50) 12/21/16 22:41 52 154/76 (102) 12/21/16 22:33 51 95 12/21/16 22:20 52 180/82 (114) 12/21/16 21:45 52 175/98 (123) 12/21/16 20:31 54 16 194/90 98 Room Air 12/21/16 20:30 36.4 55 16 219/95 (136) 96 Nasal Cannula 12/21/16 20:06 Room Air 12/21/16 19:35 55 16 174/76 99 Room Air 12/21/16 19:19 52 16 183/89 98 Room Air 12/21/16 19:02 51 16 164/87 98 Room Air 12/21/16 18:41 57 16 167/78 98 Room Air 12/21/16 18:32 53 16 184/105 96 Room Air 12/21/16 18:02 56 16 177/83 98 Room Air 12/21/16 17:43 56 16 217/113 98 Room Air 12/21/16 17:37 55 12/21/16 17:35 57 20 225/97 98 Room Air 12/21/16 17:27 98 Room Air 12/21/16 17:27 98 Room Air 12/21/16 17:08 36.7 55 20 196/78 94 Room Air Lab Results: Results Past 24 Hours Test 12/21/16 17:30 12/21/16 17:35 12/21/16 18:46 12/21/16 19:35 Range/Units Urine Color YELLOW Urine Appearance CLEAR CLEAR Urine pH 5.0 4.5-7.5 Urine Specific [place] 1.017 1.000-1.030 Urine Protein NEG NEG Urine Glucose (UA) NEG NEG Urine Ketones NEG NEG Urine Occult Blood NEG NEG Urine Nitrite NEG NEG Urine Bilirubin NEG NEG Urine Urobilinogen NEG NEG Urine Leukocyte Esterase SMALL NEG Urine WBC (Auto) 1-5 0-5 /hpf Urine RBC (Auto) 0-4 0-4 /hpf Urine Hyaline Casts (Auto) 0 0-5 /lpf Urine Epithelial Cells (Auto) 10-20 0-5 /lpf Urine Bacteria (Auto) 2+ NEG White Blood Count 7.34 4.8-10.8 K/uL Red Blood Count 4.63 4.2-5.4 M/uL Hemoglobin 14.5 12.0-16.0 g/dL Hematocrit 43.8 37-47 % Mean Corpuscular Volume 94.6 80-100 fL Mean Corpuscular Hemoglobin 31.3 25-34 pg Mean Corpuscular Hemoglobin Concent 33.1 32-36 g/dl Platelet Count 257 130-400 K/uL Mean Platelet Volume 8.7 7.4-10.4 fL Neutrophils (%) (Auto) 67.7 % Lymphocytes (%) (Auto) 21.0 % Monocytes (%) (Auto) 7.8 % Eosinophils (%) (Auto) 2.6 % Basophils (%) (Auto) 0.5 % Neutrophils # (Auto) 4.97 1.4-6.5 K/uL Lymphocytes # (Auto) 1.54 1.2-3.4 K/uL Monocytes # (Auto) 0.57 0.11-0.59 K/uL Eosinophils # (Auto) 0.19 0-0.5 K/uL Basophils # (Auto) 0.04 0-0.2 K/uL RDW Standard Deviation 49.7 36.4-46.3 fL RDW Coefficient of Variation 14.4 11.5-14.5 % Immature Granulocyte % (Auto) 0.4 % Immature Granulocyte # (Auto) 0.03 0.00-0.02 K/uL Prothrombin Time 14.5 9.0-12.0 SECONDS Prothromb Time International Ratio 1.3 0.9-1.1 Activated Partial Thromboplast Time 62.9 21.0-31.0 SECONDS Partial Thromboplastin Ratio 2.4 Sodium Level 138 136-145 mmol/L Potassium Level 4.1 3.5-5.1 mmol/L Chloride Level 105 98-107 mmol/L Carbon Dioxide Level 25 21-32 mmol/L Anion Gap 8.0 3-11 mmol/L Blood Urea Nitrogen 23 7-18 mg/dl Creatinine 1.39 0.60-1.20 mg/dl Est Creatinine Clear Calc Drug Dose 43.6 ml/min Estimated GFR () 42.6 Estimated GFR (Non- 36.7 BUN/Creatinine Ratio 16.7 10-20 Random Glucose 86 70-99 mg/dl Calcium Level 9.2 8.5-10.1 mg/dl Total Bilirubin 0.4 0.2-1 mg/dl Direct Bilirubin < 0.1 0-0.2 mg/dl Aspartate Amino Transf (AST/SGOT) 23 15-37 U/L Alanine Aminotransferase (ALT/SGPT) 33 12-78 U/L Alkaline Phosphatase 105 45-117 U/L Total Creatine Kinase 110 26-192 U/L Creatine Kinase MB 2.8 0.5-3.6 ng/ml Creatine Kinase MB Ratio 0-3.0 Troponin I < 0.015 0-0.045 ng/ml Total Protein 8.7 6.4-8.2 gm/dl Albumin 4.2 3.4-5.0 gm/dl Lipase 359 73-393 U/L Thyroid Stimulating Hormone (TSH) 39.400 0.300-4.500 uIu/ml Free Thyroxine 0.54 0.80-1.60 ng/dl Free Triiodothyronine 1.99 2.30-4.20 pg/ml Test 12/22/16 03:57 12/22/16 11:55 12/22/16 14:36 Range/Units White Blood Count 8.85 4.8-10.8 K/uL Red Blood Count 4.00 4.2-5.4 M/uL Hemoglobin 12.8 12.0-16.0 g/dL Hematocrit 37.4 37-47 % Mean Corpuscular Volume 93.5 80-100 fL Mean Corpuscular Hemoglobin 32.0 25-34 pg Mean Corpuscular Hemoglobin Concent 34.2 32-36 g/dl Platelet Count 215 130-400 K/uL Neutrophils (%) (Auto) 74.1 % Lymphocytes (%) (Auto) 16.0 % Monocytes (%) (Auto) 7.0 % Eosinophils (%) (Auto) 2.5 % Basophils (%) (Auto) 0.2 % Neutrophils # (Auto) 6.55 1.4-6.5 K/uL Lymphocytes # (Auto) 1.42 1.2-3.4 K/uL Monocytes # (Auto) 0.62 0.11-0.59 K/uL Eosinophils # (Auto) 0.22 0-0.5 K/uL Basophils # (Auto) 0.02 0-0.2 K/uL Immature Granulocyte % (Auto) 0.2 % Immature Granulocyte # (Auto) 0.02 0.00-0.02 K/uL Hypersegmented Polys 1+ Sodium Level 139 136-145 mmol/L Potassium Level 4.3 3.5-5.1 mmol/L Chloride Level 106 98-107 mmol/L Carbon Dioxide Level 27 21-32 mmol/L Anion Gap 6.0 3-11 mmol/L Blood Urea Nitrogen 23 7-18 mg/dl Creatinine 1.27 0.60-1.20 mg/dl Est Creatinine Clear Calc Drug Dose 47.8 ml/min Estimated GFR () 47.5 Estimated GFR (Non- 41.0 BUN/Creatinine Ratio 18.0 10-20 Random Glucose 92 70-99 mg/dl Estimated Average Glucose 120 mg/dl Hemoglobin A1c 5.8 4.5-5.6 % Calcium Level 8.4 8.5-10.1 mg/dl Magnesium Level 2.1 1.8-2.4 mg/dl Total Creatine Kinase 72 26-192 U/L Creatine Kinase MB 1.9 2.3 0.5-3.6 ng/ml Creatine Kinase MB Ratio 2.6 0-3.0 Troponin I < 0.015 < 0.015 0-0.045 ng/ml Triglycerides Level 264 0-150 mg/dl Cholesterol Level 124 0-200 mg/dl HDL Cholesterol 38 mg/dl LDL Cholesterol, Calculated 33 mg/dl VLDL Cholesterol, Calculated 53 mg/dl Cholesterol/HDL Ratio 3.3 Vitamin B12 Level 311 211-911 pg/mL Folate 8.67 >5.38 ng/mL Thyroid Stimulating Hormone (TSH) 42.400 0.300-4.500 uIu/ml Free Thyroxine 0.54 0.80-1.60 ng/dl Free Triiodothyronine 2.04 2.30-4.20 pg/ml
[2016-12-22] MEDS: CITALOPRAM 20 MG TAB PO SCH (20:55)
[2016-12-23] VITALS (7 sets, daily range): BP systolic 96–122; BP diastolic 55–72; PULSE 55–65; TEMP 37–37.3; O2SAT 90–93
[2016-12-23] MEDS: NITROGLYCERIN OINT 2% 1GM PACKET EXT SCH ×2 (06:14→11:18)
[2016-12-23] MEDS: LEVOTHYROXINE 25 MCG TAB PO SCH (06:14)
[2016-12-23 06:37] LABS: BASO % 0.2 %; BASO ABS # 0.02 K/uL (0-0.2); COMPLETE YES; EOS % 2.8 %; HEMATOCRIT 38.7 % (37-47); IG% 0.2 %; LYMPH % 19.3 %; LYMPH ABS # 1.59 K/uL (1.2-3.4); MEAN CELL VOLUME 95.1 fL (80-100); MEAN CORPUSCULAR HGB CONC 32.6 g/dl (32-36); MEAN PLATELET VOLUME 8.5 fL (7.4-10.4); MONO % 6.3 %; NEUT % 71.2 %; PLATELET COUNT 217 K/uL (130-400); RED BLOOD COUNT 4.07 M/uL (4.2-5.4); WHITE BLOOD COUNT 8.22 K/uL (4.8-10.8)
[2016-12-23 07:09] LABS: BUN/CREATININE RATIO 16.5 (10-20); CALCIUM 8.8 mg/dl (8.5-10.1); CREATININE 1.75 mg/dl (0.60-1.20); MAGNESIUM 2.2 mg/dl (1.8-2.4); POTASSIUM 4.7 mmol/L (3.5-5.1)
[2016-12-23] MEDS: TRIAMTERENE/HCTZ 37.5/25MG TAB PO SCH (07:39)
[2016-12-23] MEDS: DABIGATRAN ELEXILATE 75 MG CAP PO SCH (07:39)
[2016-12-23] MEDS: METOPROLOL SUCC 50MG EXT REL TAB PO SCH (07:39)
[2016-12-23] MEDS: ATORVASTATIN 20 MG TAB PO SCH (07:40)
[2016-12-23] MEDS: AMIODARONE 200 MG TAB PO SCH (07:40)
[2016-12-23] MEDS ORDERED: VALSARTAN 80 MG TAB PO SCH (09:00)
--- NOTE | 2016-12-23 10:48 | Progress Note ---
Internal Med Progress Note Date of Service: Dec 23, 2016. Provider Documentation: SUBJECTIVE: The patient was seen and examined Admitted with Hypertensive Urgency with some chest pain Feels a lot better now Even better today Ambulating well Willing to be discharged today OBJECTIVE: Vital Signs-as noted below Exam: General-No distress at rest No thyromegaly Eyes-Normal ENT-normal Neck-supple Lungs-Clear to auscultate bilaterally Heart-Irregular Abdomen-Benign,no masses,bowel sound present Extremities-No edema Neuro-AAOx3 No focal sensory and or neuro deficit Lab data as noted below. ASSESSMENT & PLAN: This is a 76-year-old female who presents with hypertensive urgency and left arm pain. Hypertensive Urgency Continue her home medications of Toprol-XL and Maxzide.she used to be on amlodipine before Could not Tolerate Amlodipine due to Edema She says she is compliant with diet. The patient is mostly inactive. Getting Vasotec IV PRN for control of BP Appreciate cardiology input ARB added BP is controlled Left arm pain. Doubt any ACS:negative Serial Troponins and EKG without any sig change Mostly secondary to elevated blood pressure. EKG shows sinus bradycardia at rate of 59, right bundle branch block, no acute ST changes seen. ECHO::The left ventricle is normal in size. * There is mild concentric left ventricular hypertrophy. * Ejection Fraction = 55-60%. * Grade I diastolic dysfunction, (abnormal relaxation pattern). * The right ventricular systolic function is normal. * The left atrial size is normal. * Right atrial size is normal. * Compared to prior study, there is no significant change. H/O Aortic Root Dilatation Aortic Arch 3.2 cm No more pain or any other symptoms History of paroxysmal atrial fibrillation, Currently the patient's heart rate is in 50s. has been on Amiodarone We will continue Toprol XL and Pradaxa. Rate is controlled on Amiodarone Hypothyroidism. Likely secondary to use of Amiodarone Increased TSH and low T4 and T3 Started on small dose of Thyroxin US of the thyroid -Multiple subcentimeter thyroid nodules-colloid nodules Will need follow up of TSH and the nodules as an OP Lower extremity numbness Ongoing Could be from the hypothyroidism, Could be from the diabetes and the patient also has history of back pain. When patient is stable, will get ct scan of the back.Will get hba1c levels Hyperlipidemia. Continue statin. We will follow the fasting lipid profile. History of cerebrovascular accident. History of carotid stenosis. On Pradaxa and statins. History of sleep apnea on CPAP. History of chronic kidney disease stage III. Baseline creatinine was 1.1-1.2,Presented with 1.3. We will monitor the labs. Deep vein thrombosis prophylaxis on Pradaxa. DISPOSITION Discharge today Vital Signs: Date Time Temp Pulse Resp B/P (MAP) Pulse Ox O2 Delivery O2 Flow Rate FiO2 12/23/16 08:00 Room Air 12/23/16 07:46 37.0 55 20 112/67 (82) 91 Room Air 12/23/16 07:41 62 122/72 (89) 12/23/16 04:11 37.3 60 17 96/55 (69) 92 Room Air 12/23/16 04:00 93 CPAP 12/23/16 00:01 93 Room Air 12/22/16 22:59 37.5 56 18 113/65 (81) 93 CPAP 12/22/16 21:40 55 94 12/22/16 20:00 93 Room Air 12/22/16 19:24 37.3 55 18 165/72 (103) 93 Room Air 12/22/16 16:06 36.9 52 18 125/74 (91) 91 Room Air 12/22/16 16:00 97 Room Air 12/22/16 12:36 36.9 50 16 152/82 (105) Room Air 12/22/16 12:00 Room Air Lab Results: Results Past 24 Hours Test 12/22/16 11:55 12/22/16 14:36 12/23/16 06:21 Range/Units Total Creatine Kinase 77 26-192 U/L Creatine Kinase MB 2.3 0.5-3.6 ng/ml Creatine Kinase MB Ratio 0-3.0 Troponin I < 0.015 0-0.045 ng/ml White Blood Count 8.22 4.8-10.8 K/uL Red Blood Count 4.07 4.2-5.4 M/uL Hemoglobin 12.6 12.0-16.0 g/dL Hematocrit 38.7 37-47 % Mean Corpuscular Volume 95.1 80-100 fL Mean Corpuscular Hemoglobin 31.0 25-34 pg Mean Corpuscular Hemoglobin Concent 32.6 32-36 g/dl Platelet Count 217 130-400 K/uL Mean Platelet Volume 8.5 7.4-10.4 fL Neutrophils (%) (Auto) 71.2 % Lymphocytes (%) (Auto) 19.3 % Monocytes (%) (Auto) 6.3 % Eosinophils (%) (Auto) 2.8 % Basophils (%) (Auto) 0.2 % Neutrophils # (Auto) 5.84 1.4-6.5 K/uL Lymphocytes # (Auto) 1.59 1.2-3.4 K/uL Monocytes # (Auto) 0.52 0.11-0.59 K/uL Eosinophils # (Auto) 0.23 0-0.5 K/uL Basophils # (Auto) 0.02 0-0.2 K/uL RDW Standard Deviation 51.8 36.4-46.3 fL RDW Coefficient of Variation 14.9 11.5-14.5 % Immature Granulocyte % (Auto) 0.2 % Immature Granulocyte # (Auto) 0.02 0.00-0.02 K/uL Sodium Level 137 136-145 mmol/L Potassium Level 4.7 3.5-5.1 mmol/L Chloride Level 105 98-107 mmol/L Carbon Dioxide Level 28 21-32 mmol/L Anion Gap 4.0 3-11 mmol/L Blood Urea Nitrogen 29 7-18 mg/dl Creatinine 1.75 0.60-1.20 mg/dl Est Creatinine Clear Calc Drug Dose 34.5 ml/min Estimated GFR () 32.2 Estimated GFR (Non- 27.8 BUN/Creatinine Ratio 16.5 10-20 Random Glucose 85 70-99 mg/dl Calcium Level 8.8 8.5-10.1 mg/dl Magnesium Level 2.2 1.8-2.4 mg/dl
[2016-12-23] MEDS ORDERED: DVN80 PO (11:56)
[2016-12-23] MEDS ORDERED: SYN25 PO (11:56)
--- NOTE | 2016-12-23 12:00 | Discharge Instructions ---
Discharge Instructions Date of Service Dec 23, 2016. 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 Instructions / Follow-Up Instructions / Follow-Up Dr Pandya on 12/28/16 at 1:05 PM.Will need follow up with Cardiology and Monitor Colloid Goiter Current Hospital Diet Patient's current hospital diet: AHA Diet (Heart Healthy) Discharge Diet Recommended Diet: AHA Diet (Heart Healthy), Low Sodium Diet (2gm Na) Pending Studies Studies pending at discharge: no Laboratory Results Hemoglobin A1c Test 12/22/16 03:57 Range/Units Estimated Average Glucose 120 mg/dl Hemoglobin A1c 5.8 H 4.5-5.6 % Lipid Panel Test 12/22/16 03:57 Range/Units Triglycerides Level 264 H 0-150 mg/dl Cholesterol Level 124 0-200 mg/dl HDL Cholesterol 38 mg/dl Cholesterol/HDL Ratio 3.3 LDL Cholesterol, Calculated 33 mg/dl Medical Emergencies . Who to Call and When: Medical Emergencies: If at any time you feel your situation is an emergency, please call 911 immediately. . Non-Emergent Contact Non-Emergency issues call your: Primary Care Provider . Past History Medical & Surgical History: (1) Hypothyroidism (2) Hypertensive urgency (3) Left arm pain (4) Osteoporosis (5) Vitamin D deficiency (6) Atrial fibrillation with RVR (7) History of CVA (cerebrovascular accident) (8) Depression (9) H/O cataract removal with insertion of prosthetic lens (10) History of appendectomy (11) History of tonsillectomy (12) History of total hysterectomy . "Provider Documentation" section prepared by Pina Betancourt. . VTE Core Measure Inpt VTE Proph given/why not?: Other Anticoagulation (Pradaxa)
--- NOTE | 2016-12-23 12:20 | CARDIOLOGY PROGRESS NOTE ---
DATE: 12/23/2016 FOLLOW-UP VISIT DATE: 12/23/2016 SUBJECTIVE: The patient is a 76-year-old female who was admitted with hypertensive urgency. She has a history of paroxysmal atrial fibrillation and has been taking amiodarone. Her TSH level was elevated to 42 and I believe she has hypothyroid due to the amiodarone. The patient was started on valsartan with improvement in her blood pressure. She has also been started on Synthroid. She has no complaints today and would like to be discharged. OBJECTIVE: GENERAL: She is alert and oriented. VITAL SIGNS: Blood pressure is 115/70, pulse is regular at 50 beats per minute. She is afebrile. HEAD, EYES, EARS, NOSE, AND THROAT: She is normocephalic. Pupils are equal and reactive to light. Extraocular muscles are intact bilaterally. NECK: The neck veins are flat. Carotids have good upstrokes bilaterally without bruits. Thyroid is nonpalpable. RESPIRATORY: Breath sounds equal bilaterally and clear to auscultation. CARDIOVASCULAR: Heart has a regular rhythm. Normal S1, S2. No S3, S4. No cardiac rubs or murmurs. GASTROINTESTINAL: Abdomen is soft, nontender without organomegaly. EXTREMITIES: Free of edema, digit clubbing, or cyanosis. NEUROLOGIC: Grossly intact. SKIN: Warm to touch. LYMPH NODES: Negative to palpation. LABORATORY DATA: Hemoglobin A1c is 5.8. IMPRESSION: 1. Hypertension. 2. Paroxysmal atrial fibrillation. 3. Hypothyroidism. RECOMMENDATIONS: The patient's Synthroid can be titrated as an outpatient. Her ultrasound just shows multiple cysts, but no evidence of a goiter or nodule. She will continue her current medications. I will make arrangements for her to have followup post discharge.
--- NOTE | 2016-12-27 14:42 | Discharge Summary ---
Discharge Summary Date of Service Dec 27, 2016. 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) Secondary Diagnoses/Problems: Please see H&P and Hospital Progress note Consultations: Cardiology Medication Reconciliation New Medications: Levothyroxine Sodium (Synthroid) 25 Mcg Tab 25 MCG PO DAILYBB for 30 Days, #30 TAB Valsartan (Diovan) 80 Mg Tab 80 MG PO QAM for 30 Days, #30 TAB Continued Medications: Amiodarone Hcl (Cordarone) 200 Mg Tab 200 MG PO QAM, TAB Atorvastatin (Lipitor) 40 Mg Tab 40 MG PO DAILY, TAB Citalopram (Citalopram Hydrobromide) 20 Mg Tab 10 MG PO HS Dabigatran Elexilate (Pradaxa) 150 Mg Cap 150 MG PO BID for 30 Days, #60 Ergocalciferol (Vitamin D) 50,000 Interunit Cap 42300 UNITS PO WK TAKE ON TUESDAY Metoprolol Succinate (Metoprolol Succinate ER) 50 Mg Tabcr 50 MG PO QAM for 30 Days Triamterene/Hctz (Triamterene/Hctz 37.5-25MG) 1 Tab Tab 1 TAB PO DAILY, TAB Admission Information HPI (per Admitting provider): DATE OF ADMISSION: 12/21/2016 CHIEF COMPLAINT: Elevated blood pressure and left arm pain. HISTORY OF PRESENT ILLNESS: This is a 76-year-old female with past medical history significant for hypertension, chronic kidney disease stage III, history of CVA, history of hyperlipidemia, history of carotid stenosis, history of paroxysmal atrial fibrillation, anxiety, obstructive sleep apnea on CPAP, presents with elevated blood pressure and left arm pain. Since few days blood pressure is running high and she is monitoring blood pressure and today her systolic blood pressure was in 190s and she called the family doctor and they advised to come to the ER.Patient also says since last night she noticed left shoulder and left arm pain about 7/10 in severity, that is on and off. Currently, pain is little better with the pain medication, but syas it comes back when pain meds wears off Denies any headaches. No blurred visions. On and off dizziness. No sore throat, no runny nose, no difficulty swallowing. No chest pain on exertion, has some shortness of breath since last couple of days even at resting. Has some dry cough. No fever, chills, no nausea, no vomiting, no sweating, no abdominal pains. Normal bowel and bladder movements. No blood in the stools or blood in the urine. Appetite is okay. Ambulating okay at home. The patient does not get any chest pain with ambulation or climbing the steps. she also noticed some swelling in the legs and she was recently seen by podiatry advised to get a venous doppler. She is also feeling some numbness in lower extremity for several days, which is somewhat improved lately. Currently, resting comfortably and hemodynamically stable. ALLERGIES: AMLODIPINE. PAST MEDICAL HISTORY: As mentioned above. PAST SURGICAL HISTORY: Cataract surgery, appendectomy, tonsillectomy, total hysterectomy. MEDICATIONS: Currently, the patient is on triamterene/hydrochlorothiazide 37.5/25 mg 1 tablet p.o. daily, atorvastatin 40 mg p.o. daily, Toprol-XL 50 mg p.o. daily, Celexa 10 mg p.o. daily, Pradaxa 150 mg p.o. b.i.d., amiodarone 200 mg p.o. daily, vitamin D 50,000 units capsules once weekly. FAMILY HISTORY: Significant for father had an AK, at the age of 72. Mother has heart failure, hypertension. Brother has stroke and sister has hypertension. SOCIAL HISTORY: Never smoked. No alcohol use. No drug use. . REVIEW OF SYMPTOMS: As per HPI. Rest of systems negative. PHYSICAL EXAMINATION: GENERAL: The patient is obese, not in distress. VITAL SIGNS: Temperature 36.7, pulse 55, respiratory rate 16, blood pressure when patient came in was at 196/78, currently 174/76; oxygen 99% room air. HEENT: No pallor, no icterus. Pupils equal, round and reactive to light. NECK: No JVD, no neck masses, no carotid bruits. CARDIOVASCULAR: S1, S2 heard. Bradycardia. No murmurs appreciated. RESPIRATORY SYSTEM: No accessory muscle use. No wheezing, no crackles. ABDOMEN: Soft, bowel sounds present. Nontender. No distention. CENTRAL NERVOUS SYSTEM: Cranial nerves II-XII grossly intact. Nonfocal. EXTREMITIES: Bilateral pedal edema present. ASSESSMENT AND PLAN: 1. This is a 76-year-old female who presents with hypertensive urgency and left arm pain. The patient is on home medications of Toprol-XL and Maxzide.she used to be on amlodipine before, but it was changed to Maxzide several months ago for lower extremity edema . She says she is compliant with diet. The patient is mostly inactive. We will admit to tele floor. We will place on nitro paste and have the iv Vasotec p.r.n., monitor the blood pressure and will consult cardiology in a.m. 2. Left arm pain. Mostly secondary to elevated blood pressure. Initial troponin is negative. EKG shows sinus bradycardia at rate of 59, right bundle branch block, no acute ST changes seen. No significant change from previous. We will monitor on tele floor. Serial cardiac enzymes and echocardiogram and patient is on nitro paste and IV morphine p.r.n. and cardiology is consulted. 3. History of paroxysmal atrial fibrillation, currently the patient's heart rate is in 50s. We will continue Toprol XL and Pradaxa. 4. Hypothyroidism. This is a new diagnosis. TSH is high and T4 is low. We will cautiously start her on Synthroid 25 mcg and adjust every 4-6 weeks as the patient is a 76-year-old female and monitor her vitals. 5. Lower extremity numbness, most likely could be from the hypothyroidism, could be from the diabetes and the patient also has history of back pain. When patient is stable, will get ct scan of the back.Will get hba1c levels 6. Hyperlipidemia. Continue statin. We will follow the fasting lipid profile. 7. History of cerebrovascular accident. On Pradaxa and statins. 8. History of sleep apnea on CPAP. 9. History of chronic kidney disease stage III. Baseline creatinine was 1.1-1.2,Presented with 1.3. We will monitor the labs. 10. History of carotid stenosis. 11. Deep vein thrombosis prophylaxis on Pradaxa. DISPOSITION: Admit to tele floor. Expect to discharge home and follow with his family doctor and cardiology. Level 1 full code. Hospital Course This is a 76-year-old female who presents with hypertensive urgency and left arm pain. Hypertensive Urgency Continue her home medications of Toprol-XL and Maxzide.she used to be on amlodipine before Could not Tolerate Amlodipine due to Edema She says she is compliant with diet. The patient is mostly inactive. Getting Vasotec IV PRN for control of BP Appreciate cardiology input ARB added BP is controlled Left arm pain. Doubt any ACS:negative Serial Troponins and EKG without any sig change Mostly secondary to elevated blood pressure. EKG shows sinus bradycardia at rate of 59, right bundle branch block, no acute ST changes seen. ECHO::The left ventricle is normal in size. * There is mild concentric left ventricular hypertrophy. * Ejection Fraction = 55-60%. * Grade I diastolic dysfunction, (abnormal relaxation pattern). * The right ventricular systolic function is normal. * The left atrial size is normal. * Right atrial size is normal. * Compared to prior study, there is no significant change. H/O Aortic Root Dilatation Aortic Arch 3.2 cm No more pain or any other symptoms History of paroxysmal atrial fibrillation, Currently the patient's heart rate is in 50s. has been on Amiodarone We will continue Toprol XL and Pradaxa. Rate is controlled on Amiodarone Hypothyroidism. Likely secondary to use of Amiodarone Increased TSH and low T4 and T3 Started on small dose of Thyroxin US of the thyroid -Multiple subcentimeter thyroid nodules-colloid nodules Will need follow up of TSH and the nodules as an OP Lower extremity numbness Ongoing Could be from the hypothyroidism, Could be from the diabetes and the patient also has history of back pain. When patient is stable, will get ct scan of the back.Will get hba1c levels Hyperlipidemia. Continue statin. We will follow the fasting lipid profile. History of cerebrovascular accident. History of carotid stenosis. On Pradaxa and statins. History of sleep apnea on CPAP. History of chronic kidney disease stage III. Baseline creatinine was 1.1-1.2,Presented with 1.3. We will monitor the labs. Deep vein thrombosis prophylaxis on Pradaxa. DISPOSITION Discharge today Total time spent on discharge = 35 minutes This includes examination of the patient, discharge planning, medication reconciliation, and communication with other providers. Discharge Instructions Date of Service Dec 23, 2016. 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 Instructions / Follow-Up Instructions / Follow-Up Dr Pandya on 12/28/16 at 1:05 PM.Will need follow up with Cardiology and Monitor Colloid Goiter Current Hospital Diet Patient's current hospital diet: AHA Diet (Heart Healthy) Discharge Diet Recommended Diet: AHA Diet (Heart Healthy), Low Sodium Diet (2gm Na) Pending Studies Studies pending at discharge: no Laboratory Results Hemoglobin A1c Test 12/22/16 03:57 Range/Units Estimated Average Glucose 120 mg/dl Hemoglobin A1c 5.8 H 4.5-5.6 % Lipid Panel Test 12/22/16 03:57 Range/Units Triglycerides Level 264 H 0-150 mg/dl Cholesterol Level 124 0-200 mg/dl HDL Cholesterol 38 mg/dl Cholesterol/HDL Ratio 3.3 LDL Cholesterol, Calculated 33 mg/dl Medical Emergencies . Who to Call and When: Medical Emergencies: If at any time you feel your situation is an emergency, please call 911 immediately. . Non-Emergent Contact Non-Emergency issues call your: Primary Care Provider . Past History Medical & Surgical History: (1) Hypothyroidism (2) Hypertensive urgency (3) Left arm pain (4) Osteoporosis (5) Vitamin D deficiency (6) Atrial fibrillation with RVR (7) History of CVA (cerebrovascular accident) (8) Depression (9) H/O cataract removal with insertion of prosthetic lens (10) History of appendectomy (11) History of tonsillectomy (12) History of total hysterectomy . "Provider Documentation" section prepared by Pina Betancourt. . VTE Core Measure Inpt VTE Proph given/why not?: Other Anticoagulation (Pradaxa) <Electronically signed by Pina Betancourt M.D.> Signed: 12/23/16 1200 Additional Copies To Awais Pandya M.D.
== END 2016-12-23 13:07 | disposition home or self-care (01) | DRG 305 ==
LOC: C.EDB 17:03 → C.2T 19:52 → ENRESERV 20:14
PROVIDERS: ADMIT Internal Medicine; ATTEND Internal Medicine
DX: I16.0 Hypertensive urgency (principal); T46.2X5A Adverse effect of other antidysrhythmic drugs, initial encounter; M81.0 Age-related osteoporosis without current pathological fracture; I48.0 Paroxysmal atrial fibrillation; N18.3 Chronic kidney disease, stage 3 (moderate); F32.9 Major depressive disorder, single episode, unspecified; E78.5 Hyperlipidemia, unspecified; E55.9 Vitamin D deficiency, unspecified; E03.9 Hypothyroidism, unspecified; Z86.73 Personal history of transient ischemic attack (TIA), and cerebral infarction without residual deficits; I65.29 Occlusion and stenosis of unspecified carotid artery; E11.9 Type 2 diabetes mellitus without complications; Y92.098 Other place in other non-institutional residence as the place of occurrence of the external cause

== ENCOUNTER 2017-10-31 11:45 | Emergency (ER) | payer OTHER ==
[~2017-10-31] VITALS: Ht 172.7 cm; Wt 105.0 kg
[~2017-10-31 11:45] MED LIST changes: +AMIO200T4 PO; -CITA10TA8 PO; +CLX/20 PO; -CRD200 PO; +DABI150C3 PO; +DVN80 PO; -NRV5 PO; -PRD150 PO; +SYN25 PO; +TRIATAB3 PO
[2017-10-31 11:55] VITALS: TEMP 36.8; Ht 172.7 cm; Wt 105.0 kg
[2017-10-31] MEDS ORDERED: LOSA50TA6 PO (12:24)
[2017-10-31] MEDS ORDERED: ERGO500037 PO (12:24)
[2017-10-31] MEDS ORDERED: ONDANSETRON 4MG OD TAB PO STA (12:43)
[2017-10-31] MEDS ORDERED: OXYCODONE/ACETAMINOPHEN 5-325 TAB PO STA (12:43)
[2017-10-31] MEDS ORDERED: LIDODERM (LIDOCAINE) PATCH 5% TD STA (12:43)
[2017-10-31] MEDS ORDERED: DIAZEPAM 2MG TAB PO ONE (12:45)
[2017-10-31] MEDS ORDERED: DEXAMETHASONE SOD INJ 4 MG/ML VIAL PO ONE (12:45)
--- NOTE | 2017-10-31 13:31 | EMERGENCY ROOM VISIT NOTE ---
History First contact with patient: 12:35 Chief Complaint: BACK PAIN Stated Complaint: BACK PAIN History of Present Illness The patient is a 76 year old female who presents to the Emergency Room with complaints of severe left lower back pain for the last 2 days. The patient was bending over in the manager property when she felt a "pop" in her back. She has had severe pain since. The pain does not radiate anywhere. It is worse with movement. She did not take anything for pain. She denies any numbness, tingling or weakness in her extremities. No difficulty with her bowel movements or urination. No incontinence reported. The patient has a history of chronic back pain. Review of Systems 6 system review negative. Please see pertinent positives in the history of present illness section. Past Medical/Surgical History Medical Problems: (1) Atrial fibrillation with RVR (2) CKD (chronic kidney disease) stage 3, GFR 30-59 ml/min (3) Depression (4) Dyslipidemia (5) History of CVA (cerebrovascular accident) (6) HTN (hypertension) (7) Hypertensive urgency (8) Hypothyroidism (9) Left arm pain (10) Osteoporosis (11) Vitamin D deficiency Surgical Problems: (1) H/O cataract removal with insertion of prosthetic lens (2) History of appendectomy (3) History of tonsillectomy (4) History of total hysterectomy Family History Diabetes mellitus FH: CAD (coronary artery disease) Hypertension Stroke Social History Smoking Status: Current Every Day Smoker Drug Use: none Marital Status: Housing Status: lives with significant other Occupation Status: unemployed Current/Historical Medications Scheduled Amiodarone Hcl (Cordarone), 200 MG PO QAM Atorvastatin (Lipitor), 40 MG PO DAILY Citalopram (Citalopram Hydrobromide), 10 MG PO HS Dabigatran Elexilate (Pradaxa), 150 MG PO BID Diazepam (Valium), 2.5 MG PO TID Ergocalciferol (Vitamin D 26440 Unit), 50,000 UNIT PO WK Levothyroxine Sodium (Synthroid), 25 MCG PO DAILYBB Lidocaine (Lidocaine), 1 PATCH TD DAILY Losartan Potassium (Cozaar), 50 MG PO DAILY Methylprednisolone (Medrol Dosepak), 0 PO DAILY Metoprolol Succinate (Metoprolol Succinate ER), 50 MG PO QAM Ondasetron Odt (Zofran Odt), 4 MG SL Q6H Scheduled PRN Oxycodone/Acetaminophen 5MG/325MG (Percocet 5MG/325MG), 1 TAB PO Q4H PRN for Pain Physical Exam Vital Signs Date Time Temp Pulse Resp B/P (MAP) Pulse Ox O2 Delivery O2 Flow Rate FiO2 10/31/17 14:46 51 18 199/93 90 Room Air 10/31/17 11:55 36.8 48 20 178/82 95 Room Air Physical Exam GENERAL: 76-year-old female, in moderate discomfort,, SKIN: The skin was without rashes, erythema, edema, or bruising. HEAD: Normocephalic atraumatic. NECK: . Cervical spine is nontender. MUSCULOSKELETAL: Significant tenderness to palpation over the lumbar spinous processes. Tenderness over the left SI joint. exam is limited secondary to pain sensation in the lower extremity's is intact and equal bilaterally. DP pulse +2 bilaterally. Strength 5/5 throughout. NEURO: Patient was alert and oriented to person place and time. Normal sensation to touch. No focal neurological deficits. Medical Decision & Procedures ER Provider Diagnostic Interpretation: CT without contrast of the lumbar spine IMPRESSION: 1. No acute fractures or traumatic subluxations 2. Multilevel spondylitic changes with moderate spinal stenosis the L3-4 and L4-5 level 3. Right-sided nephrolithiasis Electronically signed by: Mal Shah M.D. 10/31/2017 1:36 PM Dictated Date/Time: 10/31/2017 1:33 PM The status of this report is Signed. Draft = Not yet reviewed or approved by Radiologist. Signed = Reviewed and approved by Radiologist. Medications Administered Medications (Trade) Dose Ordered Sig/Venancio Route Start Time Stop Time Status Last Admin Dose Admin Dexamethasone Sodium Phosphate (Decadron Inj) 10 mg NOW ONCE PO 10/31/17 12:45 10/31/17 12:46 DC 10/31/17 13:08 10 MG Oxycodone/ Acetaminophen (Percocet 5-325mg Tab) 1 tab NOW STAT PO 10/31/17 12:43 10/31/17 12:45 DC 10/31/17 13:09 1 TAB Ondansetron HCl (Zofran Odt) 4 mg NOW STAT PO 10/31/17 12:43 10/31/17 12:45 DC 8/27/18 13:09 4 MG Diazepam (Valium Tab) 2 mg NOW ONCE PO 10/31/17 12:45 10/31/17 12:46 DC 10/31/17 13:09 2 MG Lidocaine (Lidoderm Patch 5%) 1 patch ONE STAT TD 10/31/17 12:43 10/31/17 12:46 DC 10/31/17 13:11 1 PATCH ED Course The patient was seen and examined She was medicated with Percocet, Zofran, Lidoderm, Decadron and Valium as noted above Imaging was performed and reviewed Upon reevaluation, the patient was much more comfortable. We reviewed her results. She voiced understanding, was comfortable being discharged home. An ambulatory trial was performed. She did well with a walker. The patient was also seen and examined by my supervising physician who is in agreement with my plan Discharge instructions were reviewed, and she was discharged in good condition with a walker Medical Decision Differential diagnosis: Spine fracture, ligamentous injury, subluxation, spondylolisthesis, spondylosis, herniated disc, contusion, muscle spasm This patient is a 76-year-old female presents to the emergency department with acute on chronic back pain after bending over 2 days ago. On exam, she was neurovascularly intact. She did have tenderness over the lumbar spine. Imaging is consistent with moderate canal stenosis at L3-L4 and L4-L5. I believe she likely has a muscle strain as exacerbating her chronic back condition. The patient had excellent pain relief in the emergency department. I believe she is stable to be discharged home. She will be sent home with a short course of narcotics, muscle relaxants and steroids. She was comfortable with this plan, she will follow-up with her PCP this week, and agrees to return with any concerning symptoms This chart was completed in part utilizing [employer] Speech Voice Recognition software. Attempts were made to minimize the grammatical errors, random word insertions, pronoun errors and incomplete sentences. Any formal questions or concerns about the content, text or information contained within the body of this dictation should be directly addressed to the provider for clarification. Medication Reconcilliation Current Medication List: was personally reviewed by me Blood Pressure Screening Patient's blood pressure: Elevated blood pressure Blood pressure disposition: Elevated BP felt to be situational Impression Primary Impression: Low back pain Departure Information Dispostion Home / Self-Care Condition GOOD Prescriptions Ondasetron Odt (ZOFRAN ODT) 4 Mg Tab 4 MG SL Q6H for Nausea, #10 TAB Prov: Angeles Montgomery PA-C 10/31/17 Diazepam (Valium) 5 Mg Tab 2.5 MG PO TID for Muscle Spasms, #10 TAB Prov: Angeles Montgomery PA-C 10/31/17 Lidocaine (LIDOCAINE) 5 % Pad 1 PATCH TD DAILY for Pain, #30 PATCH Prov: Angeles Montgomery PA-C 10/31/17 Methylprednisolone (MEDROL DOSEPAK) 4 Mg Per 0 PO DAILY, #1 PKT Prov: Angeles Montgomery PA-C 10/31/17 Oxycodone/Acetaminophen 5MG/325MG (PERCOCET 5MG/325MG) Tab 1 TAB PO Q4H Y for Pain, #15 TAB For Initial Treatment Prov: Angeles Montgomery PA-C 10/31/17 Referrals Awais Pandya M.D. (PCP) Patient Instructions [facility] Additional Instructions You had been evaluated in the emergency department for back pain. The CT scan did not show any signs of fractures. Please take the entire course of Medrol Dosepak as prescribed Percocet: Take 1 pill every four hours for pain. Avoid alcohol, operating machinery or dangerous equipment, working on ladders or roofs, DRIVING, or situations where being under the influence may be dangerous. It is recommended to use an [id number] stool softener such as Colace, 100mg twice daily while taking this medication to avoid constipation. Please take Zofran 1 tab every 6 hours as needed for nausea Please take Valium 2.5 mg (1/2 tab) every 8 hours as needed for muscle spasms. Please do not drink alcohol or drive with this medication as it will make you drowsy Applied a Lidoderm patch to the affected area once daily for additional pain control Please follow-up with your primary care physician within 1 week for recheck Do not hesitate to return to the emergency department with any new, worsening or concerning symptoms; especially, weakness in your legs, urinary or bowel incontinence It was a pleasure participating in your care today
--- NOTE | 2017-10-31 13:37 | DIAGNOSTIC IMAGING REPORT ---
CT LUMBAR SPINE WITHOUT CT DOSE: 571.56 mGycm CLINICAL HISTORY: Severe low back pain and SI joint pain. TECHNIQUE: Helical images were acquired in transverse plane. Reformatted sagittal and coronal images were reviewed. A dose lowering technique was utilized adhering to the principles of ALARA. CONTRAST: No contrast was administered COMPARISON STUDY: None. FINDINGS: L1-2 level: There is a circumferential disc bulge with mild osteophytic spurring. There is mild spinal canal narrowing. There is mild bilateral foraminal narrowing L2-3 level: There is a circumferential disc bulge asymmetric to the left. There is mild spinal stenosis. There is mild bilateral foraminal narrowing. L3-4 level: There is a circumferential disc bulge with moderate spinal stenosis. There is minor bilateral foraminal narrowing L4-5 level: There is a circumferential disc bulge with moderate spinal stenosis. There is mild bilateral foraminal narrowing L5-S1 level: There is no evidence of significant disc bulge or focal herniation. There is no evidence of spinal or foraminal stenosis. No acute fractures or traumatic subluxations are visualized. There is a 2 mm right renal calculus. IMPRESSION: 1. No acute fractures or traumatic subluxations 2. Multilevel spondylitic changes with moderate spinal stenosis the L3-4 and L4-5 level 3. Right-sided nephrolithiasis Electronically signed by: Mal Shah M.D. 10/31/2017 1:36 PM Dictated Date/Time: 10/31/2017 1:33 PM
[2017-10-31] MEDS ORDERED: ONDA4TAB10 SL (14:27)
[2017-10-31] MEDS ORDERED: DIAZ-165 PO (14:27)
[2017-10-31] MEDS ORDERED: METH4PAK PO (14:27)
[2017-10-31] MEDS ORDERED: LIDO1PAD2 TD (14:27)
[2017-10-31] MEDS ORDERED: OXYC-57 PO (14:27)
[2017-10-31 14:46] VITALS: BP 199/93; PULSE 51; O2SAT 90
== END 2017-10-31 15:15 | disposition home or self-care (01) ==
LOC: C.EDB 11:46 → C.EDD 15:15
DX: M54.5 Low back pain (principal); G89.29 Other chronic pain; I48.91 Unspecified atrial fibrillation; N18.3 Chronic kidney disease, stage 3 (moderate); I12.9 Hypertensive chronic kidney disease with stage 1 through stage 4 chronic kidney disease, or unspecified chronic kidney disease; F32.9 Major depressive disorder, single episode, unspecified; E78.5 Hyperlipidemia, unspecified; Z86.73 Personal history of transient ischemic attack (TIA), and cerebral infarction without residual deficits; E03.9 Hypothyroidism, unspecified; M81.0 Age-related osteoporosis without current pathological fracture; E55.9 Vitamin D deficiency, unspecified; Z98.49 Cataract extraction status, unspecified eye; Z96.1 Presence of intraocular lens; Z90.710 Acquired absence of both cervix and uterus; F17.210 Nicotine dependence, cigarettes, uncomplicated; Z83.3 Family history of diabetes mellitus; Z82.49 Family history of ischemic heart disease and other diseases of the circulatory system; Z82.3 Family history of stroke; Z79.899 Other long term (current) drug therapy

== ENCOUNTER 2019-02-09 07:00 | Inpatient (IN) ==
--- NOTE | 2019-02-09 07:30 | XRay Report ---
XR chest 1V portable CLINICAL HISTORY: Chest Pain dyspnea COMPARISON STUDY: 12/21/2016 FINDINGS: Chronic bibasilar interstitial prominence. Upper lungs are clear. The diaphragms are smooth . IMPRESSION: Chronic change. No acute process. The above report was generated using voice recognition software. It may contain grammatical, syntax or spelling errors. Electronically signed by: Abdi Starr M.D. 02/09/2019 7:29 AM
[2019-02-09] MEDS ORDERED: SODIUM CHLORIDE 0.9% 500 ML IV ONE (07:33)
[2019-02-09] MEDS ORDERED: NITROGLYCERIN SL 0.4 MG/TAB TAB SL STA (08:00)
[2019-02-09 08:01] LABS: Basophils # (auto) 0.02 K/uL (0-0.2); Basophils % (auto) 0.2 %; Eosinophils # (auto) 0.26 K/uL (0-0.5); Hematocrit (blood only) 41.9 % (37-47); Hemoglobin 13.7 g/dL (12.0-16.0); Immature Granulocytes # (auto) 0.02 K/uL (0.00-0.02); Immature Granulocytes % (auto) 0.2 %; Lymphocytes # (auto) 1.28 K/uL (1.2-3.4); Lymphocytes % (auto) 14.6 %; Mean Corpuscular Hgb Conc 32.7 g/dL (32-36); Mean Corpuscular Volume 97.9 fL (80-100); Mean Platelet Volume 8.9 fL (7.4-10.4); Monocytes # (auto) 0.61 K/uL (0.11-0.59); Neutrophils # (auto) 6.55 K/uL (1.4-6.5); Platelet Count 230 K/uL (130-400); RDW Coefficient of Variation 13.8 % (11.5-14.5); Red Blood Count 4.28 M/uL (4.2-5.4); White Blood Count 8.74 K/uL (4.8-10.8)
[2019-02-09] MEDS ORDERED: LOSARTAN POTASSIUM 50 MG TAB PO STA (08:08)
[2019-02-09] MEDS ORDERED: AMIODARONE 200 MG TAB PO ONE (08:08)
[2019-02-09 08:21] LABS: Alanine Aminotransferase 35 U/L (12-78); Albumin Level 3.9 gm/dl (3.4-5.0); BUN Creatinine Ratio 15.9 (10-20); Blood Urea Nitrogen 20 mg/dl (7-18); Calcium 9.5 mg/dl (8.5-10.1); Carbon Dioxide 25 mmol/L (21-32); Chloride 106 mmol/L (98-107); Creatinine Clr Calc Pharmacy 50.3 ml/min; Est GFR (African American) 48.2; Est GFR (Non-African American) 41.6; Glucose 92 mg/dl (70-99); Lipase 247 U/L (73-393); Sodium 137 mmol/L (136-145)
[2019-02-09] MEDS ORDERED: PROCHLORPERAZINE 1 ML IV ONE (08:24)
[2019-02-09] MEDS ORDERED: FAMOTIDINE 20MG IV PUSH 20 MG/5 ML SYR IV STA (08:24)
[2019-02-09] MEDS ORDERED: DiphenhydrAMINE HCL 50 MG/ML VIAL IV STA (08:24)
[2019-02-09 08:30] LABS: Alkaline Phosphatase 90 U/L (45-117); Bilirubin,Total 0.5 mg/dl (0.2-1); Globulin 3.9 gm/dl (2.5-4.0); Total Protein 7.8 gm/dl (6.4-8.2); Troponin I < 0.015 ng/ml (0-0.045)
[2019-02-09 08:44] LABS: T4 Free Thyroxine 0.93 ng/dl (0.8-1.6)
[2019-02-09 08:58] LABS: Potassium 4.6 mmol/L (3.5-5.1)
[2019-02-09] MEDS ORDERED: MoRPHine SULFATE 10 MG/ML CARP/VIAL IV STA (08:58)
[2019-02-09] MEDS ORDERED: ACETAMINOPHEN 1,000 MG/100 ML VIAL IV STA (08:59)
[2019-02-09 09:03] LABS: Magnesium 2.2 mg/dl (1.8-2.4)
[2019-02-09] MEDS ORDERED: OPTIRAY 320 125ml IV PRN (09:24)
--- NOTE | 2019-02-09 09:52 | CT Scan Report ---
CT angio chest dissec wo/w con CT DOSE: 1498.25 mGy.cm HISTORY: Pain. Hypertension. chest/back pain, hypertensive TECHNIQUE: Multiaxial CT images of the chest, abdomen, and pelvis were performed both before and afte r the intravenous administration of contrast to evaluate the aorta. Maximal intensity projection imag es were also obtained. A dose lowering technique was utilized adhering to the principles of ALARA. COMPARISON STUDY: 05/29/2006 FINDINGS: Pulmonary vasculature enhances appropriately. No evidence for pulmonary embolus. Moderate atherosclerotic change thoracic aorta. No evidence for aneurysm or dissection. Aortic root m easures 3.6 cm. Chronic bibasilar interstitial change. IMPRESSION: 1. No evidence for aortic dissection or aneurysm. 2. No evidence for pulmonary embolus. 3. Chronic basilar interstitial change. The above report was generated using voice recognition software. It may contain grammatical, syntax or spelling errors. Electronically signed by: Abdi Starr M.D. 02/09/2019 9:51 AM
[2019-02-09] MEDS ORDERED: GI COCKTAIL ED USE PO ONE (10:26)
[2019-02-09] MEDS ORDERED: NITROGLYCERIN 2% OINTMENT 30GM TUBE EXT SCH (11:30)
--- NOTE | 2019-02-09 11:32 | History & Physical Report ---
Date of Service February 09, 2019 Assessment & Plan (1) Hypertensive emergency: (2) Chest pain: Pt is 78 y/o F with PMH PAF on amiodarone, HTN, HLD, CKD III, CVA, carotid stenosis, MICKY, anxiety presented to ER with c/o CP starting yesterday afternoon while sitting watching TV. described as constant anterior chest pain described as pressure/burning-like sensation with radiation to back and thought it was indigestion. Took [place] without relief. Reported home BP systolic 220 this morning. EMS reportedly gave aspirin 324 mg, nitro x 4 and patient reports that decreased pain initially. No acute mental status changes. EKG sinus bradycardia, chronic RBBB without acute change initial troponin negative. renal functions as baseline CTA chest negative for dissection or PE. CXR: Chronic change. No acute process. Initial BP 244/86 down to 173/81. P: 54, R: 20, 95% on RA CHEST PAIN R/O ACS. Probable secondary to severe HTN -In ER given 500 mL NSS, nitro sublingual x1, Pepcid 20 mg IV, Compazine IV, Benadryl 12.5 IV, morphine 8 IV, Tylenol 1 g IV, GI cocktail and was given her morning dose of losartan 50 mg p.o. and amiodarone 200 mg p.o. patient reports does not think nitro given in ER helped decrease pain however after all of the additional medications she reports her chest pain is decreased. -Monitor Vitals -Nitropaste added for additional BP control -Repeat EKG in am -Will trend troponin -Echo -Lipid panel in am, continue atorvastatin -Continue metoprolol, losartan, Pradaxa -Cardiology consult (3) Paroxysmal atrial fibrillation: On Pradaxa Current sinus rhythm -Continue amiodarone, metoprolol, Pradaxa (4) History of CVA (cerebrovascular accident): -Continue statin, pradaxa (5) CKD (chronic kidney disease) stage 3, GFR 30-59 ml/min: Cr: 1.24. Baseline ~1.2-1.4 -Monitor renal functions -Avoid nephrotoxic agents (6) HTN (hypertension): Currently significant HTN -Nitropaste for additional control -Continue losartan, metoprolol (7) Dyslipidemia: -Continue atorvastatin (8) Hypothyroidism: TSH: 8.6, free T4: 0.9 -Continue levothyroxine (9) MICKY (obstructive sleep apnea): CPAP at bedtime DVT Prophylaxis -On Pradaxa Full Code as per discussion with pt Follows with Dr Pandya for routine care Pt was seen and care coordinated with Dr Crooks. See addendum. History of Present Illness Chief Complaint: CP Primary Care Provider: Awais Pandya MD Pt is 78 y/o F with PMH PAF on amiodarone, HTN, HLD, CKD III, CVA, carotid stenosis, MICKY, anxiety presented to ER with c/o CP. Patient states yesterday afternoon was sitting watching TV when she developed lower anterior chest pain described as pressure/burning-like sensation with radiation to back. Patient states she felt like it was indigestion so took [place] without relief. She rated discomfort a 10 out of 10 on pain scale and reports it continued throughout the night and this morning. Reports this morning felt nauseated without any vomiting. Patient's states this morning took her blood pressure at home and systolic was 220. She reports that she has been taking her medications as prescribed however has not had this morning's medications yet. Patient was transported to ER by EMS and reportedly was given aspirin 324 mg, nitro x 4 and patient reports that decreased pain for approximately 20 minutes and then chest pain returned. Patient reports chronic edema to BLE however denies any increased edema. Reports chronic shortness of breath and denies any increased shortness of breath. Granddaughter at bedside reports pt with increased forgetfulness over past several months and has "good days and bad days" and reports today pt mental status is good. Denies fever/chills, diaphoresis, N/V/D/C, [place], dizziness, syncope, vision changes, neck pain, CP, SOB, orthopnea, palpitations, cough, sore throat, choking, otalgia, rhinorrhea, abdominal pain, paresthesias, weakness, extremity weakness, extremity edema, rashes, urinary symptoms. History Lexiscan 11/24/2017: Normal stress test History echo 12/2016: EF: 55-60%, grade 1 diastolic dysfunction Today in ER patient given 500 mL NSS, nitro sublingual x1, Pepcid 20 mg IV, Compazine IV, Benadryl 12.5 IV, morphine 8 IV, Tylenol 1 g IV, GI cocktail and was given her morning dose of losartan 50 mg p.o. and amiodarone 200 mg p.o. patient reports does not think nitro given in ER helped decrease pain however after all of the additional medications she reports her chest pain is decreased. EKG sinus bradycardia, chronic RBBB without acute change, initial troponin negative. CTA chest negative for dissection or PE. Initial BP 244/86 down to 173/81. Patient admitted to hospital for further evaluation and treatment. Allergies Allergy/AdvReac Type Severity Reaction Status Date / Time amlodipine Allergy Unknown SWELLING Unverified 02/09/19 10:25 OF FEET Home Medications Home Medications Medication Instructions Recorded Confirmed Type amiodarone 200 mg PO DAILY 02/09/19 02/09/19 History atorvastatin 40 mg PO HS 02/09/19 02/09/19 History dabigatran etexilate [Pradaxa] 150 mg PO BID 02/09/19 02/09/19 History ergocalciferol (vitamin D2) 50,000 unit PO MO 02/09/19 02/09/19 History [Vitamin D2] levothyroxine 50 mcg PO DAILY 02/09/19 02/09/19 History losartan 50 mg PO DAILY 02/09/19 02/09/19 History metoprolol succinate 50 mg PO DAILY 02/09/19 02/09/19 History Past Med/Surg History Medical History Atrial fibrillation with RVR (Resolved) CKD (chronic kidney disease) stage 3, GFR 30-59 ml/min (Chronic) Depression (Chronic) Dyslipidemia (Chronic) History of CVA (cerebrovascular accident) (Resolved) HTN (hypertension) (Chronic) Hypertensive urgency (Acute) Hypothyroidism Left arm pain MICKY (obstructive sleep apnea) Osteoporosis (Chronic) Paroxysmal atrial fibrillation Vitamin D deficiency (Chronic) Surgical History H/O cataract removal with insertion of prosthetic lens (Resolved) History of appendectomy (Resolved) History of tonsillectomy (Resolved) History of total hysterectomy (Resolved) Family History Other Coronary heart disease Hypertension Stroke Social History Preferred Language: Hungarian Communication Ability: Effective Server Cashier Required: No Beliefs That Will Affect Care: None marital status: Life Partner Current Living Situation: Significant Other Other Information That Helps Us Care for You: No Feels Safe at Home: Yes Safety Concerns: Feels Safe At This Time Smoking Status: Never smoker Tobacco Type: cigarettes ; Hx Alcohol Use: No Hx Substance Use: No Review of Systems Review of Systems: All systems reviewed & are unremarkable except as noted in HPI & below Physical Exam Physical Exam: General: no acute distress, obese Head: normocephalic, atraumatic Eyes: PERRL, EOM's intact, conjunctiva non-injected, anicteric ENT: normal inspection external ears, nose, mucous membranes moist Neck: supple, trachea midline Lungs: clear, no respiratory distress, no wheezing/rhonchi/rales CV: rate 56, regular rhythm, no murmur, trace pretibial edema; chest non-tender to palpation Abd: normal BS, soft, non-tender Ext: no cyanosis, no calf tenderness Neuro: A&O x 3, no focal deficits noted, normal affect Skin: warm, dry Results & Data Vital Signs (Past 12 Hours) Vital Signs Temp Pulse Resp BP Pulse Ox 02/09/19 11:07 52 L 21 173/81 H 91 02/09/19 11:01 53 L 16 201/106 H 91 02/09/19 10:31 53 L 18 185/77 H 90 02/09/19 10:01 54 L 20 188/74 H 95 02/09/19 09:40 57 L 21 193/81 H 94 02/09/19 09:01 61 16 220/94 H 97 02/09/19 08:55 59 L 21 216/82 H 94 02/09/19 08:31 55 L 19 231/80 H 96 02/09/19 08:16 54 L 17 179/74 H 93 02/09/19 08:01 55 L 16 237/83 H 95 02/09/19 07:29 52 L 22 210/96 H 02/09/19 07:27 52 L 20 219/104 H 02/09/19 07:22 95 02/09/19 07:12 52 L 20 244/86 H 94 02/09/19 07:08 36.6 C 84 20 244/86 H 95 Laboratory Results Short CBC 02/09/19 Range/Units 07:50 WBC 8.74 (4.8-10.8) K/uL Hgb 13.7 (12.0-16.0) g/dL Hct 41.9 (37-47) % Plt Count 230 (130-400) K/uL BMP 02/09/19 02/09/19 07:50 08:36 Sodium 137 Potassium 4.6 Chloride 106 Carbon Dioxide 25 BUN 20 H Creatinine 1.24 H Glucose 92 Calcium 9.5 Cardiac Enzymes 02/09/19 Range/Units 07:50 Troponin I < 0.015 (0-0.045) ng/ml Liver Function 02/09/19 02/09/19 Range/Units 07:50 08:36 Total Bilirubin 0.5 (0.2-1) mg/dl AST 25 (15-37) U/L ALT 35 (12-78) U/L Alkaline Phosphatase 90 (45-117) U/L Albumin 3.9 (3.4-5.0) gm/dl Diagnostic Findings CXR: IMPRESSION: Chronic change. No acute process. CTA CHEST: IMPRESSION: 1. No evidence for aortic dissection or aneurysm. 2. No evidence for pulmonary embolus. 3. Chronic basilar interstitial change. ECG Rate (beats per minute): 53 Rhythm: sinus bradycardia Findings: + RBBB Code Status & VTE Plan VTE Prophylaxis Plan VTE Prophylaxis will be ordered: Yes Supervising Physician Co-Signing Physician Notes I have seen and examined the patient and have discussed the case with the provider above. I agree with the assessment and plan as stated with the following exceptions. 78 yo F with a h/o uncontrolled HTN in 2017 who was previously on 4 BP agents, presents with hypertensive urgency on Losartan 50mg daily. She does not remember the progression of drug changes over the years, but remembers no issues with taking thiazides in the past. She reports chest pain that is present with a rise in blood pressure, and this is consistent. Some initial readings on the floor were falsely elevated because of a too small cuff, however, not far off from the true readings. Denies SOB or other symptoms consistent with ACS. To ER via EMS overnight and had some relief with nitro en route but pain returned. Physical exam reveals an obese female in NAD who has a normal respiratory effort. Chest wall is very tender around her sternal borders and intercostal spaces anteriorly. Abdomen is nontender and nondistended. No JVD or peripheral edema is present. S1/2 heard without murmurs. She required several doses of hydralazine to get BP under control while new HCTZ 12.5 was starting. She was then increased to Losartan 50mg twice daily with good control. Trop trend overnight-initial ischemic workup is unremarkable. DO Valeriy (1) Chest pain Chest pain type: unspecified Qualified Code(s): R07.9 - Chest pain, unspecified
[2019-02-09] MEDS ORDERED: ACETAMINOPHEN 325 MG TAB PO PRN (12:17)
[2019-02-09] MEDS ORDERED: NITROGLYCERIN 2% OINTMENT 30GM TUBE ONE (12:23)
[2019-02-09] MEDS ORDERED: HydrALAZINE HCL 20 MG/ML VIAL IV SCH (13:15)
[2019-02-09] MEDS ORDERED: hydroCHLOROthiazide 25 MG TAB PO SCH (13:30)
[2019-02-09] MEDS: DABIGATRAN ETEXILATE 75 MG CAP PO SCH ×2 (13:39→20:01)
[2019-02-09] MEDS: LEVOTHYROXINE SODIUM 50 MCG TABLET PO SCH (13:40)
[2019-02-09] MEDS: METOPROLOL SUCC 50MG EXT REL TAB PO SCH (13:40)
[2019-02-09] MEDS: hydroCHLOROthiazide 25 MG TAB PO SCH (14:37)
[2019-02-09] MEDS: HydrALAZINE HCL 20 MG/ML VIAL IV PRN ×2 (14:37→15:14)
[2019-02-09] MEDS ORDERED: INFLUENZA Vaccine HIGH DOSE 65+yrs 0.5 mL Syr IM ONE (15:30)
--- NOTE | 2019-02-09 17:28 | Emergency Department Note ---
Entered by Glenda Giron acting as a scribe for Talha Iyer MD History of Present Illness General Chief complaint: Chest Pain Time Seen by Provider: 02/09/19 07:09 Source: patient History of Present Illness Onset (ago): day(s) (yesterday evening ) Location: chest Radiation: back Severity: similar to prior episodes Pain Consistency: + constant Maximum Pain Intensity: 5 Current Pain Intensity: 6 Quality: + other (chest pain ) Associated symptoms: + nausea/vomiting (+nausea; -vomiting) and + other (- congestion; -diarrhea); no cough, no diaphoresis and no fever/chills Treatments prior to arrival: other (5 NG via EMS) The patient is a 78 year old female, with past medical history of CKD, myocardial infarction, atrial fibrillation, and CVA , who presents to the Emergency Room with complaints of constant chest pain that the patient reports began yesterday evening. The patient notes the chest pain began while the patient was sitting down watching TV, but the patient reports it was right after she ate spaghetti, which made the patient initially think the chest pain was caused by indigestion. However, the patient reports the chest pain kept worsening, and she states it started to feel like the chest pain she experienced during a prior myocardial infarction that the patient had 12 years ago. She also states the chest pain will radiate straight into her back. The patient notes the chest pain has improved some due to receiving 5 nitroglycerin from EMS, en route to the ED. She currently rates the chest pain as a 6/10. The patient also states she felt nauseous this morning upon entering the ambulance, but the patient denies vomiting. The patient also denies fever, cough, congestion, diarrhea, or diaphoresis. The patient states she is typically short of breath due to her history of atrial fibrillation. The patient notes her blood pressure is typically 140/80, but she states it was 220/130 upon checking it this morning. She also notes she is on Pradaxa. The patient states she has not missed any doses of her medications recently. Home Medications Home Medications Medication Instructions Recorded Confirmed Type amiodarone 200 mg PO DAILY 02/09/19 02/09/19 History atorvastatin 40 mg PO HS 02/09/19 02/09/19 History dabigatran etexilate [Pradaxa] 150 mg PO BID 02/09/19 02/09/19 History ergocalciferol (vitamin D2) 50,000 unit PO MO 02/09/19 02/09/19 History [Vitamin D2] levothyroxine 50 mcg PO DAILY 02/09/19 02/09/19 History losartan 50 mg PO DAILY 02/09/19 02/09/19 History metoprolol succinate 50 mg PO DAILY 02/09/19 02/09/19 History Allergies Allergy/AdvReac Type Severity Reaction Status Date / Time amlodipine Allergy Unknown SWELLING Unverified 02/09/19 10:25 OF FEET Past Med/Surg History Medical History Atrial fibrillation with RVR (Resolved) CKD (chronic kidney disease) stage 3, GFR 30-59 ml/min (Chronic) Depression (Chronic) Dyslipidemia (Chronic) History of CVA (cerebrovascular accident) (Resolved) HTN (hypertension) (Chronic) Hypertensive urgency (Acute) Hypothyroidism Left arm pain MICKY (obstructive sleep apnea) Osteoporosis (Chronic) Paroxysmal atrial fibrillation Vitamin D deficiency (Chronic) Surgical History H/O cataract removal with insertion of prosthetic lens (Resolved) History of appendectomy (Resolved) History of tonsillectomy (Resolved) History of total hysterectomy (Resolved) Family History Other Coronary heart disease Hypertension Stroke Social History Preferred Language: Armenian Communication Ability: Effective Analytical Research Chemist Required: No Beliefs That Will Affect Care: None marital status: Life Partner Current Living Situation: Significant Other Other Information That Helps Us Care for You: No Feels Safe at Home: Yes Safety Concerns: Feels Safe At This Time Smoking Status: Never smoker Tobacco Type: cigarettes ; Hx Alcohol Use: No Hx Substance Use: No Review of Systems See HPI for pertinent positives & negatives. and A total of 10 systems reviewed and were otherwise negative Physical Exam Vital Signs Vital Signs - 24 hr 02/09/19 07:08 02/09/19 07:12 02/09/19 07:22 Temperature 36.6 C Temperature Source Oral Pulse Rate 84 52 L Pulse Rate from SpO2 Sensor 52 L Respiratory Rate 20 20 Blood Pressure 244/86 H 244/86 H Blood Pressure Mean 138 123 Pulse Oximetry 95 94 95 Oxygen Delivery Method Room Air Room Air Sepsis Recent Fever Within 48 Hours No Sepsis New/Unexplained Change in Mental Status No Sepsis Action Taken by Nursing No Action Required 02/09/19 07:27 02/09/19 07:29 02/09/19 08:01 Temperature Temperature Source Pulse Rate 52 L 52 L 55 L Pulse Rate from SpO2 Sensor 55 L Respiratory Rate 20 22 16 Blood Pressure 219/104 H 210/96 H 237/83 H Blood Pressure Mean 146 143 117 Pulse Oximetry 95 Oxygen Delivery Method Sepsis Recent Fever Within 48 Hours Sepsis New/Unexplained Change in Mental Status Sepsis Action Taken by Nursing 02/09/19 08:16 02/09/19 08:31 02/09/19 08:55 Temperature Temperature Source Pulse Rate 54 L 55 L 59 L Pulse Rate from SpO2 Sensor 54 L 55 L 55 L Respiratory Rate 17 19 21 Blood Pressure 179/74 H 231/80 H 216/82 H Blood Pressure Mean 106 112 105 Pulse Oximetry 93 96 94 Oxygen Delivery Method Sepsis Recent Fever Within 48 Hours Sepsis New/Unexplained Change in Mental Status Sepsis Action Taken by Nursing 02/09/19 09:01 02/09/19 09:40 02/09/19 10:01 Temperature Temperature Source Pulse Rate 61 57 L 54 L Pulse Rate from SpO2 Sensor 55 L 58 L 54 L Respiratory Rate 16 21 20 Blood Pressure 220/94 H 193/81 H 188/74 H Blood Pressure Mean 111 142 113 Pulse Oximetry 97 94 95 Oxygen Delivery Method Sepsis Recent Fever Within 48 Hours Sepsis New/Unexplained Change in Mental Status Sepsis Action Taken by Nursing 02/09/19 10:31 02/09/19 11:01 02/09/19 11:07 Temperature Temperature Source Pulse Rate 53 L 53 L 52 L Pulse Rate from SpO2 Sensor 53 L 53 L 52 L Respiratory Rate 18 16 21 Blood Pressure 185/77 H 201/106 H 173/81 H Blood Pressure Mean 138 133 119 Pulse Oximetry 90 91 91 Oxygen Delivery Method Sepsis Recent Fever Within 48 Hours Sepsis New/Unexplained Change in Mental Status Sepsis Action Taken by Nursing GENERAL: Awake, alert, fatigued-appearing, in no distress HENT: Normocephalic, atraumatic. Oropharynx with dry mucous membranes and otherwise unremarkable. EYES: Normal conjunctiva. Sclera non-icteric. NECK: Supple. No nuchal rigidity. FROM. No JVD. RESPIRATORY: CTAB. CARDIAC: Regular rate, normal rhythm. Extremities warm and well perfused. Pulses equal. ABDOMEN: Soft, non-distended. No tenderness to palpation. No rebound or guarding. No masses. RECTAL: Deferred. MUSCULOSKELETAL: Chest examination reveals no tenderness. The back is symmetrical on inspection without obvious abnormality. There is no CVA tenderness to palpation. No joint edema. LOWER EXTREMITIES: Calves are equal size bilaterally and non-tender. No edema. No discoloration. NEURO: Normal sensorium. No sensory or motor deficits noted. SKIN: No rash or jaundice noted. Course Course 0723: Past medical records reviewed. The patient was evaluated in room B6. A complete history and physical exam was performed. 0856: The patient's chest pain continues to worsen, according to the RN. 1003: I reevaluated and updated the patient on her case. 1009: I reviewed the patient's case with Dr. Scherer-Shy Baeza. Dr. Scherer will evaluate the patient for further management. Consultations Consultation #1: I reviewed the patient's case with Dr. Scherer-Shy Baeza. Dr. Scherer will evaluate the patient for further management. Time: 10:09 Administered Medications Atorvastatin Calcium (Lipitor) 40 mg PO HS [facility] Stop: 03/11/19 20:59 Last Admin: 02/09/19 20:01 Dose: 40 mg Documented by: [id number] Dabigatran (Pradaxa) 150 mg PO BID [facility] Stop: 03/11/19 12:16 Last Admin: 02/09/19 20:01 Dose: 150 mg Documented by: [id number] Admin: 02/09/19 13:39 Dose: 150 mg Documented by: [id number] Hydrochlorothiazide (Hctz) 12.5 mg PO QAM [facility] Stop: 03/11/19 13:59 Last Admin: 02/09/19 14:37 Dose: 12.5 mg Documented by: [id number] Levothyroxine Sodium (Synthroid) 50 mcg PO DAILYBB [facility] Stop: 03/11/19 12:16 Last Admin: 02/09/19 13:40 Dose: 50 mcg Documented by: [id number] Losartan Potassium (Cozaar) 50 mg PO BID [facility] Stop: 03/11/19 20:59 Last Admin: 02/09/19 20:01 Dose: 50 mg Documented by: [id number] Metoprolol Succinate (Toprol Xl) 50 mg PO DAILY [facility] Stop: 03/11/19 12:16 Last Admin: 02/09/19 13:40 Dose: 50 mg Documented by: [id number] Discontinued Medications Al Hydrox/Mg Hydrox/Simethicone () 1 dose PO ONE ONE Stop: 02/09/19 10:27 Last Admin: 02/09/19 10:58 Dose: 1 dose Documented by: [id number] Amiodarone HCl (Cordarone) 200 mg PO NOW ONE Stop: 02/09/19 08:09 Last Admin: 02/09/19 08:25 Dose: 200 mg Documented by: [id number] Diphenhydramine HCl (Benadryl) 12.5 mg IV NOW STA Stop: 02/09/19 08:25 Last Admin: 02/09/19 08:32 Dose: 12.5 mg Documented by: [id number] Hydralazine HCl (Hydralazine Hcl) 10 mg IV Q6H [facility] Stop: 03/11/19 13:14 Last Admin: 02/09/19 13:51 Dose: Not Given Documented by: [id number] Hydralazine HCl (Hydralazine Hcl) 10 mg IV Q6H PRN PRN Reason: Hypertension Stop: 03/11/19 13:29 Last Admin: 02/09/19 15:14 Dose: 5 mg Documented by: [id number] Admin: 02/09/19 14:37 Dose: 10 mg Documented by: [id number] Hydralazine HCl (Hydralazine Hcl) 10 mg IV NOW STA Stop: 02/09/19 17:47 Last Admin: 02/09/19 17:48 Dose: 10 mg Documented by: [id number] Hydrochlorothiazide (Hctz) 25 mg PO QAM [facility] Stop: 03/11/19 13:29 Last Admin: 02/09/19 13:51 Dose: Not Given Documented by: [id number] Sodium Chloride (Nss) 500 mls @ 999 mls/hr IV .Q31M ONE Stop: 02/09/19 08:03 Last Infusion: 02/09/19 08:33 Dose: 0 mls/hr Documented by: [id number] Admin: 02/09/19 08:02 Dose: 999 mls/hr Documented by: [id number] Famotidine (Pepcid 20mg Iv Push) 20 mg in 5 mls @ 2.5 mls/min IV NOW STA Stop: 02/09/19 08:25 Last Admin: 02/09/19 08:32 Dose: 2.5 mls/min Documented by: [id number] Prochlorperazine (Compazine) 1 mls @ 1 mls/min IV ONE ONE Stop: 02/09/19 08:25 Last Admin: 02/09/19 08:32 Dose: 1 mls/min Documented by: [id number] Acetaminophen (Ofirmev) 1,000 mg in 100 mls @ 400 mls/hr IV NOW STA Stop: 02/09/19 09:13 Last Infusion: 02/09/19 10:03 Dose: 0 mls/hr Documented by: [id number] Admin: 02/09/19 09:48 Dose: 400 mls/hr Documented by: [id number] Ioversol (Optiray 320 125ml) 119 ml IV ONCE PRN PRN Reason: Interaction Checking Stop: 02/13/19 09:23 Last Admin: 02/09/19 09:24 Dose: 119 ml Documented by: [id number] Losartan Potassium (Cozaar) 50 mg PO NOW STA Stop: 02/09/19 08:09 Last Admin: 02/09/19 08:26 Dose: 50 mg Documented by: [id number] Morphine Sulfate (Morphine Sulfate) 8 mg IV NOW STA Stop: 02/09/19 08:59 Last Admin: 02/09/19 09:03 Dose: 8 mg Documented by: [id number] Nitroglycerin (Nitrostat) 0.4 mg SL NOW STA Stop: 02/09/19 08:01 Last Admin: 02/09/19 08:05 Dose: 0.4 mg Documented by: [id number] Nitroglycerin (Nitro-Bid 2%) 0.5 inch EXT Q6H [facility] Stop: 03/11/19 11:29 Last Admin: 02/09/19 12:40 Dose: Not Given Documented by: [id number] Nitroglycerin (Nitro-Bid 2%) Confirm Administered Dose 18 inch .ROUTE .STK-MED ONE Stop: 02/09/19 12:24 Last Admin: 02/09/19 12:24 Dose: 0.5 inch Documented by: [id number] Ondansetron HCl (Zofran) Confirm Administered Dose 4 mg .ROUTE .STK-MED ONE Stop: 02/09/19 18:37 Last Admin: 02/09/19 18:38 Dose: 4 mg Documented by: [id number] Medical Decision Making Differential Diagnosis Differential diagnosis: Etiologies such as cardiac ischemia, aortic dissection, pulmonary embolism, pneumonia, pneumothorax, musculoskeletal, infections, pericarditis, myocarditis, esophageal rupture, gastrointestinal, as well as others were entertained. Medical Records Attestation: I reviewed the patient's medical records. Home Medications Current Medication List: was personally reviewed by me Laboratory Data Attestation: I reviewed the patient's lab results. Result diagrams: 02/09/19 07:50 02/09/19 08:36 Lab Results 02/09/19 02/09/19 02/09/19 Range/Units 07:50 07:50 08:36 WBC 8.74 (4.8-10.8) K/uL RBC 4.28 (4.2-5.4) M/uL Hgb 13.7 (12.0-16.0) g/dL Hct 41.9 (37-47) % MCV 97.9 (80-100) fL MCH 32.0 (25-34) pg MCHC 32.7 (32-36) g/dL RDW Std Deviation 49.0 H (36.4-46.3) fL RDW Coeff of Shannan 13.8 (11.5-14.5) % Plt Count 230 (130-400) K/uL MPV 8.9 (7.4-10.4) fL Immature Gran % (Auto) 0.2 % Neut % (Auto) 75.0 % Lymph % (Auto) 14.6 % [place] % (Auto) 7.0 % Eos % (Auto) 3.0 % Baso % (Auto) 0.2 % Immature Gran # (Auto) 0.02 (0.00-0.02) K/uL Neut # (Auto) 6.55 H (1.4-6.5) K/uL Lymph # (Auto) 1.28 (1.2-3.4) K/uL [place] # (Auto) 0.61 H (0.11-0.59) K/uL Eos # (Auto) 0.26 (0-0.5) K/uL Baso # (Auto) 0.02 (0-0.2) K/uL Sodium 137 (136-145) mmol/L Potassium 4.6 (3.5-5.1) mmol/L Chloride 106 (98-107) mmol/L Carbon Dioxide 25 (21-32) mmol/L Anion Gap 7.0 (3-11) BUN 20 H (7-18) mg/dl Creatinine 1.24 H (0.6-1.2) mg/dl Est Cr Clr Drug Dosing 50.3 ml/min Est GFR ( Amer) 48.2 Est GFR (Non-Af Amer) 41.6 BUN/Creatinine Ratio 15.9 (10-20) Glucose 92 (70-99) mg/dl Calcium 9.5 (8.5-10.1) mg/dl Phosphorus 4.0 (2.5-4.9) mg/dl Magnesium 2.2 (1.8-2.4) mg/dl Total Bilirubin 0.5 (0.2-1) mg/dl AST 25 (15-37) U/L ALT 35 (12-78) U/L Alkaline Phosphatase 90 (45-117) U/L Troponin I < 0.015 (0-0.045) ng/ml Total Protein 7.8 (6.4-8.2) gm/dl Albumin 3.9 (3.4-5.0) gm/dl Globulin 3.9 (2.5-4.0) gm/dl Albumin/Globulin Ratio 1.0 (0.9-2) Lipase 247 (73-393) U/L TSH 8.630 H (0.300-4.500) uIu/ml Free T4 0.93 (0.8-1.6) ng/dl Imaging Data Radiologist's Impression: Radiology results as stated below per my review and the radiologist's interpretation: XR chest 1V portable CLINICAL HISTORY: Chest Pain dyspnea COMPARISON STUDY: 12/21/2016 FINDINGS: Chronic bibasilar interstitial prominence. Upper lungs are clear. The diaphragms are smooth. IMPRESSION: Chronic change. No acute process. The above report was generated using voice recognition software. It may contain grammatical, syntax or spelling errors. Electronically signed by: Abdi Starr M.D. 02/09/2019 7:[address] angio chest dissec wo/w con CT DOSE: 1498.25 mGy.cm HISTORY: Pain. Hypertension. chest/back pain, hypertensive TECHNIQUE: Multiaxial CT images of the chest, abdomen, and pelvis were performed both before and after the intravenous administration of contrast to evaluate the aorta. Maximal intensity projection images were also obtained. A dose lowering technique was utilized adhering to the principles of ALARA. COMPARISON STUDY: 05/29/2006 FINDINGS: Pulmonary vasculature enhances appropriately. No evidence for pulmonary embolus. Moderate atherosclerotic change thoracic aorta. No evidence for aneurysm or dissection. Aortic root measures 3.6 cm. Chronic bibasilar interstitial change. IMPRESSION: 1. No evidence for aortic dissection or aneurysm. 2. No evidence for pulmonary embolus. 3. Chronic basilar interstitial change. The above report was generated using voice recognition software. It may contain grammatical, syntax or spelling errors. Electronically signed by: Abdi Starr M.D. 02/09/2019 9:51 AM ECG Data Attestation: I personally reviewed and interpreted this ECG as follows: Indication: + chest pain Rate (beats per minute): 53 Rhythm: + sinus bradycardia ECG Intervals/blocks: + Right Bundle branch block ECG [place]: + Left axis deviation ECG Findings: + Other (QTC 501; QRS 136); no PACs and no PVCs Comparison ECG Date: from (12/23/16) Change: no significant change Blood Pressure Blood Pressure Findings: Elevated blood pressure Blood Pressure Disposition: further management by hospitalist KIRTI Narrative The patient is a 78-year-old woman with a past medical history of hypertension CKD, history of CVA, hyperlipidemia, carotid stenosis, paroxysmal A. fib anxiety and MICKY on CPAP who presents emergency department with chest pain that has been constant since last night after eating spaghetti but persisted into early this morning improved by multiple rounds of nitroglycerin by EMS per HPI. On arrival the patient is fatigued but no acute distress, afebrile, hypertensive 240s/100s in bilateral upper extremities. Vital signs otherwise stable. The patient does appear clinically dry. EKG demonstrates right bundle branch block similar to prior and without acute ischemia. Chest x-ray negative for acute process. WBC, H/H and platelets within normal limits. Chemistry without acidosis. Creatinine 1.2 improved from prior. Electrolytes and LFTs unremarkable. Troponin negative/undetectable > 6 hours from onset of constant symptoms. Given the patient's pain and radiation to her back with associated hypertension a CTA with dissection protocol was performed and was negative for aortic dissection. Patient's pain did return in the emergency department and was subsequently given nitroglycerin but she denied any improvement. Given her symptoms occurred initially with preceding meal GI medications were trialed but the patient denied any improvement. She was subsequently given IV morphine with appreciable decrease in her pain. Patient was also given her home antihypertensive medications (with the exception of her metoprolol given her bradycardia) which she did not take this morning and pressure improved from 240/100s down to 180/70s resulting in ~20% reduction in MAP from arrival. Given the patient's risk factors and concerning symptoms in the setting of hypertensive urgency reasonable to admit the patient for further management. Patient was agreeable with this. Case was discussed with Case was discussed with Reina Bar, [facility] PAC, who evaluate the patient for admission under Dr. Scherer [facility] hospitalist. They will evaluate the patient and decide on approach for the patient's blood pressure management. Impression & Plan Hypertensive urgency, Chest pain, CKD (chronic kidney disease) stage 3, GFR 30- 59 ml/min, History of diastolic dysfunction Discharge Plan Visit Data *Final* Discharge Date/Time: 02/09/19 11:51 Chief Complaint: Chest Pain ED Provider: Talha Iyer Discharge Problem: Hypertensive urgency, Chest pain, CKD (chronic kidney disease) stage 3, GFR 30- 59 ml/min, History of diastolic dysfunction Patient Disposition: Admitted As Inpatient Discharge Instructions Interventions: ED Discharge Assessment Last Done: 02/09/19 11:51 Discharge Problem: Chest pain Qualifiers: Chest pain type: precordial pain Qualified Code(s): R07.2 - Precordial pain The scribe's documentation has been prepared under my direction and personally reviewed by me in its entirety. I confirm that the note above accurately reflects all work, treatment, procedures, and medical decision making performed by me.
[2019-02-09] MEDS ORDERED: HydrALAZINE HCL 20 MG/ML VIAL IV STA (17:46)
[2019-02-09] MEDS ORDERED: Nursing to Pharmacy Communication ONE (18:28)
--- NOTE | 2019-02-09 18:32 | Cardiology Consultation ---
Date of Consultation February 09, 2019 Assessment & Plan (1) Hypertensive emergency: (2) Chest pain: (3) Paroxysmal atrial fibrillation: Regarding her history of paroxysmal atrial fibrillation, she remains on a rhythm control strategy with metoprolol and amiodarone. Pradaxa to be continued for stroke prophylaxis. At this time EKG and serial cardiac enzymes have been negative thus far. I think it is imperative to control her blood pressure. Given her resting sinus bradycardia, there is not room to titrate her beta-cindi, agree with IV hydralazine for now. We will increase her losartan to 50 mg twice daily, agree with addition of HCTZ tomorrow. We will continue to trend her cardiac enzymes. Further ischemic work-up will be determined based on her course. Her resting echocardiogram performed today revealed mild concentric left ventricular hypertrophy with grade I diastolic dysfunction and normal LVEF, no regional wall motion abnormalities. As for DVT prophylaxis she is already on Pradaxa. History of Present Illness Attending Physician: Alison Crooks, DO History of Present Illness Duran Pickard is a 78-year-old female seen in cardiology consultation per the request of Nasim Bar PA-C and Dr Crooks for the evaluation of chest pain and hypertension. The patient's most recent outpatient cardiology visit had been in November [address] Hoang of our practice. She has a history of paroxysmal atrial fibrillation and past stroke. She also has a history of hypertension for which she has been on losartan and metoprolol as an outpatient. Per review of her outpatient record, her blood pressures have been relatively well controlled as an outpatient with most recent outpatient reading of 142/84 on 08/17/2018, before that on 12/01/2017 170/76 was documented. She presented via the emergency room today with complaints of chest discomfort that started yesterday afternoon while she was watching television without physical activity. She felt like this was an indigestion, and she took Herlinda- [place] without relief. Her blood pressure on arrival to the emergency room was 244/86. Thus far she has received a dose of sublingual nitroglycerin, morphine, losartan, and IV hydralazine. Her most recent blood pressure is trended toward improvement at 151/78, and her symptom of chest discomfort certainly seem to resolve with improved blood pressure control. Problem List: 1. Paroxysmal atrial fibrillation 2. History of stroke 3. Hypertension 4. Dyslipidemia 5. Stage III chronic kidney disease Family History: Positive for CAD in her father and siblings. Allergies Allergy/AdvReac Type Severity Reaction Status Date / Time amlodipine Allergy Unknown SWELLING Unverified 02/09/19 10:25 OF FEET Home Medications Home Medications Medication Instructions Recorded Confirmed Type amiodarone 200 mg PO DAILY 02/09/19 02/09/19 History atorvastatin 40 mg PO HS 02/09/19 02/09/19 History dabigatran etexilate [Pradaxa] 150 mg PO BID 02/09/19 02/09/19 History ergocalciferol (vitamin D2) 50,000 unit PO MO 02/09/19 02/09/19 History [Vitamin D2] levothyroxine 50 mcg PO DAILY 02/09/19 02/09/19 History losartan 50 mg PO DAILY 02/09/19 02/09/19 History metoprolol succinate 50 mg PO DAILY 02/09/19 02/09/19 History Patient History Medical History Atrial fibrillation with RVR (Resolved) CKD (chronic kidney disease) stage 3, GFR 30-59 ml/min (Chronic) Depression (Chronic) Dyslipidemia (Chronic) History of CVA (cerebrovascular accident) (Resolved) HTN (hypertension) (Chronic) Hypertensive urgency (Acute) Hypothyroidism Left arm pain MICKY (obstructive sleep apnea) Osteoporosis (Chronic) Paroxysmal atrial fibrillation Vitamin D deficiency (Chronic) Surgical History H/O cataract removal with insertion of prosthetic lens (Resolved) History of appendectomy (Resolved) History of tonsillectomy (Resolved) History of total hysterectomy (Resolved) Family History Other Coronary heart disease Hypertension Stroke Social History Preferred Language: Togolese Communication Ability: Effective Stave [place] Hand Required: No Beliefs That Will Affect Care: None marital status: Life Partner Current Living Situation: Significant Other Other Information That Helps Us Care for You: No Feels Safe at Home: Yes Safety Concerns: Feels Safe At This Time Smoking Status: Never smoker Tobacco Type: cigarettes ; Hx Alcohol Use: No Hx Substance Use: No Review of Systems Review of Systems: All systems reviewed & are unremarkable except as noted in HPI & below Cardiovascular: + chest pain; no dyspnea, no orthopnea, no palpitations and no edema Physical Exam Physical Exam: Temp Pulse Resp BP Pulse Ox 36.7 C 53 L 56 H 151/78 H 93 02/09/19 12:17 02/09/19 15:49 02/09/19 15:09 02/09/19 18:11 02/09/19 12:17 Constitutional: WD/WN, vitals as above Respiratory: normal respiratory effort, lungs clear to auscultation Cardiovascular: RRR, no murmur, no edema Gastrointestinal (Abdomen): normal bowel sounds, soft, nontender, no hepatosplenomegaly Neurologic: PERRL, EOMI, accommodation nl, no face palsy, no dysarthria Results & Data Vital Signs (Past 12 Hours) Vital Signs Temp Pulse Pulse Resp BP BP Pulse Ox 02/09/19 18:11 151/78 H 02/09/19 15:49 53 L 02/09/19 15:43 158/78 H 02/09/19 15:09 56 H 161/63 H 02/09/19 14:35 56 L 211/84 H 02/09/19 14:32 55 L 196/97 H 02/09/19 13:58 164/76 H 02/09/19 13:25 162/71 H 02/09/19 13:00 170/80 H 02/09/19 12:17 36.7 C 52 L 19 214/93 H 93 02/09/19 11:30 53 L 19 195/82 H 90 02/09/19 11:07 52 L 21 173/81 H 91 02/09/19 11:01 53 L 16 201/106 H 91 02/09/19 10:31 53 L 18 185/77 H 90 02/09/19 10:01 54 L 20 188/74 H 95 02/09/19 09:40 57 L 21 193/81 H 94 02/09/19 09:01 61 16 220/94 H 97 02/09/19 08:55 59 L 21 216/82 H 94 02/09/19 08:31 55 L 19 231/80 H 96 02/09/19 08:16 54 L 17 179/74 H 93 02/09/19 08:01 55 L 16 237/83 H 95 02/09/19 07:29 52 L 22 210/96 H 02/09/19 07:27 52 L 20 219/104 H 02/09/19 07:22 95 02/09/19 07:12 52 L 20 244/86 H 94 02/09/19 07:08 36.6 C 84 20 244/86 H 95 Laboratory Results Cardiac Enzymes 02/09/19 02/09/19 02/09/19 Range/Units 07:50 08:36 12:49 AST 25 (15-37) U/L Troponin I < 0.015 < 0.015 (0-0.045) ng/ml CBC 02/09/19 Range/Units 07:50 WBC 8.74 (4.8-10.8) K/uL RBC 4.28 (4.2-5.4) M/uL Hgb 13.7 (12.0-16.0) g/dL Hct 41.9 (37-47) % Plt Count 230 (130-400) K/uL Neut # (Auto) 6.55 H (1.4-6.5) K/uL Lymph # (Auto) 1.28 (1.2-3.4) K/uL [place] # (Auto) 0.61 H (0.11-0.59) K/uL Eos # (Auto) 0.26 (0-0.5) K/uL Baso # (Auto) 0.02 (0-0.2) K/uL Comprehensive Metabolic Panel 02/09/19 02/09/19 Range/Units 07:50 08:36 Sodium 137 (136-145) mmol/L Potassium 4.6 (3.5-5.1) mmol/L Chloride 106 (98-107) mmol/L Carbon Dioxide 25 (21-32) mmol/L BUN 20 H (7-18) mg/dl Creatinine 1.24 H (0.6-1.2) mg/dl Glucose 92 (70-99) mg/dl Calcium 9.5 (8.5-10.1) mg/dl AST 25 (15-37) U/L ALT 35 (12-78) U/L Alkaline Phosphatase 90 (45-117) U/L Total Protein 7.8 (6.4-8.2) gm/dl Albumin 3.9 (3.4-5.0) gm/dl Intake and Output 02/09/19 02/09/19 02/09/19 06:59 14:59 22:59 Intake Total 960 / 960 Balance 960 / 960 Intake: IV 600 / 600 OFIRMEV 1,000 mg In 100 ml @ 100 / 100 400 mls/hr IV NOW STA Rx#: [id number] Nss 500 ml @ 999 mls/hr IV . 500 / 500 Q31M ONE Rx#:[id number] Oral 360 / 360 Other: Weight 113.7 kg Patient Weight 02/10/19 06:59 Weight 113.7 kg Diagnostic Findings EKG performed on arrival 02/09/2019 at 7:08 AM reveals sinus bradycardia 53 bpm first-degree AV block, right bundle branch block. T wave inversions noted in leads V1 to V3 consistent with right bundle branch block or unchanged compared to her outpatient EKG dated 11/17/2017. Repeat EKG performed 02/09/2019 at 1432 revealed sinus bradycardia at 56 bpm with first-degree AV block, no significant change was found compared with prior. Nuclear stress test as an outpatient November 2017: Normal. (1) Chest pain Chest pain type: unspecified Qualified Code(s): R07.9 - Chest pain, unspecified
[2019-02-09] MEDS ORDERED: ONDANSETRON INJ 2 MG/ML 2 ML VIAL IV PRN (18:35)
[2019-02-09] MEDS ORDERED: ONDANSETRON INJ 2 MG/ML 2 ML VIAL ONE (18:36)
[2019-02-09] MEDS ORDERED: HydrALAZINE HCL 20 MG/ML VIAL IV PRN (18:46)
[2019-02-09] MEDS: LOSARTAN POTASSIUM 50 MG TAB PO SCH (20:01)
[2019-02-09] MEDS: ATORVASTATIN 40 MG TAB PO SCH (20:01)
[2019-02-10] MEDS: LEVOTHYROXINE SODIUM 50 MCG TABLET PO SCH (06:16)
[2019-02-10 06:28] LABS: Hematocrit (blood only) 38.8 % (37-47); Hemoglobin 12.6 g/dL (12.0-16.0); Mean Corpuscular Hgb Conc 32.5 g/dL (32-36); Mean Corpuscular Volume 98.5 fL (80-100); Mean Platelet Volume 8.5 fL (7.4-10.4); Platelet Count 205 K/uL (130-400); RDW Standard Deviation 49.8 fL (36.4-46.3); Red Blood Count 3.94 M/uL (4.2-5.4); White Blood Count 10.13 K/uL (4.8-10.8)
[2019-02-10 06:57] LABS: BUN Creatinine Ratio 15.2 (10-20); Calcium 9.4 mg/dl (8.5-10.1); Creatinine Clr Calc Pharmacy 44.8 ml/min; Est GFR (Non-African American) 36.2; Potassium 3.8 mmol/L (3.5-5.1)
[2019-02-10] MEDS: AMIODARONE 200 MG TAB PO SCH (08:06)
[2019-02-10] MEDS: METOPROLOL SUCC 50MG EXT REL TAB PO SCH (08:06)
[2019-02-10] MEDS: LOSARTAN POTASSIUM 50 MG TAB PO SCH ×2 (08:06→20:03)
[2019-02-10] MEDS: DABIGATRAN ETEXILATE 75 MG CAP PO SCH ×2 (08:06→20:05)
[2019-02-10] MEDS: hydroCHLOROthiazide 25 MG TAB PO SCH (08:07)
[2019-02-10] MEDS ORDERED: LOSARTAN POTASSIUM 50 MG TAB PO SCH (09:00)
--- NOTE | 2019-02-10 12:11 | Cardiology Progress Note ---
Date of Service February 10, 2019 Assessment & Plan (1) Hypertensive emergency: (2) Chest pain: (3) Paroxysmal atrial fibrillation: Patient admitted with chest discomfort and hypertensive emergency. Duration of discomfort more than 16 hours per history. Cardiac enzymes undetectable. No regional wall motion abnormalities or ischemic ECG changes. Plan outpatient Lexiscan nuclear stress testing at time of discharge. Continue current medications including losartan 50 mg twice daily with addition of low-dose hydrochlorothiazide. Utilize IV hydralazine as needed for systolic blood pressure greater than 190 mmHg. Sodium restriction advised. And regard to her paroxysmal atrial fibrillation. Patient remains rhythm controlled with metoprolol and amiodarone. Pradaxa will be continued for stroke prophylaxis. Subjective Patient seen and examined at the bedside. Blood pressure improved, however, remains elevated. Losartan titrated to 50 mg twice daily 02/09/2019. She received her first dose of low-dose hydrochlorothiazide this morning. Chest discomfort has resolved. No recurrent atrial fibrillation on telemetry. Tolerating medications noted below. Sister is present at bedside. She offers no additional concerns/complaints this time. Review of Systems Review of Systems: All systems reviewed & are unremarkable except as noted in HPI & below Physical Exam Constitutional: + obese Respiratory: Auscultation: + crackles (bases B/L); no rales, no rhonchi and no wheezes Cardiovascular: Rate/Rhythm: regular rate, regular rhythm and + bradycardic Heart Sounds: normal S1 and normal S2; no murmur and no cardiac rub Extremities: no edema Gastrointestinal (Abdomen): Inspection/Auscultation: abdomen normal to inspection and normal bowel sounds; abdomen not distended Percussion/Palpation: abdomen soft; abdomen nontender and no guarding Neurologic: PERRL, EOMI, accommodation nl, no face palsy, no dysarthria Results & Data Vital Signs (Past 12 Hours) Vital Signs Temp Pulse Pulse Resp BP Pulse Ox 02/10/19 08:00 60 02/10/19 07:34 36.7 C 58 L 20 161/70 H 95 02/10/19 05:21 37.6 C H 62 20 137/78 94 (1) Chest pain Chest pain type: precordial pain Qualified Code(s): R07.2 - Precordial pain
--- NOTE | 2019-02-10 16:09 | Hospitalist Progress Note ---
Date of Service February 10, 2019 Assessment & Plan (1) Hypertensive emergency: (2) Chest pain: Pt is 78 y/o F with PMH PAF on amiodarone, HTN, HLD, CKD III, CVA, carotid stenosis, MICKY, anxiety presented to ER with c/o CP starting yesterday afternoon while sitting watching TV. described as constant anterior chest pain described as pressure/burning-like sensation with radiation to back and thought it was indigestion. Took Herlinda-[place] without relief. Reported home BP systolic 220 this morning. EMS reportedly gave aspirin 324 mg, nitro x 4 and patient reports that decreased pain initially. No acute mental status changes. EKG sinus bradycardia, chronic RBBB without acute change initial troponin negative. renal functions as baseline CTA chest negative for dissection or PE. CXR: Chronic change. No acute process. Initial BP 244/86 down to 173/81. P: 54, R: 20, 95% on RA CHEST PAIN R/O ACS. Probable secondary to severe HTN -In ER given 500 mL NSS, nitro sublingual x1, Pepcid 20 mg IV, Compazine IV, Benadryl 12.5 IV, morphine 8 IV, Tylenol 1 g IV, GI cocktail and was given her morning dose of losartan 50 mg p.o. and amiodarone 200 mg p.o. patient reports does not think nitro given in ER helped decrease pain however after all of the additional medications she reports her chest pain is decreased. -Monitor Vitals -Nitropaste added for additional BP control on admission -Repeat EKG in am -Will trend troponin -Echo ordered -Lipid panel in am, continue atorvastatin -Continue metoprolol, losartan, Pradaxa -Cardiology consult Patient was started on HCTZ 12.5 mg, and losartan 50mg daily was increased to twice a day. -Currently blood pressure well controlled (3) Paroxysmal atrial fibrillation: On Pradaxa Current sinus rhythm -Continue amiodarone, metoprolol, Pradaxa (4) History of CVA (cerebrovascular accident): -Continue statin, pradaxa (5) CKD (chronic kidney disease) stage 3, GFR 30-59 ml/min: Cr: 1.24. Baseline ~1.2-1.4 -Monitor renal functions -Avoid nephrotoxic agents (6) HTN (hypertension): Currently significant HTN -Nitropaste for additional control -increase losartan to 50 mg BID, cont.metoprolol -started HCTZ 12.5 mg (7) Dyslipidemia: -Continue atorvastatin (8) Hypothyroidism: TSH: 8.6, free T4: 0.9 -Continue levothyroxine (9) MICKY (obstructive sleep apnea): CPAP at bedtime DVT Prophylaxis -On Pradaxa Full Code as per discussion with pt Follows with Dr Pandya for routine care Subjective Elderly female sitting up in the bed, in no acute distress. Her significant other present at the bedside. Pt currently denies any chest pain, shortness of breath, palpitations, abdominal pain, nausea, vomiting. Also denies any dizziness or lightheadedness. Review of Systems Review of Systems: All systems reviewed & are unremarkable except as noted in HPI & below Constitutional: no fever and no chills Respiratory: no cough and no dyspnea (however pt on suppl. O2) Cardiovascular: + dyspnea on exertion; no chest pain and no palpitations Gastrointestinal: no abdominal pain, no nausea and no vomiting Physical Exam Physical Exam: General: Elderly obese female, sitting up in bed, in no acute distress Head: normocephalic, atraumatic Eyes: PERRL, EOMI, conjunctiva non-injected, anicteric ENT: normal inspection external ears, nose, mucous membranes moist Neck: supple, trachea midline Lungs: clear, no respiratory distress, no wheezing/rhonchi/rales CV: RRR no murmur, chest normal to inspection Abd: normal BS, soft, non-tender, obese, nondistended, no guarding Ext: no LE edema, moves all 4 extremities spontaneously Neuro: A&O x 3, speech fluent, no facial asymmetry, moves all 4 extremities spontaneously Skin: warm, dry Results & Data Vital Signs (Past 12 Hours) Vital Signs Temp Pulse Pulse Resp BP Pulse Ox 02/10/19 16:01 36.7 C 49 L 18 149/69 H 94 02/10/19 15:25 50 L 02/10/19 08:00 60 02/10/19 07:34 36.7 C 58 L 20 161/70 H 95 02/10/19 05:21 37.6 C H 62 20 137/78 94 Laboratory Results 02/10/19 02/10/19 02/09/19 Range/Units 06:16 06:16 19:43 WBC 10.13 (4.8-10.8) K/uL RBC 3.94 L (4.2-5.4) M/uL Hgb 12.6 (12.0-16.0) g/dL Hct 38.8 (37-47) % MCV 98.5 (80-100) fL MCH 32.0 (25-34) pg MCHC 32.5 (32-36) g/dL RDW Std Deviation 49.8 H (36.4-46.3) fL RDW Coeff of Shannan 14.0 (11.5-14.5) % Plt Count 205 (130-400) K/uL MPV 8.5 (7.4-10.4) fL Sodium 134 L (136-145) mmol/L Potassium 3.8 D (3.5-5.1) mmol/L Chloride 102 (98-107) mmol/L Carbon Dioxide 26 (21-32) mmol/L Anion Gap 7.0 (3-11) BUN 21 H (7-18) mg/dl Creatinine 1.39 H (0.6-1.2) mg/dl Est Cr Clr Drug Dosing 44.8 ml/min Est GFR ( Amer) 42.0 Est GFR (Non-Af Amer) 36.2 BUN/Creatinine Ratio 15.2 (10-20) Glucose 104 H (70-99) mg/dl Calcium 9.4 (8.5-10.1) mg/dl Troponin I < 0.015 (0-0.045) ng/ml Triglycerides 124 (0-150) mg/dl Cholesterol 126 (0-200) mg/dl LDL Cholesterol, Calc 60 mg/dl VLDL Cholesterol, Calc 25 mg/dl HDL Cholesterol 41 mg/dl Cholesterol/HDL Ratio 3 Medications Administered Current Inpatient Medications Acetaminophen (Tylenol) 650 mg PO Q4H PRN PRN Reason: Pain or Fever Stop: 03/11/19 12:16 Amiodarone HCl (Cordarone) 200 mg PO DAILY [facility] Stop: 03/12/19 08:59 Last Admin: 02/10/19 08:06 Dose: 200 mg Documented by: Atorvastatin Calcium (Lipitor) 40 mg PO HS [facility] Stop: 03/11/19 20:59 Last Admin: 02/09/19 20:01 Dose: 40 mg Documented by: Dabigatran (Pradaxa) 150 mg PO BID [facility] Stop: 03/11/19 12:16 Last Admin: 02/10/19 08:06 Dose: 150 mg Documented by: Hydralazine HCl (Hydralazine Hcl) 10 mg IV Q4H PRN PRN Reason: Hypertension Stop: 03/11/19 18:45 Hydrochlorothiazide (Hctz) 12.5 mg PO QAM [facility] Stop: 03/11/19 13:59 Last Admin: 02/10/19 08:07 Dose: 12.5 mg Documented by: Levothyroxine Sodium (Synthroid) 50 mcg PO DAILYBB [facility] Stop: 03/11/19 12:16 Last Admin: 02/10/19 06:16 Dose: 50 mcg Documented by: Losartan Potassium (Cozaar) 50 mg PO BID [facility] Stop: 03/11/19 20:59 Last Admin: 02/10/19 08:06 Dose: 50 mg Documented by: Metoprolol Succinate (Toprol Xl) 50 mg PO DAILY [facility] Stop: 03/11/19 12:16 Last Admin: 02/10/19 08:06 Dose: 50 mg Documented by: Ondansetron HCl (Zofran) 4 mg IV Q6H PRN PRN Reason: Nausea Stop: 03/11/19 18:34 (1) Chest pain Chest pain type: precordial pain Qualified Code(s): R07.2 - Precordial pain
[2019-02-10] MEDS ORDERED: DOCUSATE SODIUM 100 MG CAP PO PRN (19:31)
[2019-02-10] MEDS ORDERED: DOCUSATE SODIUM 100 MG CAP PO STA (19:32)
[2019-02-10] MEDS: ATORVASTATIN 40 MG TAB PO SCH (20:04)
[2019-02-10] MEDS ORDERED: POTASSIUM CHLORIDE 20 MEQ TABCR PO STA (20:30)
[2019-02-11] MEDS: LEVOTHYROXINE SODIUM 50 MCG TABLET PO SCH (06:10)
[2019-02-11 07:45] LABS: BUN Creatinine Ratio 21.4 (10-20); Calcium 9.1 mg/dl (8.5-10.1); Creatinine Clr Calc Pharmacy 36.9 ml/min; Est GFR (African American) 33.4; Est GFR (Non-African American) 28.8; Magnesium 2.3 mg/dl (1.8-2.4); Potassium 4.3 mmol/L (3.5-5.1)
[2019-02-11] MEDS: AMIODARONE 200 MG TAB PO SCH (08:35)
[2019-02-11] MEDS: METOPROLOL SUCC 50MG EXT REL TAB PO SCH (08:35)
[2019-02-11] MEDS: hydroCHLOROthiazide 25 MG TAB PO SCH (08:35)
[2019-02-11] MEDS: DABIGATRAN ETEXILATE 75 MG CAP PO SCH ×2 (08:35→19:31)
[2019-02-11] MEDS: LOSARTAN POTASSIUM 50 MG TAB PO SCH (08:35)
--- NOTE | 2019-02-11 10:57 | Cardiology Progress Note ---
Date of Service February 11, 2019 Assessment & Plan (1) Hypertensive emergency: (2) Chest pain: (3) Paroxysmal atrial fibrillation: Patient admitted with chest discomfort and hypertensive emergency. Cardiac enzymes undetectable. No regional wall motion abnormalities or ischemic ECG changes. Recommend outpatient Lexiscan nuclear stress testing at time of discharge. Continue current medications including losartan 50 mg twice daily with addition of low-dose hydrochlorothiazide. Repeat basic metabolic panel in 2 to 3 days. Sodium restriction advised. In regard to her paroxysmal atrial fibrillation. Patient remains rhythm controlled with metoprolol and amiodarone. Pradaxa will be continued for stroke prophylaxis. Subjective Patient seen and examined the bedside. Denies chest pain or shortness of breath. Overall respiratory status has improved. No edema, orthopnea, or PND. Tolerating current medications. Blood pressure improved. Review of Systems Review of Systems: All systems reviewed & are unremarkable except as noted in HPI & below Physical Exam Constitutional: + obese Respiratory: Auscultation: lungs clear to auscultation bilaterally; no crackles (bases B/L), no rales, no rhonchi and no wheezes Cardiovascular: Rate/Rhythm: regular rate, regular rhythm and + bradycardic Heart Sounds: normal S1 and normal S2; no murmur and no cardiac rub Extremities: no edema Gastrointestinal (Abdomen): Inspection/Auscultation: abdomen normal to inspection and normal bowel sounds; abdomen not distended Percussion/Palpation: abdomen soft; abdomen nontender and no guarding Neurologic: PERRL, EOMI, accommodation nl, no face palsy, no dysarthria Results & Data Vital Signs (Past 12 Hours) Vital Signs Temp Pulse Pulse Resp BP BP Pulse Ox 02/11/19 08:00 52 L 02/11/19 07:45 36.7 C 54 L 19 148/77 H 02/11/19 04:09 82 16 95 02/11/19 04:00 36.4 C L 82 16 130/72 95 02/11/19 00:42 36.7 C 54 L 18 122/67 89 L 02/10/19 23:39 58 L (1) Chest pain Chest pain type: precordial pain Qualified Code(s): R07.2 - Precordial pain
--- NOTE | 2019-02-11 12:55 | Hospitalist Progress Note ---
Date of Service February 11, 2019 Assessment & Plan (1) Hypertensive emergency: (2) Chest pain: Pt is 78 y/o F with PMH PAF on amiodarone, HTN, HLD, CKD III, CVA, carotid stenosis, MICKY, anxiety presented to ER with c/o CP starting yesterday afternoon while sitting watching TV. described as constant anterior chest pain described as pressure/burning-like sensation with radiation to back and thought it was indigestion. Took Herlinda-[place] without relief. Reported home BP systolic 220 this morning. EMS reportedly gave aspirin 324 mg, nitro x 4 and patient reports that decreased pain initially. No acute mental status changes. EKG sinus bradycardia, chronic RBBB without acute change initial troponin negative. renal functions as baseline CTA chest negative for dissection or PE. CXR: Chronic change. No acute process. Initial BP 244/86 down to 173/81. P: 54, R: 20, 95% on RA CHEST PAIN R/O ACS. Probable secondary to severe HTN -In ER given 500 mL NSS, nitro sublingual x1, Pepcid 20 mg IV, Compazine IV, Benadryl 12.5 IV, morphine 8 IV, Tylenol 1 g IV, GI cocktail and was given her morning dose of losartan 50 mg p.o. and amiodarone 200 mg p.o. patient reports does not think nitro given in ER helped decrease pain however after all of the additional medications she reports her chest pain is decreased. -Monitor Vitals -Nitropaste added for additional BP control on admission -Repeat EKG in am -Will trend troponin -Echo ordered -Lipid panel in am, continue atorvastatin -Continue metoprolol, losartan, Pradaxa -Cardiology consult - recommend Lexiscan nuclear stress test as outpatient, low sodium diet Patient was started on HCTZ 12.5 mg, and losartan 50mg daily was increased to twice a day. -Currently blood pressure well controlled (3) Paroxysmal atrial fibrillation: On Pradaxa Current sinus rhythm -Continue amiodarone, metoprolol, Pradaxa (4) History of CVA (cerebrovascular accident): -Continue statin, pradaxa (5) CKD (chronic kidney disease) stage 3, GFR 30-59 ml/min: ABHISHEK on CKD Cr: 1.24. on admission Baseline ~1.2-1.4 - now increased to 1.68 after losartan incr. to bid and HCTZ started for BP control -Patient already received losartan and HCTZ this morning, will cancel losartan afternoon dose -We will add hydralazine PM -Monitor renal functions -Avoid nephrotoxic agents (6) HTN (hypertension): - now well controlled -Nitropaste stopped -increased losartan to 50 mg to BID yesterday (however Cr elev. this AM, so will hold PM dose), cont.metoprolol -started HCTZ 12.5 mg - will start PO hydralazine instead (7) Dyslipidemia: -Continue atorvastatin (8) Hypothyroidism: TSH: 8.6, free T4: 0.9 -Continue levothyroxine (9) MICKY (obstructive sleep apnea): CPAP at bedtime Hypoxia Patient continues to require supplemental oxygen during daytime. Discussed with patient's granddaughter that patient was supposed to be on oxygen for a long time however patient was very resistant. Will obtain a 2 step study as patient will be likely discharged home on oxygen. DVT Prophylaxis -On Pradaxa Full Code as per discussion with pt Follows with Dr Pandya for routine care Subjective Patient is sitting comfortably in the chair, in no acute distress, using supplemental oxygen. Patient's granddaughter and her son present at bedside. Granddaughter states that patient is always short of breath, every time when she calls her on the phone patient is short of breath even when she is at rest. She says that patient was supposed to be using supplemental oxygen for a long time but the patient was always very resistant to this. After a long discussion with the patient and her family, patient says that she would be willing to use oxygen as she realizes that it is important for her health and wellbeing. She currently denies any fevers, chills, chest pain, shortness of breath, abdominal pain, headache, lightheadedness, dizziness, nausea or vomiting. Cr increased to 1.68 this AM - afternoon dose of losartan stopped. We will give hydralazine in the afternoon instead. Review of Systems Review of Systems: All systems reviewed & are unremarkable except as noted in HPI & below Constitutional: no fever and no chills Respiratory: + dyspnea on exertion; no cough Cardiovascular: + dyspnea on exertion; no chest pain and no palpitations Gastrointestinal: no abdominal pain, no nausea and no vomiting Physical Exam Physical Exam: General: Elderly obese female, sitting up in bed, in no acute distress Head: normocephalic, atraumatic Eyes: PERRL, EOMI, conjunctiva non-injected, anicteric ENT: normal inspection external ears, nose, mucous membranes moist Neck: supple, trachea midline Lungs: clear, no respiratory distress, no wheezing/rhonchi/rales CV: RRR no murmur, chest normal to inspection Abd: normal BS, soft, non-tender, obese, nondistended, no guarding Ext: no LE edema, moves all 4 extremities spontaneously Neuro: A&O x 3, speech fluent, no facial asymmetry, moves all 4 extremities spontaneously Skin: warm, dry Results & Data Vital Signs (Past 12 Hours) Vital Signs Temp Pulse Pulse Resp BP Pulse Ox 02/11/19 11:16 36.4 C L 45 L 18 109/58 L 95 02/11/19 08:00 52 L 02/11/19 07:45 36.7 C 54 L 19 148/77 H 02/11/19 04:09 82 16 95 02/11/19 04:00 36.4 C L 82 16 130/72 95 Laboratory Results 02/11/19 Range/Units 06:38 Sodium 137 (136-145) mmol/L Potassium 4.3 (3.5-5.1) mmol/L Chloride 105 (98-107) mmol/L Carbon Dioxide 26 (21-32) mmol/L Anion Gap 6.0 (3-11) BUN 36 H D (7-18) mg/dl Creatinine 1.68 H (0.6-1.2) mg/dl Est Cr Clr Drug Dosing 36.9 ml/min Est GFR ( Amer) 33.4 Est GFR (Non-Af Amer) 28.8 BUN/Creatinine Ratio 21.4 H (10-20) Glucose 87 (70-99) mg/dl Calcium 9.1 (8.5-10.1) mg/dl Magnesium 2.3 (1.8-2.4) mg/dl Medications Administered Current Inpatient Medications Acetaminophen (Tylenol) 650 mg PO Q4H PRN PRN Reason: Pain or Fever Stop: 03/11/19 12:16 Amiodarone HCl (Cordarone) 200 mg PO DAILY [facility] Stop: 03/12/19 08:59 Last Admin: 02/11/19 08:35 Dose: 200 mg Documented by: Atorvastatin Calcium (Lipitor) 40 mg PO HS COUNT INCLUDES THE [facility] Stop: 03/11/19 20:59 Last Admin: 02/10/19 20:04 Dose: 40 mg Documented by: Dabigatran (Pradaxa) 150 mg PO BID COUNT INCLUDES THE [facility] Stop: 03/11/19 12:16 Last Admin: 02/11/19 08:35 Dose: 150 mg Documented by: Docusate Sodium (Colace) 100 mg PO DAILY PRN PRN Reason: cons Stop: 03/13/19 08:59 Hydralazine HCl (Hydralazine Hcl) 10 mg IV Q4H PRN PRN Reason: Hypertension Stop: 03/11/19 18:45 [facility]chlorothiaz[facility] (H[facility]z) [facility] [place] Stop: 03/11/19 13:59 Last Admin: 02/11/19 08:35 Dose: 12.5 mg Documented by: Levothyroxine Sodium (Synthroid) 50 mcg PO DAILYBB COUNT INCLUDES [facility] Stop: 03/11/19 12:16 Last Admin: 02/11/19 06:10 Dose: 50 mcg Documented by: Losartan Potassium (Cozaar) 50 mg PO QAM COUNT INCLUDES THE [facility] Stop: 03/14/19 08:59 Metoprolol Succinate (Toprol Xl) 50 mg PO DAILY COUNT INCLUDES THE [facility] Stop: 03/11/19 12:16 Last Admin: 02/11/19 08:35 Dose: 50 mg Documented by: Ondansetron HCl (Zofran) 4 mg IV Q6H PRN PRN Reason: Nausea Stop: 03/11/19 18:34 (1) Chest pain Chest pain type: precordial pain Qualified Code(s): R07.2 - Precordial pain
[2019-02-11] MEDS: ATORVASTATIN 40 MG TAB PO SCH (19:31)
[2019-02-12] MEDS: LEVOTHYROXINE SODIUM 50 MCG TABLET PO SCH (04:57)
[2019-02-12] MEDS: DABIGATRAN ETEXILATE 75 MG CAP PO SCH ×2 (07:43→20:25)
[2019-02-12] MEDS: hydroCHLOROthiazide 25 MG TAB PO SCH (07:43)
[2019-02-12] MEDS: AMIODARONE 200 MG TAB PO SCH (07:43)
[2019-02-12] MEDS: LOSARTAN POTASSIUM 50 MG TAB PO SCH (07:43)
[2019-02-12] MEDS: METOPROLOL SUCC 50MG EXT REL TAB PO SCH (07:43)
[2019-02-12 08:24] LABS: BUN Creatinine Ratio 23.4 (10-20); Calcium 9.6 mg/dl (8.5-10.1); Creatinine Clr Calc Pharmacy 38.1 ml/min; Est GFR (African American) 34.6; Est GFR (Non-African American) 29.9; Potassium 5.1 mmol/L (3.5-5.1)
--- NOTE | 2019-02-12 08:44 | Hospitalist Progress Note ---
Date of Service February 12, 2019 Assessment & Plan (1) Hypertensive emergency: (2) Chest pain: Pt is 78 y/o F with PMH PAF on amiodarone, HTN, HLD, CKD III, CVA, carotid stenosis, MICKY, anxiety presented to ER with c/o CP starting yesterday afternoon while sitting watching TV. described as constant anterior chest pain described as pressure/burning-like sensation with radiation to back and thought it was indigestion. Took Herlinda-[place] without relief. Reported home BP systolic 220 this morning. EMS reportedly gave aspirin 324 mg, nitro x 4 and patient reports that decreased pain initially. No acute mental status changes. EKG sinus bradycardia, chronic RBBB without acute change initial troponin negative. renal functions as baseline CTA chest negative for dissection or PE. CXR: Chronic change. No acute process. Initial BP 244/86 down to 173/81. P: 54, R: 20, 95% on RA CHEST PAIN R/O ACS. Probable secondary to severe HTN -In ER given 500 mL NSS, nitro sublingual x1, Pepcid 20 mg IV, Compazine IV, Benadryl 12.5 IV, morphine 8 IV, Tylenol 1 g IV, GI cocktail and was given her morning dose of losartan 50 mg p.o. and amiodarone 200 mg p.o. patient reports does not think nitro given in ER helped decrease pain however after all of the additional medications she reports her chest pain is decreased. -Nitropaste added for additional BP control on admission - now stopped -troponin x3 - negative -Echo (02/09/2019) -no regional wall motion abnormality. Mild concentric LVH. EF 55 to 60%. Right ventricle is normal in size and function. Aortic valve sclerosis mild, no significant aortic valvular stenosis. Doppler does not suggest pulmonary hypertension. Grade 1 diastolic dysfunction. -Lipid panel (02/10/2019) -triglycerides 124, total cholesterol 126, LDL 60, HDL 41, continue atorvastatin -Continue metoprolol, losartan, Pradaxa -Cardiology consult - recommend Lexiscan nuclear stress test as outpatient, low sodium diet Patient was initially started on HCTZ 12.5 mg, and losartan 50mg daily was increased to twice a day. Blood pressure was well controlled, however she developed ABHISHEK on CKD. We will continue home losartan, and add hydralazine for BP control. (3) Paroxysmal atrial fibrillation: On Pradaxa Current sinus rhythm -Continue amiodarone, metoprolol, Pradaxa (4) History of CVA (cerebrovascular accident): -Continue statin, pradaxa (5) CKD (chronic kidney disease) stage 3, GFR 30-59 ml/min: ABHISHEK on CKD Cr: 1.24. on admission Baseline ~1.2-1.4 -then increased to 1.68 after losartan incr. to bid and HCTZ started for BP control, currently still elevated at 1.6 (despite holding afternoon losartan) -Add hydralazine for BP control, stop HCTZ and only continue home losartan (once a day) -Monitor renal functions -Avoid nephrotoxic agents (6) HTN (hypertension): -now well controlled -Nitropaste stopped -increased losartan to 50 mg to BID on admission (however Cr elev. yesterday, so held PM dose-> Cr still elevated today) -cont.metoprolol -stop HCTZ, give PO hydralazine instead (7) Dyslipidemia: -Continue atorvastatin (8) Hypothyroidism: TSH: 8.6, free T4: 0.9 -Continue levothyroxine (9) MICKY (obstructive sleep apnea): CPAP at bedtime Hypoxia - resolved Patient required supplemental oxygen during daytime while hospitalized. Obtained a 2 step study today (02/12) -patient did not desat during rest or ambulation, and therefore does not qualify for home oxygen. DVT Prophylaxis -On Pradaxa Full Code as per discussion with pt Follows with Dr Pandya for routine care Subjective No acute is overnight. Patient sitting in chair, comfortable, in no acute distress. No supplemental oxygen needed, she is breathing comfortably on room air. Her sister and at the bedside. Patient denies any fevers, chills, chest pain, shortness of breath, abdominal pain, nausea, vomiting. Patient underwent 2 step study today, she was not desatting on room air at rest or ambulation, and therefore does not qualify for home oxygen. Cr still elevated Review of Systems Review of Systems: All systems reviewed & are unremarkable except as noted in HPI & below Constitutional: no fever, no chills and no fatigue Respiratory: no cough and no dyspnea Cardiovascular: no chest pain and no palpitations Gastrointestinal: no abdominal pain, no nausea and no vomiting Physical Exam Physical Exam: General: Elderly obese female, sitting up in bed, in no acute distress Head: normocephalic, atraumatic Eyes: PERRL, EOMI, conjunctiva non-injected, anicteric ENT: normal inspection external ears, nose, mucous membranes moist Neck: supple, trachea midline Lungs: clear, no respiratory distress, no wheezing/rhonchi/rales CV: RRR no murmur, chest normal to inspection Abd: normal BS, soft, non-tender, obese, nondistended, no guarding Ext: no LE edema, moves all 4 extremities spontaneously Neuro: A&O x 3, speech fluent, no facial asymmetry, moves all 4 extremities spontaneously Skin: warm, dry Results & Data Vital Signs (Past 12 Hours) Vital Signs Temp Pulse Pulse Resp BP BP Pulse Ox 02/12/19 07:51 36.6 C 51 L 19 121/61 96 02/12/19 04:15 36.5 C 48 L 22 137/78 94 02/11/19 23:21 36.6 C 51 L 18 146/79 H 95 02/11/19 22:15 57 L 16 96 Laboratory Results 02/12/19 Range/Units 07:40 Sodium 137 (136-145) mmol/L Potassium 5.1 D (3.5-5.1) mmol/L Chloride 104 (98-107) mmol/L Carbon Dioxide 30 (21-32) mmol/L Anion Gap 3.0 (3-11) BUN 38 H (7-18) mg/dl Creatinine 1.63 H (0.6-1.2) mg/dl Est Cr Clr Drug Dosing 38.1 ml/min Est GFR ( Amer) 34.6 Est GFR (Non-Af Amer) 29.9 BUN/Creatinine Ratio 23.4 H (10-20) Glucose 94 (70-99) mg/dl Calcium 9.6 (8.5-10.1) mg/dl Medications Administered Current Inpatient Medications Acetaminophen (Tylenol) 650 mg PO Q4H PRN PRN Reason: Pain or Fever Stop: 03/11/19 12:16 Amiodarone HCl (Cordarone) 200 mg PO DAILY [facility] Stop: 03/12/19 08:59 Last Admin: 02/12/19 07:43 Dose: 200 mg Documented by: Atorvastatin Calcium (Lipitor) 40 mg PO HS [facility] Stop: 03/11/19 20:59 Last Admin: 02/11/19 19:31 Dose: 40 mg Documented by: Dabigatran (Pradaxa) 150 mg PO BID [facility] Stop: 03/11/19 12:16 Last Admin: 02/12/19 07:43 Dose: 150 mg Documented by: Docusate Sodium (Colace) 100 mg PO DAILY PRN PRN Reason: cons Stop: 03/13/19 08:59 Hydralazine HCl (Hydralazine Hcl) 10 mg IV Q4H PRN PRN Reason: Hypertension Stop: 03/11/19 18:45 Hydrochlorothiazide (Hctz) 12.5 mg [facility] [place] Stop: 03/11/19 13:59 Last Admin: 02/12/19 07:43 Dose: 12.5 mg Documented by: Levothyroxine Sodium (Synthroid) 50 mcg PO DAILYBB [facility] Stop: 03/11/19 12:16 Last Admin: 02/12/19 04:57 Dose: 50 mcg Documented by: Losartan Potassium (Cozaar) 50 mg [facility] [place] Stop: 03/14/19 08:59 Last Admin: 02/12/19 07:43 Dose: 50 mg Documented by: Metoprolol Succinate (Toprol Xl) 50 mg PO DAILY [facility] Stop: 03/11/19 12:16 Last Admin: 02/12/19 07:43 Dose: 50 mg Documented by: Ondansetron HCl (Zofran) 4 mg IV Q6H PRN PRN Reason: Nausea Stop: 03/11/19 18:34 (1) Chest pain Chest pain type: precordial pain Qualified Code(s): R07.2 - Precordial pain
--- NOTE | 2019-02-12 10:46 | XCELERA ---
[id number] [id number]
[2019-02-12] MEDS: ATORVASTATIN 40 MG TAB PO SCH (20:24)
[2019-02-13] MEDS: LEVOTHYROXINE SODIUM 50 MCG TABLET PO SCH (05:59)
[2019-02-13 06:38] LABS: BUN Creatinine Ratio 23.2 (10-20); Calcium 8.9 mg/dl (8.5-10.1); Creatinine Clr Calc Pharmacy 35.5 ml/min; Est GFR (African American) 31.8; Est GFR (Non-African American) 27.4; Potassium 4.3 mmol/L (3.5-5.1)
[2019-02-13] MEDS: METOPROLOL SUCC 50MG EXT REL TAB PO SCH (10:14)
[2019-02-13] MEDS: LOSARTAN POTASSIUM 50 MG TAB PO SCH (10:14)
[2019-02-13] MEDS: DABIGATRAN ETEXILATE 75 MG CAP PO SCH (10:15)
[2019-02-13] MEDS: AMIODARONE 200 MG TAB PO SCH (10:15)
--- NOTE | 2019-02-13 13:00 | Cardiology Progress Note ---
Date of Service February 13, 2019 Assessment & Plan (1) Hypertensive emergency: (2) Chest pain: (3) Paroxysmal atrial fibrillation: Patient admitted with chest discomfort and hypertensive emergency. Cardiac enzymes undetectable. No regional wall motion abnormalities or ischemic ECG changes. Outpatient Lexiscan nuclear stress test recommended. My office will assist in scheduling at time of discharge. Restart losartan 50 mg daily today. Repeat basic metabolic panel in 2 to 3 days. Consider nephrology consultation. Sodium restriction advised. In regard to her paroxysmal atrial fibrillation. Patient remains rhythm controlled with metoprolol and amiodarone. Pradaxa will be continued for stroke prophylaxis. Subjective Patient seen and examined the bedside. Denies chest pain or unusual shortness of breath. She has remained in hospital over the past 48 hours due to elevated creatinine. Losartan and hydrochlorothiazide placed on hold. Blood pressure now controlled. Telemetry demonstrates sinus bradycardia. No dysrhythmias recorded. Patient tolerating diet and medications. Offers no complaints at this time. Review of Systems Review of Systems: All systems reviewed & are unremarkable except as noted in HPI & below Physical Exam Constitutional: + obese Respiratory: Auscultation: lungs clear to auscultation bilaterally; no crackles (bases B/L), no rales, no rhonchi and no wheezes Cardiovascular: Rate/Rhythm: regular rate, regular rhythm and + bradycardic Heart Sounds: normal S1 and normal S2; no murmur and no cardiac rub Extremities: no edema Gastrointestinal (Abdomen): Inspection/Auscultation: abdomen normal to inspection and normal bowel sounds; abdomen not distended Percussion/Palpation: abdomen soft; abdomen nontender and no guarding Neurologic: PERRL, EOMI, accommodation nl, no face palsy, no dysarthria Results & Data Vital Signs (Past 12 Hours) Vital Signs Temp Pulse Pulse Resp BP BP Pulse Ox 02/13/19 11:26 37.1 C 50 L 20 144/81 H 91 02/13/19 08:35 36.5 C 54 L 20 155/91 H 95 02/13/19 08:00 53 L 02/13/19 04:24 36.7 C 64 54 L 19 154/72 H 96 (1) Chest pain Chest pain type: precordial pain Qualified Code(s): R07.2 - Precordial pain
--- NOTE | 2019-02-13 18:16 | Discharge Summary ---
Date of Service February 13, 2019 Admission HPI Per Admitting Provider Pt is 78 y/o F with PMH PAF on amiodarone, HTN, HLD, CKD III, CVA, carotid stenosis, MICKY, anxiety presented to ER with c/o CP. Patient states yesterday afternoon was sitting watching TV when she developed lower anterior chest pain described as pressure/burning-like sensation with radiation to back. Patient states she felt like it was indigestion so took Herlinda-[place] without relief. She rated discomfort a 10 out of 10 on pain scale and reports it continued throughout the night and this morning. Reports this morning felt nauseated without any vomiting. Patient's states this morning took her blood pressure at home and systolic was 220. She reports that she has been taking her medications as prescribed however has not had this morning's medications yet. Patient was transported to ER by EMS and reportedly was given aspirin 324 mg, nitro x 4 and patient reports that decreased pain for approximately 20 minutes and then chest pain returned. Patient reports chronic edema to BLE however denies any incre ased edema. Reports chronic shortness of breath and denies any increased shortness of breath. Granddaughter at bedside reports pt with increased forgetfulness over past several months and has "good days and bad days" and reports today pt mental status is good. Denies fever/chills, diaphoresis, N/V/D/C, [place], dizziness, syncope, vision changes, neck pain, CP, SOB, orthopnea, palpitations, cough, sore throat, choking, otalgia, rhinorrhea, abdominal pain, paresthesias, weakness, extremity weakness, extremity edema, rashes, urinary symptoms. History Lexiscan 11/24/2017: Normal stress test History echo 12/2016: EF: 55-60%, grade 1 diastolic dysfunction Today in ER patient given 500 mL NSS, nitro sublingual x1, Pepcid 20 mg IV, Compazine IV, Benadryl 12.5 IV, morphine 8 IV, Tylenol 1 g IV, GI cocktail and was given her morning dose of losartan 50 mg p.o. and amiodarone 200 mg p.o. patient reports does not think nitro given in ER helped decrease pain however after all of the additional medications she reports her chest pain is decreased. EKG sinus bradycardia, chronic RBBB without acute change, initial troponin negative. CTA chest negative for dissection or PE. Initial BP 244/86 down to 173/81. Patient admitted to hospital for further evaluation and treatment. Discharge Data Allergies Allergy/AdvReac Type Severity Reaction Status Date / Time amlodipine Allergy Unknown SWELLING Unverified 02/09/19 10:25 OF FEET Consultations 02/09/19 09:57 ED Decision to Admit Stat 02/09/19 12:17 Consult Cardiology Routine Consult Case Management - Discharge Planning Routine Ordered Studies 02/09/19 08:26 CT angio chest dissec wo/w con Stat Discharge Plan Discharge Items Patient Disposition: Home - Self-Care Reason For Visit: HTN, CP Discharge Diagnosis: Hypertensive emergency Activity: Resume your previous activity Activity Comment: as tolerated, pace yourself, ask for help as needed Non-emergency contact: Primary Care Provider and Breaster Call non-emergency contact if: you have any medication questions and your symptoms worsen Follow-up/Referrals: Awais Pandya MD [Primary Care Provider] - 02/19/19 10:45 am Diet: Carb Consistent or DM2, Heart Healthy and Low Sodium (2gm) Addtl Attending Provider Instructions: Make sure to follow-up with your primary care provider, on February 19, at 10:45 AM. You will need to have your blood work checked, to monitor your kidney function. Make sure to check your blood pressure at home, 3 times a day. As discussed, sit down for 10 minutes, do not cross your legs, and have your arm at the level of your heart when you check your blood pressure. Make sure to write down all the numbers and bring the log to your primary care provider appointment. Continue taking losartan 50 mg a day. In addition, take hydralazine 25 mg 3 times a day. Avoid salt, only use 2 g of sodium a day. Pending Studies at Discharge: No Stand-Alone Forms: [employer], Smoking Cessation Medications and DC Order Prescriptions: New hydralazine 25 mg Tablet 25 mg PO TID 14 Days Qty: 42 RF: 0 Continued losartan 50 mg Tablet 50 mg PO DAILY RF: 0 atorvastatin 40 mg tablet 40 mg PO HS RF: 0 amiodarone 200 mg tablet 200 mg PO DAILY RF: 0 metoprolol succinate 50 mg tablet extended release 24 hr 50 mg PO DAILY RF: 0 levothyroxine 50 mcg Tablet 50 mcg PO DAILY RF: 0 ergocalciferol (vitamin D2) [Vitamin D2] 50,000 unit Capsule 50,000 unit PO MO RF: 0 Pradaxa 150 mg capsule 150 mg PO BID RF: 0 Discharge Orders: Discharge Order (Routine); Ordered 02/13/19 Ordered By: Larry Scherer Admission Data Admit Date/Time: 02/09/19 11:21 Attending Provider: Larry Scherer Admit Provider: Alison Crooks Primary Care Provider: Awais Pandya Other Providers: Azucena James ; Juan Garvey ; Alison Crooks
--- NOTE | 2019-02-13 18:19 | Discharge Summary ---
Date of Service February 13, 2019 Admission HPI Per Admitting Provider Chief Complaint: CP Primary Care Provider: Awais Pandya MD Pt is 78 y/o F with PMH PAF on amiodarone, HTN, HLD, CKD III, CVA, carotid stenosis, MICKY, anxiety presented to ER with c/o CP. Patient states yesterday afternoon was sitting watching TV when she developed lower anterior chest pain described as pressure/burning-like sensation with radiation to back. Patient states she felt like it was indigestion so took Herlinda-Van without relief. She rated discomfort a 10 out of 10 on pain scale and reports it continued throughout the night and this morning. Reports this morning felt nauseated without any vomiting. Patient's states this morning took her blood pressure at home and systolic was 220. She reports that she has been taking her medications as prescribed however has not had this morning's medications yet. Patient was transported to ER by EMS and reportedly was given aspirin 324 mg, nitro x 4 and patient reports that decreased pain for approximately 20 minutes and then chest pain returned. Patient reports chronic edema to BLE however denies any increased edema. Reports chronic shortness of breath and denies any increased shortness of breath. Granddaughter at bedside reports pt with increased forgetfulness over past several months and has "good days and bad days" and reports today pt mental status is good. Denies fever/chills, diaphoresis, N/V/D/C, [place], dizziness, syncope, vision changes, neck pain, CP, SOB, orthopnea, palpitations, cough, sore throat, choking, otalgia, rhinorrhea, abdominal pain, paresthesias, weakness, extremity weakness, extremity edema, rashes, urinary symptoms. History Lexiscan 11/24/2017: Normal stress test History echo 12/2016: EF: 55-60%, grade 1 diastolic dysfunction Today in ER patient given 500 mL NSS, nitro sublingual x1, Pepcid 20 mg IV, Compazine IV, Benadryl 12.5 IV, morphine 8 IV, Tylenol 1 g IV, GI cocktail and was given her morning dose of losartan 50 mg p.o. and amiodarone 200 mg p.o. patient reports does not think nitro given in ER helped decrease pain however after all of the additional medications she reports her chest pain is decreased. EKG sinus bradycardia, chronic RBBB without acute change, initial troponin negative. CTA chest negative for dissection or PE. Initial BP 244/86 down to 173/81. Patient admitted to hospital for further evaluation and treatment. Admission Exam Per Admitting Provider General: no acute distress, obese Head: normocephalic, atraumatic Eyes: PERRL, EOM's intact, conjunctiva non-injected, anicteric ENT: normal inspection external ears, nose, mucous membranes moist Neck: supple, trachea midline Lungs: clear, no respiratory distress, no wheezing/rhonchi/rales CV: rate 56, regular rhythm, no murmur, trace pretibial edema; chest non-tender to palpation Abd: normal BS, soft, non-tender Ext: no cyanosis, no calf tenderness Neuro: A&O x 3, no focal deficits noted, normal affect Skin: warm, dry Principal Diagnosis Hypertensive emergency, ABHISHEK on CKD stage III, pAfib, chest pain Discharge Exam General: Elderly obese female, sitting up in bed, in no acute distress Head: normocephalic, atraumatic Eyes: PERRL, EOMI, conjunctiva non-injected, anicteric ENT: normal inspection external ears, nose, mucous membranes moist Neck: supple, trachea midline Lungs: clear, no respiratory distress, no wheezing/rhonchi/rales CV: RRR no murmur, chest normal to inspection Abd: normal BS, soft, non-tender, obese, nondistended, no guarding Ext: no LE edema, moves all 4 extremities spontaneously Neuro: A&O x 3, speech fluent, no facial asymmetry, moves all 4 extremities spontaneously Skin: warm, dry Discharge Data Allergies Allergy/AdvReac Type Severity Reaction Status Date / Time amlodipine Allergy Unknown SWELLING Unverified 02/09/19 10:25 OF FEET Consultations 02/09/19 09:57 ED Decision to Admit Stat 02/09/19 12:17 Consult Cardiology Routine Consult Case Management - Discharge Planning Routine Ordered Studies CXR 02/09/2019 IMPRESSION: Chronic change. No acute process. 02/09/19 08:26 CT angio chest dissec wo/w con Stat IMPRESSION: 1. No evidence for aortic dissection or aneurysm. 2. No evidence for pulmonary embolus. 3. Chronic basilar interstitial change. Hospital Course (1) Hypertensive emergency: (2) Chest pain: Pt is 78 y/o F with PMH PAF on amiodarone, HTN, HLD, CKD III, CVA, carotid stenosis, MICKY, anxiety presented to ER with c/o CP starting yesterday afternoon while sitting watching TV. described as constant anterior chest pain described as pressure/burning-like sensation with radiation to back and thought it was indigestion. Took Herlinda-Van without relief. Reported home BP systolic 220 this morning. EMS reportedly gave aspirin 324 mg, nitro x 4 and patient reports that decreased pain initially. No acute mental status changes. EKG sinus bradycardia, chronic RBBB without acute change initial troponin negative. renal functions as baseline CTA chest negative for dissection or PE. CXR: Chronic change. No acute process. Initial BP 244/86 down to 173/81. P: 54, R: 20, 95% on RA CHEST PAIN R/O ACS. Probable secondary to severe HTN -In ER given 500 mL NSS, nitro sublingual x1, Pepcid 20 mg IV, Compazine IV, Benadryl 12.5 IV, morphine 8 IV, Tylenol 1 g IV, GI cocktail and was given her morning dose of losartan 50 mg p.o. and amiodarone 200 mg p.o. patient reports does not think nitro given in ER helped decrease pain however after all of the additional medications she reports her chest pain is decreased. -Nitropaste added for additional BP control on admission - now stopped -troponin x3 - negative -Echo (02/09/2019) -no regional wall motion abnormality. Mild concentric LVH. EF 55 to 60%. Right ventricle is normal in size and function. Aortic valve sclerosis mild, no significant aortic valvular stenosis. Doppler does not suggest pulmonary hypertension. Grade 1 diastolic dysfunction. -Lipid panel (02/10/2019) -triglycerides 124, total cholesterol 126, LDL 60, HDL 41, continue atorvastatin -Continue metoprolol, losartan, Pradaxa -Cardiology consult - recommend Lexiscan nuclear stress test as outpatient (Dr. Mercado will arrange), low sodium diet Patient was initially started on HCTZ 12.5 mg, and losartan 50mg daily was increased to twice a day. Blood pressure was well controlled, however she developed ABHISHEK on CKD. We will continue home losartan (once daily), and add hydralazine 25 mg TID for BP control. - pt cont. to have incr. Cr, discussed w/ cardiology/Dr. Mercado - recommend to cont. losartan and have BMP re-checked in next couple of days (3) Paroxysmal atrial fibrillation: On Pradaxa Current sinus rhythm -Continue amiodarone, metoprolol, Pradaxa (4) History of CVA (cerebrovascular accident): -Continue statin, pradaxa (5) CKD (chronic kidney disease) stage 3, GFR 30-59 ml/min: ABHISHEK on CKD Cr: 1.24. on admission Baseline ~1.2-1.4 -then increased to 1.68 after losartan incr. to bid and HCTZ started for BP control, currently still elevated at 1.6 (despite holding afternoon losartan) -Add hydralazine for BP control, stop HCTZ and only continue home losartan (once a day) -Monitor renal functions -Avoid nephrotoxic agents (6) HTN (hypertension): -now well controlled -Nitropaste stopped -increased losartan to 50 mg to BID on admission (however Cr elev., so held PM dose-> Cr still elevated today) - discussed w/ cardiology, pt benefits from losartan, cont. home morning dose despite elev. Cr, have Cr rechecked in next couple of days -cont.metoprolol -stop HCTZ, give PO hydralazine instead (will discharge on 25 mg TID) (7) Dyslipidemia: -Continue atorvastatin (8) Hypothyroidism: TSH: 8.6, free T4: 0.9 -Continue levothyroxine (9) MICKY (obstructive sleep apnea): CPAP at bedtime Hypoxia - resolved Patient required supplemental oxygen during daytime while hospitalized. Obtained a 2 step study (02/12) -patient did not desat during rest or ambulation, and therefore does not qualify for home oxygen. DVT Prophylaxis -On Pradaxa Follows with Dr Pandya for routine care Total Time Total Time Spent Total Time Spent (In Minutes): 40 Total Time Includes: Examination of the Patient, Discharge Planning, Medication Reconciliation and Communication With Other Providers Discharge Plan Discharge Items Patient Disposition: Home - Self-Care Reason For Visit: HTN, CP Discharge Diagnosis: Hypertensive emergency, Acute on chronic kidney injury Activity: Resume your previous activity Activity Comment: as tolerated, pace yourself, ask for help as needed Non-emergency contact: Primary Care Provider and Sand Analyst Call non-emergency contact if: you have any medication questions and your symptoms worsen Follow-up/Referrals: Awais Pandya MD [Primary Care Provider] - 02/19/19 10:45 am Diet: Carb Consistent or DM2, Heart Healthy and Low Sodium (2gm) Addtl Attending Provider Instructions: Make sure to follow-up with your primary care provider, on February 19, at 10:45 AM. You will need to have your blood work checked, to monitor your kidney function. Make sure to check your blood pressure at home, 3 times a day. As discussed, sit down for 10 minutes, do not cross your legs, and have your arm at the level of your heart when you check your blood pressure. Make sure to write down all the numbers and bring the log to your primary care provider appointment. Continue taking losartan 50 mg a day. In addition, take hydralazine 25 mg 3 times a day. Avoid salt, only use 2 g of sodium a day. Pending Studies at Discharge: No Stand-Alone Forms: My [facility] [employer], Smoking Cessation Medications and DC Order Prescriptions: New hydralazine 25 mg Tablet 25 mg PO TID 14 Days Qty: 42 RF: 0 Continued losartan 50 mg Tablet 50 mg PO DAILY RF: 0 atorvastatin 40 mg tablet 40 mg PO HS RF: 0 amiodarone 200 mg tablet 200 mg PO DAILY RF: 0 metoprolol succinate 50 mg tablet extended release 24 hr 50 mg PO DAILY RF: 0 levothyroxine 50 mcg Tablet 50 mcg PO DAILY RF: 0 ergocalciferol (vitamin D2) [Vitamin D2] 50,000 unit Capsule 50,000 unit PO MO RF: 0 Pradaxa 150 mg capsule 150 mg PO BID RF: 0 Discharge Orders: Discharge Order (Routine); Ordered 02/13/19 Ordered By: Larry Scherer Admission Data Admit Date/Time: 02/09/19 11:21 Attending Provider: Larry Scherer Admit Provider: Alison Crooks Primary Care Provider: Awais Pandya Other Providers: Azucena James ; Juan Garvey ; Alison Crooks Other Interventions: Discharge Summary Assessment (RN) Last Done: 02/13/19 18:34 DC Date/Time DO NOT enter until pt leaves facility: 02/13/19 19:05
== END 2019-02-13 19:05 | disposition home or self-care (01) | DRG 305 ==
LOC: ED 07:00 → 2S 11:21 → SUATTDRO 11:21 → 2S 11:51

== ENCOUNTER 2019-09-08 20:05 | Inpatient (IN) ==
--- NOTE | 2019-09-08 20:16 | Emergency Department Note ---
Impression & Plan Chest pain, HTN (hypertension), Bilateral edema of lower extremity ED Provider Note NAME: DOUGLAS BURNHAM AGE: 78 SEX: F : 1940 ARRIVES VIA: Ambulance INFORMANT: Patient, prehospital personnel ED PROVIDER(S): Chano Silva DO CHIEF COMPLAINT: Chest pain HPI: The patient is a 78-year-old female who presented to the emergency department for an evaluation of chest pain and shortness of breath. The patient has been noticing left-sided chest pain. Her symptoms have been worsening over the last few weeks. She started first and noticed lower extremity swelling. She describes no difficulty breathing or orthopnea but does describe 40 pound weight gain. She also has been noticing left-sided chest pain which is nonra diating. Pain begins at rest. She notices no cough or fever. She is noticed no headache or vomiting. She has not seen her primary care physician or primary custody assistant for the symptoms. The patient took 4 baby aspirin prior to calling the ambulance. She received nitroglycerin spray prior to arrival with good resolution of her symptoms. She was also noted to have elevated blood pressure. ROS: See above HPI for pertinent positives & negatives. A total of 10 systems reviewed and were otherwise negative. PAST MEDICAL HISTORY: See Below PAST SURGICAL HISTORY: See Below FAMILY HISTORY: See Below SOCIAL HISTORY: See Below HOME MEDICATIONS: See Below ALLERGIES: See Below VITALS: See Below PHYSICAL EXAMINATION: GENERAL: Patient is awake alert in no acute distress patient is resting comfortably and showing no signs of anxiety EYES: The conjunctivae are clear. The pupils are round and reactive. EARS, NOSE, MOUTH AND THROAT: The nose is without any evidence of any deformity. Mucous membranes are moist. NECK: The neck is nontender and supple. RESPIRATORY: Diminished breath sounds are noted throughout. There are rales noted in both lower lung bender. There is no tachypnea or conversational dyspnea. CARDIOVASCULAR: Regular rate and rhythm noted there no murmurs rubs or gallops normal S1 normal S2. GASTROINTESTINAL: The abdomen is soft. Abdomen is nontender. MUSCULOSKELETAL/EXTREMITIES: There is no evidence of gross deformity full range of motion is noted in the hips and shoulders. SKIN: There is no obvious evidence of any rash. Bilateral pedal edema was noted NEUROLOGIC: Patient is awake alert and oriented x3. MEDICAL DECISION MAKING: The patient is a 78-year-old female who presented to the emergency department via ambulance for an evaluation of chest discomfort. The patient was having very severe chest pain and she also noticed lower extremity edema. She received aspirin and nitroglycerin prior to arrival and had good resolution of her symptoms. I discussed the patient's laboratory and radiographic studies with her. I also discussed the limitations of the emergency department work-up for chest pain with her. At this time her EKG showed no ischemic changes and her troponin did not show an elevation at this time. She was treated with Nitropaste for elevated blood pressure and did have some nausea. I discussed her condition with the on-call [facility] Hospitalist. They have agreed to evaluate the patient in the emergency department for further management and disposition. Prior medical records reviewed Vital Signs: reviewed and remarkable for elevated blood pressure. Differential diagnosis: Cardiac ischemia, aortic dissection, pulmonary embolism, pneumothorax, pneumonia, pericarditis, myocarditis, esophageal rupture, GERD, cholecystitis, pancreatitis, musculoskeletal, as well as other pathologies. ER treatment provided: See below Diagnostics interpreted by me: ECG: EKG was obtained in the emergency department. My interpretation is normal sinus rhythm at 61 bpm. A right bundle branch block pattern was noted. There is no PVCs. This was compared to a tracing from 02/10/2019. There is no significant changes noted. Cardiac Monitoring: An order was placed for continuous cardiac monitoring. The monitor shows a rate of 65 with sinus rhythm. Laboratory studies: As stated above and show below. Imaging studies: See below Consultation(s): [id number]: I discussed this case with Dr. Urias who is on-call for the [facility] Hospitalist group. He is agreed to evaluate the patient in the emergency department for further management and disposition. ED COURSE: Procedures: none Critical Care: None Past Med/Surg History Medical History Atrial fibrillation with RVR (Resolved) CKD (chronic kidney disease) stage 3, GFR 30-59 ml/min (Chronic) Depression (Chronic) Dyslipidemia (Chronic) History of CVA (cerebrovascular accident) (Resolved) HTN (hypertension) (Chronic) Hypertensive urgency (Acute) Hypothyroidism Left arm pain MICKY (obstructive sleep apnea) Osteoporosis (Chronic) Paroxysmal atrial fibrillation Vitamin D deficiency (Chronic) Surgical History H/O cataract removal with insertion of prosthetic lens (Resolved) History of appendectomy (Resolved) History of tonsillectomy (Resolved) History of total hysterectomy (Resolved) Family History Other Coronary heart disease Hypertension Stroke Social History Preferred Language: Albanian Communication Ability: Effective Student Success Counselor Required: No Beliefs That Will Affect Care: None marital status: Life Partner Current Living Situation: Significant Other Feels Safe at Home: Yes Smoking Status: Never smoker Tobacco Type: cigarettes ; Hx Alcohol Use: No Hx Substance Use: No Allergies Allergies Allergy/AdvReac Type Severity Reaction Status Date / Time amlodipine Allergy Unknown SWELLING Unverified 09/08/19 20:46 OF FEET Home Meds Home Medications Medication Instructions Recorded Confirmed Pradaxa 150 mg PO BID 02/09/19 09/08/19 atorvastatin 40 mg PO HS 02/09/19 09/08/19 levothyroxine 50 mcg PO DAILY 02/09/19 09/08/19 metoprolol succinate 50 mg PO DAILY 02/09/19 09/08/19 albuterol sulfate 2.5 mg INHALATION Q4 PRN 09/08/19 09/08/19 cholecalciferol (vitamin D3) 50,000 unit PO WK 09/08/19 09/08/19 [D3-50 Cholecalciferol] hydralazine 25 mg PO TID 09/08/19 09/08/19 losartan [Cozaar] 50 mg PO DAILY 09/08/19 09/08/19 tramadol [Ultram] 50 mg PO Q6 PRN 09/08/19 09/08/19 Results & Data (ED) Vital Signs Vital Signs - 24 hr 09/08/19 19:52 09/08/19 20:12 09/08/19 20:13 Temperature 36.9 C Temperature Source Oral Pulse Rate 71 Pulse Rate from SpO2 Sensor Respiratory Rate 18 Respiratory Effort / Characteristics Non-Labored Spontaneous Respiratory Depth Normal Respiratory Pattern Regular Blood Pressure 213/90 H Blood Pressure Mean 131 Pulse Oximetry 95 Oxygen Delivery Method Room Air Room Air Room Air Sepsis Recent Fever Within 48 Hours No Sepsis New/Unexplained Change in Mental Status No Sepsis Action Taken by Nursing No Action Required 09/08/19 20:17 09/08/19 20:18 09/08/19 20:30 Temperature Temperature Source Pulse Rate 60 58 L 57 L Pulse Rate from SpO2 Sensor 60 59 L 57 L Respiratory Rate 20 16 17 Respiratory Effort / Characteristics Respiratory Depth Respiratory Pattern Blood Pressure 200/88 H Blood Pressure Mean 113 Pulse Oximetry 97 96 95 Oxygen Delivery Method Sepsis Recent Fever Within 48 Hours Sepsis New/Unexplained Change in Mental Status Sepsis Action Taken by Nursing 09/08/19 21:00 09/08/19 21:01 09/08/19 21:30 Temperature Temperature Source Pulse Rate 57 L 57 L 56 L Pulse Rate from SpO2 Sensor 57 L 58 L 57 L Respiratory Rate 24 23 16 Respiratory Effort / Characteristics Respiratory Depth Respiratory Pattern Blood Pressure 197/93 H Blood Pressure Mean 124 Pulse Oximetry 96 95 94 Oxygen Delivery Method Sepsis Recent Fever Within 48 Hours Sepsis New/Unexplained Change in Mental Status Sepsis Action Taken by Nursing 09/08/19 21:31 09/08/19 22:00 09/08/19 22:01 Temperature Temperature Source Pulse Rate 56 L 55 L 56 L Pulse Rate from SpO2 Sensor 56 L 56 L 56 L Respiratory Rate 14 17 17 Respiratory Effort / Characteristics Respiratory Depth Respiratory Pattern Blood Pressure 219/89 H 186/120 H Blood Pressure Mean 116 133 Pulse Oximetry 94 95 95 Oxygen Delivery Method Sepsis Recent Fever Within 48 Hours Sepsis New/Unexplained Change in Mental Status Sepsis Action Taken by Nursing 09/08/19 22:30 09/08/19 22:31 09/08/19 22:49 Temperature Temperature Source Pulse Rate 54 L 55 L 67 Pulse Rate from SpO2 Sensor 55 L 55 L Respiratory Rate 19 16 20 Respiratory Effort / Characteristics Respiratory Depth Respiratory Pattern Blood Pressure 209/87 H 270/110 H Blood Pressure Mean 109 163 Pulse Oximetry 97 95 94 Oxygen Delivery Method Room Air Sepsis Recent Fever Within 48 Hours Sepsis New/Unexplained Change in Mental Status Sepsis Action Taken by Nursing 09/08/19 22:50 09/08/19 22:53 09/08/19 23:02 Temperature Temperature Source Pulse Rate 58 L 69 57 L Pulse Rate from SpO2 Sensor 59 L 58 L 56 L Respiratory Rate 21 24 19 Respiratory Effort / Characteristics Respiratory Depth Respiratory Pattern Blood Pressure 270/110 H 211/93 H 209/73 H Blood Pressure Mean 144 118 110 Pulse Oximetry 97 97 94 Oxygen Delivery Method Sepsis Recent Fever Within 48 Hours Sepsis New/Unexplained Change in Mental Status Sepsis Action Taken by Nursing 09/08/19 23:32 09/09/19 00:02 Temperature Temperature Source Pulse Rate 58 L 60 Pulse Rate from SpO2 Sensor 59 L 60 Respiratory Rate 20 18 Respiratory Effort / Characteristics Respiratory Depth Respiratory Pattern Blood Pressure 193/89 H 148/79 H Blood Pressure Mean 137 108 Pulse Oximetry 95 91 Oxygen Delivery Method Sepsis Recent Fever Within 48 Hours Sepsis New/Unexplained Change in Mental Status Sepsis Action Taken by Skilled Nursing Medications Current Medication List: was personally reviewed by me Laboratory Data Attestation: I reviewed the patient's lab results. Result diagrams: 09/08/19 20:42 09/08/19 20:42 Lab Results 09/08/19 09/08/19 09/08/19 Range/Units 20:42 20:42 20:42 WBC 7.69 (4.8-10.8) K/uL RBC 4.23 (4.2-5.4) M/uL Hgb 13.6 (12.0-16.0) g/dL Hct 41.7 (37-47) % MCV 98.6 (80-100) fL MCH 32.2 (25-34) pg MCHC 32.6 (32-36) g/dL RDW Std Deviation 48.0 H (36.4-46.3) fL RDW Coeff of Shannan 13.4 (11.5-14.5) % Plt Count 273 (130-400) K/uL MPV 8.9 (7.4-10.4) fL Immature Gran % (Auto) 0.3 % Neut % (Auto) 74.9 % Lymph % (Auto) 16.1 % [place] % (Auto) 6.2 % Eos % (Auto) 2.2 % Baso % (Auto) 0.3 % Neut # (Auto) 5.76 (1.4-6.5) K/uL Lymph # (Auto) 1.24 (1.2-3.4) K/uL [place] # (Auto) 0.48 (0.11-0.59) K/uL Eos # (Auto) 0.17 (0-0.5) K/uL Baso # (Auto) 0.02 (0-0.2) K/uL Immature Gran # (Auto) 0.02 (0.00-0.02) K/uL PT 12.5 H (9.0-12.0) Seconds INR 1.2 H (0.9-1.1) APTT 52.9 H* (21.0-31.0) Seconds PTT Ratio 1.9 Sodium 136 (136-145) mmol/L Potassium 3.8 (3.5-5.1) mmol/L Chloride 102 (98-107) mmol/L Carbon Dioxide 26 (21-32) mmol/L Anion Gap 7.0 (3-11) BUN 23 H (7-18) mg/dl Creatinine 1.12 (0.6-1.2) mg/dl Est Cr Clr Drug Dosing 55.6 ml/min Est GFR ( Amer) 54.5 Est GFR (Non-Af Amer) 47.0 BUN/Creatinine Ratio 20.4 H (10-20) Glucose 118 H (70-99) mg/dl Calcium 9.4 (8.5-10.1) mg/dl Magnesium 2.2 (1.8-2.4) mg/dl Total Bilirubin 0.4 (0.2-1) mg/dl AST 21 (15-37) U/L ALT 23 (12-78) U/L Alkaline Phosphatase 96 (45-117) U/L Troponin I < 0.015 (0-0.045) ng/ml NT-Pro-B Natriuret Pep 440 (0-1800) pg/ml Total Protein 8.0 (6.4-8.2) gm/dl Albumin 4.1 (3.4-5.0) gm/dl Globulin 3.9 (2.5-4.0) gm/dl Albumin/Globulin Ratio 1.1 (0.9-2) Lipase 213 (73-393) U/L TSH 5.930 H (0.300-4.500) uIu/ml Free T4 1.10 (0.8-1.6) ng/dl Administered Medications Discontinued Medications Furosemide (Lasix) 40 mg IV NOW STA Stop: 09/08/19 23:47 Last Admin: 09/09/19 00:35 Dose: 40 mg Documented by: [id number] Hydralazine HCl (Hydralazine Hcl) 10 mg IV NOW STA Stop: 09/08/19 23:04 Last Admin: 09/08/19 23:47 Dose: 10 mg Documented by: [id number] Losartan Potassium (Cozaar) 50 mg PO NOW STA Stop: 09/08/19 23:05 Last Admin: 09/08/19 23:46 Dose: 50 mg Documented by: [id number] Nitroglycerin (Nitro-Bid 2%) 0.5 inch EXT NOW ONE Stop: 09/08/19 22:02 Last Admin: 09/08/19 22:45 Dose: 0.5 inch Documented by: [id number] Ondansetron HCl (Zofran) 4 mg IV NOW STA Stop: 09/08/19 22:39 Last Admin: 09/08/19 22:45 Dose: 4 mg Documented by: [id number] Imaging Data Attestation: I personally reviewed and interpreted this imaging study as follows: My Impression: Portable chest x-ray was obtained in the emergency department. My interpretation is cardiomegaly with minimal pulmonary vascular congestion. No free air was noted. Blood Pressure Blood Pressure Findings: Elevated blood pressure Blood Pressure Disposition: further management by hospitalist Discharge Plan Visit Data Chief Complaint: Chest Pain ED Provider: Chano Silva Discharge Problem: Chest pain, HTN (hypertension), Bilateral edema of lower extremity Patient Disposition: Admitted As Inpatient Condition: Good Discharge Instructions Interventions: ED Discharge Assessment Last Done: 09/09/19 00:30 Forms Stand Alone Forms: My [facility], Virtual Emergency Department, Important Visit Information Prescriptions Prescriptions: No Action atorvastatin 40 mg tablet 40 mg PO HS RF: 0 metoprolol succinate 50 mg tablet extended release 24 hr 50 mg PO DAILY RF: 0 levothyroxine 50 mcg Tablet 50 mcg PO DAILY RF: 0 Pradaxa 150 mg capsule 150 mg PO BID RF: 0 losartan [Cozaar] 50 mg tablet 50 mg PO DAILY RF: 0 albuterol sulfate 2.5 mg /3 mL (0.083 %) Solution For Nebulization 2.5 mg INHALATION Q4 PRN (Reason: Shortness Of Breath Or Wheezing) RF: 0 hydralazine 25 mg tablet 25 mg PO TID RF: 0 tramadol [Ultram] 50 mg tablet 50 mg PO Q6 PRN (Reason: Pain) RF: 0 cholecalciferol (vitamin D3) [D3-50 Cholecalciferol] 1,250 mcg (50,000 unit) capsule 50,000 unit PO WK RF: 0 Referrals Referrals: Awais Pandya MD [Primary Care Provider] - Discharge Problem: Chest pain Qualifiers: Chest pain type: unspecified Qualified Code(s): R07.9 - Chest pain, unspecified HTN (hypertension) Qualifiers: Hypertension type: unspecified Qualified Code(s): I10 - Essential (primary) hypertension
[2019-09-08 21:11] LABS: Basophils # (auto) 0.02 K/uL (0-0.2); Basophils % (auto) 0.3 %; Eosinophils # (auto) 0.17 K/uL (0-0.5); Eosinophils % (auto) 2.2 %; Hematocrit (blood only) 41.7 % (37-47); Hemoglobin 13.6 g/dL (12.0-16.0); Immature Granulocytes # (auto) 0.02 K/uL (0.00-0.02); Immature Granulocytes % (auto) 0.3 %; Lymphocytes # (auto) 1.24 K/uL (1.2-3.4); Lymphocytes % (auto) 16.1 %; Mean Corpuscular Hemoglobin 32.2 pg (25-34); Mean Corpuscular Hgb Conc 32.6 g/dL (32-36); Mean Corpuscular Volume 98.6 fL (80-100); Mean Platelet Volume 8.9 fL (7.4-10.4); Monocytes # (auto) 0.48 K/uL (0.11-0.59); Monocytes % (auto) 6.2 %; Neutrophils # (auto) 5.76 K/uL (1.4-6.5); Neutrophils % (auto) 74.9 %; Platelet Count 273 K/uL (130-400); RDW Coefficient of Variation 13.4 % (11.5-14.5); Red Blood Count 4.23 M/uL (4.2-5.4); White Blood Count 7.69 K/uL (4.8-10.8)
[2019-09-08 21:19] LABS: Alanine Aminotransferase 23 U/L (12-78); Albumin Level 4.1 gm/dl (3.4-5.0); Aspartate Aminotransferase 21 U/L (15-37); BUN Creatinine Ratio 20.4 (10-20); Blood Urea Nitrogen 23 mg/dl (7-18); Calcium 9.4 mg/dl (8.5-10.1); Carbon Dioxide 26 mmol/L (21-32); Chloride 102 mmol/L (98-107); Creatinine Clr Calc Pharmacy 55.6 ml/min; Est GFR (African American) 54.5; Glucose 118 mg/dl (70-99); Lipase 213 U/L (73-393); Potassium 3.8 mmol/L (3.5-5.1); Sodium 136 mmol/L (136-145)
[2019-09-08 21:24] LABS: Albumin Globulin Ratio 1.1 (0.9-2); Alkaline Phosphatase 96 U/L (45-117); Bilirubin,Total 0.4 mg/dl (0.2-1); Globulin 3.9 gm/dl (2.5-4.0); NT Pro B Type Natriuretic Pept 440 pg/ml (0-1800); Troponin I < 0.015 ng/ml (0-0.045)
[2019-09-08 21:41] LABS: INR 1.2 (0.9-1.1); Partial Thromboplastin Ratio 1.9; Prothrombin Time 12.5 Seconds (9.0-12.0)
[2019-09-08] MEDS ORDERED: NITROGLYCERIN 2% OINTMENT 30GM TUBE EXT ONE (22:01)
[2019-09-08 22:36] LABS: Partial Thromboplastin Time 52.9 Seconds (21.0-31.0)
[2019-09-08] MEDS ORDERED: ONDANSETRON INJ 2 MG/ML 2 ML VIAL IV STA (22:38)
[2019-09-08] MEDS ORDERED: HydrALAZINE HCL 20 MG/ML VIAL IV STA (23:03)
[2019-09-08] MEDS ORDERED: LOSARTAN POTASSIUM 50 MG TAB PO STA (23:04)
[2019-09-08 23:36] LABS: Magnesium 2.2 mg/dl (1.8-2.4)
[2019-09-08] MEDS ORDERED: FUROSEMIDE 40 MG/4 ML VIAL IV STA (23:46)
--- NOTE | 2019-09-08 23:46 | History & Physical Report ---
Date of Service September 08, 2019 Assessment & Plan (1) Hypertensive crisis: Suboptimal BP control over the last 2 months Chest pain secondary to above Rule out ACS Possible subacute CHF secondary to uncontrolled BP over the last few months hx diastolic dysfunction PAF, patient NSR on Pradaxa hyperlipidemia on statin Rx hx CVA/PVD as per records Hyperglycemia likely prediabetes, hemoglobin A1c of 5.8 last 2016 MICKY on CPAP PCU Titrate home BP meds Increase losartan dosing from 50 to 100 mg daily for now Lasix 1 dose now Follow troponin Cardiology consult RE uncontrolled hypertension, chest pain, possible CHF Update hemoglobin A1c DVT prophylaxis. Pradaxa Full code Patient's daughter requesting updates from providers. Ms. Hannah Cheung, contact #[phone]. Text document was generated using [employer] voice recognition software. It may contain grammatical or spelling errors. Kindly contact undersigned for clarification of any documentation item in question. History of Present Illness Surgery, appendectomy, tonsillectomy Chief Complaint: Chest pain Primary Care Provider: Awais Pandya MD History obtained from patient, family, and records. Medical history significant for PAF on Pradaxa, diastolic dysfunction as per records, hypertension, hyperlipidemia, past history CVA, PVD as per records, MICKY on CPAP Last confinement February 2019 for chest pain secondary to hypertensive emergency. Hydralazine added to home losartan and beta-cindi medications on discharge. This afternoon, patient noted left sided chest pain with shortness of breath similar to "mild heart attack" in the past. No unusual cough symptoms. Abdominal distention, bilateral leg swelling, weight gain over the last few months despite compliance with home medications. Denies dietary indiscretion/NSAID intake. Some stress with recent of sister as per patient daughter. Compliant with CPAP mask. Usual SBP at home the last 2 months 1 50-1 60s. Elevated BP readings not immediately disclosed the patient family or healthcare providers as per patient daughter. SBP noted to be 200s at home as per daughter. Some relief of chest discomfort with aspirin and nitroglycerin administration at home. Nitropaste administered at the ER. Medical History as above Surgical History : Cataract surgery, appendectomy, tonsillectomy, hysterectomy Family History : Diabetes, heart disease, stroke Personal/Social history : Non-smoker, no EtOH intake, retired [employer] employee Allergies Allergy/AdvReac Type Severity Reaction Status Date / Time amlodipine Allergy Unknown SWELLING Unverified 09/08/19 20:46 OF FEET Home Medications Home Medications Medication Instructions Recorded Confirmed Type Pradaxa 150 mg PO BID 02/09/19 09/08/19 History atorvastatin 40 mg PO HS 02/09/19 09/08/19 History levothyroxine 50 mcg PO DAILY 02/09/19 09/08/19 History metoprolol succinate 50 mg PO DAILY 02/09/19 09/08/19 History albuterol sulfate 2.5 mg INHALATION Q4 PRN 09/08/19 09/08/19 History cholecalciferol (vitamin D3) 50,000 unit PO WK 09/08/19 09/08/19 History [D3-50 Cholecalciferol] hydralazine 25 mg PO TID 09/08/19 09/08/19 History losartan [Cozaar] 50 mg PO DAILY 09/08/19 09/08/19 History tramadol [Ultram] 50 mg PO Q6 PRN 09/08/19 09/08/19 History Past Med/Surg History Medical History Atrial fibrillation with RVR (Resolved) CKD (chronic kidney disease) stage 3, GFR 30-59 ml/min (Chronic) Depression (Chronic) Dyslipidemia (Chronic) History of CVA (cerebrovascular accident) (Resolved) HTN (hypertension) (Chronic) Hypertensive urgency (Acute) Hypothyroidism Left arm pain MICKY (obstructive sleep apnea) Osteoporosis (Chronic) Paroxysmal atrial fibrillation Vitamin D deficiency (Chronic) Surgical History H/O cataract removal with insertion of prosthetic lens (Resolved) History of appendectomy (Resolved) History of tonsillectomy (Resolved) History of total hysterectomy (Resolved) Family History Other Coronary heart disease Hypertension Stroke Social History Preferred Language: Botswanan Communication Ability: Effective Supervisor Concrete Stone Finishing Required: No Beliefs That Will Affect Care: None marital status: Life Partner Current Living Situation: Family Current Living Situation Comment: Great grandson lives with patient Other Information That Helps Us Care for You: No Feels Safe at Home: Yes Safety Concerns: Feels Safe At This Time Smoking Status: Never smoker Tobacco Type: cigarettes ; Do You Dip or Chew Tobacco: No ; Second Hand Exposure: No ; Tobacco Cessation Education Requested by Patient: No Hx Alcohol Use: No Hx Substance Use: No Review of Systems Review of Systems: As per HPI, all 10 systems reviewed, all other ROS negative Physical Exam Physical Exam: GENERAL: Comfortable, anxious, obese, no respiratory distress SKIN: Normal color, warm HEENT: [place] palpebral conjunctivae, no ptosis, dry buccal mucosa NECK : Supple, short neck, no tenderness CHEST : Decreased breath sounds, no tenderness HEART : Bradycardic, no obvious murmurs ABDOMEN: Some distention, nontender EXTREMITIES : Bilateral LE swelling, no LE tenderness, no other conspicuous deformities noted NEUROLOGIC : Coherent, no facial asymmetry, no other gross focality Results & Data Results & Data ([facility]) Vital Signs (Past 12 Hours) Vital Signs Temp Pulse Resp BP Pulse Ox 09/08/19 23:32 58 L 20 193/89 H 95 09/08/19 23:02 57 L 19 209/73 H 94 09/08/19 22:53 69 24 211/93 H 97 09/08/19 22:50 58 L 21 270/110 H 97 09/08/19 22:49 67 20 270/110 H 94 09/08/19 22:31 55 L 16 209/87 H 95 09/08/19 22:30 54 L 19 97 09/08/19 22:01 56 L 17 186/120 H 95 09/08/19 22:00 55 L 17 95 09/08/19 21:31 56 L 14 219/89 H 94 09/08/19 21:30 56 L 16 94 09/08/19 21:01 57 L 23 197/93 H 95 09/08/19 21:00 57 L 24 96 09/08/19 20:30 57 L 17 95 09/08/19 20:18 58 L 16 96 09/08/19 20:17 60 20 200/88 H 97 09/08/19 20:13 36.9 C 71 18 213/90 H 95 Laboratory Results Laboratory Results WBC 7.69 K/uL (4.8-10.8) 09/08/19 20:42 RBC 4.23 M/uL (4.2-5.4) 09/08/19 20:42 Hgb 13.6 g/dL (12.0-16.0) 09/08/19 20: Hct 41.7 % (37-47) 09/08/19 20: MCV 98.6 fL (80-100) 09/08/19 20: MCH 32.2 pg (25-34) 09/08/19 20: MCHC 32.6 g/dL (32-36) 09/08/19 20: RDW Std Deviation 48.0 fL (36.4-46.3) H 09/08/19 20: RDW Coeff of Shannan 13.4 % (11.5-14.5) 09/08/19 20: Plt Count 273 K/uL (130-400) 09/08/19 20: MPV 8.9 fL (7.4-10.4) 09/08/19 20: Immature Gran % (Auto) 0.3 % 09/08/19 20: Neut % (Auto) 74.9 % 09/08/19 20: Lymph % (Auto) 16.1 % 09/08/19 20: [place] % (Auto) 6.2 % 09/08/19 20: Eos % (Auto) 2.2 % 09/08/19 20: Baso % (Auto) 0.3 % 09/08/19: Neut # (Auto) 5.76 K/uL (1.4-6.5) 09/08/19 20: Lymph # (Auto) 1.24 K/uL (1.2-3.4) 09/08/19 20: [place] # (Auto) 0.48 K/uL (0.11-0.59) 09/08/19 20: Eos # (Auto) 0.17 K/uL (0-0.5) 09/08/19 20: Baso # (Auto) 0.02 K/uL (0-0.2) 09/08/19: Immature Gran # (Auto) 0.02 K/uL (0.00-0.02) 09/08/19 20: PT 12.5 Seconds (9.0-12.0) H 09/08/19 20: INR 1.2 (0.9-1.1) H 09/08/19 20:42 APTT 52.9 Seconds (21.0-31.0) H* 09/08/19 20: PTT Ratio 1.9 09/08/19 20: Sodium 136 mmol/L (136-145) 09/08/19 20:42 Potassium 3.8 mmol/L (3.5-5.1) 09/08/19 20: Chloride 102 mmol/L (98-107) 09/08/19 20: Carbon Dioxide 26 mmol/L (21-32) 09/08/19 20: Anion Gap 7.0 (3-11) 09/08/19 20: BUN 23 mg/dl (7-18) H 09/08/19 20: Creatinine 1.12 mg/dl (0.6-1.2) 09/08/19 20: Est Cr Clr Drug Dosing 55.6 ml/min 09/08/19 20:42 Est GFR ( Amer) 54.5 09/08/19 20: Est GFR (Non-Af Amer) 47.0 09/08/19 20:42 BUN/Creatinine Ratio 20.4 (10-20) H 09/08/19 20: Glucose 118 mg/dl (70-99) H 09/08/19 20: Calcium 9.4 mg/dl (8.5-10.1) 09/08/19 20: Magnesium 2.2 mg/dl (1.8-2.4) 09/08/19 20: Total Bilirubin 0.4 mg/dl (0.2-1) 09/08/19 20: AST 21 U/L (15-37) 09/08/19 20:42 ALT 23 U/L (12-78) 09/08/19 20:42 Alkaline Phosphatase 96 U/L (45-117) 09/08/19 20:42 Troponin I < 0.015 ng/ml (0-0.045) 09/08/19 20: NT-Pro-B Natriuret Pep 440 pg/ml (0-1800) 09/08/19 20: Total Protein 8.0 gm/dl (6.4-8.2) 09/08/19 20: Albumin 4.1 gm/dl (3.4-5.0) 09/08/19 20:42 Globulin 3.9 gm/dl (2.5-4.0) 09/08/19 20:42 Albumin/Globulin Ratio 1.1 (0.9-2) 09/08/19 20:42 Lipase 213 U/L (73-393) 09/08/19 20:42 TSH 5.930 uIu/ml (0.300-4.500) H 09/08/19 20:42 Diagnostic Findings Chest x-ray as per my interpretation cardiomegaly, atelectasis, minimal congestion EKG as per my interpretation : Rate 60, NSR, LAD, LAFB, RBBB, T wave abnormalities inferior leads
[2019-09-09] MEDS ORDERED: MoRPHine SULFATE 4 MG/ML 1 ML CARP\\VIAL IV PRN (01:17)
[2019-09-09] MEDS ORDERED: ACETAMINOPHEN 325 MG TAB PO PRN (01:17)
[2019-09-09] MEDS ORDERED: NITROGLYCERIN SL 0.4 MG/TAB TAB SL PRN (01:17)
[2019-09-09] MEDS ORDERED: PROMETHAZINE HCL 12.5 MG in SODIUM CHLORIDE 0.9% 50 ML IV PRN (01:17)
[2019-09-09] MEDS ORDERED: TRAMADOL HCL 50 MG TABLET PO PRN (01:17)
[2019-09-09] MEDS: ATORVASTATIN 40 MG TAB PO SCH ×2 (01:58→19:58)
[2019-09-09] MEDS: LEVOTHYROXINE SODIUM 50 MCG TABLET PO SCH (05:51)
[2019-09-09 07:12] LABS: Basophils # (auto) 0.02 K/uL (0-0.2); Basophils % (auto) 0.2 %; Eosinophils # (auto) 0.14 K/uL (0-0.5); Eosinophils % (auto) 1.6 %; Hematocrit (blood only) 38.9 % (37-47); Hemoglobin 13.3 g/dL (12.0-16.0); Immature Granulocytes # (auto) 0.02 K/uL (0.00-0.02); Immature Granulocytes % (auto) 0.2 %; Lymphocytes # (auto) 1.38 K/uL (1.2-3.4); Lymphocytes % (auto) 15.8 %; Mean Corpuscular Hemoglobin 32.8 pg (25-34); Mean Corpuscular Hgb Conc 34.2 g/dL (32-36); Mean Platelet Volume 8.6 fL (7.4-10.4); Monocytes # (auto) 0.74 K/uL (0.11-0.59); Monocytes % (auto) 8.5 %; Neutrophils # (auto) 6.41 K/uL (1.4-6.5); Neutrophils % (auto) 73.7 %; Platelet Count 234 K/uL (130-400); RDW Coefficient of Variation 13.4 % (11.5-14.5); Red Blood Count 4.05 M/uL (4.2-5.4); White Blood Count 8.71 K/uL (4.8-10.8)
[2019-09-09 07:39] LABS: BUN Creatinine Ratio 18.2 (10-20); Blood Urea Nitrogen 20 mg/dl (7-18); Calcium 9.4 mg/dl (8.5-10.1); Carbon Dioxide 28 mmol/L (21-32); Chloride 101 mmol/L (98-107); Creatinine Clr Calc Pharmacy 54.2 ml/min; Est GFR (African American) 54.5; Glucose 100 mg/dl (70-99); Potassium 3.7 mmol/L (3.5-5.1); Sodium 137 mmol/L (136-145)
[2019-09-09 07:44] LABS: Troponin I < 0.015 ng/ml (0-0.045)
[2019-09-09] MEDS: METOPROLOL SUCC 50MG EXT REL TAB PO SCH (08:33)
--- NOTE | 2019-09-09 08:34 | Ultrasound Report ---
US abdomen ltd ascites HISTORY: 78 years-old Female abd distension abdominal distention with clinical concern for ascites COMPARISON: Chest CT 04/24/2019 TECHNIQUE: Multiple real-time sonographic images of the abdomen were obtained assessing grayscale miles earance as assessing for possible ascites FINDINGS: No ascites identified in the abdomen. No gross abnormality identified. IMPRESSION: No ascites identified. ACT 112: Negative or not required by law. The above report was generated using voice recognition software. It may contain grammatical, syntax o r spelling errors. Electronically signed by: Boyd Cheng M.D. 09/09/2019 8:33 AM
[2019-09-09] MEDS: DABIGATRAN ETEXILATE 75 MG CAP PO SCH ×2 (08:37→19:58)
[2019-09-09] MEDS: LOSARTAN POTASSIUM 50 MG TAB PO SCH (08:37)
[2019-09-09] MEDS ORDERED: PROMETHAZINE HCL 6.25 MG in SODIUM CHLORIDE 0.9% 50 ML IV PRN (09:21)
--- NOTE | 2019-09-09 09:26 | Cardiology Consultation ---
Date of Consultation September 09, 2019 Assessment & Plan (1) Hypertensive emergency: (2) Chest pain: (3) Bilateral edema of lower extremity: (4) Paroxysmal atrial fibrillation: 78-year-old female mated with hypertensive urgency associated with prolonged exposure to excessive heat. Patient has improved topical nitrates in the ER. Nitrates have since been discontinued. No recurrent atrial fibrillation per ECG or telemetry. No evidence of acute coronary syndrome. Agree with titration of losartan to 100 mg daily. Recommend addition of low-dose diuretic therapy, hydrochlorothiazide 12.5 mg daily. Repeat basic metabolic panel in 1 week. Resting 2D transthoracic echocardiogram will be performed to reassess left ventricular systolic function and wall motion. If echocardiogram is stable. Patient may be discharged on diuretic therapy. Recommend outpatient cardiology follow-up in two weeks. History of Present Illness Reason for Consultation: chest pain Hypertensive emergency Requesting Physician: Dr. Vargas Attending Physician: Abdon Chawla MD History of Present Illness 78-year-old female presents to the emergency department with chest discomfort. Symptoms reminiscent of her presentation to the ER in February 2019. Markedly elevated blood pressure with systolic blood pressure of 270 mmHg. Nitropaste added with improvement of blood pressure. Chest discomfort resolved. Cardiac enzymes are negative. ECG demonstrates right bundle branch block, unchanged from prior. Lexiscan nuclear stress test performed February 2019 negative for inducible ischemia. Resting 2D transthoracic echocardiogram performed 02/2019 demonstrates normal function, normal wall motion, and normal left atrial size. She is followed in the cardiology clinic for history of hypertension and paroxysmal atrial fibrillation. Chronically anticoagulated with Pradaxa. No signs/symptoms of GI/ blood loss. Amiodarone discontinued due to evidence of pulmonary scarring per CT. Patient feeling better this a.m. Admits to spending long hours in the hot sun yesterday watching her grandchildren swim. While outdoors she felt unwell. She came indoors and attempted to eat. She became nauseated, however, she did not vomit. Her daughter prompted her to assess home blood pressure which reported a systolic blood pressure of 230 mmHg. She then came to the emergency department. Noted occasional, short, 2 to 3-second episodes of chest discomfort described as a sharp pain. Reports significant lower extremity edema over the past 2 days. She attributed to high heat and sodium intake. No unusual shortness of breath. In the ER, patient received topical nitrates and her usual oral antihypertensive medications. Her blood pressure has improved overnight. Currently resting comfortably. Allergies Allergy/AdvReac Type Severity Reaction Status Date / Time amlodipine Allergy Unknown SWELLING Unverified 09/08/19 20:46 OF FEET Home Medications Home Medications Medication Instructions Recorded Confirmed Type Pradaxa 150 mg PO BID 02/09/19 09/08/19 History atorvastatin 40 mg PO HS 02/09/19 09/08/19 History levothyroxine 50 mcg PO DAILY 02/09/19 09/08/19 History metoprolol succinate 50 mg PO DAILY 02/09/19 09/08/19 History albuterol sulfate 2.5 mg INHALATION Q4 PRN 09/08/19 09/08/19 History cholecalciferol (vitamin D3) 50,000 unit PO WK 09/08/19 09/08/19 History [D3-50 Cholecalciferol] hydralazine 25 mg PO TID 09/08/19 09/08/19 History losartan [Cozaar] 50 mg PO DAILY 09/08/19 09/08/19 History tramadol [Ultram] 50 mg PO Q6 PRN 09/08/19 09/08/19 History Patient History Medical History Atrial fibrillation with RVR (Resolved) CKD (chronic kidney disease) stage 3, GFR 30-59 ml/min (Chronic) Depression (Chronic) Dyslipidemia (Chronic) History of CVA (cerebrovascular accident) (Resolved) HTN (hypertension) (Chronic) Hypertensive urgency (Acute) Hypothyroidism Left arm pain MICKY (obstructive sleep apnea) Osteoporosis (Chronic) Paroxysmal atrial fibrillation Vitamin D deficiency (Chronic) Surgical History H/O cataract removal with insertion of prosthetic lens (Resolved) History of appendectomy (Resolved) History of tonsillectomy (Resolved) History of total hysterectomy (Resolved) Family History Other Coronary heart disease Hypertension Stroke Social History Preferred Language: [place] Citizen Communication Ability: Effective District Home Economics Agent Required: No Beliefs That Will Affect Care: None marital status: Life Partner Current Living Situation: Family Current Living Situation Comment: Great grandson lives with patient Other Information That Helps Us Care for You: No Feels Safe at Home: Yes Safety Concerns: Feels Safe At This Time Smoking Status: Never smoker Tobacco Type: cigarettes ; Do You Dip or Chew Tobacco: No ; Second Hand Exposure: No ; Tobacco Cessation Education Requested by Patient: No Hx Alcohol Use: No Hx Substance Use: No Review of Systems Review of Systems: All systems reviewed & are unremarkable except as noted in HPI & below Physical Exam Constitutional: well developed and well nourished; no acute distress and not ill appearing Respiratory: Auscultation: + crackles (Dry crackles bilaterally at the base and midlung bender); no rales, no rhonchi and no wheezes Cardiovascular: Rate/Rhythm: regular rhythm Heart Sounds: normal S1 and normal S2; no murmur and no cardiac rub Vessels: radial pulses present; no JVD and no carotid bruit Extremities: + edema (Trace bilateral pedal and ankle edema) Gastrointestinal (Abdomen): Inspection/Auscultation: abdomen normal to inspection and normal bowel sounds; abdomen not distended Percussion/Palpation: abdomen soft; abdomen nontender, no guarding and abdomen not rigid Musculoskeletal: no cyanosis or clubbing, extremities motor strength 5/5 Skin: no rashes, warm and dry Neurologic: CN's II-XI intact bilaterally and moves all extremities; no focal motor deficits Speech / Cognition: normal speech Motor/Sensory: no tremor Psychiatric: A+Ox3, euthymic affect Results & Data ([facility]) Vital Signs (Past 12 Hours) Vital Signs Temp Pulse Pulse Resp BP BP BP 09/09/19 08:00 61 67 132/57 L 09/09/19 07:36 36.5 C 57 L 18 125/69 09/09/19 04:09 36.5 C 60 18 150/67 H 09/09/19 01:12 59 L 160/83 H 09/09/19 00:53 36.3 C L 62 18 194/111 H 09/09/19 00:02 60 18 148/79 H 09/08/19 23:32 58 L 20 193/89 H 09/08/19 23:02 57 L 19 209/73 H 09/08/19 22:53 69 24 211/93 H 09/08/19 22:50 58 L 21 270/110 H 09/08/19 22:49 67 20 270/110 H 09/08/19 22:31 55 L 16 209/87 H 09/08/19 22:30 54 L 19 09/08/19 22:01 56 L 17 186/120 H 09/08/19 22:00 55 L 17 09/08/19 21:31 56 L 14 219/89 H 09/08/19 21:30 56 L 16 Pulse Ox 09/09/19 08:00 09/09/19 07:36 93 09/09/19 04:09 95 09/09/19 01:12 09/09/19 00:53 95 09/09/19 00:02 91 09/08/19 23:32 95 09/08/19 23:02 94 09/08/19 22:53 97 09/08/19 22:50 97 09/08/19 22:49 94 09/08/19 22:31 95 09/08/19 22:30 97 09/08/19 22:01 95 09/08/19 22:00 95 09/08/19 21:31 94 09/08/19 21:30 94 (1) Chest pain Chest pain type: unspecified Qualified Code(s): R07.9 - Chest pain, unspecified
--- NOTE | 2019-09-09 10:09 | XRay Report ---
XR chest 1V portable CLINICAL HISTORY: Chest pain. COMPARISON STUDY: Chest CT April 24, 2019. FINDINGS: Lung volumes are mildly diminished. Moderate cardiomegaly is noted. There is no evidence fo r pulmonary edema. There is no pneumothorax or pleural effusion. No consolidation is identified. IMPRESSION: 1. Low lung volumes. No acute findings. 2. Moderate cardiomegaly without evidence for pulmonary edema. ACT 112: Negative or not required by law. Electronically signed by: Rock Edmonds M.D. 09/09/2019 10:07 AM
[2019-09-09] MEDS: hydroCHLOROthiazide 25 MG TAB PO SCH (10:27)
--- NOTE | 2019-09-09 15:35 | Hospitalist Progress Note ---
Date of Service September 09, 2019 Assessment & Plan (1) Hypertensive crisis: Hypertensive emergency Chest Pain H/O hypertension --ECHO: Left ventricle systolic function is normal. EF 60 to 65%. Mild concentric LVH. Left atrium is mildly dilated. Aortic valve sclerosis mild, without significant aortic valvular stenosis. Aortic root is normal size. Ascending aorta is mildly enlarged, 4.4 cm. Compared to prior study, mild ascending aortic enlargement. The ascending aortic diameter was 4.[address] in Apr 2019. --CXR: Low lung volumes. No acute findings. Moderate cardiomegaly without evidence for pulmonary edema. Cardiac enzymes negative Chest discomfort likely secondary to uncontrolled hypertension Continue hydralazine 25 mg daily, hydrochlorothiazide 12.5 mg daily metoprolol 50 mg daily Increase losartan 200 mg daily Appreciate cardiology input. Needs repeat basic metabolic panel in 1 week and follow-up with cardiology in 2 weeks. Chronic diastolic heart failure Chronic B/L LE edema continue home diuretics ABD USD:No ascites identified. Monitor volume status Paroxysmal atrial fibrillation Currently in sinus Continue metoprolol On Pradaxa for anticoagulation Hyperlipidemia on statin H/O CVA/PVD Continue Lipitor Also on Pradaxa Hyperglycemia likely prediabetes, Hb A1c of 5.8 last 2016 Repeat HbA1C:pending Hypothyroidism Continue levothyroxine MICKY on CPAP DVT Px: Pradaxa Code Status Full code Admission and Anticipated Discharge Date Admission Date: September 08, 2019 Subjective Patient is seen and examined at bedside Chest discomfort, shortness of breath, nausea resolved Blood pressure better controlled today Denies any dizziness, abdominal pain, headache, blurry vision Discussed with patient's family today Offers no other complaints Review of Systems Review of Systems: All systems reviewed & are unremarkable except as noted in HPI & below Physical Exam Physical Exam: Physical Exam: Vitals signs as noted above General Appearance:Obese, no apparent distress Head: normocephalic, Atraumatic Eyes: normal inspection, EOMI Neck: supple, Trachea midline Respiratory/Chest: Normal breath sounds, + Basal crackles, No accessory muscle use Cardiovascular: S1, S2, No murmur Abdomen/GI:Soft, Non tender, Bowel sounds present Extremities/Musculoskelatal:normal inspection, 1+ B/L LE edema Neurologic/Psych:AAOX3, grossly no focal neurological deficits Skin: normal color, warm Results & Data Results & Data ([facility]) Vital Signs (Past 12 Hours) Vital Signs Temp Pulse Pulse Pulse Resp BP BP 09/09/19 14:54 61 09/09/19 14:15 63 150/72 H 09/09/19 10:25 57 L 156/74 H 09/09/19 08:00 61 67 132/57 L 09/09/19 07:36 36.5 C 57 L 18 125/69 09/09/19 04:09 36.5 C 60 18 150/67 H Pulse Ox 09/09/19 14:54 09/09/19 14:15 09/09/19 10:25 09/09/19 08:00 09/09/19 07:36 93 09/09/19 04:09 95 Laboratory Results Short CBC 09/08/19 09/09/19 Range/Units 20:42 06:58 WBC 7.69 8.71 (4.8-10.8) K/uL Hgb 13.6 13.3 (12.0-16.0) g/dL Hct 41.7 38.9 (37-47) % Plt Count 273 234 (130-400) K/uL BMP 09/08/19 09/09/19 20:42 06:58 Sodium 136 137 Potassium 3.8 3.7 Chloride 102 101 Carbon Dioxide 26 28 BUN 23 H 20 H Creatinine 1.12 1.12 Glucose 118 H 100 H Calcium 9.4 9.4 Cardiac Enzymes 09/08/19 09/09/19 Range/Units 20:42 06:58 Troponin I < 0.015 < 0.015 (0-0.045) ng/ml Liver Function 09/08/19 Range/Units 20:42 Total Bilirubin 0.4 (0.2-1) mg/dl AST 21 (15-37) U/L ALT 23 (12-78) U/L Alkaline Phosphatase 96 (45-117) U/L Albumin 4.1 (3.4-5.0) gm/dl
[2019-09-09] MEDS ORDERED: POLYETHYLENE (MIRALAX) 17 GM PACK PO PRN (20:17)
[2019-09-09] MEDS ORDERED: DOCUSATE SODIUM/SENNA 50/8.6MG TAB PO SCH (20:20)
[2019-09-10] MEDS: LEVOTHYROXINE SODIUM 50 MCG TABLET PO SCH (05:49)
[2019-09-10 06:19] LABS: Estimated Average Glucose 120 mg/dl; Hemoglobin A1C 5.8 % (4.5-5.6)
[2019-09-10 06:40] LABS: BUN Creatinine Ratio 18.9 (10-20); Creatinine Clr Calc Pharmacy 34.6 ml/min; Est GFR (African American) 31.8; Est GFR (Non-African American) 27.4; Magnesium 2.3 mg/dl (1.8-2.4); Potassium 3.8 mmol/L (3.5-5.1)
[2019-09-10] MEDS: DABIGATRAN ETEXILATE 75 MG CAP PO SCH (09:50)
[2019-09-10] MEDS: hydroCHLOROthiazide 25 MG TAB PO SCH (09:50)
[2019-09-10] MEDS: METOPROLOL SUCC 50MG EXT REL TAB PO SCH (09:50)
[2019-09-10] MEDS: LOSARTAN POTASSIUM 50 MG TAB PO SCH (09:50)
--- NOTE | 2019-09-10 12:10 | Cardiology Progress Note ---
Date of Service September 10, 2019 Assessment & Plan (1) Hypertensive emergency: (2) Chest pain: (3) Bilateral edema of lower extremity: (4) Paroxysmal atrial fibrillation: 78-year-old female mated with hypertensive urgency associated with prolonged exposure to excessive heat. Blood pressure has improved with titration of losartan and addition of low-dose hydrochlorothiazide, however, creatinine increased to 1.75 this morning. Recommend reduce losartan back to 50 mg daily and continue low-dose hydrochlorothiazide with close follow-up of renal function. Repeat resting 2D transthoracic echocardiogram is stable. Further recommendations pending review of follow-up renal function panel. Close cardiology follow-up in 1 week. Subjective Patient seen and examined at the bedside. Blood pressure controlled. Edema improved since admission. Creatinine elevated to 1.75 today. Baseline appears to be approximately 1.4 per review of most recent [facility] records. Losartan titrated to 100 mg daily, and hydrochlorothiazide, 12.5 mg daily added during hospitalization. Patient requesting discharge. Denies chest discomfort or shortness of breath. No palpitations, lightheadedness, dizziness, syncope, or near syncope. Telemetry demonstrates sinus rhythm. Review of Systems Review of Systems: All systems reviewed & are unremarkable except as noted in HPI & below Physical Exam Constitutional: well developed and well nourished; no acute distress and not ill appearing Respiratory: Auscultation: + crackles (Dry crackles bilaterally at the base and midlung bender); no rales, no rhonchi and no wheezes Cardiovascular: Rate/Rhythm: regular rhythm Heart Sounds: normal S1 and normal S2; no murmur and no cardiac rub Vessels: radial pulses present; no JVD and no carotid bruit Extremities: + edema (Trace bilateral pedal and ankle edema) Gastrointestinal (Abdomen): Inspection/Auscultation: abdomen normal to inspection and normal bowel sounds; abdomen not distended Percussion/ Palpation: abdomen soft; abdomen nontender, no guarding and abdomen not rigid Musculoskeletal: no cyanosis or clubbing, extremities motor strength 5/5 Skin: no rashes, warm and dry Neurologic: CN's II-XI intact bilaterally and moves all extremities; no focal motor deficits Speech / Cognition: normal speech Motor/Sensory: no tremor Psychiatric: A+Ox3, euthymic affect Results & Data Vital Signs (Past 12 Hours) Vital Signs Temp Pulse Pulse Resp BP BP Pulse Ox 09/10/19 11:57 36.9 C 54 L 18 122/66 91 09/10/19 07:52 36.6 C 54 L 18 143/78 H 94 09/10/19 07:40 51 L 09/10/19 03:19 36.5 C 57 L 18 139/60 96 (1) Chest pain Chest pain type: unspecified Qualified Code(s): R07.9 - Chest pain, unspecified
--- NOTE | 2019-09-10 12:42 | Hospitalist Progress Note ---
Date of Service September 10, 2019 Assessment & Plan (1) Hypertensive crisis: Hypertensive emergency Chest Pain H/O hypertension --ECHO: Left ventricle systolic function is normal. EF 60 to 65%. Mild concentric LVH. Left atrium is mildly dilated. Aortic valve sclerosis mild, without significant aortic valvular stenosis. Aortic root is normal size. Ascending aorta is mildly enlarged, 4.4 cm. Compared to prior study, mild ascending aortic enlargement. The ascending aortic diameter was 4.[address] in Apr 2019. --CXR: Low lung volumes. No acute findings. Moderate cardiomegaly without evidence for pulmonary edema. Cardiac enzymes negative Chest discomfort likely secondary to uncontrolled hypertension--resolved Continue hydralazine 25 mg daily, hydrochlorothiazide 12.5 mg daily metoprolol 50 mg daily Losartan to be switched back to 50 mg daily as creatinine levels elevated. Appreciate cardiology input. BP improved Needs repeat basic metabolic panel in 1 week and follow-up with cardiology in 2 weeks. Chronic diastolic heart failure Chronic B/L LE edema continue home diuretics ABD USD:No ascites identified. Monitor volume status Continue hydrochlorothiazide 12.5 mg daily Paroxysmal atrial fibrillation Currently in sinus Continue metoprolol On Pradaxa for anticoagulation Hyperlipidemia on statin H/O CVA/PVD Continue Lipitor Also on Pradaxa Hyperglycemia likely prediabetes, Hb A1c of 5.8 last 2016 Repeat HbA1C:pending Hypothyroidism Continue levothyroxine MICKY on CPAP DVT Px: Pradaxa Code Status Full code Admission and Anticipated Discharge Date Admission Date: September 08, 2019 Subjective Patient is seen and examined at bedside Doing well today Offers no complaints Creatinine elevated to 1.7 today Discussed with cardiology today Denies any chest pain, shortness of breath, dizziness, nausea, abdominal pain Review of Systems Review of Systems: All systems reviewed & are unremarkable except as noted in HPI & below Physical Exam Physical Exam: Physical Exam: Vitals signs as noted above General Appearance:Obese, no apparent distress Head: normocephalic, Atraumatic Eyes: normal inspection, EOMI Neck: supple, Trachea midline Respiratory/Chest: Normal breath sounds, CTA, No accessory muscle use Cardiovascular: S1, S2, No murmur Abdomen/GI:Soft, Non tender, Bowel sounds present Extremities/Musculoskelatal:normal inspection, 1+ B/L LE edema Neurologic/Psych:AAOX3, grossly no focal neurological deficits Skin: normal color, warm Results & Data Results & Data ([facility]) Vital Signs (Past 12 Hours) Vital Signs Temp Pulse Pulse Resp BP BP Pulse Ox 09/10/19 11:57 36.9 C 54 L 18 122/66 91 09/10/19 07:52 36.6 C 54 L 18 143/78 H 94 09/10/19 07:40 51 L 09/10/19 03:19 36.5 C 57 L 18 139/60 96 Laboratory Results [facility] 09/10/19 05:48 Sodium 139 Potassium 3.8 Chloride 104 Carbon Dioxide 31 BUN 33 H D Creatinine 1.75 H D Glucose 89 Calcium 9.0
--- NOTE | 2019-09-10 12:51 | Discharge Summary ---
Date of Service September 10, 2019 Admission HPI Per Admitting Provider History obtained from patient, family, and records. Medical history significant for PAF on Pradaxa, diastolic dysfunction as per records, hypertension, hyperlipidemia, past history CVA, PVD as per records, MICKY on CPAP Last confinement February 2019 for chest pain secondary to hypertensive emergency. Hydralazine added to home losartan and beta-cindi medications on discharge. This afternoon, patient noted left sided chest pain with shortness of breath similar to "mild heart attack" in the past. No unusual cough symptoms. Abdominal distention, bilateral leg swelling, weight gain over the last few months despite compliance with home medications. Denies dietary indiscretion/NSAID intake. Some stress with recent of sister as per patient daughter. Compliant with CPAP mask. Usual SBP at home the last 2 months 1 50-1 60s. Elevated BP readings not immediately disclosed the patient family or healthcare providers as per patient daughter. SBP noted to be 200s at home as per daughter. Some relief of chest discomfort with aspirin and nitroglycerin administration at home. Nitropaste administered at the ER. Medical History as above Surgical History : Cataract surgery, appendectomy, tonsillectomy, hysterectomy Family History : Diabetes, heart disease, stroke Personal/Social history : Non-smoker, no EtOH intake, retired [employer] employee Admission Exam Per Admitting Provider Physical Exam Physical Exam: GENERAL: Comfortable, anxious, obese, no respiratory distress SKIN: Normal color, warm HEENT: [place] palpebral conjunctivae, no ptosis, dry buccal mucosa NECK : Supple, short neck, no tenderness CHEST : Decreased breath sounds, no tenderness HEART : Bradycardic, no obvious murmurs ABDOMEN: Some distention, nontender EXTREMITIES : Bilateral LE swelling, no LE tenderness, no other conspicuous deformities noted NEUROLOGIC : Coherent, no facial asymmetry, no other gross focality Principal Diagnosis Hypertensive emergency Discharge Data Allergies Allergy/AdvReac Type Severity Reaction Status Date / Time amlodipine Allergy Unknown SWELLING Unverified 09/08/19 20:46 OF FEET Consultations 09/08/19 22:55 ED Decision to Admit Stat 09/09/19 01:17 Consult Cardiology Routine Procedures Performed --ECHO: Left ventricle systolic function is normal. EF 60 to 65%. Mild concentric LVH. Left atrium is mildly dilated. Aortic valve sclerosis mild, without significant aortic valvular stenosis. Aortic root is normal size. Ascending aorta is mildly enlarged, 4.4 cm. Compared to prior study, mild ascending aortic enlargement. The ascending aortic diameter was 4.[address] in Apr 2019. --CXR: Low lung volumes. No acute findings. Moderate cardiomegaly without evidence for pulmonary edema. Ordered Studies 09/09/19 23:43 US abdomen ltd ascites Urgent Hospital Course (1) Hypertensive crisis: Hypertensive emergency Chest Pain H/O hypertension --ECHO: Left ventricle systolic function is normal. EF 60 to 65%. Mild concentric LVH. Left atrium is mildly dilated. Aortic valve sclerosis mild, without significant aortic valvular stenosis. Aortic root is normal size. Ascending aorta is mildly enlarged, 4.4 cm. Compared to prior study, mild ascending aortic enlargement. The ascending aortic diameter was 4.[address] in Apr 2019. --CXR: Low lung volumes. No acute findings. Moderate cardiomegaly without evidence for pulmonary edema. Cardiac enzymes negative Chest discomfort likely secondary to uncontrolled hypertension--resolved Continue hydralazine 25 mg daily, hydrochlorothiazide 12.5 mg daily metoprolol 50 mg daily Losartan to be switched back to 50 mg daily as creatinine levels elevated. Appreciate cardiology input. BP improved Needs repeat basic metabolic panel in 1 week and follow-up with cardiology in 2 weeks. Chronic diastolic heart failure Chronic B/L LE edema continue home diuretics ABD USD:No ascites identified. Monitor volume status Continue hydrochlorothiazide 12.5 mg daily Paroxysmal atrial fibrillation Currently in sinus Continue metoprolol On Pradaxa for anticoagulation Hyperlipidemia on statin CKD III Baseline creatinine ~1.4-1.6 Monitor renal function H/O CVA/PVD Continue Lipitor Also on Pradaxa Hyperglycemia likely prediabetes, Hb A1c of 5.8 last 2016 Repeat HbA1C:pending Hypothyroidism Continue levothyroxine MICKY on CPAP DVT Px: Pradaxa Code Status Full code Total Time Total Time Spent Total Time Spent (In Minutes): 38 minutes Discharge Plan Discharge Items Patient Disposition: Home - Self-Care Reason For Visit: HTN CRISIS,CHF Discharge Diagnosis: Hypertensive emergency Condition on Discharge: Good Activity: Resume your previous activity Exercise/Sports: Gradually increase as tolerated Non-emergency contact: Primary Care Provider and Member Services Coordinator Call non-emergency contact if: you have any medication questions, your symptoms worsen, your pain is not controlled, your pain is worsening, your pain is unusual for you, your pain is concerning for you and you have a fever Follow-up/Referrals: Awais Pandya MD [Primary Care Provider] - 09/12/19 11:20 am (09/12/2019 11:20 AM Provider [facility] ) Diet: Heart Healthy Ambulatory Orders: Basic Metabolic Panel (Routine) Timeframe: 1 Week Location: Determined by Patient Ordered By: Abdon Ríos Attending Provider Instructions: Follow-up with your primary care physician Dr. 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 Seek immediate medical attention if your symptoms reoccur or worsen Pending Studies at Discharge: No Stand-Alone Forms: My [employer], Smoking Cessation Medications and DC Order Prescriptions: New polyethylene glycol 3350 [Miralax] 17 gram Powder In Packet 17 g PO DAILY PRN (Reason: constipation) Qty: 30 RF: 0 hydrochlorothiazide 25 mg Tablet 12.5 mg PO DAILY 30 Days Qty: 15 RF: 0 Continued atorvastatin 40 mg tablet 40 mg PO HS RF: 0 metoprolol succinate 50 mg tablet extended release 24 hr 50 mg PO DAILY RF: 0 levothyroxine 50 mcg Tablet 50 mcg PO DAILY RF: 0 Pradaxa 150 mg capsule 150 mg PO BID RF: 0 losartan [Cozaar] 50 mg tablet 50 mg PO DAILY RF: 0 albuterol sulfate 2.5 mg /3 mL (0.083 %) Solution For Nebulization 2.5 mg INHALATION Q4 PRN (Reason: Shortness Of Breath Or Wheezing) RF: 0 hydralazine 25 mg tablet 25 mg PO TID RF: 0 tramadol [Ultram] 50 mg tablet 50 mg PO Q6 PRN (Reason: Pain) RF: 0 cholecalciferol (vitamin D3) [D3-50 Cholecalciferol] 1,250 mcg (50,000 unit) capsule 50,000 unit PO WK RF: 0 Discharge Orders: Discharge Order (Routine); Ordered 09/10/19 Ordered By: Abdon Das/Other Patient Handouts: Low-Salt Choices Admission Data Admit Date/Time: 09/08/19 23:48 Attending Provider: Abdon Chawla Admit Provider: Juanito Clark Primary Care Provider: Awais Pandya Other Providers: Juanito Clark ; Chandler Hoang Other Interventions: Discharge Summary Assessment (RN) Last Done: 09/10/19 12:59 DC Date/Time DO NOT enter until pt leaves facility: 09/10/19 14:47
== END 2019-09-10 14:47 | disposition home or self-care (01) | DRG 305 ==
LOC: ED 20:05 → 2S 23:48

== ENCOUNTER 2025-02-10 13:28 | Inpatient (IN) ==
[2025-02-10 14:07] LABS: Hematocrit (blood only) 49.1 % (37.0-47.0); Hemoglobin 16.5 g/dL (12.0-16.0); Immature Granulocytes # (auto) 0.02 K/uL (0.01-0.20); Immature Granulocytes % (auto) 0.2 %; Mean Corpuscular Hemoglobin 31.9 pg (25.0-34.0); Mean Corpuscular Volume 95.0 fL (80.0-100.0); Platelet Count 214 K/uL (130-400); RDW Standard Deviation 47.6 fL (36.4-46.3); Red Blood Count 5.17 M/uL (4.20-5.40); White Blood Count 8.83 K/ul (4.8-10.8)
[2025-02-10 14:37] LABS: Potassium 4.5 mmol/L (3.5-5.1)
[2025-02-10 14:40] LABS: INR 1.1 (0.9-1.1); Partial Thromboplastin Time 28 Seconds (21-31); Prothrombin Time 11.4 Seconds (9.0-12.0)
[2025-02-10 14:41] LABS: Thyroid Stimulating Hormone 1.432 uIu/ml (0.300-4.500)
[2025-02-10 15:04] LABS: Base Excess VBG 5.5 mEq/L; HCO3 VBG 32 mmol/L; Oxygen Saturation VBG < 60.0 %; PCO2 VBG 56 mmHg (38-50); PO2 VBG 20 mmHg; pH VBG 7.37 (7.36-7.41)
[2025-02-10 15:13] LABS: Alanine Aminotransferase 27 U/L (7-52); Albumin Globulin Ratio 1.3 (0.9-2); Albumin Level 4.6 gm/dl (3.4-5.0); Alkaline Phosphatase 70 U/L (34-104); Anion Gap 9 (3-11); Bilirubin,Total 0.8 mg/dl (0.2-1.0); Blood Urea Nitrogen 49 mg/dl (6-23); Calcium 10.1 mg/dl (8.6-10.3); Carbon Dioxide 29 mmol/L (21-32); Chloride 100 mmol/L (98-107); Globulin 3.6 gm/dl (2.5-4.0); Glucose 98 mg/dl (70-99(Fasting)); Magnesium 2.5 mg/dl (1.7-2.4); Sodium 138 mmol/L (136-145); Total Protein 8.2 gm/dl (6.0-8.3)
--- NOTE | 2025-02-10 15:26 | XRay Report ---
Chest radiograph, one view History: 09/08/2019 Comparison: None Findings: Single AP view of the chest performed. No focal consolidation or pleural effusion. No pneumothorax. Aortic arch calcification. The cardiomediastinal silhouette is within normal limits. Normal pulmonary vascularity. No evidence for lymphadenopathy. No visualized bony or soft tissue abnormality. Impression: Normal chest radiograph Electronically signed by Lasha Price 02-10-2025 3:24 PM
[2025-02-10 15:31] LABS: Appearance Urine Cloudy (Clear); Bacteria Urine Automated 4+ (None Seen); Glucose Urine UA Negative (Negative); RBC Urine Automated 0-2 /hpf (0-2); WBC Urine Automated >50 /hpf (0-5)
[2025-02-10] MEDS: OPTIRAY 320 125ml IV ONE (15:43)
--- NOTE | 2025-02-10 16:22 | CT Scan Report ---
Head CT without contrast CT angiogram of the neck CT angiogram of the brain with contrast Provided History: Neuro deficit Comparison: None Technique: HEAD CT: Using multidetector thin collimation helical acquisition technique, axial, coronal and sagittal CT images from the skull base to the vertex were obtained without intravenous contrast. HEAD and NECK CTA: During rapid bolus intravenous injection of nonionic contrast material, axial images were obtained using thin collimation multidetector helical technique from the base of the neck through the of vertex of the head. This CT angiogram data was reconstructed at thin intervals with mild overlap. 3D reconstructions were obtained. The axial source images, multiplanar reformations, 3D reconstructions in both maximum intensity projection display and volume rendered models were reviewed. Dose reduction techniques were achieved by using automatic exposure control and/or adjustment of mA and/or kV according to patient size and/or use of iterative reconstruction technique. Findings: Head CT: There is no intracranial hemorrhage, mass effect, or midline shift. Lopez/white matter differentiation in both cerebral hemispheres is preserved. Ventricles are proportionate to the cerebral sulci. There is moderate cerebral atrophy. Moderate, patchy low-attenuation changes in the white matter, most suggestive of sequelae of chronic small vessel ischemic disease. Head CTA demonstrates no aneurysm or stenosis of the major intracranial arteries. Neck CTA demonstrates widely patent distal internal carotid arteries, as well as vertebral arteries. Atherosclerotic calcification at the carotid bulbs bilaterally extending into the proximal ICA, on the left resulting in approximately 30% focal stenosis and on the right resulting in approximately 40% stenosis. The origins of the great vessels from the aortic arch are patent. No mass is noted within the visualized portions of the cervical soft tissues or lung apices. Impression: 1. Head CTA demonstrates no aneurysm or stenosis of the major intracranial arteries, 2. Neck CTA demonstrates no large vessel occlusion. Patent distal internal carotid arteries. Atherosclerosis of the carotid bulbs and proximal ICA resulting in short segment focal stenoses, as above. 3. No intracranial hemorrhage on the noncontrast head CT. Electronically signed by Lasha Price 02-10-2025 4:22 PM
[2025-02-10] MEDS: cefTRIAXone SODIUM 2,000 MG/50 ML BAG IV STA (16:25)
--- NOTE | 2025-02-10 16:43 | Emergency Department Note ---
History of Present Illness General Chief complaint: Altered Mental Status Stated complaint: CONFUSED/LIGHTHEADED/SLEEPING ALL THE TIME Time Seen by Provider: 02/10/25 14:34 Source: patient and family History of Present Illness Provider complaint: Altered mental status 84-year-old female presents emergency department brought in by family for altered mental status. Family reports that the patient has been increasing confused for the last week. Family reports that the patient is having visual hallucinations. They reports the patient is having difficulty walking. They reports she is increasingly sleepy and lethargic. No fevers. No headache chest pain Diffley breathing or abdominal pain. Patient is on Pradaxa. Home Medications Medication Instructions Recorded Confirmed Type atorvastatin 40 mg tablet 40 mg PO HS 02/09/19 09/08/19 History dabigatran etexilate 150 mg 150 mg PO BID 02/09/19 09/08/19 History capsule (Pradaxa) levothyroxine 50 mcg tablet 50 mcg PO DAILY 02/09/19 09/08/19 History metoprolol succinate 50 mg 50 mg PO DAILY 02/09/19 09/08/19 History tablet,extended release 24 hr albuterol sulfate 2.5 mg/3 mL 2.5 mg inhalation Q4 PRN Shortness 09/08/19 09/08/19 History (0.083 %) solution for nebulization Of Breath Or Wheezing cholecalciferol (vitamin D3) 1,250 50,000 unit PO WK 09/08/19 09/08/19 History mcg (50,000 unit) capsule (D3-50 Cholecalciferol) hydralazine 25 mg tablet 25 mg PO TID 09/08/19 09/08/19 History losartan 50 mg tablet (Cozaar) 50 mg PO DAILY 09/08/19 09/08/19 History tramadol 50 mg tablet (Ultram) 50 mg PO Q6 PRN Pain 09/08/19 09/08/19 History polyethylene glycol 3350 17 gram 17 g PO DAILY PRN constipation #30 09/10/19 Rx oral powder packet (Miralax) ea Allergies Allergy/AdvReac Type Severity Reaction Status Date / Time amlodipine Allergy Unknown SWELLING Unverified 09/08/19 20:46 OF FEET Past Med/Surg History Problem List (Updated 02/10/25 @ 16:53 by Paulo Olivo MD) Acute UTI (Acute) Hypertensive crisis History of diastolic dysfunction (Acute) Bilateral edema of lower extremity (Acute) MICKY (obstructive sleep apnea) Hypertensive emergency Paroxysmal atrial fibrillation Chest pain (Acute) Left arm pain Hypothyroidism Hypertensive urgency (Acute) Depression (Chronic) Dyslipidemia (Chronic) Vitamin D deficiency (Chronic) Osteoporosis (Chronic) CKD (chronic kidney disease) stage 3, GFR 30-59 ml/min (Chronic) HTN (hypertension) (Chronic) Family History Other Coronary heart disease Hypertension Stroke Social History Smoking Status: Never smoker Second Hand Exposure: No; Do You Dip or Chew Tobacco: No; Hx Alcohol Use: No Hx Substance Use: No Preferred Language: Armenian Communication Ability: Effective Irrigator Sprinkling System Required: No Beliefs That Will Affect Care: None marital status: Life Partner Current Living Situation: Family Current Living Situation Comment: Great grandson lives with patient Feels Safe at Home: Yes Assistive Devices: Glasses and Walker Physical Exam Vital Signs Vital Signs - 24 hr 02/10/25 13:31 02/10/25 15:15 02/10/25 15:17 Temperature 35.2 C L Temperature Source Temporal Artery Scan Pulse Rate 90 104 H Respiratory Rate 18 20 Respiratory Effort / Characteristics Non-Labored Spontaneous Respiratory Depth Normal Respiratory Pattern Regular Blood Pressure 168/81 H Blood Pressure Mean 110 Pulse Oximetry 96 98 Oxygen Delivery Method Room Air Room Air Sepsis Recent Fever Within 48 Hours No Sepsis New/Unexplained Change in Mental Status N/A Sepsis Action Taken by Nursing No Action Required 02/10/25 15:17 Temperature Temperature Source Pulse Rate Respiratory Rate Respiratory Effort / Characteristics Respiratory Depth Respiratory Pattern Blood Pressure 174/131 H Blood Pressure Mean 134 Pulse Oximetry Oxygen Delivery Method Sepsis Recent Fever Within 48 Hours Sepsis New/Unexplained Change in Mental Status Sepsis Action Taken by Nursing Physical Exam GENERAL: oriented to person, place, and time. HENT: Exam performed. - Head: Normocephalic and atraumatic. EYES: Conjunctivae and EOM are normal. Right eye exhibits no discharge. Left eye exhibits no discharge. No scleral icterus. NECK: Normal range of motion. Neck supple. No JVD present. CV: Normal rate, regular rhythm, normal heart sounds and intact distal pulses. There is no peripheral edema. Palpable radial pulses bue. PULM/CHEST: Effort normal and breath sounds normal. No respiratory distress. No stridor. no wheezes. no rales. ABD: The abdomen is soft. There is no tenderness. NEURO: Motor and sensation grossly intact. Patient has unsteady gait and needs to be held to move from bathroom to bed. Course Course 1434: The patient was evaluated in room B3. A complete history and physical exam was performed Cardiac monitoring: An order was placed for continuous cardiac monitoring. The monitor shows a rate of 100 with atrial fibrilation rhythm interpreted by mo 1650: Vital signs stable. Blood work is unremarkable. Imaging is unremarkable. Urinalysis is concerning for UTI. [facility] with [facility]phin [facility] her altered mental status and difficulty ambulating. Administered Medications Discontinued Medications Ceftriaxone Sodium (Rocephin) 2,000 mg in 50 mls @ 100 mls/hr IV NOW STA Stop: 02/10/25 16:35 Last Admin: 02/10/25 16:25 Dose: 100 mls/hr Documented By: benjamin Ioversol (Optiray 320 125ml) 119 ml IV ONCE ONE Stop: 02/10/25 15:44 Last Admin: 02/10/25 15:43 Dose: 119 ml Documented By: NORAH Medical Decision Making Laboratory Data Attestation: I reviewed the patient's lab results. 02/10/25 13:57 02/10/25 13:57 Lab Results 02/10/25 02/10/25 02/10/25 Range/Units 13:57 14:45 14:51 WBC 8.83 (4.8-10.8) K/ul RBC 5.17 (4.20-5.40) M/uL Hgb 16.5 H (12.0-16.0) g/dL Hct 49.1 H (37.0-47.0) % MCV 95.0 (80.0-100.0) fL MCH 31.9 (25.0-34.0) pg MCHC 33.6 (32.0-36.0) g/dL RDW Std Deviation 47.6 H (36.4-46.3) fL RDW Coeff of Shannan 13.4 (11.5-14.5) % Plt Count 214 (130-400) K/uL MPV 8.8 L (9.4-12.4) fL Immature Gran % (Auto) 0.2 % Neut % (Auto) 65.2 % Lymph % (Auto) 24.2 % [place] % (Auto) 8.3 % Eos % (Auto) 1.8 % Baso % (Auto) 0.3 % Neut # (Auto) 5.75 (1.40-6.50) K/uL Lymph # (Auto) 2.14 (1.20-3.40) K/uL [place] # (Auto) 0.73 H (0.11-0.59) K/uL Eos # (Auto) 0.16 (0.00-0.50) K/uL Baso # (Auto) 0.03 (0.00-0.20) K/uL Immature Gran # (Auto) 0.02 (0.01-0.20) K/uL PT 11.4 (9.0-12.0) Seconds INR 1.1 (0.9-1.1) APTT 28 (21-31) Seconds PTT Ratio 1.0 VBG pH 7.37 (7.36-7.41) VBG pCO2 56 H (38-50) mmHg VBG pO2 20 mmHg VBG HCO3 32 mmol/L VBG O2 Saturation < 60.0 % VBG Base Excess 5.5 mEq/L Sodium 138 (136-145) mmol/L Potassium 4.5 (3.5-5.1) mmol/L Chloride 100 (98-107) mmol/L Carbon Dioxide 29 (21-32) mmol/L Anion Gap 9 (3-11) BUN 49 H (6-23) mg/dl Creatinine 1.40 H (0.6-1.2) mg/dl Est Cr Clr Drug Dosing Not Reportable eGFR 37.10 BUN/Creatinine Ratio 35.0 H (10-20) Glucose 98 (70-99(Fasting)) mg/dl Calcium 10.1 (8.6-10.3) mg/dl Magnesium 2.5 H (1.7-2.4) mg/dl Total Bilirubin 0.8 (0.2-1.0) mg/dl AST 29 (13-39) U/L ALT 27 (7-52) U/L Alkaline Phosphatase 70 (34-104) U/L Ammonia 23.0 (18-72) umol/L Troponin I High Sens 9.5 (0-14) pg/ml Total Protein 8.2 (6.0-8.3) gm/dl Albumin 4.6 (3.4-5.0) gm/dl Globulin 3.6 (2.5-4.0) gm/dl Albumin/Globulin Ratio 1.3 (0.9-2) TSH 1.432 (0.300-4.500) uIu/ml Urine Color Yellow Urine Appearance Cloudy A (Clear) Urine pH 5.0 (4.5-7.5) Ur Specific Aroda 1.019 (1.000-1.030) Urine Protein Trace H (Negative) Urine Glucose (UA) Negative (Negative) Urine Ketones Negative (Negative) Urine Blood Trace H (Negative) Urine Nitrite Negative (Negative) Urine Bilirubin Negative (Negative) Urine Urobilinogen Negative (Negative) Ur Leukocyte Esterase 2+ H (Negative) Urine WBC (Auto) >50 H (0-5) /hpf Urine RBC (Auto) 0-2 (0-2) /hpf U Hyaline Cast (Auto) 6-10 H (0-2) /lpf U Epithel Cells (Auto) 11-20 H (0-2) /hpf Urine Bacteria (Auto) 4+ H (None Seen) Hyaline Casts Present A (None Presnt) /lpf Urine Comment Imaging Data Attestation: I personally reviewed and interpreted this imaging study as follows: My Impression: Chest x-ray negative. Airway clear. No pneumothorax. No consolidation. No cardiomegaly or cephalization.. No free air under the diaphragm. No fractures of the skeletal structures. Radiologist's Impression: Chest X-Ray 02/10/25 13:36 Chest radiograph, one view History: 09/08/2019 Comparison: None Findings: Single AP view of the chest performed. No focal consolidation or pleural effusion. No pneumothorax. Aortic arch calcification. The cardiomediastinal silhouette is within normal limits. Normal pulmonary vascularity. No evidence for lymphadenopathy. No visualized bony or soft tissue abnormality. Impression: Normal chest radiograph Electronically signed by Lasha Price 02-10-2025 3:[address] 02/10/25 14:[address] without contrast CT angiogram of the neck CT angiogram of the brain with contrast Provided History: Neuro deficit Comparison: None Technique: HEAD CT: Using multidetector thin collimation helical acquisition technique, axial, coronal and sagittal CT images from the skull base to the vertex were obtained without intravenous contrast. HEAD and NECK CTA: During rapid bolus intravenous injection of nonionic contrast material, axial images were obtained using thin collimation multidetector helical technique from the base of the neck through the of vertex of the head. This CT angiogram data was reconstructed at thin intervals with mild overlap. 3D reconstructions were obtained. The axial source images, multiplanar reformations, 3D reconstructions in both maximum intensity projection display and volume rendered models were reviewed. Dose reduction techniques were achieved by using automatic exposure control and/or adjustment of mA and/or kV according to patient size and/or use of iterative reconstruction technique. Findings: Head CT: There is no intracranial hemorrhage, mass effect, or midline shift. Lopez/white matter differentiation in both cerebral hemispheres is preserved. Ventricles are proportionate to the cerebral sulci. There is moderate cerebral atrophy. Moderate, patchy low-attenuation changes in the white matter, most suggestive of sequelae of chronic small vessel ischemic disease. Head CTA demonstrates no aneurysm or stenosis of the major intracranial arteries. Neck CTA demonstrates widely patent distal internal carotid arteries, as well as vertebral arteries. Atherosclerotic calcification at the carotid bulbs bilaterally extending into the proximal ICA, on the left resulting in approximately 30% focal stenosis and on the right resulting in approximately 40% stenosis. The origins of the great vessels from the aortic arch are patent. No mass is noted within the visualized portions of the cervical soft tissues or lung apices. Impression: 1. Head CTA demonstrates no aneurysm or stenosis of the major intracranial arteries, 2. Neck CTA demonstrates no large vessel occlusion. Patent distal internal carotid arteries. Atherosclerosis of the carotid bulbs and proximal ICA resulting in short segment focal stenoses, as above. 3. No intracranial hemorrhage on the noncontrast head CT. Electronically signed by Lasha Price 02-10-2025 4:22 PM Head CTA 02/10/25 14:[address] without contrast CT angiogram of the neck CT angiogram of the brain with contrast Provided History: Neuro deficit Comparison: None Technique: HEAD CT: Using multidetector thin collimation helical acquisition technique, axial, coronal and sagittal CT images from the skull base to the vertex were obtained without intravenous contrast. HEAD and NECK CTA: During rapid bolus intravenous injection of nonionic contrast material, axial images were obtained using thin collimation multidetector helical technique from the base of the neck through the of vertex of the head. This CT angiogram data was reconstructed at thin intervals with mild overlap. 3D reconstructions were obtained. The axial source images, multiplanar reformations, 3D reconstructions in both maximum intensity projection display and volume rendered models were reviewed. Dose reduction techniques were achieved by using automatic exposure control and/or adjustment of mA and/or kV according to patient size and/or use of iterative reconstruction technique. Findings: Head CT: There is no intracranial hemorrhage, mass effect, or midline shift. Lopez/white matter differentiation in both cerebral hemispheres is preserved. Ventricles are proportionate to the cerebral sulci. There is moderate cerebral atrophy. Moderate, patchy low-attenuation changes in the white matter, most suggestive of sequelae of chronic small vessel ischemic disease. Head CTA demonstrates no aneurysm or stenosis of the major intracranial arteries. Neck CTA demonstrates widely patent distal internal carotid arteries, as well as vertebral arteries. Atherosclerotic calcification at the carotid bulbs bilaterally extending into the proximal ICA, on the left resulting in approximately 30% focal stenosis and on the right resulting in approximately 40% stenosis. The origins of the great vessels from the aortic arch are patent. No mass is noted within the visualized portions of the cervical soft tissues or lung apices. Impression: 1. Head CTA demonstrates no aneurysm or stenosis of the major intracranial arteries, 2. Neck CTA demonstrates no large vessel occlusion. Patent distal internal carotid arteries. Atherosclerosis of the carotid bulbs and proximal ICA resulting in short segment focal stenoses, as above. 3. No intracranial hemorrhage on the noncontrast head CT. Electronically signed by Lasha Price 02-10-2025 4:22 PM Neck CTA 02/10/25 14:[address] without contrast CT angiogram of the neck CT angiogram of the brain with contrast Provided History: Neuro deficit Comparison: None Technique: HEAD CT: Using multidetector thin collimation helical acquisition technique, axial, coronal and sagittal CT images from the skull base to the vertex were obtained without intravenous contrast. HEAD and NECK CTA: During rapid bolus intravenous injection of nonionic contrast material, axial images were obtained using thin collimation multidetector helical technique from the base of the neck through the of vertex of the head. This CT angiogram data was reconstructed at thin intervals with mild overlap. 3D reconstructions were obtained. The axial source images, multiplanar reformations, 3D reconstructions in both maximum intensity projection display and volume rendered models were reviewed. Dose reduction techniques were achieved by using automatic exposure control and/or adjustment of mA and/or kV according to patient size and/or use of iterative reconstruction technique. Findings: Head CT: There is no intracranial hemorrhage, mass effect, or midline shift. Lopez/white matter differentiation in both cerebral hemispheres is preserved. Ventricles are proportionate to the cerebral sulci. There is moderate cerebral atrophy. Moderate, patchy low-attenuation changes in the white matter, most suggestive of sequelae of chronic small vessel ischemic disease. Head CTA demonstrates no aneurysm or stenosis of the major intracranial arteries. Neck CTA demonstrates widely patent distal internal carotid arteries, as well as vertebral arteries. Atherosclerotic calcification at the carotid bulbs bilaterally extending into the proximal ICA, on the left resulting in approximately 30% focal stenosis and on the right resulting in approximately 40% stenosis. The origins of the great vessels from the aortic arch are patent. No mass is noted within the visualized portions of the cervical soft tissues or lung apices. Impression: 1. Head CTA demonstrates no aneurysm or stenosis of the major intracranial arteries, 2. Neck CTA demonstrates no large vessel occlusion. Patent distal internal carotid arteries. Atherosclerosis of the carotid bulbs and proximal ICA resulting in short segment focal stenoses, as above. 3. No intracranial hemorrhage on the noncontrast head CT. Electronically signed by Lasha Price 02-10-2025 4:22 PM ECG Data Attestation: I personally reviewed and interpreted this ECG as follows: Rate (beats per minute): 103 Rhythm: + atrial fibrillation ECG Intervals/blocks: + Right Bundle branch block ECG ST segments: + Normal ST segments Additional Comments: QRS 138 QTc 495 MDM Narrative 1434: The patient was evaluated in room B3. A complete history and physical exam was performed Cardiac monitoring: An order was placed for continuous cardiac monitoring. The monitor shows a rate of 100 with atrial fibrilation rhythm interpreted by me 1650: Vital signs stable. Blood work is unremarkable. Imaging is unremarkable. Urinalysis is concerning for UTI. Patient [facility] be [facility] with Rocephin [facility] given her altered mental status and difficulty ambulating. Impression & Plan Acute UTI Discharge Plan Visit Data Chief Complaint: Altered Mental Status Stated Complaint: CONFUSED/LIGHTHEADED/SLEEPING ALL THE TIME ED Provider: Paulo Olivo Discharge Problem: Acute UTI Patient Disposition: Admitted As Inpatient Condition: Fair Forms Stand Alone Forms: [facility] Prescriptions Prescriptions: No Action atorvastatin 40 mg tablet 40 mg PO HS metoprolol succinate 50 mg tablet extended release 24 hr 50 mg PO DAILY levothyroxine 50 mcg Tablet 50 mcg PO DAILY Pradaxa 150 mg capsule 150 mg PO BID losartan [Cozaar] 50 mg tablet 50 mg PO DAILY albuterol sulfate 2.5 mg /3 mL (0.083 %) Solution For Nebulization 2.5 mg INHALATION Q4 PRN (Reason: Shortness Of Breath Or Wheezing) hydralazine 25 mg tablet 25 mg PO TID tramadol [Ultram] 50 mg tablet 50 mg PO Q6 PRN (Reason: Pain) cholecalciferol (vitamin D3) [D3-50 Cholecalciferol] 1,250 mcg (50,000 unit) capsule 50,000 unit PO WK polyethylene glycol 3350 [Miralax] 17 gram Powder In Packet 17 g PO DAILY PRN (Reason: constipation) Qty: 30 0RF Referrals Referrals: Awais Pandya MD [Primary Care Provider] -
--- NOTE | 2025-02-10 16:46 | History & Physical Report ---
Date of Service February 10, 2025 Assessment & Plan (1) AMS (altered mental status): (2) Abnormal urinalysis: Plan Patient is an 84y/o F with PMHx significant for persistent afib anticoagulated on Eliquis, history of CVA, HFpEF with chronic BLE edema, HTN, non-healing L foot ulcer, HLD, CKD stage IIIa, mildly enlarged ascending aorta, MICKY on CPAP, peripheral venous insufficiency, vitamin D deficiency, age-related osteoporosis, history of MT and hammertoe of L foot who presented to the ED with her family due to c/o AMS, generalized weakness and lightheadedness. 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: tried to take BP with CPAP machine, seeing people who aren't there Pt A&Ox3 during convo in ED, transient periods of forgetfulness but otherwise conversing well >> back to baseline per family Head CT with no acute intracranial abnormalities; moderate cerebral atrophy, chronic small vessel ischemic dz Head CTA with no aneurysm or stenosis of the major intracranial arteries Neck CTA demonstrates no large vessel occlusion; patent distal internal carotid arteries -Atherosclerosis of the carotid bulbs and proximal ICA resulting in short segment focal stenoses (30% L, 40% R) Labs reviewed and w/o evidence of leukocytosis Tachycardia, HTN likely 2/2 missed med doses as per below CXR negative Doubt sepsis however pt hypothermic in ED >> check blood cx UA with 4+ bacteria, >50 WBC, 2+ LE c/f infection No specific urinary complaints however UTI could possibly explain her hallucinations, confusion, weakness/lethargy S/p dose of IV Rocephin in ED, will continue this for now pending urine cx results #Lightheadedness Could be 2/2 dehydration given recent poor po intake, pt appears dry on exam Elevated BUN, hypermagnesemia Check orthostatics Gentle IVF as per below Update TTE (prior TTE as per below) #HTN urgency Likely 2/2 missed AM meds Will give dose of losartan now, monitor BP #HFpEF with chronic BLE edema #Mildly enlarged proximal ascending thoracic aorta Appears dry on exam as per above TTE, 01/2023: EF 55-59%, mildly increased LV wall thickness, moderately enlarged LA, mildly enlarged RA, diastolic dysfx, mild MR/TR, mildly enlarged proximal ascending thoracic aorta Hold Lasix, Aldactone for now Gentle 500cc IVF for now Reassess volume status in AM #Persistent afib anticoagulated on Eliquis Missed AM meds which likely c/t tachycardia Will give dose of Toprol-XL now, monitor HR Continue Eliquis #HLD #Peripheral venous insufficiency Continue statin, ASA #Hypothyroidism TSH WNL Continue levothyroxine #CKD stage IIIa Cr appears stable compared to prior Cr was 1.4 as of 01/2025 Continue to monitor and avoid nephrotoxic agents as able #Vit D deficiency Continue vit D supplementation DVT Prophylaxis: Eliquis Code Status: FULL CODE PCP: Awais Pandya MD Disposition: Admit to med/telemetry Patient seen in collaboration with Dr. Cox. Please see addendum. I spent a total of 70 minutes coordinating, documenting, and providing care for this patient excluding time spent in the performance of separately billed services or time spent by another provider/QHP. This included personally reviewing all current laboratories and imaging studies, medical reconciliation, outpatient chart review and discussion with specialists. History of Present Illness Chief Complaint: AMS, generalized weakness Primary Care Provider: Awais Pandya MD Patient is an 84y/o F with PMHx significant for persistent afib anticoagulated on Eliquis, history of CVA, HFpEF with chronic BLE edema, HTN, non-healing L foot ulcer, HLD, CKD stage IIIa, mildly enlarged ascending aorta, MICKY on CPAP, peripheral venous insufficiency, vitamin D deficiency, age-related osteoporosis, history of MT and hammertoe of L foot who presented to the ED with her family due to c/o AMS, generalized weakness and lightheadedness. History obtained from the patient, family members at bedside and discussion with ED provider. Reportedly with progressive generalized weakness and lightheadedness over the past week. Notes she has some difficulty with ambulation given her lightheadedness. No reported falls or trauma. Moving bowels okay. No urinary complaints. Has not been eating well. Denies any N/V or abdominal pain. Lives with her , ambulates with a cane. Has a grandson who lives nearby and checks up on her. Grandson noticed yesterday that the patient was attempting to use her CPAP machine to take her BP. She was also experiencing visual hallucinations. No reported fevers however there was question of some chills and sweats over the past couple of nights. Did not take any of her medications this morning. She has been sleeping more than usual as well, acting more lethargic. No reported chest pain or SOB. Allergies Allergy/AdvReac Type Severity Reaction Status Date / Time amlodipine Allergy Unknown SWELLING Verified 02/10/25 17:31 OF FEET Home Medications Medication Instructions Recorded Confirmed Type atorvastatin 40 mg tablet 40 mg PO DAILY 02/09/19 02/10/25 History losartan 50 mg tablet (Cozaar) 50 mg PO BID 09/08/19 02/10/25 History polyethylene glycol 3350 17 gram 17 g PO DAILY PRN constipation #30 09/10/19 02/10/25 Rx oral powder packet (Miralax) ea alendronate 70 mg tablet 70 mg PO WK 02/10/25 02/10/25 History apixaban 5 mg tablet (Eliquis) 5 mg PO BID 02/10/25 02/10/25 History aspirin 81 mg tablet,delayed 81 mg PO HS 02/10/25 02/10/25 History release baclofen 10 mg tablet 10 mg PO TID PRN MUSCLE SPASMS 02/10/25 02/10/25 History cholecalciferol (vitamin D3) 50 50 mcg PO DAILY 02/10/25 02/10/25 History mcg (2,000 unit) capsule (Vitamin D3) collagen,hydrolysate 500 mg-biotin 1 cap PO DAILY 02/10/25 02/10/25 History 800 mcg-ascorbic acid 50 mg capsule diclofenac sodium 1 % topical gel 4 g topical QID PRN Pain 02/10/25 02/10/25 History furosemide 40 mg tablet 40 mg PO QAM 02/10/25 02/10/25 History levothyroxine 75 mcg tablet 75 mcg PO DAILYBB 02/10/25 02/10/25 History metoprolol succinate 100 mg 100 mg PO BID 02/10/25 02/10/25 History tablet,extended release 24 hr spironolactone 25 mg tablet 25 mg PO QAM 02/10/25 02/10/25 History tramadol 50 mg tablet 50 mg PO Q12H PRN Pain 02/10/25 02/10/25 History Past Med/Surg History Problem List (Updated 02/10/25 @ 19:59 by Background Daemon) Abnormal urinalysis AMS (altered mental status) Acute UTI (Acute) Hypertensive crisis History of diastolic dysfunction (Acute) Bilateral edema of lower extremity (Acute) MICKY (obstructive sleep apnea) Hypertensive emergency Paroxysmal atrial fibrillation Chest pain (Acute) Left arm pain Hypothyroidism Hypertensive urgency (Acute) Depression (Chronic) Dyslipidemia (Chronic) Vitamin D deficiency (Chronic) Osteoporosis (Chronic) CKD (chronic kidney disease) stage 3, GFR 30-59 ml/min (Chronic) HTN (hypertension) (Chronic) Family History Other Coronary heart disease Hypertension Stroke Social History Smoking Status: Never smoker Second Hand Exposure: No; Do You Dip or Chew Tobacco: No; Hx Alcohol Use: No Hx Substance Use: No Preferred Language: Turkish Communication Ability: Effective Application Penetration Tester Required: No Beliefs That Will Affect Care: None marital status: Life Partner Current Living Situation: Spouse Current Living Situation Comment: Great grandson lives with patient Feels Safe at Home: Yes Safety Concerns: Feels Safe At This Time Assistive Devices: Cane, Denture - Upper and Denture - Lower Review of Systems Review of Systems: At least ten systems reviewed and negative, except as noted in the HPI. Physical Exam Physical Exam: General: Elderly F, NAD, sitting up in bed, A&Ox3 with transient periods of forgetfulness, family at bedside HEENT: Normocephalic, atraumatic, dry mucous membranes Respiratory: Normal respiratory effort, CTAB, on RA Cardiovascular: Tachycardic, irregularly irregular rhythm, trace LLE edema, no RLE edema Abdomen/GI: Normal bowel sounds, soft, nontender to palpation in all quadrants Extremities/Musculoskeletal: No cyanosis or clubbing, extremities motor strength intact, moves all extremities Neurologic: No overt focal deficits, CN's II-XI not formally tested but appear grossly intact bilaterally Results & Data Results & Data Vital Signs (Past 12 Hours) Vital Signs Temp Pulse Resp BP Pulse Ox O2 Del Method 02/10/25 15:17 174/131 H 02/10/25 15:17 98 Room Air 02/10/25 15:15 104 H 20 02/10/25 13:31 35.2 C L 90 18 168/81 H 96 Room Air Laboratory Results Short CBC 02/10/25 Range/Units 13:57 WBC 8.83 (4.8-10.8) K/ul Hgb 16.5 H (12.0-16.0) g/dL Hct 49.1 H (37.0-47.0) % Plt Count 214 (130-400) K/uL BMP 02/10/25 13:57 Sodium 138 Potassium 4.5 Chloride 100 Carbon Dioxide 29 BUN 49 H Creatinine 1.40 H Glucose 98 Calcium 10.1 Liver Function 02/10/25 Range/Units 13:57 Total Bilirubin 0.8 (0.2-1.0) mg/dl AST 29 (13-39) U/L ALT 27 (7-52) U/L Alkaline Phosphatase 70 (34-104) U/L Albumin 4.6 (3.4-5.0) gm/dl Urine 02/10/25 Range/Units 14:45 Urine Color Yellow Urine Appearance Cloudy A (Clear) Urine pH 5.0 (4.5-7.5) Ur Specific [place] 1.019 (1.000-1.030) Urine Protein Trace H (Negative) Urine Glucose (UA) Negative (Negative) Diagnostic Findings Chest X-Ray 02/10/25 13:36 Chest radiograph, one view History: 09/08/2019 Comparison: None Findings: Single AP view of the chest performed. No focal consolidation or pleural effusion. No pneumothorax. Aortic arch calcification. The cardiomediastinal silhouette is within normal limits. Normal pulmonary vascularity. No evidence for lymphadenopathy. No visualized bony or soft tissue abnormality. Impression: Normal chest radiograph Electronically signed by Lasha Price 02-10-2025 3:[address] 02/10/25 14:[address] without contrast CT angiogram of the neck CT angiogram of the brain with contrast Provided History: Neuro deficit Comparison: None Technique: HEAD CT: Using multidetector thin collimation helical acquisition technique, axial, coronal and sagittal CT images from the skull base to the vertex were obtained without intravenous contrast. HEAD and NECK CTA: During rapid bolus intravenous injection of nonionic contrast material, axial images were obtained using thin collimation multidetector helical technique from the base of the neck through the of vertex of the head. This CT angiogram data was reconstructed at thin intervals with mild overlap. 3D reconstructions were obtained. The axial source images, multiplanar reformations, 3D reconstructions in both maximum intensity projection display and volume rendered models were reviewed. Dose reduction techniques were achieved by using automatic exposure control and/or adjustment of mA and/or kV according to patient size and/or use of iterative reconstruction technique. Findings: Head CT: There is no intracranial hemorrhage, mass effect, or midline shift. Lopez/white matter differentiation in both cerebral hemispheres is preserved. Ventricles are proportionate to the cerebral sulci. There is moderate cerebral atrophy. Moderate, patchy low-attenuation changes in the white matter, most suggestive of sequelae of chronic small vessel ischemic disease. Head CTA demonstrates no aneurysm or stenosis of the major intracranial arteries. Neck CTA demonstrates widely patent distal internal carotid arteries, as well as vertebral arteries. Atherosclerotic calcification at the carotid bulbs bilaterally extending into the proximal ICA, on the left resulting in approximately 30% focal stenosis and on the right resulting in approximately 40% stenosis. The origins of the great vessels from the aortic arch are patent. No mass is noted within the visualized portions of the cervical soft tissues or lung apices. Impression: 1. Head CTA demonstrates no aneurysm or stenosis of the major intracranial arteries, 2. Neck CTA demonstrates no large vessel occlusion. Patent distal internal carotid arteries. Atherosclerosis of the carotid bulbs and proximal ICA resulting in short segment focal stenoses, as above. 3. No intracranial hemorrhage on the noncontrast head CT. Electronically signed by Lasha Price 02-10-2025 4:22 PM Head CTA 02/10/25 14:[address] without contrast CT angiogram of the neck CT angiogram of the brain with contrast Provided History: Neuro deficit Comparison: None Technique: HEAD CT: Using multidetector thin collimation helical acquisition technique, axial, coronal and sagittal CT images from the skull base to the vertex were obtained without intravenous contrast. HEAD and NECK CTA: During rapid bolus intravenous injection of nonionic contrast material, axial images were obtained using thin collimation multidetector helical technique from the base of the neck through the of vertex of the head. This CT angiogram data was reconstructed at thin intervals with mild overlap. 3D reconstructions were obtained. The axial source images, multiplanar reformations, 3D reconstructions in both maximum intensity projection display and volume rendered models were reviewed. Dose reduction techniques were achieved by using automatic exposure control and/or adjustment of mA and/or kV according to patient size and/or use of iterative reconstruction technique. Findings: Head CT: There is no intracranial hemorrhage, mass effect, or midline shift. Lopez/white matter differentiation in both cerebral hemispheres is preserved. Ventricles are proportionate to the cerebral sulci. There is moderate cerebral atrophy. Moderate, patchy low-attenuation changes in the white matter, most suggestive of sequelae of chronic small vessel ischemic disease. Head CTA demonstrates no aneurysm or stenosis of the major intracranial arteries. Neck CTA demonstrates widely patent distal internal carotid arteries, as well as vertebral arteries. Atherosclerotic calcification at the carotid bulbs bilaterally extending into the proximal ICA, on the left resulting in approximately 30% focal stenosis and on the right resulting in approximately 40% stenosis. The origins of the great vessels from the aortic arch are patent. No mass is noted within the visualized portions of the cervical soft tissues or lung apices. Impression: 1. Head CTA demonstrates no aneurysm or stenosis of the major intracranial arteries, 2. Neck CTA demonstrates no large vessel occlusion. Patent distal internal carotid arteries. Atherosclerosis of the carotid bulbs and proximal ICA resulting in short segment focal stenoses, as above. 3. No intracranial hemorrhage on the noncontrast head CT. Electronically signed by Lasha Price 02-10-2025 4:22 PM Neck CTA 02/10/25 14:[address] without contrast CT angiogram of the neck CT angiogram of the brain with contrast Provided History: Neuro deficit Comparison: None Technique: HEAD CT: Using multidetector thin collimation helical acquisition technique, axial, coronal and sagittal CT images from the skull base to the vertex were obtained without intravenous contrast. HEAD and NECK CTA: During rapid bolus intravenous injection of nonionic contrast material, axial images were obtained using thin collimation multidetector helical technique from the base of the neck through the of vertex of the head. This CT angiogram data was reconstructed at thin intervals with mild overlap. 3D reconstructions were obtained. The axial source images, multiplanar reformations, 3D reconstructions in both maximum intensity projection display and volume rendered models were reviewed. Dose reduction techniques were achieved by using automatic exposure control and/or adjustment of mA and/or kV according to patient size and/or use of iterative reconstruction technique. Findings: Head CT: There is no intracranial hemorrhage, mass effect, or midline shift. Lopez/white matter differentiation in both cerebral hemispheres is preserved. Ventricles are proportionate to the cerebral sulci. There is moderate cerebral atrophy. Moderate, patchy low-attenuation changes in the white matter, most suggestive of sequelae of chronic small vessel ischemic disease. Head CTA demonstrates no aneurysm or stenosis of the major intracranial arteries. Neck CTA demonstrates widely patent distal internal carotid arteries, as well as vertebral arteries. Atherosclerotic calcification at the carotid bulbs bilaterally extending into the proximal ICA, on the left resulting in approximately 30% focal stenosis and on the right resulting in approximately 40% stenosis. The origins of the great vessels from the aortic arch are patent. No mass is noted within the visualized portions of the cervical soft tissues or lung apices. Impression: 1. Head CTA demonstrates no aneurysm or stenosis of the major intracranial arteries, 2. Neck CTA demonstrates no large vessel occlusion. Patent distal internal carotid arteries. Atherosclerosis of the carotid bulbs and proximal ICA resulting in short segment focal stenoses, as above. 3. No intracranial hemorrhage on the noncontrast head CT. Electronically signed by Lasha Price 02-10-2025 4:22 PM Medications Administered Discontinued Medications Ceftriaxone Sodium (Rocephin) 2,000 mg in 50 mls @ 100 mls/hr IV NOW STA Stop: 02/10/25 16:35 Last Infusion: 02/10/25 17:04 Dose: Infused Documented By: benjamin Admin: 02/10/25 16:25 Dose: 100 mls/hr Documented By: benjamin Ioversol (Optiray 320 125ml) 119 ml IV ONCE ONE Stop: 02/10/25 15:44 Last Admin: 02/10/25 15:43 Dose: 119 ml Documented By: NORAH Supervising Physician Co-Signing Physician Notes I have seen and discussed the case with the collaborating advanced practitioner. I agree with the above H&P. I have reviewed and confirmed the patients medical history, the findings on physical examination, and the patients diagnosis and treatment plan with Erica GIBSON and agree with the information documented. evaluated at bedside. reports that this last week patient with multiple episodes of acute delirium marked by hallucinating people who arent present, using devices incorrectly, and forgetting she was making [place] toast. Patient has been feeling more dizzy recently especially in last month with increased diuretics with the addition of aldactone. Patient reports feeling dehydrated and weak--noting she felt terrible after doing the orthostatic vital signs Exam notable for a pleasant woman, dry mucosal membranes noted, irregularly irregular, CTABL, abdomen soft NTND #acute encephalopathy possibly multifactorial iso dehydration/uti Hgb 16 on admission, baseline in 13--supporting dehydration as possible contributor tsh wnl patient with general malaise and generally feeling unwell continue ctx s/p 500 cc bolus and encourage po hold lasix continue aldactone resume cpap delirium precautions rest of plan as above #HTN resume home meds I spent a total of 20 minutes coordinating, documenting, and providing care for this patient excluding time spent in the performance of separately billed services. All of the aforementioned completed outside of collaborating with the assigned advanced practitioner for a full treatment plan. I have reviewed the advanced practitioner's documentation, and I agree with, and take responsibility for the plan of care
[2025-02-10] MEDS: SODIUM CHLORIDE 0.9% 500 ML IV SCH (18:31)
[2025-02-10] MEDS ORDERED: POLYETHYLENE (MIRALAX) 17 GM PACK PO PRN (20:12)
[2025-02-10] MEDS ORDERED: ONDANSETRON INJ 2 MG/ML 2 ML VIAL IV PRN (20:12)
[2025-02-10] MEDS ORDERED: ACETAMINOPHEN 325 MG TAB PO PRN (20:12)
[2025-02-10] MEDS ORDERED: MAGNESIUM HYDROXIDE SUSP 30 ML UDC PO PRN (20:12)
[2025-02-10] MEDS: APIXABAN 5 MG TABLET PO SCH (20:35)
[2025-02-10] MEDS: ASPIRIN 81 MG ECTAB PO SCH (20:36)
[2025-02-10] MEDS: LOSARTAN POTASSIUM 50 MG TAB PO SCH (20:36)
[2025-02-10] MEDS: METOPROLOL SUCC 50MG EXT REL TAB PO SCH (20:37)
[2025-02-10] MEDS ORDERED: LOSARTAN POTASSIUM 50 MG TAB PO SCH (21:00)
[2025-02-10] MEDS ORDERED: METOPROLOL SUCC 50MG EXT REL TAB PO SCH (21:00)
[2025-02-11] MEDS: LEVOTHYROXINE SODIUM 75 MCG TABLET PO SCH (06:09)
[2025-02-11 06:51] LABS: Hematocrit (blood only) 45.5 % (37.0-47.0); Hemoglobin 15.2 g/dL (12.0-16.0); Mean Corpuscular Hemoglobin 31.8 pg (25.0-34.0); Mean Corpuscular Volume 95.2 fL (80.0-100.0); Platelet Count 210 K/uL (130-400); RDW Standard Deviation 48.1 fL (36.4-46.3); Red Blood Count 4.78 M/uL (4.20-5.40); White Blood Count 8.29 K/ul (4.8-10.8)
[2025-02-11 07:31] LABS: Anion Gap 8.0 (3-11); Blood Urea Nitrogen 47.0 mg/dl (6-23); Calcium 9.8 mg/dl (8.6-10.3); Carbon Dioxide 28.0 mmol/L (21-32); Chloride 103.0 mmol/L (98-107); Creatinine Clr Calc Pharmacy 38.2 ml/min; Glucose 82.0 mg/dl (70-99(Fasting)); Magnesium 2.5 mg/dl (1.7-2.4); Potassium 4.5 mmol/L (3.5-5.1); Sodium 139.0 mmol/L (136-145)
[2025-02-11] MEDS: CHOLECALCIFEROL 25 MCG (1000 UNITS) TAB PO SCH (08:13)
[2025-02-11] MEDS: ATORVASTATIN 40 MG TAB PO SCH (08:13)
--- NOTE | 2025-02-11 08:34 | XCELERA ---
[id number]
--- NOTE | 2025-02-11 08:52 | Electrocardiogram Report ---
Test Reason : Blood Pressure : */* mmHG Vent. Rate : 103 BPM Atrial Rate : * BPM P-R Int : * ms QRS Dur : 138 ms QT Int : 378 ms P-R-T Axes : * -2 -26 degrees QTcB Int : 495 ms Atrial fibrillation with rapid ventricular response Right bundle branch block Abnormal ECG When compared with ECG of 08-Sep-2019 20:13, Atrial fibrillation has replaced Sinus rhythm Vent. rate has increased by 42 bpm QRS axis Shifted right T wave inversion more evident in Inferior leads T wave inversion more evident in Anterior leads Confirmed by Cinthia Connell (Vicki) on 02/11/2025 8:51:50 AM Referred By: Confirmed By: Cinthia Connell
[2025-02-11] MEDS: SODIUM CHLORIDE 0.9% 1,000 ML IV SCH (10:54)
--- NOTE | 2025-02-11 13:09 | Hospitalist Progress Note ---
Date of Service February 11, 2025 Assessment & Plan (1) AMS (altered mental status): (2) Abnormal urinalysis: Plan Patient is an 84y/o F with PMHx significant for persistent afib anticoagulated on Eliquis, history of CVA, HFpEF with chronic BLE edema, HTN, non-healing L foot ulcer, HLD, CKD stage IIIa, mildly enlarged ascending aorta, MICKY on CPAP, peripheral venous insufficiency, vitamin D deficiency, age-related osteoporosis, history of [place] and hammertoe of L foot who presented to the ED with her family due to c/o AMS, generalized weakness and lightheadedness. 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, seeing people who aren't there Pt A&Ox3 during convo in ED, transient periods of forgetfulness but otherwise conversing well >> back to baseline per family Head CT with no acute intracranial abnormalities; moderate cerebral atrophy, chronic small vessel ischemic dz Head CTA with no aneurysm or stenosis of the major intracranial arteries Neck CTA demonstrates no large vessel occlusion; patent distal internal carotid arteries -Atherosclerosis of the carotid bulbs and proximal ICA resulting in short segment focal stenoses (30% L, 40% R) Labs reviewed and w/o evidence of leukocytosis Tachycardia, HTN likely 2/2 missed med doses as per below CXR negative Doubt sepsis however pt hypothermic in ED >> check blood cx UA with 4+ bacteria, >50 WBC, 2+ LE c/f infection No specific urinary complaints however UTI could possibly explain her hallucinations, confusion, weakness/lethargy S/p dose of IV Rocephin in ED, will continue this for now pending urine cx results Urine culture is growing Klebsiella very cola and sensitivities pending She has been feeling better since admission until this morning when she felt dizzy and noted to be orthostatically positive She was given cautious amount of intravenous fluid and will be observed #Lightheadedness Could be 2/2 dehydration given recent poor po intake, pt appears dry on exam Elevated BUN, hypermagnesemia Check orthostatics Gentle IVF as per below Update TTE (prior TTE as per below) Denies any cardiac symptoms, no palpitations, chest pain or shortness of breath #HTN urgency Likely 2/2 missed AM meds Will give dose of losartan now, monitor BP #HFpEF with chronic BLE edema #Mildly enlarged proximal ascending thoracic aorta Appears dry on exam as per above TTE, 01/2023: EF 55-59%, mildly increased LV wall thickness, moderately enlarged LA, mildly enlarged RA, diastolic dysfx, mild MR/TR, mildly enlarged proximal ascending thoracic aorta Hold Lasix, Aldactone for now Gentle 500cc IVF for now Reassess volume status in AM Will give more IV fluid to maintain the blood pressure #Persistent afib anticoagulated on Eliquis Missed AM meds which likely c/t tachycardia Will give dose of Toprol-XL now, monitor HR Continue Eliquis #HLD #Peripheral venous insufficiency Continue statin, ASA #Hypothyroidism TSH WNL Continue levothyroxine #CKD stage IIIa Cr appears stable compared to prior Cr was 1.4 as of 01/2025 Continue to monitor and avoid nephrotoxic agents as able #Vit D deficiency Continue vit D supplementation DVT Prophylaxis: Eliquis Code Status: FULL CODE PCP: Awais Pandya MD Disposition: Admit to med/telemetry Admission and Anticipated Discharge Date Admission Date: February 10, 2025 Subjective 02/11/2025 The patient was seen and examined in the medical telemetry unit in presence of granddaughter She has been feeling much better and the dizziness is improved and denies any symptoms of dysuria and/or frequency Later on she was noted to be dizzy with ambulation and the blood pressure was noted to be low as well at systolic 70s Review of Systems Review of Systems: All systems reviewed and are unremarkable except as noted below Physical Exam Physical Exam: Sitting at the edge of the bed without any acute distress Constitutional: well developed, well nourished and + obese; not ill appearing Eyes: PERRL, conjunctivae normal, anicteric sclerae ENMT: external ear and nose normal, oropharynx normal Neck: trachea midline, no thyromegaly Respiratory: no respiratory distress Auscultation: lungs clear to auscultation bilaterally Cardiovascular: Rate/Rhythm: regular rate and regular rhythm; not tachycardic Heart Sounds: normal S1 and normal S2; no murmur Extremities: no edema Gastrointestinal (Abdomen): Inspection/Auscultation: normal bowel sounds; abdomen not distended Percussion/Palpation: abdomen soft; abdomen nontender Musculoskeletal: Denies any acute arthritis involving any of the joint Neurologic: normal touch/pain/proprioception and moves all extremities; no focal motor deficits Psychiatric: A+Ox3, euthymic affect Lymphatic: no cervical or axillary lymphadenopathy Results & Data Results & Data Vital Signs (Past 12 Hours) Vital Signs Pulse Pulse Resp BP BP Pulse Ox O2 Del Method 02/11/25 10:42 Room Air 02/11/25 08:43 75 18 129/81 96 CPAP 02/11/25 07:05 96 H 02/11/25 02:56 87 18 121/83 98 Room Air, CPAP 02/11/25 02:25 56 L 22 95 FiO2 02/11/25 10:42 02/11/25 08:43 02/11/25 07:05 02/11/25 02:56 02/11/25 02:25 21 Laboratory Results Short CBC 02/10/25 02/11/25 Range/Units 13:57 06:21 WBC 8.83 8.29 (4.8-10.8) K/ul Hgb 16.5 H 15.2 (12.0-16.0) g/dL Hct 49.1 H 45.5 (37.0-47.0) % Plt Count 214 210 (130-400) K/uL BMP 02/10/25 02/11/25 13:57 06:21 Sodium 138 139 Potassium 4.5 4.5 Chloride 100 103 Carbon Dioxide 29 28 BUN 49 H 47 H Creatinine 1.40 H 1.32 H Glucose 98 82 Calcium 10.1 9.8 Liver Function 02/10/25 Range/Units 13:57 Total Bilirubin 0.8 (0.2-1.0) mg/dl AST 29 (13-39) U/L ALT 27 (7-52) U/L Alkaline Phosphatase 70 (34-104) U/L Albumin 4.6 (3.4-5.0) gm/dl Urine 02/10/25 Range/Units 14:45 Urine Color Yellow Urine Appearance Cloudy A (Clear) Urine pH 5.0 (4.5-7.5) Ur Specific Maria Stein 1.019 (1.000-1.030) Urine Protein Trace H (Negative) Urine Glucose (UA) Negative (Negative) Medications Administered Current Inpatient Medications Acetaminophen (Acetaminophen 325 Mg Tab) 650 mg PO Q4H PRN PRN Reason: Pain or Fever Stop: 03/12/25 20:11 Apixaban (Apixaban 5 Mg Tablet) 5 mg PO BID [facility] Stop: 03/12/25 20:59 Last Admin: 02/11/25 08:14 Dose: 5 mg Aspirin (Aspirin 81 Mg Ectab) 81 mg PO HS [facility] Stop: 03/12/25 20:59 Last Admin: 02/10/25 20:36 Dose: 81 mg Atorvastatin Calcium (Atorvastatin 40 Mg Tab) 40 mg PO DAILY [facility] Stop: 03/13/25 08:59 Last Admin: 02/11/25 08:13 Dose: 40 mg Ceftriaxone Sodium (Rocephin) 2,000 mg in 50 mls @ 100 mls/hr IV Q24H [facility] Stop: 02/15/25 15:59 Sodium Chloride (Nss) 1,000 mls @ 125 mls/hr IV .Q8H [facility] Stop: 02/12/25 10:46 Last Admin: 02/11/25 10:54 Dose: 80 mls/hr Levothyroxine Sodium (Levothyroxine Sodium 75 Mcg Tablet) 75 mcg PO DAILYBB [facility] Stop: 03/13/25 06:29 Last Admin: 02/11/25 06:09 Dose: 75 mcg Losartan Potassium (Losartan Potassium 50 Mg Tab) 50 mg PO BID [facility] Stop: 03/12/25 20:59 Last Admin: 02/11/25 08:12 Dose: 50 mg Magnesium Hydroxide (Magnesium Hydroxide Susp 30 Ml Udc) 30 ml PO Q12H PRN PRN Reason: Constipation Stop: 03/12/25 20:11 Metoprolol Succinate (Metoprolol Succ 50mg Ext Rel Tab) 100 mg PO BID [facility] Stop: 03/12/25 20:59 Last Admin: 02/11/25 08:12 Dose: 100 mg Ondansetron HCl (Ondansetron Inj 2 Mg/Ml 2 Ml Vial) 4 mg IV Q6H PRN PRN Reason: Nausea Stop: 03/12/25 20:11 Polyethylene Glycol (Polyethylene (Miralax) 17 Gm Pack) 17 gm PO DAILY PRN PRN Reason: Constipation Stop: 03/12/25 20:11 Vitamin D (Cholecalciferol 25 Mcg (1000 Units) Tab) 50 mcg PO DAILY [facility] Stop: 03/13/25 08:59 Last Admin: 02/11/25 08:13 Dose: 50 mcg 10/25/2019
[2025-02-11] MEDS: cefTRIAXone SODIUM 2,000 MG/50 ML BAG IV SCH (16:06)
[2025-02-12 06:36] LABS: Hematocrit (blood only) 43.5 % (37.0-47.0); Hemoglobin 14.6 g/dL (12.0-16.0); Immature Granulocytes # (auto) 0.02 K/uL (0.01-0.20); Immature Granulocytes % (auto) 0.3 %; Mean Corpuscular Hemoglobin 31.7 pg (25.0-34.0); Mean Corpuscular Volume 94.4 fL (80.0-100.0); Platelet Count 205 K/uL (130-400); RDW Standard Deviation 46.6 fL (36.4-46.3); Red Blood Count 4.61 M/uL (4.20-5.40); White Blood Count 7.99 K/ul (4.8-10.8)
[2025-02-12 07:24] VITALS: RESP 18
[2025-02-12 07:40] LABS: Anion Gap 10.0 (3-11); Calcium 9.0 mg/dl (8.6-10.3); Carbon Dioxide 23.0 mmol/L (21-32); Chloride 106.0 mmol/L (98-107); Magnesium 2.2 mg/dl (1.7-2.4); Potassium 4.4 mmol/L (3.5-5.1); Sodium 139.0 mmol/L (136-145)
[2025-02-12 07:46] LABS: Blood Urea Nitrogen 41.0 mg/dl (6-23); Creatinine Clr Calc Pharmacy 42.4 ml/min; Glucose 86.0 mg/dl (70-99(Fasting))
--- NOTE | 2025-02-12 11:24 | Hospitalist Progress Note ---
Date of Service February 12, 2025 Assessment & Plan (1) AMS (altered mental status): (2) Abnormal urinalysis: Plan Patient is an 84y/o F with PMHx significant for persistent afib anticoagulated on Eliquis, history of CVA, HFpEF with chronic BLE edema, HTN, non-healing L foot ulcer, HLD, CKD stage IIIa, mildly enlarged ascending aorta, MICKY on CPAP, peripheral venous insufficiency, vitamin D deficiency, age-related osteoporosis, history of [place] and hammertoe of L foot who presented to the ED with her family due to c/o AMS, generalized weakness and lightheadedness. 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, seeing people who aren't there Pt A&Ox3 during convo in ED, transient periods of forgetfulness but otherwise conversing well >> back to baseline per family Head CT with no acute intracranial abnormalities; moderate cerebral atrophy, chronic small vessel ischemic dz Head CTA with no aneurysm or stenosis of the major intracranial arteries Neck CTA demonstrates no large vessel occlusion; patent distal internal carotid arteries -Atherosclerosis of the carotid bulbs and proximal ICA resulting in short segment focal stenoses (30% L, 40% R) Labs reviewed and w/o evidence of leukocytosis Tachycardia, HTN likely 2/2 missed med doses as per below CXR negative Doubt sepsis however pt hypothermic in ED >> check blood cx UA with 4+ bacteria, >50 WBC, 2+ LE c/f infection No specific urinary complaints however UTI could possibly explain her hallucinations, confusion, weakness/lethargy S/p dose of IV Rocephin in ED, will continue this for now pending urine cx results Urine culture is growing Klebsiella very cola and sensitivities pending She has been feeling better since admission until this morning when she felt dizzy and noted to be orthostatically positive She was given cautious amount of intravenous fluid and will be observed She has been stable and ambulating in the room without any difficulties Has had physical therapy and recommended home Urine culture came back positive for Klebsiella very cola which is pansensitive except nitrofurantoin #Lightheadedness Could be 2/2 dehydration given recent poor po intake, pt appears dry on exam Elevated BUN, hypermagnesemia Check orthostatics Gentle IVF as per below Update TTE (prior TTE as per below) Denies any cardiac symptoms, no palpitations, chest pain or shortness of breath Received intravenous fluid and also has been drinking enough fluid and denies any more dizziness with ambulation She will be discharged home this afternoon #HTN urgency Likely 2/2 missed AM meds Will give dose of losartan now, monitor BP #HFpEF with chronic BLE edema #Mildly enlarged proximal ascending thoracic aorta Appears dry on exam as per above TTE, 01/2023: EF 55-59%, mildly increased LV wall thickness, moderately enlarged LA, mildly enlarged RA, diastolic dysfx, mild MR/TR, mildly enlarged proximal ascending thoracic aorta Hold Lasix, Aldactone for now Gentle 500cc IVF for now Reassess volume status in AM Will give more IV fluid to maintain the blood pressure #Persistent afib anticoagulated on Eliquis Missed AM meds which likely c/t tachycardia Will give dose of Toprol-XL now, monitor HR Continue Eliquis #HLD #Peripheral venous insufficiency Continue statin, ASA #Hypothyroidism TSH WNL Continue levothyroxine #CKD stage IIIa Cr appears stable compared to prior Cr was 1.4 as of 01/2025 Continue to monitor and avoid nephrotoxic agents as able #Vit D deficiency Continue vit D supplementation DVT Prophylaxis: Eliquis Code Status: FULL CODE PCP: Awais Pandya MD Disposition: Admit to med/telemetry Admission and Anticipated Discharge Date Admission Date: February 10, 2025 Subjective 02/11/2025 The patient was seen and examined in the medical telemetry unit in presence of granddaughter She has been feeling much better and the dizziness is improved and denies any symptoms of dysuria and/or frequency Later on she was noted to be dizzy with ambulation and the blood pressure was noted to be low as well at systolic 70s 02/12/2025 The patient was examined in medical telemetry She has been feeling a lot better today Denies any dizziness with ambulation Denies any problem with urination or bowel habit Review of Systems Review of Systems: All systems reviewed and are unremarkable except as noted below Physical Exam Physical Exam: Sitting at the edge of the bed without any acute distress Constitutional: well developed, well nourished and + obese; not ill appearing Eyes: PERRL, conjunctivae normal, anicteric sclerae ENMT: external ear and nose normal, oropharynx normal Neck: trachea midline, no thyromegaly Respiratory: no respiratory distress Auscultation: lungs clear to auscultation bilaterally Cardiovascular: Rate/Rhythm: regular rate and regular rhythm; not tachycardic Heart Sounds: normal S1 and normal S2; no murmur Extremities: no edema Gastrointestinal (Abdomen): Inspection/Auscultation: normal bowel sounds; abdomen not distended Percussion/Palpation: abdomen soft; abdomen nontender Neurologic: normal touch/pain/proprioception and moves all extremities; no focal motor deficits Psychiatric: A+Ox3, euthymic affect Lymphatic: no cervical or axillary lymphadenopathy Results & Data Results & Data Vital Signs (Past 12 Hours) Vital Signs Temp Pulse Pulse Resp BP Pulse Ox O2 Del Method 02/12/25 07:24 36.3 C L 107 H 18 144/99 H 96 Room Air 02/12/25 07:19 83 02/12/25 03:40 14 02/12/25 02:59 97 H 18 141/90 H 97 Room Air, CPAP FiO2 02/12/25 07:24 02/12/25 07:19 02/12/25 03:40 21 02/12/25 02:59 Laboratory Results Short CBC 02/12/25 Range/Units 06:04 WBC 7.99 (4.8-10.8) K/ul Hgb 14.6 (12.0-16.0) g/dL Hct 43.5 (37.0-47.0) % Plt Count 205 (130-400) K/uL BMP 02/12/25 06:04 Sodium 139 Potassium 4.4 Chloride 106 Carbon Dioxide 23 BUN 41 H Creatinine 1.19 Glucose 86 Calcium 9.0 Medications Administered Current Inpatient Medications Acetaminophen (Acetaminophen 325 Mg Tab) 650 mg PO Q4H PRN PRN Reason: Pain or Fever Stop: 03/12/25 20:11 Apixaban (Apixaban 5 Mg Tablet) 5 mg PO BID [facility] Stop: 03/12/25 20:59 Last Admin: 02/12/25 08:04 Dose: 5 mg Aspirin (Aspirin 81 Mg Ectab) 81 mg PO HS [facility] Stop: 03/12/25 20:59 Last Admin: 02/11/25 20:04 Dose: 81 mg Atorvastatin Calcium (Atorvastatin 40 Mg Tab) 40 mg PO DAILY [facility] Stop: 03/13/25 08:59 Last Admin: 02/12/25 08:04 Dose: 40 mg Ceftriaxone Sodium (Rocephin) 2,000 mg in 50 mls @ 100 mls/hr IV Q24H [facility] Stop: 02/15/25 15:59 Last Infusion: 02/11/25 16:46 Dose: Infused Levothyroxine Sodium (Levothyroxine Sodium 75 Mcg Tablet) 75 mcg PO DAILYBB [facility] Stop: 03/13/25 06:29 Last Admin: 02/12/25 05:13 Dose: 75 mcg Losartan Potassium (Losartan Potassium 50 Mg Tab) 50 mg PO BID [facility] Stop: 03/12/25 20:59 Last Admin: 02/12/25 08:04 Dose: 50 mg Magnesium Hydroxide (Magnesium Hydroxide Susp 30 Ml Udc) 30 ml PO Q12H PRN PRN Reason: Constipation Stop: 03/12/25 20:11 Metoprolol Succinate (Metoprolol Succ 50mg Ext Rel Tab) 100 mg PO BID [facility] Stop: 03/12/25 20:59 Last Admin: 02/12/25 08:04 Dose: 100 mg Ondansetron HCl (Ondansetron Inj 2 Mg/Ml 2 Ml Vial) 4 mg IV Q6H PRN PRN Reason: Nausea Stop: 03/12/25 20:11 Polyethylene Glycol (Polyethylene (Miralax) 17 Gm Pack) 17 gm PO DAILY PRN PRN Reason: Constipation Stop: 03/12/25 20:11 Tramadol HCl (Tramadol Hcl 50 Mg Tablet) 25 mg PO Q6H PRN PRN Reason: Severe Pain (Scale 7, 8, 9,10) Stop: 03/14/25 04:31 Last Admin: 02/12/25 05:14 Dose: 25 mg Vitamin D (Cholecalciferol 25 Mcg (1000 Units) Tab) 50 mcg PO DAILY [facility] Stop: 03/13/25 08:59 Last Admin: 02/12/25 08:04 Dose: 50 mcg
[2025-02-12 11:27] VITALS: PULSE 60; TEMP 97.5; O2SAT 95
[2025-02-12 14:18] VITALS: BP 121/83
--- NOTE | 2025-02-12 16:30 | Discharge Summary ---
Date of Service February 12, 2025 Admission HPI Per Admitting Provider Patient is an 84y/o F with PMHx significant for persistent afib anticoagulated on Eliquis, history of CVA, HFpEF with chronic BLE edema, HTN, non-healing L foot ulcer, HLD, CKD stage IIIa, mildly enlarged ascending aorta, MICKY on CPAP, peripheral venous insufficiency, vitamin D deficiency, age-related osteoporosis, history of AK and hammertoe of L foot who presented to the ED with her family due to c/o AMS, generalized weakness and lightheadedness. History obtained from the patient, family members at bedside and discussion with ED provider. Reportedly with progressive generalized weakness and lightheadedness over the past week. Notes she has some difficulty with ambulation given her lightheadedness. No reported falls or trauma. Moving bowels okay. No urinary complaints. Has not been eating well. Denies any N/V or abdominal pain. Lives with her , ambulates with a cane. Has a grandson who lives nearby and checks up on her. Grandson noticed yesterday that the patient was attempting to use her CPAP machine to take her BP. She was also experiencing visual hallucinations. No reported fevers however there was question of some chills and sweats over the past couple of nights. Did not take any of her medications this morning. She has been sleeping more than usual as well, acting more lethargic. No reported chest pain or SOB. Admission Exam Per Admitting Provider Physical Exam: General: Elderly F, NAD, sitting up in bed, A&Ox3 with transient periods of forgetfulness, family at bedside HEENT: Normocephalic, atraumatic, dry mucous membranes Respiratory: Normal respiratory effort, CTAB, on RA Cardiovascular: Tachycardic, irregularly irregular rhythm, trace LLE edema, no RLE edema Abdomen/GI: Normal bowel sounds, soft, nontender to palpation in all quadrants Extremities/Musculoskeletal: No cyanosis or clubbing, extremities motor strength intact, moves all extremities Neurologic: No overt focal deficits, CN's II-XI not formally tested but appear grossly intact bilaterally Principal Diagnosis UTI, change in mental status resolved Discharge Exam Sitting at the edge of the bed without any acute distress Constitutional well developed, well nourished and + obese; not ill appearing Eyes PERRL, conjunctivae normal, anicteric sclerae ENMT external ear and nose normal, oropharynx normal Neck trachea midline, no thyromegaly Respiratory no respiratory distress Auscultation: lungs clear to auscultation bilaterally Cardiovascular Rate/Rhythm: regular rate and regular rhythm; not tachycardic Heart Sounds: normal S1 and normal S2; no murmur Extremities: no edema Gastrointestinal (Abdomen) Inspection/Auscultation: normal bowel sounds; abdomen not distended Percussion/Palpation: abdomen soft; abdomen nontender Neurologic normal touch/pain/proprioception and moves all extremities; no focal motor deficits Psychiatric A+Ox3, euthymic affect Lymphatic no cervical or axillary lymphadenopathy Discharge Data Allergies Allergy/AdvReac Type Severity Reaction Status Date / Time amlodipine Allergy Unknown SWELLING Verified 02/10/25 17:31 OF FEET Consultations 02/10/25 16:33 ED Decision to Admit Stat Ordered Studies 02/10/25 14:34 CT head/brain wo con Stat 02/10/25 14:43 CT angio head w con Stat CT angio neck with con Stat Hospital Course (1) AMS (altered mental status): (2) Abnormal urinalysis: Plan Patient is an 84y/o F with PMHx significant for persistent afib anticoagulated on Eliquis, history of CVA, HFpEF with chronic BLE edema, HTN, non-healing L foot ulcer, HLD, CKD stage IIIa, mildly enlarged ascending aorta, MICKY on CPAP, peripheral venous insufficiency, vitamin D deficiency, age-related osteoporosis, history of AK and hammertoe of L foot who presented to the ED with her family due to c/o AMS, generalized weakness and lightheadedness. 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 days [employer] -Ex: tried to take BP with CPAP machine, seeing people who aren't there Pt A&Ox3 during convo in ED, transient periods of forgetfulness but otherwise conversing well >> back to baseline per family Head CT with no acute intracranial abnormalities; moderate cerebral atrophy, chronic small vessel ischemic dz Head CTA with no aneurysm or stenosis of the major intracranial arteries Neck CTA demonstrates no large vessel occlusion; patent distal internal carotid arteries -Atherosclerosis of the carotid bulbs and proximal ICA resulting in short segment focal stenoses (30% L, 40% R) Labs reviewed and w/o evidence of leukocytosis Tachycardia, HTN likely 2/2 missed med doses as per below CXR negative Doubt sepsis however pt hypothermic in ED >> check blood cx UA with 4+ bacteria, >50 WBC, 2+ LE c/f infection No specific urinary complaints however UTI could possibly explain her hallucinations, confusion, weakness/lethargy S/p dose of IV Rocephin in ED, will continue this for now pending urine cx results Urine culture is growing Klebsiella very cola and sensitivities pending She has been feeling better since admission until this morning when she felt dizzy and noted to be orthostatically positive She was given cautious amount of intravenous fluid and will be observed She has been stable and ambulating in the room without any difficulties Has had physical therapy and recommended home Urine culture came back positive for Klebsiella very cola which is pansensitive except nitrofurantoin #Lightheadedness Could be 2/2 dehydration given recent poor po intake, pt appears dry on exam Elevated BUN, hypermagnesemia Check orthostatics Gentle IVF as per below Update TTE (prior TTE as per below) Denies any cardiac symptoms, no palpitations, chest pain or shortness of breath Received intravenous fluid and also has been drinking enough fluid and denies any more dizziness with ambulation She will be discharged home this afternoon #HTN urgency Likely 2/2 missed AM meds Will give dose of losartan now, monitor BP #HFpEF with chronic BLE edema #Mildly enlarged proximal ascending thoracic aorta Appears dry on exam as per above TTE, 01/2023: EF 55-59%, mildly increased LV wall thickness, moderately enlarged LA, mildly enlarged RA, diastolic dysfx, mild MR/TR, mildly enlarged proximal ascending thoracic aorta Hold Lasix, Aldactone for now Gentle 500cc IVF for now Reassess volume status in AM Will give more IV fluid to maintain the blood pressure #Persistent afib anticoagulated on Eliquis Missed AM meds which likely c/t tachycardia Will give dose of Toprol-XL now, monitor HR Continue Eliquis #HLD #Peripheral venous insufficiency Continue statin, ASA #Hypothyroidism TSH WNL Continue levothyroxine #CKD stage IIIa Cr appears stable compared to prior Cr was 1.4 as of 01/2025 Continue to monitor and avoid nephrotoxic agents as able #Vit D deficiency Continue vit D supplementation DVT Prophylaxis: Eliquis Code Status: FULL CODE PCP: Awais Pandya MD Disposition: Admit to med/telemetry Total Time Total Time Spent Total Time Spent (In Minutes): 35 Minutes Discharge Plan Discharge Items Patient Disposition: Home - Self-Care Reason For Visit: AMS, POSSIBLE UTI Discharge Diagnosis: UTI, change in mental status resolved Condition on Discharge: Good Activity: Resume your previous activity Non-emergency contact: Primary Care Provider Call non-emergency contact if: you have any medication questions and your symptoms worsen Follow-up/Referrals: Awais Pandya MD [Primary Care Provider] - (Date & Time 02/18/2025 2:30 PM Provider: Awais Pandya MD [facility] ) Tracie Giordano PA-C [Physician Dye Mixer] - 03/12/25 11:00 am Diet: Heart Healthy Addtl Attending Provider Instructions: Please take precaution to avoid falls Finish the course of antibiotic You can try some probiotics [id number] while you are on antibiotic Try to drink more fluid to avoid dehydration Please give appointment with a healthcare provider Pending Studies at Discharge: No Stand-Alone Forms: My [facility] [employer], Smoking Cessation Medications and DC Order Prescriptions: New cephalexin 500 mg capsule 500 mg PO Q8H 7 Days Qty: 21 0RF Continued atorvastatin 40 mg tablet 40 mg PO DAILY losartan [Cozaar] 50 mg tablet 50 mg PO BID polyethylene glycol 3350 [Miralax] 17 gram Powder In Packet 17 g PO DAILY PRN (Reason: constipation) Qty: 30 0RF furosemide 40 mg tablet 40 mg PO QAM alendronate 70 mg tablet 70 mg PO WK Rx Instructions: SATURDAYS metoprolol succinate 100 mg tablet extended release 24 hr 100 mg PO BID aspirin 81 mg Tablet,Delayed Release (Dr/Ec) 81 mg PO HS tramadol 50 mg Tablet 50 mg PO Q12H PRN (Reason: Pain) spironolactone 25 mg tablet 25 mg PO QAM levothyroxine 75 mcg tablet 75 mcg PO DAILYBB baclofen 10 mg Tablet 10 mg PO TID PRN (Reason: MUSCLE SPASMS) diclofenac sodium 1 % Gel 4 g TOPICAL QID PRN (Reason: Pain) Rx Instructions: APPLY TO RIGHT HIP NEEDED cholecalciferol (vitamin D3) [Vitamin D3] 50 mcg (2,000 unit) Capsule 50 mcg PO DAILY Eliquis 5 mg tablet 5 mg PO BID rultikrc-mjzzun-casmyqyl acid 500 mg-800 mcg- 50 mg Capsule 1 cap PO DAILY Discharge Orders: Discharge Order (Routine); Ordered 02/12/25 Ordered By: Pina Betancourt Admission Data Admit Date/Time: 02/10/25 17:21 Attending Provider: Pina Betancourt Admit Provider: Geovanna Cox Primary Care Provider: Awais Pandya Other Providers: Geovanna Cox Other Interventions: Discharge Summary Assessment (RN) Last Done: 02/12/25 14:17
--- NOTE | 2025-02-14 10:22 | Electrocardiogram Report ---
Test Reason : Blood Pressure : */* mmHG Vent. Rate : 83 BPM Atrial Rate : * BPM P-R Int : * ms QRS Dur : 130 ms QT Int : 404 ms P-R-T Axes : * 20 -31 degrees QTcB Int : 474 ms Atrial fibrillation Right bundle branch block T wave abnormality, consider inferior ischemia Abnormal ECG When compared with ECG of 10-Feb-2025 13:44, (unconfirmed) No significant change was found Confirmed by Vamshi Cornejo ([id number]) on 02/14/2025 10:22:06 AM Referred By: REFERRED SELF Confirmed By: Vamshi Cornejo
== END 2025-02-12 15:42 | disposition home or self-care (01) | DRG 690 ==
LOC: ED 13:28 → 2N 17:21 → SUATTDRO 17:21 → 2N 19:45